=== PATIENT | female | born 1965 | race Caucasian/White ===

== ENCOUNTER → 2017-08-05 08:48 | Outpatient (POV) | payer BC, SELFPAY ==
--- NOTE | 2017-08-05 09:38 | XR_ITS ---
XR chest 2V HISTORY: Shortness of air, previous smoker ITS.REASON: SHORTNESS OF BREATH ORDERING PHYSICIAN: Daniel Kent MD PATIENT AGE: 51 years COMPARISON: 12/04/2015 FINDINGS: The cardiomediastinal silhouette and pulmonary vascularity are within normal limits. The lungs are clear without infiltrates, suspicious nodules, or pleural effusions. Calcified granuloma is present in the right midlung No acute bony abnormalities. IMPRESSION: No change with no acute finding.
== END ==
PROVIDERS: PCP Internal Medicine Adolescent Medicine; Visit Provider Internal Medicine
DX: R06.02 Shortness of breath (principal)
CPT/HCPCS: 71046

== ENCOUNTER → 2017-12-10 09:28 | Outpatient (CLI) | payer BC, SELFPAY ==
[2017-12-10 10:04] LABS: Basophils # 0.1 K/mm3 (0-0.2); Basophils % 0.8 % (0.1-2.0); Eosinophils # 0.2 K/mm3 (0.0-0.4); Eosinophils % 2.3 % (0.1-12.0); Hematocrit 42.5 % (37.0-47.0); Hemoglobin 14.1 g/dL (12.2-16.2); Lymphocytes # 1.9 K/mm3 (0.7-4.5); Lymphocytes % 23.7 K/mm3 (10-50); Mean Corpuscular HGB Conc 33.2 g/dL (31.8-35.4); Mean Corpuscular Hemoglobin 31.5 pg (27.0-31.2); Mean Corpuscular Volume 94.8 fl (81-99); Mean Platelet Volume 8.3 fl (7.4-10.4); Monocytes # 0.4 K/mm3 (0.1-1.0); Monocytes % 5.2 % (1.7-9.3); Neutrophils # 5.3 K/mm3 (1.8-7.8); Platelet Count 280 K/mm3 (142-424); Red Blood Count 4.48 M/mm3 (4.20-5.40); White Blood Count 7.9 K/mm3 (4.8-10.8)
[2017-12-10 13:31] LABS: Alanine Aminotransferase 15 U/L (12-78); Albumin Level 3.7 gm/dL (3.4-5.0); Albumin/Globulin Ratio 1.2 (1.1-1.8); Alkaline Phosphatase 59 U/L (46-116); Anion Gap 11.6 mEq/L (5-15); Aspartate Amino Transferase 15 U/L (15-37); Bilirubin,Total 0.5 mg/dL (0.2-1.0); Blood Urea Nitrogen 15 mg/dL (7-18); Calcium 8.7 mg/dL (8.5-10.1); Carbon Dioxide 26 mmol/L (21.0-32.0); Chloride 107 mmol/L (98-107); Chol/HDL Ratio 3.1 (1-3.5); Cholesterol 216 mg/dL (140-200); Estimated Glomerular Filt Rate 88 ml/min (>60); GFR (African American) 106 ML/MIN (>60); Glucose 84 mg/dL (74-106); HDL Cholesterol 69 mg/dL (29-89); LDL Cholesterol 128 mg/dL (0-130); Potassium 4.6 mmoL/L (3.5-5.1); Sodium 140 mmol/L (136-145); Total Protein,Serum 6.7 gm/dL (6.4-8.2); Triglycerides 97 mg/dL (30-200); VLDL Cholesterol 19 mg/dL (0-40)
[2017-12-11 15:21] LABS: Vitamin B12 151 pg/mL (232-1245)
== END ==
PROVIDERS: Visit Provider Nurse Practitioner Family
DX: Z00.00 Encounter for general adult medical examination without abnormal findings (principal); E53.8 Deficiency of other specified B group vitamins
CPT/HCPCS: 36415; 80053; 80061; 82607; 85025

== ENCOUNTER → 2018-01-20 08:56 | Outpatient (POV) | payer BC, SELFPAY | PROVIDERS: Visit Provider Internal Medicine | DX: Z00.00 Encounter for general adult medical examination without abnormal findings (principal) ==

== ENCOUNTER → 2018-03-13 15:14 | Outpatient (CLI) | payer BC, SELFPAY ==
[2018-03-13 16:54] LABS: Alanine Aminotransferase 20 U/L (12-78); Albumin Level 3.6 gm/dL (3.4-5.0); Albumin/Globulin Ratio 1.2 (1.1-1.8); Alkaline Phosphatase 73 U/L (46-116); Anion Gap 14.4 mEq/L (5-15); Aspartate Amino Transferase 17 U/L (15-37); Bilirubin,Total 0.2 mg/dL (0.2-1.0); Blood Urea Nitrogen 20 mg/dL (7-18); Calcium 8.8 mg/dL (8.5-10.1); Carbon Dioxide 25 mmol/L (21.0-32.0); Chloride 106 mmol/L (98-107); Chol/HDL Ratio 4.6 (1-3.5); Cholesterol 255 mg/dL (140-200); Creatinine,Serum 0.73 mg/dL (0.55-1.02); Estimated Glomerular Filt Rate 83 ml/min (>60); GFR (African American) 101 ML/MIN (>60); Globulin 3.1 gm/dl (1.3-3.2); Glucose 96 mg/dL (74-106); HDL Cholesterol 56 mg/dL (29-89); LDL Cholesterol 168 mg/dL (0-130); Potassium 4.4 mmoL/L (3.5-5.1); Sodium 141 mmol/L (136-145); Total Protein,Serum 6.7 gm/dL (6.4-8.2); Triglycerides 155 mg/dL (30-200); VLDL Cholesterol 31 mg/dL (0-40)
[2018-03-15 17:21] LABS: Vitamin B12 477 pg/mL (232-1245)
== END ==
PROVIDERS: Visit Provider Internal Medicine Adolescent Medicine
DX: Z00.00 Encounter for general adult medical examination without abnormal findings (principal); E53.8 Deficiency of other specified B group vitamins
CPT/HCPCS: 36415; 80053; 80061; 82607

== ENCOUNTER → 2018-09-24 08:59 | Outpatient (CLI) | payer BC, SELFPAY ==
[2018-09-24 09:39] LABS: Basophils # 0.1 K/mm3 (0-0.2); Basophils % 0.8 % (0.1-2.0); Eosinophils # 0.1 K/mm3 (0.0-0.4); Eosinophils % 0.7 % (0.1-12.0); Hematocrit 41.4 % (37.0-47.0); Hemoglobin 13.4 g/dL (12.2-16.2); Lymphocytes # 1.8 K/mm3 (0.7-4.5); Lymphocytes % 22.6 % (10-50); Mean Corpuscular HGB Conc 32.5 g/dL (31.8-35.4); Mean Corpuscular Volume 95.6 fl (81-99); Monocytes # 0.4 K/mm3 (0.1-1.0); Monocytes % 4.8 % (1.7-9.3); Neutrophils # 5.8 K/mm3 (1.8-7.8); Neutrophils % 71.1 % (37.0-80.0); Platelet Count 249 K/mm3 (142-424); Red Blood Count 4.33 M/mm3 (4.20-5.40); Red Cell Distribution Width 13.1 % (11.5-17.5); White Blood Count 8.1 K/mm3 (4.8-10.8)
[2018-09-24 11:04] LABS: Alanine Aminotransferase 14 U/L (12-78); Albumin Level 3.6 gm/dL (3.4-5.0); Albumin/Globulin Ratio 1.2 (1.1-1.8); Alkaline Phosphatase 55 U/L (46-116); Anion Gap 16.1 mEq/L (5-15); Aspartate Amino Transferase 12 U/L (15-37); Bilirubin,Total 0.4 mg/dL (0.2-1.0); Blood Urea Nitrogen 12 mg/dL (7-18); Calcium 8.6 mg/dL (8.5-10.1); Carbon Dioxide 23 mmol/L (21.0-32.0); Chloride 105 mmol/L (98-107); Chol/HDL Ratio 2.6 (1-3.5); Cholesterol 159 mg/dL (140-200); Creatinine,Serum 0.74 mg/dL (0.55-1.02); Estimated Glomerular Filt Rate 82 ml/min (>60); GFR (African American) 99 ML/MIN (>60); Glucose 81 mg/dL (74-106); HDL Cholesterol 61 mg/dL (29-89); LDL Cholesterol 80 mg/dL (0-130); Potassium 4.1 mmoL/L (3.5-5.1); Sodium 140 mmol/L (136-145); Thyroid Stimulating Hormone 1.05 uIU/ml (0.358-3.740); Total Protein,Serum 6.6 gm/dL (6.4-8.2); Triglycerides 90 mg/dL (30-200); VLDL Cholesterol 18 mg/dL (0-40)
[2018-09-25 18:05] LABS: Vitamin B12 279 pg/mL (232-1245)
== END ==
PROVIDERS: Visit Provider Nurse Practitioner Family
DX: E78.00 Pure hypercholesterolemia, unspecified (principal); I10 Essential (primary) hypertension; R53.81 Other malaise; E53.8 Deficiency of other specified B group vitamins
CPT/HCPCS: 36415; 80053; 80061; 82607; 84443; 85025

== ENCOUNTER → 2018-11-03 09:14 | Outpatient (POV) | payer BC, SELFPAY ==
--- NOTE | 2018-11-03 10:19 | XR_ITS ---
PROCEDURE: XR CHEST 2V CLINICAL HISTORY: SOB Shortness of breath, former smoker, COPD COMPARISON: CXR2V XR chest 2V from 08/05/2017 FINDINGS: The cardiomediastinal silhouette and pulmonary vascularity are within normal limits. Calcified granuloma is present in the right upper lobe. There is a mild pectus deformity with some silhouetting out of the right heart border. No lobar consolidation or collapse. No acute bony abnormalities. IMPRESSION: No change with no acute finding Dictated by: Elfego Ansari MD 11/03/2018 11:23 Electronically signed by Elfego Ansari MD in [place] 11/03/2018 11:23
== END ==
PROVIDERS: PCP Nurse Practitioner Family; Visit Provider Internal Medicine
DX: R06.02 Shortness of breath (principal)
CPT/HCPCS: 71046

== ENCOUNTER → 2019-03-10 13:14 | Outpatient (CLI) | payer BC, SELFPAY ==
--- NOTE | 2019-03-10 13:21 | US_ITS ---
PROCEDURE: US THYROID CLINICAL INDICATION: THYROGEGALY,THYROID NODULE Follow-up thyroid nodules COMPARISON: THY US THYROID from 09/12/2014 FINDINGS: The right lobe is 4.4 x 1.3 x 2.3 cm. There is a 5 mm hypoechoic nodule in the mid aspect. A subtle hypoechoic nodules present in the mid aspect at 3 mm. A 5 mm cyst is present in the lower pole. The left lobe is 4.6 x 1.2 x 1.6 cm. A 5 mm hypoechoic nodules present in the upper pole and a 7 mm by 8 mm hypoechoic nodule in the lower pole. These are unchanged. No new nodules are evident. IMPRESSION: Thyromegaly with bilateral thyroid nodules which are stable Dictated by: Elfego Ansari MD 03/10/2019 16:42 Electronically signed by Elfego Ansari MD in [place] 03/10/2019 16:42
== END ==
PROVIDERS: PCP Nurse Practitioner Family; Visit Provider Nurse Practitioner Family
DX: E01.0 Iodine-deficiency related diffuse (endemic) goiter (principal); E04.1 Nontoxic single thyroid nodule
CPT/HCPCS: 76536

== ENCOUNTER → 2019-07-01 16:42 | Outpatient (CLI) | payer BC, SELFPAY ==
--- NOTE | 2019-07-01 16:46 | XR_ITS ---
PROCEDURE: XR SACROILIAC JOINT BI MIN 3V CLINICAL INDICATION: INFLAMMATION OF RIGHT SI JOINT Pain in the right SI joint COMPARISON: No exams were available for comparison FINDINGS: No fracture or dislocation. There is mild sclerosis of the SI joints on both sides slightly greater on the right. No fusion or lytic or blastic change evident. IMPRESSION: Mild degenerative changes of the SI joints otherwise negative Dictated by: Elfego Ansari MD 07/01/2019 18:11 Electronically signed by Elfego Ansari MD in [place] 07/01/2019 18:11
== END ==
PROVIDERS: PCP Internal Medicine Adolescent Medicine; Visit Provider Nurse Practitioner Family
DX: M46.1 Sacroiliitis, not elsewhere classified (principal)
CPT/HCPCS: 72202

== ENCOUNTER 2020-01-20 10:16 | Emergency (ER) | payer BC, SELFPAY ==
--- NOTE | 2020-01-20 11:07 | HMH.EDUTC ---
[facility] [place] Clinical Impression: Exposure to COVID-19 virus Right knee pain Qualifiers: Chronicity: unspecified Qualified Code(s): M25.561 - Pain in right knee Disposition: Home, Self-Care Condition on Discharge: Good Instructions: DI for Knee Pain, Preventing the Spread of Coronavirus Discharge Instructions Additional Instructions: Drink plenty of fluids. Take tylenol or ibuprofen for pain or fever. Take the medications as directed. Follow up with your regular doctor. GO TO THE ER FOR ANY WORSENING SYMPTOMS Rest the extremity, Wear the latia wrap for compression, Elevate the extremity as tolerated while you are resting. Take ibuprofen for pain. I sent in a prescription to your pharmacy. Follow up with Dr. Contreras (orthopedics). I put in a referral but you need to call her office and schedule an appointment. Follow up with your regular doctor. GO TO THE ER FOR ANY WORSENING SYMPTOMS Prescriptions: Ibuprofen [Ibuprofen 600mg Tablet] 600 mg PO Q6HP PRN #30 tab PRN Reason: Mild Pain Transmission Status: Received by [facility] Referrals: Netta Trent APRN [Primary Care Provider] - Lisa Contreras MD [Physician] - Forms: Work/School Release Time of Disposition: 11:22 Medical Decision Making - Medical Records Medical records reviewed: No: I reviewed the patient's medical records. - Allan Inquiry Pt receiving controlled substance: No Vital Signs: 01/20/20 11:14 01/20/20 11:24 Temperature 97.7 F 97.7 F Temperature Source Oral Pulse Rate 78 Pulse Rate [Right Brachial] 78 Respiratory Rate 16 16 Blood Pressure 111/76 Blood Pressure [Right Arm] 111/76 Blood Pressure Mean [Right Arm] 87 Blood Pressure Source [Right Arm] Automatic Cuff Blood Pressure Position [Right Arm] Sitting 02 Sat by Pulse Oximetry 99 Oxygen Delivery Method Room Air [facility] [place] HPI - General Stated complaint: rt knee pain no AO, covid exposure Time Seen by Provider: 01/20/20 11:07 - History of Present Illness Provider Complaint: She c/o right knee pain for the past 3 days. She denies any known injury. She states that she thinks that she has arthritis. She would also like to be tested for covid-19. She denies any known exposure or symptoms. - Related Data Home Medications Medication Instructions Recorded Confirmed Aspirin [Aspirin 81mg EC Tab] 81 mg PO DAILY 01/20/20 01/20/20 Previous Rx's Medication Instructions Recorded Ibuprofen [Ibuprofen 600mg 600 mg PO Q6HP PRN #30 tab 01/20/20 Tablet] Allergies Allergy/AdvReac Type Severity Reaction Status Date / Time Penicillins Allergy Intermediate I-RASH Verified 01/20/20 11:18 Sulfa (Sulfonamide Allergy Verified 01/20/20 11:18 Antibiotics) [facility] History - Hepatitis A Screen Attestation statement:: This patient has been screened for Hepatitis A risk factors. I have reviewed the patient's past medical history: Yes ROS Obtained: Yes All systems reviewed & no additional complaints - Constitutional Constitutional: Denies chills, Denies fever(s), Reports poor appetite, Reports malaise - Eyes Eyes: Denies eye discharge - ENT Ears, Nose, Mouth, and Throat: Reports system reviewed and no additional complaints, except as docu - Cardiovascular Cardiovascular: Reports system reviewed and no additional complaints, except as docu - Respiratory Respiratory: Yes system reviewed and no additional complaints, except as docu - Gastrointestinal Gastrointestingal: Reports: system reviewed and no additional complaints, except as docu - Musculoskeletal Musculoskeletal: Reports as per HPI - Integumentary/Breasts Skin/Breast: Denies redness, Denies rash, Denies wounds Physical Exam - General General appearance: alert, in no apparent distress - Head Head exam: atraumatic, normocephalic, normal inspection - Eye Eye exam: Present: normal appearance, PERRL, EOMI - ENT ENT e
[2020-01-20 11:14] VITALS: BP 111/76; PULSE 78; RESP 16; TEMP 36.5; O2SAT 99; BMI 24.3
[2020-01-20 11:24] VITALS: BP 111/76; PULSE 78; RESP 16; TEMP 36.5; O2SAT 99
--- NOTE | 2020-01-22 15:45 | PC.NURSE ---
pt called for covid test results. when looking up results no orders were put in. lab was called and they stated they did not receive an order or swab. new order put in and pt is going to come back in to get re swabbed.
[2020-01-24 09:48] LABS: Covid-19 Nasal PCR Sendout UK Not Detected
== END 2020-01-20 11:30 | disposition home or self-care (01) ==
PROVIDERS: Emergency Provider Nurse Practitioner Family; PCP Nurse Practitioner Family
DX: Z20.828 Contact with and (suspected) exposure to other viral communicable diseases (principal); M25.561 Pain in right knee; Z88.0 Allergy status to penicillin; Z88.2 Allergy status to sulfonamides
CPT/HCPCS: 99201; U0003

== ENCOUNTER → 2020-01-27 12:26 | Outpatient (CLI) | payer BC, SELFPAY ==
--- NOTE | 2020-01-27 12:49 | XR_ITS ---
PROCEDURE: XR KNEE RT 3V CLINICAL INDICATION: RT KNEE PAIN Medial right knee pain COMPARISON: No exams were available for comparison FINDINGS: No fracture or dislocation. No lytic or blastic change. There is normal mineralization. Minimal osteoarthritic change patellofemoral joint. Other findings:None. IMPRESSION: No acute findings. Dictated by: Elfego Ansari MD 01/27/2020 13:20 Elfego Ansari MD in [place] 01/27/2020 13:20
[2020-01-27 12:57] LABS: Basophils # 0.1 K/mm3 (0-0.2); Basophils % 1.1 % (0.1-2.0); Eosinophils # 0.1 K/mm3 (0.0-0.4); Eosinophils % 1.3 % (0.1-12.0); Hematocrit 48.3 % (37.0-47.0); Hemoglobin 16.2 g/dL (12.2-16.2); Lymphocytes # 2.2 K/mm3 (0.7-4.5); Lymphocytes % 32.8 % (10-50); Mean Corpuscular HGB Conc 33.5 g/dL (31.8-35.4); Mean Corpuscular Hemoglobin 32.2 pg (27.0-31.2); Mean Platelet Volume 8.3 fl (7.4-10.4); Monocytes # 0.3 K/mm3 (0.1-1.0); Monocytes % 4.7 % (1.7-9.3); Neutrophils # 4.1 K/mm3 (1.8-7.8); Neutrophils % 60.1 % (37.0-80.0); Platelet Count 273 K/mm3 (142-424); Red Blood Count 5.03 M/mm3 (4.20-5.40); Red Cell Distribution Width 13.8 % (11.5-17.5); White Blood Count 6.8 K/mm3 (4.8-10.8)
[2020-01-27 13:33] LABS: Alanine Aminotransferase 13 U/L (12-78); Albumin Level 4.7 g/dl (3.5-5.0); Albumin/Globulin Ratio 1.6 (1.1-1.8); Alkaline Phosphatase 89 U/L (38-126); Anion Gap 11.6 mEq/L (5-15); Aspartate Amino Transferase 26 U/L (14-36); Bilirubin,Total 0.6 mg/dl (0.2-1.3); Blood Urea Nitrogen 12 mg/dl (7-17); Calcium 9.9 mg/dl (8.4-10.2); Carbon Dioxide 26 mmol/L (22.0-30.0); Chloride 106 mmol/L (98-107); Chol/HDL Ratio 2.9 (1-3.5); Cholesterol 249 mg/dl (140-200); Estimated Glomerular Filt Rate 87 ml/min (>60); GFR (African American) 105 ML/MIN (>60); Globulin 2.9 g/dL (1.3-3.2); Glucose 94 mg/dl (74-100); HDL Cholesterol 86 mg/dl (40-60); Potassium 4.6 mmoL/L (3.5-5.1); Sodium 139 mmol/L (136-145); Total Protein,Serum 7.6 g/dl (6.3-8.2); Triglycerides 72 mg/dl (30-150); VLDL Cholesterol 14 mg/dL (0-40)
[2020-01-27 13:51] LABS: 25-OH Vitamin D, Total 18.5 ng/mL (30-100)
[2020-01-27 14:04] LABS: Thyroid Stimulating Hormone 1.13 uIU/mL (0.465-4.68)
[2020-01-27 14:22] LABS: Vitamin B12 261 pg/mL (239-931)
== END ==
PROVIDERS: PCP Nurse Practitioner Family; Visit Provider Nurse Practitioner Family
DX: M25.561 Pain in right knee (principal)
CPT/HCPCS: 36415; 73562; 80053; 80061; 82306; 82607; 84443; 85025

== ENCOUNTER → 2020-03-06 08:58 | Outpatient (CLI) | payer BC, SELFPAY ==
--- NOTE | 2020-03-06 09:08 | XR_ITS ---
PROCEDURE: XR KNEE RT 4V CLINICAL INDICATION: RT knee pain Pain and swelling COMPARISON: CR XR KNEE RT 3V from 01/27/2020 FINDINGS: There is minimal lateral subluxation of the patella. Suspect a small suprapatellar effusion. A well-circumscribed calcific density is present along the dorsal and superior aspect of the patella measuring 4 mm consistent with a small loose body. There are minimal osteoarthritic changes at patellofemoral joint. Other findings:None. IMPRESSION: Minimal osteoarthritic change at the patellofemoral joint with minimal lateral patellar subluxation and suspected small loose body along the superior aspect of the patella with small suprapatellar effusion Dictated by: Elfego Ansari MD 03/06/2020 18:16 Elfego Ansari MD in [place] 03/06/2020 18:16
== END ==
PROVIDERS: PCP Internal Medicine Adolescent Medicine; Visit Provider Orthopaedic Surgery
DX: M25.561 Pain in right knee (principal)
CPT/HCPCS: 73564

== ENCOUNTER → 2020-03-24 14:40 | Outpatient (CLI) | payer BC, SELFPAY | PROVIDERS: PCP Nurse Practitioner Family; Visit Provider Internal Medicine Adolescent Medicine | DX: Z20.822 Contact with and (suspected) exposure to COVID-19 (principal) | CPT/HCPCS: U0003 ==

== ENCOUNTER → 2020-04-08 10:43 | Outpatient (CLI) | payer BC, SELFPAY ==
--- NOTE | 2020-04-08 10:53 | XR_ITS ---
PROCEDURE: XR CHEST 2V CLINICAL HISTORY: COPD COMPARISON: CT [facility] CT CHEST W/O CONTRAST from 05/03/2015 CR CXR CHEST(2 VIEWS-NOT PORTABLE) from 12/04/2015 DX CXR2V XR chest 2V from 08/05/2017 DX XR CHEST 2V from 11/03/2018 FINDINGS: The cardiomediastinal silhouette and pulmonary vascularity are within normal limits. The lungs are clear without infiltrates, suspicious nodules, or pleural effusions. No acute bony abnormalities. IMPRESSION: No change with no acute finding Dictated by: Elfego Ansari MD 04/08/2020 13:49 Elfego Ansari MD in [place] 04/08/2020 13:49
[2020-04-08 11:43] LABS: Basophils # 0.1 K/mm3 (0-0.2); Basophils % 1.1 % (0.1-2.0); Eosinophils # 0.2 K/mm3 (0.0-0.4); Eosinophils % 3.7 % (0.1-12.0); Hematocrit 45.2 % (37.0-47.0); Hemoglobin 14.8 g/dL (12.2-16.2); Lymphocytes # 2.1 K/mm3 (0.7-4.5); Lymphocytes % 32.5 % (10-50); Mean Corpuscular HGB Conc 32.7 g/dL (31.8-35.4); Mean Corpuscular Hemoglobin 31.3 pg (27.0-31.2); Mean Corpuscular Volume 95.7 fl (81-99); Mean Platelet Volume 8.6 fl (7.4-10.4); Monocytes # 0.4 K/mm3 (0.1-1.0); Monocytes % 5.8 % (1.7-9.3); Neutrophils # 3.7 K/mm3 (1.8-7.8); Neutrophils % 56.9 % (37.0-80.0); Platelet Count 282 K/mm3 (142-424); Red Blood Count 4.72 M/mm3 (4.20-5.40); Red Cell Distribution Width 13.6 % (11.5-17.5); White Blood Count 6.5 K/mm3 (4.8-10.8)
[2020-04-08 12:27] LABS: 25-OH Vitamin D, Total 23.9 ng/mL (30-100)
[2020-04-08 13:03] LABS: Vitamin B12 601 pg/mL (239-931)
== END ==
PROVIDERS: Visit Provider Nurse Practitioner Family
DX: J44.9 Chronic obstructive pulmonary disease, unspecified (principal); E55.9 Vitamin D deficiency, unspecified; E53.8 Deficiency of other specified B group vitamins
CPT/HCPCS: 36415; 71046; 82306; 82607; 85025

== ENCOUNTER → 2020-05-19 10:46 | Outpatient (CLI) | payer BC, SELFPAY ==
--- NOTE | 2020-05-19 11:05 | US_ITS ---
PROCEDURE: US THYROID CLINICAL INDICATION: THYROID NODULE Sob Thyroid enlargement COMPARISON: US THY US THYROID from 09/12/2014 US US THYROID from 03/10/2019 FINDINGS: Right lobe: 1.6cm x 4.7cm x 2.3cm Left lobe: 1.2cm x 4.5cm x 1.7cm Small heterogeneous nodule mid polar region on the right at 3 mm unchanged. Hypoechoic 7 mm nodule in the mid polar region not significantly changed. Partially cystic nodule lower pole at 4 mm unchanged. 3 mm hypoechoic nodule mid polar region on the left unchanged. 6 mm solid-appearing hypoechoic nodule mid polar region on the left unchanged. Solid nodule in the lower pole with peripheral decreased echogenicity and central isoechoic unchanged. IMPRESSION: Mildly enlarged thyroid gland with multiple bilateral nodules which are overall not significantly changed. Annual follow-up suggested Dictated by: Elfego Ansari MD 05/20/2020 12:58 Elfego Ansari MD in [place] 05/20/2020 12:58
== END ==
PROVIDERS: PCP Nurse Practitioner Family; Visit Provider Nurse Practitioner Family
DX: E04.1 Nontoxic single thyroid nodule (principal)
CPT/HCPCS: 76536

== ENCOUNTER → 2020-10-07 08:56 | Outpatient (CLI) | payer BC, SELFPAY ==
[2020-10-07 11:14] LABS: Basophils # 0.1 K/mm3 (0-0.2); Basophils % 1.6 % (0.1-2.0); Eosinophils # 0.1 K/mm3 (0.0-0.4); Eosinophils % 2.4 % (0.1-12.0); Hematocrit 43.5 % (37.0-47.0); Hemoglobin 13.9 g/dL (12.2-16.2); Lymphocytes # 1.6 K/mm3 (0.7-4.5); Mean Corpuscular Hemoglobin 31.2 pg (27.0-31.2); Mean Corpuscular Volume 97.5 fl (81-99); Mean Platelet Volume 9.3 fl (7.4-10.4); Monocytes # 0.3 K/mm3 (0.1-1.0); Monocytes % 5.5 % (1.7-9.3); Neutrophils # 3.7 K/mm3 (1.8-7.8); Neutrophils % 62.5 % (37.0-80.0); Platelet Count 257 K/mm3 (142-424); Red Blood Count 4.46 M/mm3 (4.20-5.40); Red Cell Distribution Width 13.5 % (11.5-17.5); White Blood Count 5.8 K/mm3 (4.8-10.8)
[2020-10-07 14:20] LABS: Chloride 111 mmol/L (98-107); Potassium 4.5 mmoL/L (3.5-5.1); Sodium 141 mmol/L (136-145)
[2020-10-07 14:22] LABS: Alanine Aminotransferase 9 U/L (12-78); Aspartate Amino Transferase 23 U/L (14-36); Blood Urea Nitrogen 17 mg/dl (7-17); Estimated Glomerular Filt Rate 87 ml/min (>60); GFR (African American) 105 ML/MIN (>60)
[2020-10-07 14:23] LABS: Albumin Level 3.8 g/dl (3.5-5.0); Albumin/Globulin Ratio 1.5 (1.1-1.8); Alkaline Phosphatase 77 U/L (38-126); Anion Gap 11.5 mEq/L (5-15); Bilirubin,Total 0.5 mg/dl (0.2-1.3); Calcium 8.8 mg/dl (8.4-10.2); Carbon Dioxide 23 mmol/L (22.0-30.0); Chol/HDL Ratio 3.2 (1-3.5); Cholesterol 209 mg/dl (140-200); Globulin 2.5 g/dL (1.3-3.2); Glucose 76 mg/dl (74-100); HDL Cholesterol 65 mg/dl (40-60); Total Protein,Serum 6.3 g/dl (6.3-8.2); Triglycerides 63 mg/dl (30-150); VLDL Cholesterol 13 mg/dL (0-40)
[2020-10-07 14:34] LABS: Direct LDL Cholesterol 108.22 mg/dL (100-129)
[2020-10-07 14:52] LABS: Thyroid Stimulating Hormone 0.76 uIU/mL (0.465-4.68)
[2020-10-07 15:59] LABS: Vitamin B12 274 pg/mL (239-931)
== END ==
PROVIDERS: Visit Provider Nurse Practitioner Family
DX: E78.00 Pure hypercholesterolemia, unspecified (principal); E04.1 Nontoxic single thyroid nodule; E53.8 Deficiency of other specified B group vitamins; E55.9 Vitamin D deficiency, unspecified
CPT/HCPCS: 36415; 80053; 80061; 82306; 82607; 84443; 85025

== ENCOUNTER → 2021-08-24 07:48 | Outpatient (CLI) | payer BC, SELFPAY ==
--- NOTE | 2021-08-24 08:04 | XR_ITS ---
FINAL REPORT TECHNIQUE: Chest PA & Lateral CLINICAL HISTORY: SOB COMPARISON: April 08, 2020 FINDINGS: 2 views of the chest were performed. The heart size is normal. The mediastinum is within normal limits. There are mild chronic changes at the lung bases. There is no acute cardiopulmonary process. There are no pleural effusions. There is no pneumothorax. The bony thorax appears intact. IMPRESSION: No acute cardiopulmonary process. Reviewed, Interpreted and Dictated by Pierre Hardin MD Transcribed by Yordan Hillman Authenticated and [facility]
--- NOTE | 2021-08-24 08:04 | XR_ITS ---
FINAL REPORT CLINICAL HISTORY: LOW BACK PAIN COMPARISON: July 01, 2019 FINDINGS: SACROILIAC JOINTS Three views demonstrate no acute fracture or dislocation. The sacral arches are intact. The joint spaces appear normal. No soft tissue abnormality is seen. IMPRESSION: No acute bony abnormality. Reviewed, Interpreted and Dictated by Pierre Hardin MD Transcribed by Yordan Hillman Authenticated and [facility]
[2021-08-24 09:12] LABS: Basophils # 0.1 K/mm3 (0-0.2); Basophils % 2.1 % (0.1-2.0); Eosinophils # 0.2 K/mm3 (0.0-0.4); Eosinophils % 2.9 % (0.1-12.0); Hematocrit 44.5 % (37.0-47.0); Hemoglobin 14.6 g/dL (12.2-16.2); Lymphocytes # 1.9 K/mm3 (0.7-4.5); Lymphocytes % 32.5 % (10-50); Mean Corpuscular HGB Conc 32.8 g/dL (31.8-35.4); Mean Corpuscular Hemoglobin 31.9 pg (27.0-31.2); Mean Corpuscular Volume 97.2 fl (81-99); Mean Platelet Volume 8.5 fl (7.4-10.4); Monocytes # 0.4 K/mm3 (0.1-1.0); Monocytes % 6.1 % (1.7-9.3); Neutrophils # 3.3 K/mm3 (1.8-7.8); Neutrophils % 56.4 % (37.0-80.0); Platelet Count 257 K/mm3 (142-424); Red Blood Count 4.58 M/mm3 (4.20-5.40); Red Cell Distribution Width 13.6 % (11.5-17.5); White Blood Count 5.9 K/mm3 (4.8-10.8)
[2021-08-24 09:30] LABS: Chloride 110 mmol/L (98-107); Potassium 4.3 mmoL/L (3.5-5.1); Sodium 139 mmol/L (136-145)
[2021-08-24 09:33] LABS: Alanine Aminotransferase 13 U/L (12-78); Albumin Level 4.3 g/dl (3.5-5.0); Albumin/Globulin Ratio 1.9 (1.1-1.8); Alkaline Phosphatase 75 U/L (38-126); Anion Gap 6.3 mEq/L (5-15); Aspartate Amino Transferase 26 U/L (14-36); Bilirubin,Total 0.5 mg/dl (0.2-1.3); Blood Urea Nitrogen 15 mg/dl (7-17); Carbon Dioxide 27 mmol/L (22.0-30.0); Cholesterol 245 mg/dl (140-200); Estimated Glomerular Filt Rate 87 ml/min (>60); GFR (African American) 105 ML/MIN (>60); Globulin 2.3 g/dL (1.3-3.2); Total Protein,Serum 6.6 g/dl (6.3-8.2); Triglycerides 78 mg/dl (30-150); VLDL Cholesterol 16 mg/dL (0-40)
[2021-08-24 09:34] LABS: Calcium 9.3 mg/dl (8.4-10.2); Chol/HDL Ratio 3.7 (1-3.5); Glucose 98 mg/dl (74-100); HDL Cholesterol 66 mg/dl (40-60)
[2021-08-24 09:45] LABS: Direct LDL Cholesterol 137.44 mg/dL (100-129)
[2021-08-24 10:05] LABS: Thyroid Stimulating Hormone 1.29 uIU/mL (0.465-4.68)
[2021-08-24 10:19] LABS: 25-OH Vitamin D, Total 29.1 ng/mL (30-100)
[2021-08-24 10:57] LABS: Vitamin B12 879 pg/mL (239-931)
== END ==
PROVIDERS: PCP Nurse Practitioner Family; Visit Provider Nurse Practitioner Family
DX: M54.50 Low back pain, unspecified (principal); M53.3 Sacrococcygeal disorders, not elsewhere classified; R06.02 Shortness of breath; I10 Essential (primary) hypertension; E78.00 Pure hypercholesterolemia, unspecified; E04.1 Nontoxic single thyroid nodule; E53.8 Deficiency of other specified B group vitamins; E55.9 Vitamin D deficiency, unspecified
CPT/HCPCS: 36415; 71046; 72202; 80053; 80061; 82306; 82607; 84443; 85025

== ENCOUNTER → 2021-08-29 12:30 | Outpatient (CLI) | payer BC, SELFPAY ==
--- NOTE | 2021-08-29 12:40 | US_ITS ---
FINAL REPORT CLINICAL HISTORY: THYROID NODULE COMPARISON: 05/19/2020 FINDINGS: Sonographic images of the thyroid were obtained. The right lobe of the thyroid measures 4.8 x 1.4 x 2.6 cm. The left lobe of the thyroid measures 4.8 x 1.2 x 1.6 cm. The isthmus measures 0.38 cm. In the right lobe of the thyroid, there is a 3 x 3 x 2 mm solid, isoechoic nodule consistent with TI-RADS category 3. There is a 2nd nodule measuring 8 x 7 x 5 mm which is solid and hypoechoic consistent with TI-RADS category 4. There is a 3rd nodule measuring 7 x 7 x 5 mm which is mostly cystic consistent with TI-RADS category 1. This nodule is slightly larger as compared to previous. In the left lobe of the thyroid, there is a 10 x 8 x 7 mm solid, hypoechoic nodule which appears stable. IMPRESSION: Thyroid nodules as detailed above. Most are stable however 1 nodule in the right lobe of the thyroid is slightly larger. Findings are most likely benign. If indicated, consider follow-up in 12 months. Reviewed, Interpreted and Dictated by Joshua Coleman III, MD Transcribed by Maura Chacon Authenticated and [facility]
== END ==
PROVIDERS: PCP Nurse Practitioner Family; Visit Provider Nurse Practitioner Family
DX: E04.1 Nontoxic single thyroid nodule (principal)
CPT/HCPCS: 76536

== ENCOUNTER → 2021-09-19 06:48 | Outpatient (CLI) | payer BC, SELFPAY ==
--- NOTE | 2021-09-19 | CA_ITS ---
APPROVED REPORT Exam: Pharmacologic Technologist: Jocelyne Griffith, Ht: 5 ft 10 in Wt: 197 lbs BSA: 2.07 m2 HR: 65 bpm BP: 120/75 mmHg Rhythm: nsr,slow r wave progression,ns st abnormalities inferiorly Indications: cp/soa Medical History Medications: Asa,,,,, Escitalopram,,,,, Estradiol,,,,, D2,,,,, Cardiac Risk Factors: FHX of CAD Stress Test Details Test: LEXISCAN HR Resting HR: 66 bpm Max Heart Rate (APMHR): 164.413638 bpm Max HR Achieved: 124 bpm Target HR (85% APMHR): 139.712995 bpm % of APMHR: 75.61 BP Resting BP: 120/75 mmHg Max BP: 142/80 mmHg Recovery BP: 125.0/75.0 mmHg ECG Resting ECG: NSR,SLOW R WAVE PROGRESSION,NS ST ABNORMALITIES INFERIORLY Clinical Exercise duration: 04:01 min Highest Stage Achieved: Exercise capacity: 1.0 METs Stress ECG Conclusion PT HAD SOA, STOMACH DISCOMFORT. NO CP. NO SIGNIFICANT CHANGES. UNREMARKABLE LEXISCAN STRESS. MYOVIEW IMAGES REPORTED SEPARATELY. Electronically signed by : Evangelist Winston MD 09/20/2021 06:19:55
--- NOTE | 2021-09-19 06:55 | NM_ITS ---
APPROVED REPORT Exam: Nuclear Stress Test Indication: Chest pain, SOB, Former tobacco use, Family history Patient Location: Outpatient Stress Tech: Jocelyne Griffith [place] Tech:Kirti Garcia, ARRT, RT (R)(N) Ht: 5 ft 10 in Wt: 190 lbs Bra Size: 36D HR: 66 bpm BP: 120/75 mmHg BSA: 2.04 m2 TID: 1.31 BMI: 27.2 History: Chest pain, SOB, Former tobacco use, Family history Procedure: Patient received a 0.4 mg of intravenous Lexiscan, resting heart rate 66 bpm, resting blood pressure 120/75 mmHg, with Lexiscan maximum heart rate achived was 124 bpm which is Less than 85 % of the maximum predicted heart rate and blood pressure was 142/80 mmHg. With Lexiscan, patient denied any complaint of chest pain. Electrocardiogram Resting electrocardiogram shows sinus rhythm poor R wave progression, with Lexiscan there is less than 1.[address] segment depression noted from the baseline EKG. The EKG portion of the Lexiscan is nondiagnostic. Cardiac Stress and Resting SPECT Images: Cardiac Stress and Resting SPECT images were obtained using technetium 99m Myoview 30.2 mCi stress and 10.89 mCi at rest. Gated SPECT for analysis of segmental wall motion and calculation of the ejection fraction also done. Prone images were also obtained. Cardiac stress and rest SPECT images show a reversible defect in the inferior wall with perfusion of the apex being normal is likely secondary to soft tissue attenuation, however there is transient ischemic dilatation of the left ventricle seen, raising the concerns for presence of balanced ischemia. Computer derived ejection fraction is 58% with no regional wall motion abnormality, right ventricle is normal size and contractility. Conclusion: 1. The EKG portion of the Lexiscan is nondiagnostic. 2. Reversible defect in anterior wall with the perfusion of the apex being normal is likely secondary to soft tissue attenuation, computer derived ejection fraction is 58% with no regional wall motion abnormality, right ventricle is normal size and contractility, however there is transient ischemic dilation of the left ventricle seen, examined of presence of balanced ischemia or multivessel coronary artery disease. 3. Abnormal Lexiscan Myoview study. Electronically signed by : Evangelist Winston MD 09/20/2021 06:23:58
--- NOTE | 2021-09-19 08:50 | HMH.ITSHM ---
Current Home Medications as stated by this patient Dilcia Mai or account service representative. []MESALAMINE MEDROXYPROGESTERONE ESTRADIOL ESCITALOPRAM VITAMIN D2 ASA
== END ==
PROVIDERS: PCP Nurse Practitioner Family; Visit Provider Nurse Practitioner Family
DX: R07.9 Chest pain, unspecified (principal)
CPT/HCPCS: 78452; 93017; A9502; J2785

== ENCOUNTER → 2021-09-28 10:19 | Outpatient (CLI) | payer BC, SELFPAY ==
--- NOTE | 2021-09-28 10:29 | US_ITS ---
FINAL REPORT CLINICAL HISTORY: CLAUDICATION BILATERAL, REST PAIN BILATERAL, EX SMOKER FINDINGS: ANKLE/BRACHIAL INDICES FINDINGS: Pressure indices are as follows: RIGHT LOWER EXTREMITY: Ankle brachial pressure index: 1.1 Comments: Normal LEFT LOWER EXTREMITY: Ankle brachial pressure index: 1.1 Comments: Normal IMPRESSION: No evidence of significant obstructive peripheral vascular disease of the lower extremities. Reviewed, Interpreted and Dictated by Joshua Coleman III, MD Transcribed by Yordan Hillman Authenticated and [facility]
== END ==
PROVIDERS: PCP Nurse Practitioner Family; Visit Provider Nurse Practitioner
DX: R06.00 Dyspnea, unspecified (principal); I70.213 Atherosclerosis of native arteries of extremities with intermittent claudication, bilateral legs; R94.30 Abnormal result of cardiovascular function study, unspecified; I20.8 Other forms of angina pectoris; R94.31 Abnormal electrocardiogram [ECG] [EKG]; Z87.891 Personal history of nicotine dependence
CPT/HCPCS: 93923

== ENCOUNTER → 2021-09-29 10:15 | Outpatient (CLI) | payer BC, SELFPAY ==
[2021-09-29 11:10] LABS: Basophils # 0.1 K/mm3 (0-0.2); Basophils % 1.7 % (0.1-2.0); Eosinophils # 0.2 K/mm3 (0.0-0.4); Eosinophils % 2.4 % (0.1-12.0); Hematocrit 47.1 % (37.0-47.0); Hemoglobin 14.4 g/dL (12.2-16.2); Lymphocytes # 1.9 K/mm3 (0.7-4.5); Lymphocytes % 28.4 % (10-50); Mean Corpuscular HGB Conc 30.7 g/dL (31.8-35.4); Mean Corpuscular Hemoglobin 30.4 pg (27.0-31.2); Mean Platelet Volume 8.9 fl (7.4-10.4); Monocytes # 0.4 K/mm3 (0.1-1.0); Monocytes % 6.5 % (1.7-9.3); Platelet Count 300 K/mm3 (142-424); Red Blood Count 4.75 M/mm3 (4.20-5.40); Red Cell Distribution Width 13.4 % (11.5-17.5); White Blood Count 6.5 K/mm3 (4.8-10.8)
[2021-09-29 11:33] LABS: Alanine Aminotransferase 14 U/L (12-78); Albumin Level 4.2 g/dl (3.5-5.0); Alkaline Phosphatase 86 U/L (38-126); Anion Gap 9.8 mEq/L (5-15); Aspartate Amino Transferase 25 U/L (14-36); Bilirubin,Direct 0.1 mg/dl (0.0-0.4); Bilirubin,Indirect 0.1 mg/dL (0.0-0.9); Bilirubin,Total 0.2 mg/dl (0.2-1.3); Bilirubin,Unconjugated 0.1 mg/dL (0.0-1.1); Blood Urea Nitrogen 12 mg/dl (7-17); Calcium 9.5 mg/dl (8.4-10.2); Carbon Dioxide 26 mmol/L (22.0-30.0); Chloride 108 mmol/L (98-107); Chol/HDL Ratio 3.4 (1-3.5); Cholesterol 241 mg/dl (140-200); Estimated Glomerular Filt Rate 87 ml/min (>60); GFR (African American) 105 ML/MIN (>60); Glucose 93 mg/dl (74-100); HDL Cholesterol 71 mg/dl (40-60); Magnesium 1.7 mg/dl (1.6-2.3); Potassium 4.8 mmoL/L (3.5-5.1); Sodium 139 mmol/L (136-145); Total Protein,Serum 6.7 g/dl (6.3-8.2); Triglycerides 90 mg/dl (30-150); VLDL Cholesterol 18 mg/dL (0-40)
[2021-09-29 11:49] LABS: Free T4 (Free Thyroxine) 0.92 ng/dl (0.78-2.19)
[2021-09-29 12:03] LABS: Thyroid Stimulating Hormone 0.91 uIU/mL (0.465-4.68)
[2021-09-30 12:45] LABS: Direct LDL Cholesterol 146 mg/dL (100-129)
== END ==
PROVIDERS: PCP Nurse Practitioner Family; Visit Provider Nurse Practitioner
DX: U07.1 COVID-19 (principal); R06.00 Dyspnea, unspecified; I20.9 Angina pectoris, unspecified; R94.30 Abnormal result of cardiovascular function study, unspecified; R94.31 Abnormal electrocardiogram [ECG] [EKG]
CPT/HCPCS: 36415; 80048; 80061; 80076; 83735; 84439; 84443; 85025; C9803; U0003; U0005

== ENCOUNTER 2021-10-08 07:45 | Day surgery (SDC) | payer BC, SELFPAY ==
[2021-10-08] VITALS (14 sets, daily range): BP systolic 114–166; BP diastolic 63–104; PULSE 59–96; RESP 17–20; TEMP 37; O2SAT 94–96; BMI 28.7
--- NOTE | 2021-10-08 | IR_ITS ---
APPROVED REPORT Patient Location: Outpatient Visual Lead: JESSICA Jean RT (R) PROCEDURES Left heart catheterization Left ventriculogram Selective coronary angiogram INDICATION High risk abnormal Myoview, Angina pectoris, Informed consent was obtained prior to the procedure. COMPLICATIONS NONE Estimated Blood Loss: LESS THAN 10 ML TECHNIQUE One percent lidocaine used to anesthetize the right anterior aspect of the wrist. The right radial artery was accessed via the Seldinger technique. A 6 Greek sheath was placed in the right radial artery. 2.5 mg of verapamil, 800 mcg of nitroglycerin, 1mg Lidocaine and 5000 U Heparin were given through the arterial sheath. The papa catheter was also used to perform left heart catheterization, left ventriculogram and selective coronary angiogram. At the end of the procedure the sheath was removed good hemostasis was achieved using Traclet band, patient was transferred to the postop holding area in stable condition. ANGIOGRAPHIC RESULTS The left main artery Normal The left anterior descending artery Normal The circumflex artery Normal The right coronary artery Dominant normal The FARR ventriculogram reveals Normal 65% The left ventricular end-diastolic pressure 10 mmHg IMPRESSION Normal coronary arteries Normal ejection fraction Normal left ventricular end-diastolic pressure PLAN 1. Evaluation of noncardiac symptoms Electronically signed by : Osbaldo Ruiz MD 10/08/2021 10:03:55
== END 2021-10-08 13:10 | disposition home or self-care (01) ==
LOC: CATHLAB 07:47
PROVIDERS: PCP Nurse Practitioner Family; Visit Provider Internal Medicine
DX: I25.118 Atherosclerotic heart disease of native coronary artery with other forms of angina pectoris (principal); Z79.899 Other long term (current) drug therapy; J44.9 Chronic obstructive pulmonary disease, unspecified
CPT/HCPCS: 93458; 99152; C1725; C1769; J1644; Q9967

== ENCOUNTER → 2021-10-24 13:37 | Outpatient (CLI) | payer BC, SELFPAY ==
--- NOTE | 2021-10-24 13:38 | CA_ITS ---
FINAL REPORT CLINICAL HISTORY: edema in BLE FINDINGS: Color Doppler, duplex Doppler and compression sonography of the bilateral lower extremities was performed. There is no evidence of deep venous thrombosis from the level of the groin to the calf. The deep veins are patent and compressible. IMPRESSION: No evidence of deep venous thrombosis bilateral lower extremities. Reviewed, Interpreted and Dictated by Joshua Coleman III, MD Transcribed by Yordan Hillman Authenticated and . [facility]
== END ==
LOC: RT 13:38
PROVIDERS: PCP Nurse Practitioner Family; Visit Provider Internal Medicine
DX: R60.0 Localized edema (principal); R94.31 Abnormal electrocardiogram [ECG] [EKG]
CPT/HCPCS: 93970

== ENCOUNTER → 2021-12-10 14:21 | Outpatient (CLI) | payer BC, SELFPAY ==
[2021-12-10 15:14] LABS: Basophils # 0.1 K/mm3 (0-0.2); Basophils % 1.4 % (0.1-2.0); Eosinophils # 0.2 K/mm3 (0.0-0.4); Eosinophils % 2.7 % (0.1-12.0); Hematocrit 45.1 % (37.0-47.0); Hemoglobin 14.5 g/dL (12.2-16.2); Lymphocytes # 2.4 K/mm3 (0.7-4.5); Lymphocytes % 34.8 % (10-50); Mean Corpuscular HGB Conc 32.2 g/dL (31.8-35.4); Mean Corpuscular Hemoglobin 30.6 pg (27.0-31.2); Mean Corpuscular Volume 94.8 fl (81-99); Mean Platelet Volume 8.8 fl (7.4-10.4); Monocytes # 0.5 K/mm3 (0.1-1.0); Monocytes % 6.6 % (1.7-9.3); Neutrophils # 3.7 K/mm3 (1.8-7.8); Neutrophils % 54.5 % (37.0-80.0); Platelet Count 319 K/mm3 (142-424); Red Blood Count 4.75 M/mm3 (4.20-5.40); Red Cell Distribution Width 13.6 % (11.5-17.5); White Blood Count 6.8 K/mm3 (4.8-10.8)
[2021-12-18 22:11] LABS: D001-IgE D pteronyssinus <0.10 kU/L (Class 0); D002-IgE D farinae <0.10 kU/L (Class 0); E001-IgE Cat Dander <0.10 kU/L (Class 0); E005-IgE Dog Dander <0.10 kU/L (Class 0); E072-IgE Mouse Urine <0.10 kU/L (Class 0); G002-IgE Bermuda Grass <0.10 kU/L (Class 0); G006-IgE Timothy Grass <0.10 kU/L (Class 0); I006-IgE Cockroach, German <0.10 kU/L (Class 0); Immunoglobulin E, Total 77 IU/mL (6-495); M001-IgE Penicillium chrysogen <0.10 kU/L (Class 0); M002-IgE Cladosporium herbarum <0.10 kU/L (Class 0); M003-IgE Aspergillus fumigatus <0.10 kU/L (Class 0); M006-IgE Alternaria alternata <0.10 kU/L (Class 0); T001-IgE Maple/Box Elder <0.10 kU/L (Class 0); T003-IgE Common Silver Birch <0.10 kU/L (Class 0); T006-IgE Cedar, Mountain <0.10 kU/L (Class 0); T007-IgE Oak, White <0.10 kU/L (Class 0); T008-IgE Elm, American <0.10 kU/L (Class 0); T010-IgE Walnut <0.10 kU/L (Class 0); T011-IgE Maple Leaf Sycamore <0.10 kU/L (Class 0); T014-IgE Cottonwood <0.10 kU/L (Class 0); T015-IgE Ash, White <0.10 kU/L (Class 0); T022-IgE Pecan, Hickory <0.10 kU/L (Class 0); T070-IgE White Mulberry <0.10 kU/L (Class 0); W001-IgE Ragweed, Short <0.10 kU/L (Class 0); W011-IgE Thistle, Russian <0.10 kU/L (Class 0); W014-IgE Pigweed, Common <0.10 kU/L (Class 0); W018-IgE Sheep Sorrel <0.10 kU/L (Class 0)
== END ==
PROVIDERS: PCP Nurse Practitioner Family; Visit Provider Internal Medicine Pulmonary Disease
DX: J45.909 Unspecified asthma, uncomplicated (principal); J30.9 Allergic rhinitis, unspecified
CPT/HCPCS: 36415; 82785; 85025; 86003

== ENCOUNTER → 2022-01-17 09:59 | Outpatient (CLI) | payer BC, SELFPAY ==
[2022-01-17 10:35] VITALS: PULSE 68
== END ==
LOC: RT 10:00
PROVIDERS: PCP Nurse Practitioner Family; Visit Provider Internal Medicine Pulmonary Disease
DX: R06.09 Other forms of dyspnea (principal)
CPT/HCPCS: 94060; 94618; 94640; 94727; 94729

== ENCOUNTER 2022-04-05 08:00 | Outpatient (RCR) | payer BC, SELFPAY ==
--- NOTE | 2022-03-22 11:08 | HMH.PTOPEV ---
PT Outpatient Evaluation Rehab PT Outpatient Evaluation Start: 03/22/22 08:11 Freq: Status: Active Protocol: Document 03/22/22 10:10 GM (Rec: 03/22/22 10:30 PHONANETTE [id number]) E-signed By Jet Mcgrath, PT Outpatient Therapy Subjective History Subjective History This is the initial PT eval for Dilcia Mai 56 yowf who presents with c/o chronic low back pain and R medial knee pain x ~ 1-2 yrs with insidious onset of symptoms. She reports aching pain in the low back, worse with bending, and burning pain in the medial R knee. She has no c/o numbness/tingling or radicular symptoms in either LE. She reports knee pain is worse with walking and sit/stand transfers. She incidentally noted increased LE edema for some time which is likely CVI related. Chief Complaint Pain,Stiff Symptom Type Ache,Sharp,Dull,Burning Symptoms Relieved By Rest/Positioning Symptoms Aggravated By Standing,Bending/Stooping, Physical Activity,Walking, Lifting Prior Functional Limitations None Current Functional Limitations Lifting,Housework,Standing, Recreation Activity,Walking, Bending/Stooping Symptom Description Constant but Variable Level of pain today (0-10) 7 Pain scale - at its worst (0-10) 10 Lumbopelvic Eval Accessory Movement L-spine Vertebrae Accessory Movements [employer] [place] that Elicit Symptoms L2 bilateral L3 bilateral L4 bilateral L5 bilateral S1 bilateral Range of Motion Lumbar Spine Active Flexion Range of 0-45 Motion (degrees) Lumbar Spine Active Extension Range of 0-10 Motion (degrees) Left Lumbar Spine Lateral Flexion Active 0-10 Range of Motion (degrees) Right Lumbar Spine Lateral Flexion 0-15 Active Range of Motion (degrees) Manual Muscle Test Bilateral Knee Extension Strength Grade 5 Normal Knee Flexion Strength Grade 5 Normal Hip Flexion Strength Grade 4 Good Hip Abduction Strength Grade 4 Good Hip Adduction Strength Grade 5 Normal Ankle Dorsiflexion Stren
== END 2022-05-03 08:05 | disposition home or self-care (01) ==
LOC: PT 08:00
PROVIDERS: PCP Nurse Practitioner Family; Visit Provider Nurse Practitioner Family
DX: M25.561 Pain in right knee (principal); M17.11 Unilateral primary osteoarthritis, right knee; M54.50 Low back pain, unspecified
CPT/HCPCS: 97010; 97014; 97033; 97035; 97110; 97163; G0283

== ENCOUNTER → 2022-06-26 15:15 | Outpatient (CLI) | payer BC, SELFPAY ==
--- NOTE | 2022-06-26 16:56 | XR_ITS ---
PROCEDURE INFORMATION: Exam: XR Left Foot Exam date and time: 06/26/2022 4:07 PM Age: 56 years old Clinical indication: Pain; Foot; Left; Additional info: Possible bone spur TECHNIQUE: Imaging protocol: Radiologic exam of the left foot. Views: 3 or more views. COMPARISON: CA VENOUS DOPPLER LE BI 10/24/2021 1:37 PM FINDINGS: Bones/joints: Osseous structures are intact. No fracture or malalignment. Visualized joint surfaces are preserved. Small plantar spur arising the calcaneus. Soft tissues: Unremarkable. IMPRESSION: Small plantar spur otherwise negative exam. No acute bony abnormalities.
== END ==
PROVIDERS: PCP Nurse Practitioner Family; Visit Provider Specialist
DX: M79.672 Pain in left foot (principal)
CPT/HCPCS: 73630

== ENCOUNTER → 2022-06-28 10:24 | Outpatient (CLI) | payer BC, SELFPAY ==
[2022-06-28 12:13] LABS: Iron 126 ug/dL (37-170)
[2022-06-28 12:18] LABS: Erythrocyte Sedimentation Rate 5 mm/hr (0-30)
[2022-06-28 12:23] LABS: Total Iron Binding Capacity 314 ug/dL (265-497)
[2022-06-28 12:49] LABS: Ferritin 90.7 ng/ml (11.1-264)
[2022-06-29 16:08] LABS: Deamidated Gliadin Abs, IgA 6 units (0-19)
[2022-07-01 14:39] LABS: Angiotensin Converting Enzyme 37 U/L (14-82)
[2022-07-28 21:16] LABS: Antinuclear Antibodies (ANA) Negative
== END ==
LOC: LAB 10:24
PROVIDERS: PCP Nurse Practitioner Family; Visit Provider Specialist
DX: G62.9 Polyneuropathy, unspecified (principal); M79.671 Pain in right foot
CPT/HCPCS: 36415; 82164; 82728; 83516; 83540; 83550; 85651; 86038; 86225; 86235

== ENCOUNTER → 2022-07-31 08:54 | Outpatient (CLI) | payer BC, SELFPAY ==
--- NOTE | 2022-07-31 09:03 | CT_ITS ---
FINAL REPORT CLINICAL HISTORY: allergies COMPARISON: None FINDINGS: The paranasal sinuses are well aerated. The ostiomeatal units are patent. There is no fracture. There are no air-fluid levels or mucoperiosteal thickening. IMPRESSION: Unremarkable. Reviewed, Interpreted and Dictated by Pierre Hardin MD Transcribed by Madalyn Garay Authenticated and [facility]
== END ==
LOC: RAD 08:55
PROVIDERS: PCP Nurse Practitioner Family; Visit Provider Otolaryngology
DX: J30.9 Allergic rhinitis, unspecified (principal)
CPT/HCPCS: 70486

== ENCOUNTER → 2022-08-15 15:09 | Outpatient (POV) | payer BC, SELFPAY | PROVIDERS: Visit Provider Specialist/Technologist | DX: Z00.00 Encounter for general adult medical examination without abnormal findings (principal) ==

== ENCOUNTER → 2022-09-12 15:44 | Outpatient (POV) | payer BC, SELFPAY | PROVIDERS: Visit Provider Specialist/Technologist | DX: Z00.00 Encounter for general adult medical examination without abnormal findings (principal) ==

== ENCOUNTER → 2022-09-25 11:42 | Outpatient (CLI) | payer BC, SELFPAY ==
[2022-09-25 12:12] LABS: Blood Urea Nitrogen 15 mg/dl (7-17); Estimated Glomerular Filt Rate 86 ml/min (>60); GFR (African American) 104 ML/MIN (>60)
== END ==
PROVIDERS: PCP Nurse Practitioner Family; Visit Provider Nurse Practitioner Family
DX: Z01.812 Encounter for preprocedural laboratory examination (principal)
CPT/HCPCS: 36415; 82565; 84520

== ENCOUNTER → 2022-09-26 09:02 | Outpatient (CLI) | payer BC, SELFPAY ==
--- NOTE | 2022-09-26 09:10 | MR_ITS ---
FINAL REPORT CLINICAL HISTORY: SHORT-TERM MEMORY LOSS. EPISODES OF TINGLING AND NUMBNESS IN FACE. HEADACHE COMPARISON: None FINDINGS: Multiplanar MR imaging of the brain was performed without and with contrast. There is mild age-appropriate atrophy. Scattered foci of increased T2 signal are seen in the cerebral white matter that have a nonspecific appearance but likely represent mild chronic ischemic/gliotic changes. There is no evidence of intracranial hemorrhage or mass. No abnormal ventricular dilatation is identified. There is no evidence of shift of the midline structures. No abnormal extra-axial fluid collection is seen. No area of abnormal restricted diffusion is identified. The posterior fossa and brainstem have an unremarkable appearance. No abnormal contrast enhancement is seen. Normal major vessel vascular flow voids are seen. IMPRESSION: Mild atrophy and chronic ischemic/gliotic changes. No acute intracranial abnormality. Reviewed, Interpreted and Dictated by Joshua Coleman III, MD Transcribed by Madalyn Garay Authenticated and [facility]
== END ==
LOC: RAD 09:02
PROVIDERS: PCP Nurse Practitioner Family; Visit Provider Nurse Practitioner Family
DX: R41.3 Other amnesia (principal)
CPT/HCPCS: 70553; A9576

== ENCOUNTER → 2022-11-07 09:11 | Outpatient (CLI) | payer BC, SELFPAY ==
--- NOTE | 2022-11-07 | XR_ITS ---
FINAL REPORT CLINICAL HISTORY: PAIN UIN BACK FINDINGS: Six views of the cervical spine were obtained. No priors are available for comparison. There is no acute fracture or malalignment. There is multilevel degenerative disc disease, most pronounced at C5-6 and C6-7. No acute soft tissue abnormality identified. IMPRESSION: Multilevel degenerative disc disease. Reviewed, Interpreted and Dictated by Tianna Bustos MD Transcribed by Maura Chacon Authenticated and [facility]
--- NOTE | 2022-11-07 09:17 | XR_ITS ---
FINAL REPORT CLINICAL HISTORY: lower back pain FINDINGS: AP, lateral, and oblique views of the lumbar spine were obtained. There is no acute fracture or acute malalignment. Vertebral body height is preserved. There is levoscoliosis. There is mild multilevel degenerative disc disease, most pronounced at L3-4 and L4-5. No acute paraspinal abnormality is identified. IMPRESSION: No acute osseous abnormalities lumbar spine. Multilevel degenerative disc disease. Reviewed, Interpreted and Dictated by Tianna Bustos MD Transcribed by Maura Chacon Authenticated and . [facility]
== END ==
LOC: RAD 09:12
PROVIDERS: PCP Nurse Practitioner Family; Visit Provider Nurse Practitioner Family
DX: M54.2 Cervicalgia (principal); M54.50 Low back pain, unspecified; G89.29 Other chronic pain
CPT/HCPCS: 72050; 72110

== ENCOUNTER → 2022-11-19 09:19 | Outpatient (CLI) | payer BC, SELFPAY ==
--- OUTSIDE RECORDS SUMMARY | 2022-11-19 09:21 | XMS_ITS | Patient Health Record ---
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 Name Role Phone Nicola Bautista Primary Care Provider [phone] [place] Unavailable [phone] Nicola Bautista Unavailable Unavailable ALLERGIES Allergen (clinical drug ingredient) Drug/Non Drug Allergy documented on EMR Reaction Allergy Type Onset Date Status prednisone prednisone (uncoded) Unknown Allergy Active sulfa (uncoded) Unknown Allergy Acti ve Penicillin rash Drug Allergy Active sulfamethoxazole / trimethoprim Bactrim stomach upset Drug Allergy Active Omnicef Unknown Drug Allergy Active cefdinir cefdinir rash Drug Allergy Active RESULTS Component Value Reference Range Notes LIPID PANEL, STANDARD (7600) Reviewed date:04/29/2022 08:32:44 AM Interpretation: Performing Lab:[facility], [facility] [id number] [facility] [id number] [place] Notes/Report: NON-FASTING; NON-FASTING; NON-FASTING; NON-FASTING; NON-FAST CHOLESTEROL, TOTAL 233 <200 mg/dL HDL CHOLESTEROL 72 > OR = 50 mg/dL TRIGLYCERIDES 64 <150 mg/dL LDL-CHOLESTEROL 145 Reference range: <100 Desirable range <100 mg/dL for primary prevention;
[2022-11-19 10:18] LABS: Basophils % 0.4 % (0.1-2.0); Eosinophils # 0.1 K/mm3 (0.0-0.4); Eosinophils % 1.9 % (0.1-12.0); Hematocrit 43.5 % (37.0-47.0); Lymphocytes # 1.8 K/mm3 (0.7-4.5); Lymphocytes % 27.8 % (10-50); Mean Corpuscular HGB Conc 32.2 g/dL (31.8-35.4); Mean Corpuscular Hemoglobin 31.5 pg (27.0-31.2); Mean Corpuscular Volume 97.9 fl (81-99); Mean Platelet Volume 8.2 fl (7.4-10.4); Monocytes # 0.3 K/mm3 (0.1-1.0); Monocytes % 4.6 % (1.7-9.3); Neutrophils # 4.1 K/mm3 (1.8-7.8); Neutrophils % 65.2 % (37.0-80.0); Platelet Count 262 K/mm3 (142-424); Red Blood Count 4.44 M/mm3 (4.20-5.40); Red Cell Distribution Width 13.3 % (11.5-17.5); White Blood Count 6.3 K/mm3 (4.8-10.8)
[2022-11-19 10:45] LABS: Alanine Aminotransferase 17 U/L (12-78); Albumin Level 3.9 g/dl (3.5-5.0); Albumin/Globulin Ratio 1.5 (1.1-1.8); Alkaline Phosphatase 72 U/L (38-126); Anion Gap 8.5 mEq/L (5-15); Aspartate Amino Transferase 26 U/L (14-36); Bilirubin,Total 0.3 mg/dl (0.2-1.3); Blood Urea Nitrogen 15 mg/dl (7-17); Calcium 8.9 mg/dl (8.4-10.2); Carbon Dioxide 26 mmol/L (22.0-30.0); Chloride 110 mmol/L (98-107); Chol/HDL Ratio 3.4 (1-3.5); Cholesterol 222 mg/dl (140-200); Estimated Glomerular Filt Rate 103 ml/min (>60); GFR (African American) 125 ML/MIN (>60); Globulin 2.6 g/dL (1.3-3.2); Glucose 98 mg/dl (74-100); HDL Cholesterol 66 mg/dl (40-60); Potassium 4.5 mmoL/L (3.5-5.1); Sodium 140 mmol/L (136-145); Total Protein,Serum 6.5 g/dl (6.3-8.2); Triglycerides 59 mg/dl (30-150); VLDL Cholesterol 12 mg/dL (0-40)
[2022-11-19 10:57] LABS: Direct LDL Cholesterol 123.27 mg/dL (100-129)
[2022-11-19 11:04] LABS: 25-OH Vitamin D, Total 18.7 ng/mL (30-100)
== END ==
PROVIDERS: PCP Nurse Practitioner Family; Visit Provider Nurse Practitioner Family
DX: E78.5 Hyperlipidemia, unspecified (principal); E53.8 Deficiency of other specified B group vitamins; E55.9 Vitamin D deficiency, unspecified; Z68.30 Body mass index [BMI] 30.0-30.9, adult
CPT/HCPCS: 36415; 80053; 80061; 82306; 85025

== ENCOUNTER → 2022-12-04 10:17 | Outpatient (CLI) | payer BC, SELFPAY ==
--- NOTE | 2022-12-04 10:20 | XR_ITS ---
FINAL REPORT CLINICAL HISTORY: foot pain FINDINGS: Right foot Three views were obtained. There is no acute fracture or dislocation. The joint spaces appear normal. No soft tissue abnormality is identified. IMPRESSION: No acute process. Reviewed, Interpreted and Dictated by Joshua Coleman III, MD Transcribed by Maura Chacon Authenticated and [facility]
--- NOTE | 2022-12-04 10:20 | XR_ITS ---
FINAL REPORT CLINICAL HISTORY: foot pain FINDINGS: Left foot Three views were obtained. There is no acute fracture or dislocation. The joint spaces appear normal. No soft tissue abnormality is identified. There is a plantar calcaneal spur. IMPRESSION: No acute process. Reviewed, Interpreted and Dictated by Joshua Coleman III, MD Transcribed by Maura Chacon Authenticated and [facility] [place]
== END ==
LOC: RAD 10:18
PROVIDERS: PCP Nurse Practitioner Family; Visit Provider Podiatrist
DX: M79.671 Pain in right foot (principal); M79.672 Pain in left foot
CPT/HCPCS: 73630

== ENCOUNTER 2022-12-31 08:00 | Outpatient (RCR) | payer BC, SELFPAY ==
--- NOTE | 2022-11-27 16:27 | HMH.PTOPEV ---
PT Outpatient Evaluation Rehab PT Outpatient Evaluation Start: 11/26/22 15:40 Freq: Status: Active Protocol: Document 11/26/22 15:41 FOX (Rec: 11/26/22 16:00 FOX [id number]) E-signed By Ruben Boykin, PT Outpatient Therapy Subjective History Subjective History Patient is a 56 year old female presenting to outpatient PT with reports of chronic cervical and lumbar spine pain of insidious onset starting approximately 8 months ago. Patient does report peripheral neuropathy causing NT to B feet/hands that was present prior to onset of cervical/lumbar pain. CS=LS. Most recent imaging indicates multilevel DDD of both cervical and lumbar spine . Comorbidities include hx of asthma and colitis. New diagnosis of cancer in past 12 No months? Chief Complaint Pain,Stiff,Paresthesia, Weakness Symptom Type Ache,Sharp,Burning,Numbness, Tingling Symptoms Relieved By Rest/Positioning,OTC Meds, Prescription Meds Symptoms Aggravated By Standing,Bending/Stooping, Physical Activity,Twisting, Walking,Lifting,Sneeze/ Coughing Prior Functional Limitations Standing,Walking Current Functional Limitations Lifting,Housework,Standing, Walking,Balance,Bending/ Stooping Symptom Description Constant but Variable Level of pain today (0-10) 9 Pain scale - at its best (0-10) 7 Pain scale - at its worst (0-10) 10 Cervical Eval Palpation Cervical Muscles R Cervical Paraspinal,L Cervical Paraspinal,R Upper Trapezius,L Upper Trapezius Cervical/Thoracic Palpation Findings Tenderness Posture Head/C-Spine Posture Sitting Position C-Spine Flattened Head/C-Spine Posture Standing Position C-Spine Flattened Flexibility Deficits Upper Trapezius Muscle Length (R) Moderate Tightness,(L) Moderate Tightness Levaetor Scapulae Muscle Length (R) Moderate Tightness,(L) Moderate Tightness Pectoralis Minor Muscle Length (R) Moderate Tightness,(L) Moderate Tightness Passive Joint Mobility Cervical PIVM Dec: R OA L OA R AA L AA R C2/3 L C2/3 R C3/4 L C3/4 R C4/5 L C4/5 R C5/6 L C5/6 R C6/7 L C6/7 R C7/T1 L C7/T1 AROM Cervical Spine Extension Active Range of 10 Motion (degrees) Cervical Spine Flexion Active Range of 14 Motion (degrees) Cervical Spine Right Lateral Flexion 16 Active Range of Motion (degrees) Cervical Spine Left Lateral Flexion 22 Active Range of Motion (degrees) Cervical Spine Right Rotation Active 37 Range of Motion (degrees) Cervical Spine Left Rotation Active 33 Range of Motion (degrees) MMT Bilateral Deltoid (C5) 4- Good- Biceps Brachii Strength Grade 4- Good- Wrist Extension Strength Grade 4- Good- Triceps Brachii Strength Grade 4- Good- Wrist Flexion Strength Grade 4- Good- Extensor Pollicis Longus Strength Grade 4- Good- Finger Abduction Strength Grade 4- Good- Altered Sensation Upper extremity Dermatomes C6,C7,C8 Special Test C-Spine Foraminal Compression (Spurling) Negative Left,Negative Right Test C-Spine Foraminal Distraction Test Negative Lumbopelvic Eval Posture Thoracic Spine Posture Standing Position Neutral Lumbar Spine Posture Standing Position Neutral Palapation tenderness bilateral lumbar spinal tenderness Yes: L4-S1 3/4 Lumbar/Sacral Palpation Findings Tenderness Lumbar/Sacral Palpation Overall Comment B SIJ 3/4 Accessory Movement L4 bilateral L5 bilateral S1 bilateral Range of Motion Lumbar Spine Active Flexion Range of 46 Motion (degrees) Lumbar Spine Active Extension Range of 12 Motion (degrees) Left Lumbar Spine Lateral Flexion Active 6 Range of Motion (degrees) Right Lumbar Spine Lateral Flexion 5 Active Range of Motion (degrees) Lumbar Spine ROM Limitations Soft Tissue Tightness,Bony Restriction Manual Muscle Test Bilateral Knee Extension Strength Grade 4- Good- Knee Flexion Strength Grade 4- Good- Hip Flexion Strength Grade 4- Good- Extensor Hallucis Longus Strength Grade 4- Good- Ankle Dorsiflexion Strength Grade 4- Good- Gastronemius/Soleus Strength Grade 4- Good- Altered Sensation LE Dermatome Level L5,S1 Comment NT Special Tests Lumbar Spine Screen Positive Hip Kiran (KARI) Test Positive Left,Positive Right Hip Keiry Test Positive Left,Positive Right Hip Piriformis Test Positive Left,Positive Right Sciatic Nerve Tension Test Positive Left,Positive Right Preet Test Positive Sacroiliac Joint Compression Test Negative Left,Negative Right Sacroiliac Joint Distraction Test Negative Left,Negative Right Lumbar [place] Distraction Test/Manual Negative Traction Oswestry Index Section 1 Pain Intensity The pain comes and goes and is severe Section 2 Personal Care (Washing,Dresing) unable to do some washing and dressing without help Section 3 Lifting I can only lift very light weights at most Section 4 Walking I cannot walk at all without increasing pain Section 5 Sitting Pain prevents me from sitting for more than 10 minutes Section 6 Standing I avoid standing because it increases the pain immediately Section 7 Sleeping Pain prevents me from sleeping at all Section 8 Social Life Pain has restricted my social life and I do not go out often Section 9 Traveling I get extra pain while traveling which compels me to seek alternate fo Section 10 Changing Degreee of Pain My pain is rapidly getting worse Score and Risk Level Oswestry Sc 43 Oswestry Risk Level Completely Disabled Neck Disability Index Neck Disability Index Section 1: Pain Intensity The pain is very severe at the moment Section 2: Personal Care (washing, I can look after myself dressing, etc.) normally but it causes extra pain Section 3: Lifting Pain prevents me from lifting heavy weights, but I can manage light to Section 4: Reading I can't read as much as I want because of moderate pain in my neck Section 5: Headaches I have moderate headaches, which come frequently Section 6: Concentration I have a great deal of difficulty in concentrating when I want to Section 7: Work I can do most of my usual work , but no more Section 8: Driving I can't drive my car as long as I want because of moderate pain in my Section 9: Sleeping My sleep is completely disturbed (5-7 hrs sleepless) Section 10: Recreation I can hardly do any recreation activities because of pain in my neck NDI Score 32 Outpatient Therapy Assessment Impairments Problems/Impairmments Palpation Tenderness,Impaired Range of Motion,Impaired Strength,Impaired Walking, Impaired Standing,Impaired Sitting,Impaired Driving, Impaired Lifting,Impaired Household Care,Impaired Stair Climbing,Impaired Incline Stepping,Impaired Stepping on Uneven Surface,Impaired Squatting,Impaired Bending, Impaired Work Activities, Subjective C/O Pain Prognosis Rehab Potential Good Clinical Impression Consistent with Diagnosis Yes Short Term Goals Number of Weeks 2 Decrease Subjective C/O Pain Yes: 5/10 at worst Patient to be Ind w/ HEP Yes Group Home Goals Number of Weeks 4-6 Decreased Palpation Tenderness Yes: 1/ Increase Range of Motion Yes: 75% WNL Increase Strength Yes: BUE/BLE 5/5 Increase Ability to Walk Yes: 30 min without difficulty Increase Ability to Stand Restore Ability to Lift Objects to Yes: 10 lb without difficulty Shoulder Level Restore Ability to Lift Objects Overhead Yes: Improve Ability For Household Care Yes Improve Tolerance to Work Activities Yes Decrease Subjective C/O Pain Yes: 2/10 at worst Outpatient Therapy Plan of Care Treatment Plan May Include Therapeutic Exercise Including Home Yes Exercise Program Manual Therapy Techniques Yes Neuromuscular Re-education Yes Therapeutic Activities to Return to Yes Previous Functional/Work Level Gait Training Yes ADL/Self Care Education Yes Mechanical Traction Yes Dry Needling Yes Thermal Modalities Yes Electrical Stimulation Yes Ultrasound/Phonophoresis Yes Iontophoresis Yes Orthotics/Bracing/Splinting Yes Massage Yes Eval/Re-Eval Yes Frequency Times per week 2 Duration Number of Weeks 4-6 Addendums This patient is a candidate for social No or vocational rehab? Patient/Guardian verbally acknowledges Yes understanding of treatment program and consents to further treatment? Patient/Guardian verbally acknowledges Yes understanding of diagnosis, prognosis and goals for treatment? Eval Complexity PT Charges 35552 - Moderate Complexity Shoulder/Elbow Eval Shoulder Objective Measurements Elbow Objective Measurements PHYSICIAN CERTIFICATION: I certify the specified therapy services for Dilcia Mai are required, authorized, and reviewed every 30 days.
--- NOTE | 2022-12-31 08:46 | HMH.RHREAS ---
Rehab Reassessment Rehab OP Re-assessment Start: 11/26/22 15:40 Freq: Status: Active Protocol: Document 12/31/22 08:36 FOX (Rec: 12/31/22 08:46 FOX [id number]) E-signed By Ruben Boykin, PT Neck Disability Index Neck Disability Index Section 1: Pain Intensity The pain is very severe at the moment Section 2: Personal Care (washing, I can look after myself dressing, etc.) normally but it causes extra pain Section 3: Lifting Pain prevents me lifting heavy weights off the floor, but I can manage Section 4: Reading I can read as much as I want with moderate pain in my neck Section 5: Headaches I have severe headaches, which come frequently Section 6: Concentration I can concentrate fully when I want to with slight difficulty Section 7: Work I cannot do my usual work Section 8: Driving I can drive my car as long as I want with moderate pain in my neck Section 9: Sleeping My sleep is moderately disturbed (2-3 hrs. sleepless) Section 10: Recreation I am able to engage in a few of my usual recreation activities because NDI Score 25 Oswestry Index Section 1 Pain Intensity The pain comes and goes and is severe Section 2 Personal Care (Washing,Dresing) increase the pain, but I manage not to change my way of doing it Section 3 Lifting Pain prevents me from lifting weights off the floor Section 4 Walking I cannot walk more than 1/4 mile without increasing pain Section 5 Sitting Pain prevents me from sitting for more than 10 minutes Section 6 Standing I cannot stand more than 1/2 hour without increasing pain Section 7 Sleeping Because of my pain, my normal night's sleep is less than 4 hours Section 8 Social Life Pain has restricted my social life to my home Section 9 Traveling Pain restricts me to short necessary journeys under 30 minutes Section 10 Changing Degreee of Pain My pain is neither getting better or worse Score and Risk Level Oswestry Sc 33 Oswestry Risk Level Severe Disability Rehab Re-assessment Subjective Subjective Patient reports no significant improvements since start of care. Objective Objective Notes CROM: flx 32; ext 11; SBr 9; SBl 11; Rr 45; Rl 44 LROM: flx 44; ext 8; SBr 9; SBl 10 MMT: RLE WFL; LLE 4/5 grossly; BUE 4+/5 grossly Pain: 6/10 today; 9/10 at worst over past week; 4/10 at best Neuro: WNL Assessment Progress Assessment Slower Than Expected Assessment Notes Patient has previously been seen in PT for 2 treatment visits to date. Slower progress noted secondary scheduling conflicts/vacation. Suspect non-compliance with HEP. Patient would benefit from continuing with skilled PT services in order to address functional limitations with all standing, walking, bending and lifting activities. Patient goals met STG 2 Goals Not Met All others Revised Goals NA Plan Plan Continue with current POC. Frequency of Therapy 2x/week Duration of therapy 4 weeks. Time and Billing Re-Eval Time 14 Re-Eval Billing Units 1 PHYSICIAN CERTIFICATION: I certify the specified therapy services for Dilcia Mai are required, authorized, and reviewed every 30 days.
== END 2022-12-31 09:10 | disposition home or self-care (01) ==
LOC: PT 08:00
PROVIDERS: PCP Nurse Practitioner Family; Visit Provider Nurse Practitioner Family
DX: M50.30 Other cervical disc degeneration, unspecified cervical region (principal); M51.36 Other intervertebral disc degeneration, lumbar region
CPT/HCPCS: 97010; 97014; 97110; 97163; 97164; 97530; G0283

== ENCOUNTER 2022-12-31 08:30 | Outpatient (RCR) | payer BC, SELFPAY ==
--- NOTE | 2022-11-19 16:20 | HMH.PTOPEV ---
PT Outpatient Evaluation Rehab PT Outpatient Evaluation Start: 11/19/22 15:45 Freq: Status: Active Protocol: Document 11/19/22 15:47 PHONANETTE (Rec: 11/19/22 16:20 PHORNE [id number]) E-signed By Jet Mcgrath, PT Outpatient Therapy Subjective History Subjective History This is the initial PT eval for Dilcia Mai, 56 yowf who presents with c/o L foot and medial ankle pain x ~ 4-5 mos with insidious onset of symptoms. She reports having several injections in her heel and wearing a cam walker for some time, with no relief from either. 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 She reports pain i nher L heel is worst 1st thing in the morning and gradually increases with prolonged standing during the day. SHe reports PMH of asthma, COPD, and DDD. New diagnosis of cancer in past 12 No months? Chief Complaint Pain Symptom Type Ache,Sharp Symptoms Relieved By Rest/Positioning,Heat,Ice Symptoms Aggravated By Standing,Walking Prior Functional Limitations None Current Functional Limitations Standing,Walking Symptom Description Constant but Variable,Activity Dependent Level of pain today (0-10) 9 Pain scale - at its worst (0-10) 10 Ankle/Foot Eval Gait Observation General Gait Pattern Observation Antalgic Gait Palpation Tenderness left Ankle/Foot Palpation Findings Tenderness Ankle/Foot Palpation Overall Comment L med calc tubercle, distal post tib tendon 2/4 ROM Ankle/Foot Dorsiflexion w/Knee Extended 0-10 Active Range Motion (degrees) Ankle/Foot Plantar Flexion Active Range 0-32 of Motion (degrees) Ankle/Foot Eversion Active Range of 0-12 Motion (degrees) Ankle/Foot Inversion Active Range of 0-22 Motion (degrees) MMT Ankle Dorsiflexion Strength Grade 4 Good Ankle Plantarflexion Strength Grade 4 Good Foot Eversion Strength Grade 4 Good Foot Inversion Strength Grade 4 Good Special Tests Ankle Anterior Drawer Test Negative Left,Negative Right Talar Tilt Test Negative Left,Negative Right Ankle Inversion (supination) Test Negative Left,Negative Right Ankle Posterior Drawer Test Negative Left,Negative Right Lower Extremity Functional Index Activities Today, do you or would you have any difficulty at all with: a.Any of your usual work, housework or Extreme difficulty or unable school activities to perform activity b. Your usual hobbies, recreational or Quite a bit of difficulty sporting activities c. Getting into or out of the bath Extreme difficulty or unable to perform activity d. Walking between rooms Quite a bit of difficulty e. Putting on your shoes or socks Quite a bit of difficulty f. Squatting Extreme difficulty or unable to perform activity g. Lifting an object, like a bag of Extreme difficulty or unable groceries from the floor to perform activity h. Performing light activities around Extreme difficulty or unable your home to perform activity i. Performing heavy activities around Extreme difficulty or unable your home to perform activity j. Getting into or out of a car Quite a bit of difficulty k. Walking 2 blocks Extreme difficulty or unable to perform activity l. Walking a mile Extreme difficulty or unable to perform activity m. Going up or down 10 stairs (about 1 Quite a bit of difficulty flight of stairs) n. Standing for 1 hour Extreme difficulty or unable to perform activity o. Sitting for 1 hour Quite a bit of difficulty p. Running on even ground Quite a bit of difficulty q. Running on uneven ground Extreme difficulty or unable to perform activity r. Making sharp turns while running fast Extreme difficulty or unable to perform activity s. Hopping Quite a bit of difficulty t. Rolling over in bed Quite a bit of difficulty LEFI Score Lower Extremity Functional Index Score 9 Outpatient Therapy Assessment Impairments Problems/Impairmments Palpation Tenderness,Impaired Range of Motion,Impaired Strength,Impaired Endurance, Impaired Gait Pattern,Impaired Walking,Impaired Standing, Impaired Sitting,Impaired Stair Climbing,Impaired Incline Stepping,Impaired Stepping on Uneven Surface, Impaired Squatting,Impaired Recreational Activities, Impaired Work Activities, Increased Edema,Subjective C/O Pain,Impaired Self Care/Self Management Prognosis Rehab Potential Good Clinical Impression Consistent with Diagnosis Yes Short Term Goals Number of Weeks 2 Decreased Palpation Tenderness Yes: 1/4 L ankle Increase Range of Motion Yes: L ankle by 5 deg all dir Increase Strength Yes: L ankle 4+/5 throughout Improve Gait Pattern without Assistive Yes: no antalgic gait Device Decrease Subjective C/O Pain Yes: 08/19 Improve Self Care/Self Management Yes: LEFS = 30 Patient to be Ind w/ HEP Yes [facility] Goals Number of Weeks 4 Decreased Palpation Tenderness Yes: 0/4 L ankle/foot Increase Range of Motion Yes: L ankle DF by 10 deg Increase Strength Yes: L ankle 5/5 throughout Increase Ability to Stand Yes: > 30 min without pain Improve Tolerance to Work Activities Yes: without pain Decrease Subjective C/O Pain Yes: 05/20 Improve Self Care/Self Management Yes: LEFS = 50 Patient to be Ind w/ Advanced HEP Yes Outpatient Therapy Plan of Care Treatment Plan May Include Therapeutic Exercise Including Home Yes Exercise Program Manual Therapy Techniques Yes Neuromuscular Re-education Yes Therapeutic Activities to Return to Yes Previous Functional/Work Level ADL/Self Care Education Yes Dry Needling Yes Thermal Modalities Yes Electrical Stimulation Yes Ultrasound/Phonophoresis Yes Iontophoresis Yes Orthotics/Bracing/Splinting Yes Vasopneumatic Compression Pump Yes Massage Yes Manual Lymphatic Drainage Yes Eval/Re-Eval Yes Frequency Times per week 2-3 Duration Number of Weeks 4 Addendums This patient is a candidate for social No or vocational rehab? Patient/Guardian verbally acknowledges Yes understanding of treatment program and consents to further treatment? Patient/Guardian verbally acknowledges Yes understanding of diagnosis, prognosis and goals for treatment? Eval Complexity PT Charges 77015 - High Complexity Shoulder/Elbow Eval Shoulder Objective Measurements Elbow Objective Measurements PHYSICIAN CERTIFICATION: I certify the specified therapy services for Dilcia Mai are required, authorized, and reviewed every 30 days.
--- NOTE | 2022-12-18 10:18 | HMH.RHREAS ---
Rehab Reassessment Rehab OP Re-assessment Start: 11/19/22 15:45 Freq: Status: Active Protocol: Document 12/18/22 10:11 PHONANETTE (Rec: 12/18/22 10:18 PHORNE [id number]) E-signed By Jet Mcgrath, PT Lower Extremity Functional Index Activities Today, do you or would you have any difficulty at all with: a.Any of your usual work, housework or Extreme difficulty or unable school activities to perform activity b. Your usual hobbies, recreational or Quite a bit of difficulty sporting activities c. Getting into or out of the bath Extreme difficulty or unable to perform activity d. Walking between rooms Quite a bit of difficulty e. Putting on your shoes or socks Quite a bit of difficulty f. Squatting Extreme difficulty or unable to perform activity g. Lifting an object, like a bag of Extreme difficulty or unable groceries from the floor to perform activity h. Performing light activities around Extreme difficulty or unable your home to perform activity i. Performing heavy activities around Extreme difficulty or unable your home to perform activity j. Getting into or out of a car Quite a bit of difficulty k. Walking 2 blocks Extreme difficulty or unable to perform activity l. Walking a mile Extreme difficulty or unable to perform activity m. Going up or down 10 stairs (about 1 Quite a bit of difficulty flight of stairs) n. Standing for 1 hour Extreme difficulty or unable to perform activity o. Sitting for 1 hour Quite a bit of difficulty p. Running on even ground Quite a bit of difficulty q. Running on uneven ground Extreme difficulty or unable to perform activity r. Making sharp turns while running fast Extreme difficulty or unable to perform activity s. Hopping Quite a bit of difficulty t. Rolling over in bed Quite a bit of difficulty LEFI Score Lower Extremity Functional Index Score 9 Rehab Re-assessment Subjective Subjective Pt reports 1010 L heel pain. The gel and patch makes it better for a day but the pain comes back after my job. Objective Objective Notes Pain this date 11/19 in L foot . AROM L ankle (in deg): DF= 0- 10, PF= 0-30, INV= 0-20, EVER= 0-8 MMT L ankle: grossly 4+/5 throughout. TTP: 2/4 L med calc tubercle and L achilles tendon distal insertion. Assessment Progress Assessment Slower Than Expected Assessment Notes Pt has shown some improvement in overall L ankle strength, but no improvement in pain or AROM. She continues to have difficulty performing all ADLs and work activities requiring standing for any period of time. She continues to need skilled intervention to return to prior level of function. Patient goals met ST,[address],2,4,5,6 LT,2,3,4, 5,6,7,8 Plan Plan Continue per initial POC. Recommended pt to obtain an night splint and wear every night while sleeping for 1 mo. Frequency of Therapy 2 x/wk Duration of therapy 4 wks Time and Billing Re-Eval Time 17 Re-Eval Billing Units 1 PHYSICIAN CERTIFICATION: I certify the specified therapy services for Dilcia Mai are required, authorized, and reviewed every 30 days.
== END 2022-12-31 09:30 | disposition home or self-care (01) ==
LOC: PT 08:30
PROVIDERS: PCP Nurse Practitioner Family; Visit Provider Podiatrist
DX: M79.672 Pain in left foot (principal); M72.2 Plantar fascial fibromatosis
CPT/HCPCS: 97035; 97110; 97140; 97163; 97164; 97530; 97535; 97760

== ENCOUNTER → 2023-01-28 14:42 | Outpatient (CLI) | payer BC, SELFPAY ==
[2023-01-28 15:25] VITALS: PULSE 84; PULSE 89
[2023-01-28] MEDS: ALBUTEROL 0.083% 2.5 MG/3 ML NEB IH (15:25)
== END ==
LOC: RT 14:42
PROVIDERS: PCP Nurse Practitioner Family; Visit Provider Internal Medicine Pulmonary Disease
DX: J44.9 Chronic obstructive pulmonary disease, unspecified (principal)
CPT/HCPCS: 94060; 94640

== ENCOUNTER → 2023-02-05 14:18 | Outpatient (CLI) | payer BC, SELFPAY ==
--- NOTE | 2023-02-05 14:23 | CT_ITS ---
FINAL REPORT TECHNIQUE: Axial CT images of the chest were obtained without contrast. Low-dose protocol was utilized. This study was performed with techniques to keep radiation doses as low as reasonably achievable (ALARA). Individualized dose reduction techniques using automated exposure control or adjustment of mA and/or kV according to the patient's size were employed. CLINICAL HISTORY: H/O TOBACCO USE former smoker, quit 4 years ago. smoked 2 ppx 40 years COMPARISON: None FINDINGS: CT CHEST WITHOUT, LOW DOSE SCREENING CT Di Vol: 2.90 mGy DLP: 110.72 mGy*cm There is no axillary, mediastinal, or hilar adenopathy. The heart size is normal. There is no pleural or pericardial effusion. The lung windows show no suspicious mass or nodule. There is a calcified granuloma in the right mid lung. Limited images of the upper abdomen demonstrate no acute findings. IMPRESSION: LR Category 1: 12 month follow-up low-dose chest CT is recommended. Reviewed, Interpreted and Dictated by Pierre Hardin MD Transcribed by Madalyn Garay Authenticated and [facility]
== END ==
LOC: RAD 14:19
PROVIDERS: PCP Nurse Practitioner Family; Visit Provider Obstetrics & Gynecology
DX: Z87.891 Personal history of nicotine dependence (principal); Z12.2 Encounter for screening for malignant neoplasm of respiratory organs
CPT/HCPCS: 71271

== ENCOUNTER 2023-03-04 16:31 | Outpatient (CLI) | payer BC, SELFPAY ==
[2023-03-04 16:48] LABS: Basophils # 0.1 K/mm3 (0-0.2); Basophils % 0.8 % (0.1-2.0); Eosinophils # 0.2 K/mm3 (0.0-0.4); Hematocrit 46.2 % (37.0-47.0); Hemoglobin 15.7 g/dL (12.2-16.2); Lymphocytes # 2.6 K/mm3 (0.7-4.5); Lymphocytes % 32.4 % (10-50); Mean Corpuscular Hemoglobin 31.7 pg (27.0-31.2); Mean Corpuscular Volume 93.4 fl (81-99); Mean Platelet Volume 8.7 fl (7.4-10.4); Monocytes # 0.4 K/mm3 (0.1-1.0); Monocytes % 5.5 % (1.7-9.3); Neutrophils # 4.8 K/mm3 (1.8-7.8); Neutrophils % 59.2 % (37.0-80.0); Platelet Count 258 K/mm3 (142-424); Red Blood Count 4.94 M/mm3 (4.20-5.40); Red Cell Distribution Width 13.5 % (11.5-17.5)
[2023-03-04 16:58] LABS: Chloride 107 mmol/L (98-107); Sodium 139 mmol/L (136-145)
[2023-03-04 17:01] LABS: Alanine Aminotransferase 17 U/L (12-78); Albumin Level 4.5 g/dl (3.5-5.0); Albumin/Globulin Ratio 1.7 (1.1-1.8); Alkaline Phosphatase 83 U/L (38-126); Aspartate Amino Transferase 27 U/L (14-36); Bilirubin,Total 0.6 mg/dl (0.2-1.3); Blood Urea Nitrogen 13 mg/dl (7-17); Calcium 9.1 mg/dl (8.4-10.2); Carbon Dioxide 26 mmol/L (22.0-30.0); Estimated Glomerular Filt Rate 74 ml/min (>60); GFR (African American) 89 ML/MIN (>60); Globulin 2.6 g/dL (1.3-3.2); Glucose 92 mg/dl (74-100); Iron 147 ug/dL (37-170); Total Protein,Serum 7.1 g/dl (6.3-8.2)
[2023-03-04 17:13] LABS: Total Iron Binding Capacity 321 ug/dL (265-497)
[2023-03-04 17:35] LABS: Thyroid Stimulating Hormone 1.19 uIU/mL (0.465-4.68)
[2023-03-04 17:39] LABS: Ferritin 111 ng/ml (11.1-264)
[2023-03-04 17:54] LABS: Vitamin B12 > 1000 pg/mL (239-931)
== END 2023-03-04 23:59 ==
LOC: LAB 16:31
PROVIDERS: PCP Nurse Practitioner Family; Visit Provider Nurse Practitioner Family
DX: M54.2 Cervicalgia (principal); G62.9 Polyneuropathy, unspecified; R20.8 Other disturbances of skin sensation; R29.2 Abnormal reflex; Z79.899 Other long term (current) drug therapy
CPT/HCPCS: 36415; 80053; 82607; 82728; 82746; 83540; 83550; 84443; 85025

== ENCOUNTER 2023-05-07 09:04 | Outpatient (CLI) | payer OTHER, SELFPAY ==
--- NOTE | 2023-05-07 09:05 | MR_ITS ---
FINAL REPORT CLINICAL HISTORY: hyperreflexia, neck pain numbness FINDINGS: Multi planar MR imaging was obtained of the cervical spine. There is abnormal decreased signal throughout the cervical discs. The vertebrae are of normal height. There is no malalignment. The cervical cord demonstrates normal signal and configuration. C2-C3: There is no evidence of significant disc bulge or protrusion. There is no significant facet hypertrophy. C3-C4: Mild midline and left paracentral disc protrusion with mild spinal canal compromise. C4-C5: There is no evidence of significant disc bulge or protrusion. There is no significant facet hypertrophy. C5-C6: Moderate diffuse disc bulge is present with endplate hypertrophy and moderate bilateral neural foraminal narrowing. C6-C7: Moderate diffuse disc bulge and endplate hypertrophy are present. There is moderate to high-grade right and moderate left neural foraminal narrowing. C7-T1: There is no evidence of significant disc bulge or protrusion. There is no significant facet hypertrophy. IMPRESSION: Midline and left paracentral disc protrusion at C3-4 with mild spinal canal compromise. Moderate to high-grade right neural foraminal narrowing at C6-7. Reviewed, Interpreted and Dictated by Pierre Hardin MD Transcribed by Maura Chacon Authenticated and [facility]
== END 2023-05-07 23:59 ==
PROVIDERS: PCP Nurse Practitioner Family; Visit Provider Nurse Practitioner Family
DX: M54.2 Cervicalgia (principal); R29.2 Abnormal reflex; R20.8 Other disturbances of skin sensation
CPT/HCPCS: 72141; 76376

== ENCOUNTER 2023-08-12 08:00 | Outpatient (RCR) | payer OTHER, SELFPAY | END 2023-08-12 09:20 | disposition home or self-care (01) | LOC: PT 08:00 | PROVIDERS: Visit Provider Psychiatry & Neurology Neurology | DX: M54.2 Cervicalgia (principal) | CPT/HCPCS: 97010; 97012; 97014; 97110; 97140; 97163; 97164; G0283 ==

== ENCOUNTER 2024-02-02 14:15 | Outpatient (CLI) | payer OTHER, SELFPAY ==
--- NOTE | 2024-02-02 14:21 | US_ITS ---
FINAL REPORT TECHNIQUE: Sonographic images of the thyroid were obtained. CLINICAL HISTORY: NODULE COMPARISON: 08/29/2021 FINDINGS: THYROID ULTRASOUND SIZE: Normal ECHOGENICITY: Homogeneous LESIONS: Multiple thyroid nodules are again noted. There is a 9 mm hypoechoic nodule in the right lobe with new punctate calcifications, previously 8 mm. This is classified as a TR 5 nodule, previously TR 4. There has been interval enlargement of a complex cystic nodule in the inferior right lobe measuring 9 mm, previously 7 mm. The largest nodule in the left lobe is a TR 4 nodule measuring 8 mm, which is unchanged from the prior exam. OTHER: No additional findings. IMPRESSION: Essentially stable appearance of multinodular goiter, although 1 nodule has been graded to the TR 5. RECOMMENDATIONS: 12-month follow-up. Reviewed, Interpreted and Dictated by Jack Allen MD Transcribed by Sheila Wilde Authenticated and [facility]
== END 2024-02-02 23:59 | disposition home or self-care (01) ==
LOC: RAD 14:17
PROVIDERS: PCP Nurse Practitioner Family; Visit Provider Nurse Practitioner Family
DX: E04.1 Nontoxic single thyroid nodule (principal)
CPT/HCPCS: 76536

== ENCOUNTER 2024-03-05 13:19 | Outpatient (CLI) | payer OTHER, SELFPAY ==
--- NOTE | 2024-03-05 13:22 | CT_ITS ---
FINAL REPORT TECHNIQUE: Thin section axial images were obtained from the lung apices to the upper abdomen by computed tomography. Reformatted images were obtained and reviewed. This study was performed with techniques to keep radiation doses al low as reasonably achievable (ALARA). Individualized dose reduction techniques using automated exposure control or adjustment of mA and/or kV according to the patient's size were employed. CLINICAL HISTORY: SCREENING SMOKES 1/2 PK A DAY X 32 YRS COMPARISON: 02/05/2023 FINDINGS: CHEST CT LOW DOSE 58-year-old female, current smoker, [id number] history. CTDI vol (mGy): 2.90 DLP (mGy-cm): 110.46 There is no axillary adenopathy. There is no mediastinal or hilar mass or adenopathy. Calcified right hilar nodes are present. The heart is normal in size. There is no pericardial or pleural effusion. Lung window images demonstrate no suspicious infiltrate or nodule. There are small calcified granulomas present in the right midlung. The overall appearance is stable when compared to the prior CT of 02/05/2023. Limited images of the upper abdomen are unremarkable. IMPRESSION: Lung-RADS category 1. Recommend 12 month follow up low dose chest CT. Reviewed, Interpreted and Dictated by Pierre Hardin MD Transcribed by Karma Boyer Authenticated and [facility]
== END 2024-03-05 23:59 | disposition home or self-care (01) ==
LOC: RAD 13:20
PROVIDERS: PCP Nurse Practitioner Family; Visit Provider Obstetrics & Gynecology
DX: Z87.891 Personal history of nicotine dependence (principal)
CPT/HCPCS: 71271

== ENCOUNTER 2024-04-07 15:48 | Outpatient (CLI) | payer OTHER, SELFPAY ==
--- NOTE | 2024-04-07 15:55 | XR_ITS ---
FINAL REPORT CLINICAL HISTORY: MODERATE PERSISTENT ASTHMA WITH ACUTE EXACERBATION COMPARISON: 08/24/2021 FINDINGS: 2 views of the chest were obtained . The heart is normal in size. The mediastinum is within normal limits. There are calcified granulomas. The lungs are otherwise clear. There is no pneumothorax. Osseous structures are unremarkable. IMPRESSION: No acute cardiopulmonary process. Reviewed, Interpreted and Dictated by Jack Allen MD Transcribed by Zakiya Junior Authenticated and . [facility]
== END 2024-04-07 23:59 | disposition home or self-care (01) ==
LOC: RAD 15:49
PROVIDERS: PCP Nurse Practitioner Family; Visit Provider Nurse Practitioner Family
DX: J45.41 Moderate persistent asthma with (acute) exacerbation (principal); R06.02 Shortness of breath
CPT/HCPCS: 71046

== ENCOUNTER 2024-04-21 13:13 | Outpatient (CLI) | payer OTHER, SELFPAY ==
[2024-04-21 13:41] LABS: Basophils # 0.1 K/mm3 (0-0.2); Basophils % 1.2 % (0.1-2.0); Eosinophils # 0.1 K/mm3 (0.0-0.4); Eosinophils % 1.6 % (0.1-12.0); Hematocrit 44.1 % (37.0-47.0); Hemoglobin 14.7 g/dL (12.2-16.2); Lymphocytes # 2.5 K/mm3 (0.7-4.5); Lymphocytes % 32.9 % (10-50); Mean Corpuscular HGB Conc 33.3 g/dL (31.8-35.4); Mean Corpuscular Hemoglobin 30.3 pg (27.0-31.2); Mean Corpuscular Volume 90.9 fl (81-99); Mean Platelet Volume 10.4 fl (7.4-10.4); Monocytes # 0.5 K/mm3 (0.1-1.0); Monocytes % 6.1 % (1.7-9.3); Neutrophils # 4.4 K/mm3 (1.8-7.8); Neutrophils % 57.9 % (37.0-80.0); Platelet Count 263 K/mm3 (142-424); Red Blood Count 4.85 M/mm3 (4.20-5.40); Red Cell Distribution Width 12.9 % (11.5-17.5); White Blood Count 7.6 K/mm3 (4.8-10.8)
[2024-04-21 15:05] LABS: Hemoglobin A1C 5.3 % (4.0-6.0)
[2024-04-21 16:03] LABS: Alanine Aminotransferase 28 U/L (12-78); Albumin Level 4.5 g/dl (3.5-5.0); Alkaline Phosphatase 80 U/L (38-126); Anion Gap 9.5 mEq/L (5-15); Aspartate Amino Transferase 32 U/L (14-36); Bilirubin,Total 0.5 mg/dl (0.2-1.3); Blood Urea Nitrogen 16 mg/dl (7-17); Calcium 9.4 mg/dl (8.4-10.2); Carbon Dioxide 25 mmol/L (22.0-30.0); Chloride 106 mmol/L (98-107); Chol/HDL Ratio 4.2 (1-3.5); Cholesterol 283 mg/dl (140-200); Estimated Glomerular Filt Rate 86 ml/min (>60); GFR (African American) 104 ML/MIN (>60); Globulin 2.3 g/dL (1.3-3.2); Glucose 94 mg/dl (74-100); HDL Cholesterol 68 mg/dl (40-60); Potassium 4.5 mmoL/L (3.5-5.1); Sodium 136 mmol/L (136-145); Total Protein,Serum 6.8 g/dl (6.3-8.2); Triglycerides 151 mg/dl (30-150); VLDL Cholesterol 30 mg/dL (0-40)
[2024-04-21 16:14] LABS: Direct LDL Cholesterol 167.11 mg/dL (100-129)
[2024-04-21 16:21] LABS: 25-OH Vitamin D, Total < 12.8 ng/mL (30-100)
[2024-04-21 16:33] LABS: Thyroid Stimulating Hormone 0.87 uIU/mL (0.465-4.68)
[2024-04-21 16:53] LABS: Vitamin B12 613 pg/mL (239-931)
[2024-04-21 17:41] LABS: Ferritin 104 ng/ml (11.1-264)
== END 2024-04-21 23:59 | disposition home or self-care (01) ==
LOC: LAB 13:14
PROVIDERS: PCP Nurse Practitioner Family; Visit Provider Nurse Practitioner Family
DX: E53.8 Deficiency of other specified B group vitamins (principal); E78.00 Pure hypercholesterolemia, unspecified; E04.1 Nontoxic single thyroid nodule; E55.9 Vitamin D deficiency, unspecified; G25.81 Restless legs syndrome
CPT/HCPCS: 36415; 80053; 80061; 82306; 82607; 82728; 83036; 84443; 85025

== ENCOUNTER 2024-05-10 11:28 | Outpatient (CLI) | payer OTHER, SELFPAY ==
--- NOTE | 2024-05-10 11:30 | CT_ITS ---
FINAL REPORT TECHNIQUE: Thin section axial CT images with coronal and sagittal reformats were performed through the neck. This study was performed with techniques to keep radiation doses as low as reasonably achievable (ALARA). Individualized dose reduction techniques using automated exposure control or adjustment of mA and/or kV according to the patient''s size were employed. CLINICAL HISTORY: soft tissues swelling COMPARISON: MRI C-spine dated 05/07/2023, thyroid ultrasound dated 02/02/2024 FINDINGS: No adenopathy or mass lesion is present . Salivary glands are normal. Larynx is unremarkable. The thyroid gland is normal in size. There is a questionable nodule in the left lobe measuring up to 10 mm. IMPRESSION: No mass or adenopathy. Possible left thyroid nodule without thyroid enlargement. Reviewed, Interpreted and Dictated by Jack Allen MD Transcribed by Kimmie Berg Authenticated and [facility]
== END 2024-05-10 23:59 | disposition home or self-care (01) ==
LOC: RAD 11:28
PROVIDERS: PCP Nurse Practitioner Family; Visit Provider Nurse Practitioner
DX: R49.0 Dysphonia (principal); R22.1 Localized swelling, mass and lump, neck
CPT/HCPCS: 70490

== ENCOUNTER → 2024-06-03 09:46 | Outpatient (CLI) | payer OTHER, SELFPAY ==
--- OUTSIDE RECORDS SUMMARY | 2024-06-03 09:48 | XMS_ITS | Data Portability ---
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 Primary Care Provider RACHNA JONES Primary Care Provider Assessment No assessment recorded. Plan of Treatment Reminders Order Date Submit Date Provider Last Modified By Organization Details Last Modified Time Details Appointments OV EST 10 2024 07:30A Miah Gray MD Not available Not available Not available Lab calprotec tin, stool 2023 024 [facility] (Registration ), [address], [place], [address], 08/19/2023 16:14:42 Referral None recorded. Procedures colonosco py procedure (PROC) - PHYSICIAN ORDERS1. Ensure patient is NPO and bowel prep complete. 0.9% normal saline @kvo preferabl y in right arm; IV patent to gravity.3 . Verify consent. Colonosco py with possible biopsy with possible polypecto my.4. On-Call to Endoscopy .5. If prep not clear, give large volume enema and report results.6 . Draw pt/inr if patient on Coumadin Hold [address] (Outpatient Surgery), [place], [address], 10/23/2023 13:05:51 Surgeries None recorded. Imaging None recorded. Medication Orders dicyclomi ne 10 mg capsule [address] [facility], [address], [address], [place], [address], 12/10/2023 09:56:46 dicyclomi ne 10 mg capsule [address] [facility], [address], [address], [place], [address], 10/06/2023 14:50:28 mesalamin e 1.2 gram tablet,de layed release [address] [facility], [address], [address], [place], [address], 12/10/2023 09:36:38 mesalamin e 1.2 gram tablet,de layed release [address], [address] [place] [address], [address], [place], [address], 12/10/2023 09:01:51 Suflave 178.7 gram-7.3 gram-0.5 gram oral solution [address] [facility], [address] [place] [address], [address], [place], [address], 10/03/2023 11:06:53 dicyclomi ne 10 mg capsule [address] [facility], [address], [address], [place], [address], 08/25/2023 15:50:51 mesalamin e 1.2 gram tablet,de layed release [address], [address], [address], [place], [address], 12/10/2023 09:01:51 ropinirol e 1 mg tablet [address] [facility], [address], [address], [place], [address], 08/12/2023 09:23:32 Patient TargetsNo targets recorded. Patient InstructionsNo instructions recorded. Reason for Referral None Reported. Results Created Date Observation Date Name Description Value Unit Range Abnormal Flag Note LastModifiedBy Organization Detail LastModifiedTime 08/12/19 24 08/12/2023 CBC W/AUT O DIFFE RENTI AL note SEE NOTE Order ing Provi karen: Israel singleton MD Not Available [address] , [place], [address], 08/12/2023 17:43:08 08/12/19 24 08/12/2023 CBC W/AUT O DIFFE RENTI AL white blood cell 7.2 10e3/ uL 4.5-13 .0 normal Not Available [address] , [place], [address], 08/12/2023 17:43:08 08/12/19 24 08/12/2023 CBC W/AUT O DIFFE RENTI AL red blood cell 4.72 10e6/ uL 3.80-5 .10 normal Not Available [address] [place], [place], [address], 08/12/2023 17:43:08 08/12/19 24 08/12/2023 CBC W/AUT O DIFFE RENTI AL hemoglobin 14.4 g/dL 11.5-1 5.3 normal Not Available [address] [place], [place], [address], 08/12/2023 17:43:08 08/12/19 24 08/12/2023 CBC W/AUT O DIFFE RENTI AL hematocrit 42.7 % 34.0-4 6.0 normal Not Available [address] [place], [place], [address], 08/12/2023 17:43:08 08/12/19 24 08/12/2023 CBC W/AUT O DIFFE RENTI AL mean cell volume 91 fL 78.0-9 8.0 normal Not Available [address] , [place], [address], 08/12/2023 17:43:08 08/12/19 24 08/12/2023 CBC W/AUT O DIFFE RENTI AL mean cell HGB 30.5 pg 25.0-3 5.0 normal Not Available [address] [place], [place], [address], 08/12/2023 17:43:08 08/12/19 24 08/12/2023 CBC W/AUT O DIFFE RENTI AL mean cell HGB concentratio n 33.7 g/dL 31.0-3 6.0 normal Not Available [address] , [place], [address], 08/12/2023 17:43:08 08/12/19 24 08/12/2023 CBC W/AUT O DIFFE RENTI AL red cell distribution width 13.1 % 11.0-1 5.0 normal Not Available [address] [place], [place], [address], 08/12/2023 17:43:08 08/12/19 24 08/12/2023 CBC W/AUT O DIFFE RENTI AL platelet count 260 10e3/ uL 150-40 0 normal Not Available [address] [place], [place], [address], 08/12/2023 17:43:08 08/12/19 24 08/12/2023 CBC W/AUT O DIFFE RENTI AL immature granulocyte % 0 0-1 normal Not Available [address] [place], [place], [address], 08/12/2023 17:43:08 08/12/19 24 08/12/2023 CBC W/AUT O DIFFE RENTI AL neutrophil % 52 % 35-75 normal Not Available [address] , [place], [address], 08/12/2023 17:43:08 08/12/19 24 08/12/2023 CBC W/AUT O DIFFE RENTI AL lymphocyte % 35 % 10-50 normal Not Available [address] [place], [place], [address], 08/12/2023 17:43:08 08/12/19 24 08/12/2023 CBC W/AUT O DIFFE RENTI AL monocyte % 9 % 0-15 normal Not Available [address] [place], [place], [address], 08/12/2023 17:43:08 08/12/19 24 08/12/2023 CBC W/AUT O DIFFE RENTI AL eosinophil % 3 % 0-5 normal Not Available [address] [place], [place], [address], 08/12/2023 17:43:08 08/12/19 24 08/12/2023 CBC W/AUT O DIFFE RENTI AL basophil % 1 % 0-5 normal Not Available [address] [place], [place], [address], 08/12/2023 17:43:08 08/12/19 24 08/12/2023 CBC W/AUT O DIFFE RENTI AL immature granulocyte # 0.01 x1000 /uL 0-0.05 normal Not Available [address] [place], [place], [address], 08/12/2023 17:43:08 08/12/19 24 08/12/2023 CBC W/AUT O DIFFE RENTI AL neutrophil # 3.71 x1000 /uL 1.50-8 .00 normal Not Available [address] [place], [place], [address], 08/12/2023 17:43:08 08/12/19 24 08/12/2023 CBC W/AUT O DIFFE RENTI AL lymphocyte # 2.53 x1000 /uL 1.20-5 .20 normal Not Available [address] [place], [place], [address], 08/12/2023 17:43:08 08/12/19 24 08/12/2023 CBC W/AUT O DIFFE RENTI AL monocyte # 0.63 x1000 /uL 0.40-0 .90 normal Not Available [address] [place], [place], [address], 08/12/2023 17:43:08 08/12/19 24 08/12/2023 CBC W/AUT O DIFFE RENTI AL eosinophil # 0.23 x1000 /uL 0.00-0 .50 normal Not Available [address] [place], [place], [address], 08/12/2023 17:43:08 08/12/19 24 08/12/2023 CBC W/AUT O DIFFE RENTI AL basophil # 0.07 x1000 /uL 0.00-0 .30 normal Not Available [address] [place], [place], [address], 08/12/2023 17:43:08 08/12/19 24 08/12/2023 CBC W/AUT O DIFFE RENTI AL NRBC automated 0.0 /100_ WBC Not Available [address] [place], [place], [address], 08/12/2023 17:43:08 08/12/19 24 08/12/2023 CBC W/AUT O DIFFE RENTI AL performing lab SEE NOTE ML - [facility] [place] [address] [facility] [address] Not Available [address] [place], [place], [address], 08/12/2023 17:43:08 08/12/19 24 08/12/2023 STOOL CALPR OTECT IN note SEE NOTE Order ing Provi karen: Israel singleton MD Not Available [address] , [place], [address], 08/19/2023 16:14:42 08/12/19 24 08/12/2023 STOOL CALPR OTECT IN stool calprotectin <5 ug/g 0-120 Sadia ntrat ion Inter preta tion Follo w-Up < 5 - 50 ug/g Madeline l None >50 -120 ug/g Borde rline Re-ev aluat e in 4-6 weeks >120 ug/g Abnor mal Repea t as clini adonay indic ated Perfo rmed At: , [facility]ta cav[facility] [address] [facility] [place], [address] Vi wallis MD, Phone : [phone] Not Available [address] , [place], [address], 08/19/2023 16:14:42 08/12/19 24 08/12/2023 STOOL CALPR OTECT IN performing lab SEE NOTE LC2 - LAB[facility] RP CLIEN T# [id number] 022 [address] [place] [id number] Not Available [address] , [place], [address], 08/19/2023 16:14:42 Result Notes None recorded. 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 Sheng Gray MD [facility] [address], [place], [address] , [facility] & [place] 16:13:45 Abdominal pain 70493728 Active 2021 Sheng Gray MD [address] [place] [address],[address], [place], [address] , [place] - [facility] & [place] 2 16:16:11 Intermittent dysphagia 08669096 Active 2022 Sheng Gray MD [address] [place] [address],[address], [place], [address] , [place] - [facility] & Melisa 3 15:11:53 Irritable bowel syndrome 26317118 Active 2022 Sheng Gray MD [address] [place] [address],[address], [place], [address] , [place] - [facility] & Melisa 3 15:12:15 Small fiber neuropathy 433299998 Active 2023 Amanda Pearson, DO [address] [facility], [place], [address] , [place] - [facility] & [place] 4 11:10:57 Restless legs 01564172 Active 2023 Amanda Pearson, DO [address] [facility], [place], [address] , [place] - [facility] & [place] 4 11:11:14 Neck pain 41888299 Active 2023 Amanda Pearson, DO [address] [facility], [place], [address] , [place] - [facility] & [place] 4 11:15:13 Rectal hemorrhage 09432895 Active 2023 Sheng Gray MD [address] [place] [address],[address], [place], [address] , [place] - [facility] & Melisa 4 15:34:40 Problem Notes None recorded. Procedures Surgical History Date Name Laterality Status Provider Name and Address Organization Details Recorded Time 09/08/19 24 Colonoscopy completed Kishan WATSON - [facility] - [place] & [place] 10/06/2023 13:57:01 12/02/19 22 Colonoscopy completed Kishan WATSON - [facility] - [place] & [place] 10/06/2023 13:57:08 12/30/19 Colonoscopy completed Kishan VU [facility] & [place] 10/30/2021 15:57:34 01/28/20 Colonoscopy completed Kishan VU [facility] & [place] 01/16/2022 08:20:32 03/23/[address] of small intestine with contrast completed Kishan VU [facility] & [place] 01/16/2022 08:20:02 diagnostic laparoscopy of female pelvis completed Kishan VU [facility] & [place] 10/30/2021 15:56:51 cardiac catheterization completed Kishan VU [facility] & [place] 01/16/2022 08:19:06 EGD/Endoscopy completed Kishan VU [facility] & [place] 10/30/2021 15:57:54 Imaging Results None recorded. Procedure Notes None recorded. Medical Equipment None Reported. Allergies Allergen ID Allergen Name Allergen Category Reaction Reaction Severity Criticality Documentation Date Start Date Code Code System Note Provider Name and Address Organization Details Recorded Time 35987 Product containin g penicilli n (product) medicatio n Not available Not available Not available 10/30/2021 48425 8001 SNOMED SHIRLEY Pal [facility] & [place] 2 15:43:55 00409 Substance with sulfonami de structure and antibacte rial mechanism of action (substanc e) medicatio n Not available Not available Not available 10/30/2021 49213 8003 SNOMED SHIRLEY Pal [facility] & [place] 2 15:44:01 Medications Name Sig Start Date Stop Date Status Note LastModified by Organization Details LastModified Time blood pressu solution kit 07/04 completed Not Available Not Available Not Available lmp (rr) cream (lp2.15) apply three times per day active Not Available Not Available No t Available blood pressure monitoring solution kit 08/20 completed Not Available Not Available Not Available lmp (tabs)in ptc (lp2.15) 05/25 completed Not Available Not Available Not Available cyclobenzap rine 10 mg tablet TAKE 1 TABLET BY MOUTH TWICE DAILY NEEDED FOR MUSCLE RELAXANT MAY CAUSE DROWSINES S 10/30 completed Not Available Not Available Not Available atorvastati n 40 mg tablet Take 1 tablet every day by oral route. 07/04 completed Not Available Not Available Not Available promethazin e-DM 6.25 mg-15 mg/5 mL oral syrup 08/20 completed Not Available Not Available Not Available doxycycline hyclate 100 mg capsule 08/20 completed Not Available Not Available Not Available ropinirole 1 mg tablet Take 1 tablet every day by oral route at bedtime for 30 days. 08/11 completed Not Available Not Available Not Available azithromyci n 250 mg tablet 10/30 completed Not Available Not Available Not Available medroxyprog esterone 2.5 mg tablet 1 tablet 1 time a day 05/25 completed Not Available Not Available Not Available meloxicam 15 mg tablet 05/25 completed Not Available Not Available Not Available simvastatin 10 mg tablet 07/04 completed Not Available Not Available Not Available aspirin 81 mg tablet,delfino yed release TAKE 1 TABLET BY MOUTH ONCE DAILY active Not Available Not Available No t Available meloxicam 7.5 mg tablet 01/23 completed Not Available Not Available Not Available amitriptyli ne 25 mg tablet Take 1 tablet every day by oral route for 30 days. active Not Available Not Available No t Available estradiol 1 mg tablet 10/30 completed Not Available Not Available Not Available amitriptyli ne 10 mg tablet 07/04 completed Not Available Not Available Not Available baclofen 10 mg tablet Take 1 tablet every day by oral route for 30 days. active Not Available Not Available No t Available neomycin-po lymyxin-dex ameth 3.5 mg/mL-10,00 0 unit/mL-0.1 % eye drops Instill as needed by ophthalmi c route as directed for 10 days. 10/02 completed Not Available Not Available Not Available ropinirole 0.5 mg tablet Take 1 tablet every day by oral route at bedtime for 30 days. active Not Available Not Available No t Available dexamethaso ne 4 mg tablet 08/20 completed Not Available Not Available Not Available montelukast 10 mg tablet Take 1 tablet every day by oral route for 30 days. active Not Available Not Available No t Available estradiol 0.5 mg tablet 1 tablet a day 05/25 completed Not Available Not Available Not Available azelastine 137 mcg (0.1 %) nasal spray [place] as needed by nasal route for 30 days. active Not Available Not Available No t Available budesonide DR - ER 3 mg capsule,del ayed,extend ed release TAKE 1 CAPSULE BY MOUTH ONCE DAILY 08/20 completed Not Available Not Available Not Available albuterol sulfate HFA 90 mcg/actuati on aerosol inhaler Inhale as needed by inhalatio n route for 24 days. active Not Available Not Available No t Available Vitamin D2 1,250 mcg (50,000 unit) capsule 05/25 completed Not Available Not Available Not Available fluticasone propionate 50 mcg/actuati on nasal spray,suspe nsion [place] 1 spray as needed by nasal route for 30 days. active Not Available Not Available No t Available dicyclomine 10 mg capsule Take 1 capsule 4 times a day by oral route for 90 days. active Not Available Not Available No t Available escitalopra m 10 mg tablet 1 time a day active Not Available Not Available No t Available Premarin 0.625 mg/gram vaginal cream INSERT ONE (1) GRAM TWICE A WEEK BY VAGINAL ROUTE. active Not Available Not Available No t Available rosuvastati n 10 mg tablet 1 tablet 1 time a day 07/04 completed Not Available Not Available Not Available vitamin D49-axctg acid 1000 mcg 1 time a day active Not Available Not Available No t Available mesalamine 1.2 gram tablet,delfino yed release Take 2 tablets every day by oral route for 30 days. 12/09 completed Not Available Not Available Not Available diclofenac 1 % topical gel 08/20 completed Not Available Not Available Not Available Sutab 1.479-0.188 -0.225 gram tablet UAD 01/16 completed Not Available Not Available Not Available Lagevrio 200 mg capsule (EUA) TAKE 4 CAPSULES BY MOUTH EVERY 12 HOURS FOR 5 DAYS 10/30 completed Not Available Not Available Not Available Suflave 178.7 gram-7.3 gram-0.5 gram oral solution take as directed 10/02 completed Not Available Not Available Not Available Breyna 160 mcg-4.5 mcg/actuati on HFA aerosol inhaler Inhale as needed by inhalatio n route for 30 days. active Not Available Not Available No t Available Vitals Date Recorded Body height Body mass index (BMI) Body weight Heart rate Systolic blood pressure Diastolic blood pressure Provider Name and Address Organization Details Last Updated DateTime 4 171.45 cm 32.7 kg/m2 09959.5 8 g 69 /min 124 mm[Hg] 75 mm[Hg] [facility]abet [facility] & [place] 4 09:59:07 Date Recorded Body height Body mass index (BMI) Body weight Body temperature Respiratory rate Heart rate Systolic blood pressure Diastolic blood pressure Provider Name and Address Organization Details Last Updated DateTime 4 171.45 cm 32.9 kg/m2 49364.1 7 g 97.5 [degF] 18 /min 72 /min 134 mm[Hg] 79 mm[Hg] Kishan VU [facility] & [place] 4 08:11:02 Date Recorded Body height Body weight Body mass index (BMI) Body temperature Heart rate Respiratory rate Systolic blood pressure Diastolic blood pressure Provider Name and Address Organization Details Last Updated DateTime 4 171.45 cm 97032.4 9 g 33.1 kg/m2 96.8 [degF] 81 /min 18 /min 142 mm[Hg] 84 mm[Hg] Kishan VU [facility] & [place] 4 15:01:50 Date Recorded Body height Provider Name an d Address Organization Details Last Updated DateTime 10/06/2023 171.45 cm [facility]an [facility] & [place] 10/06/2023 13:57:33 Date Recorded Body height Body mass index (BMI) Body weight Systolic blood pressure Diastolic blood pressure Provider Name and Address Organization Details Last Updated DateTime 12/10/2023 171.45 cm 33 kg/m2 78214.77 g 143 mm[Hg] 91 mm[Hg] Rivka [facility] & [place] 4 09:01:17 Social History Question Answer Notes LastModified by Organizat ion Details LastModified Time Tobacco Smoking Status Former Smoker Kishan Nunezeri [facility], [place] - [facility] - [place] & [place] 10/30/2021 15:53:23 Do You Have An Advance Directive? No Information not available 10/30/2021 What Is Your Level Of Alcohol Consumption? None Information not available 10/30/2021 Are You Blind Or Do You Have Difficulty Seeing? No Information not available 10/30/2021 Is Blood Transfusion Acceptable In An Emergency? Yes [email or web address] Information not available 01/23/2023 What Is Your Level Of Caffeine Consumption? Heavy 5 Cans Diet Mountain Dew Per Day Information not available 05/26/2023 Are You Currently Employed? No Retired Information not available 05/26/2023 Are You Deaf Or Do You Have Serious Difficulty Hearing? No [email or web address] Information not available 01/23/2023 What Type Of Diet Are You Following? REGULAR [email or web address] Information not available 01/23/2023 What Is Your Occupation? [employer] Information not available 05/26/2023 How Many Days Of Moderate To Strenuous Exercise, Like A Brisk Walk, Did You Do In The Last 7 Days? 3 [email or web address] Information not available 01/23/2023 On Those Days That You Engage In Moderate To Strenuous Exercise, How Many Minutes, On Average, Do You Exercise? 30 [email or web address] Information not available 01/23/2023 Have There Been Any Changes To Your Family Or Social Situation? No [email or web address] Information not available 01/23/2023 When Did You Quit Smoking? 16+yearssinc elastcigaret te [email or web address] Information not available 01/23/2023 What Was The Date Of Your Most Recent Tobacco Screening? 08/20/2022 [email or web address] Information not available 08/20/2022 How Many Children Do You Have? 0 [email or web address] Information not available 01/23/2023 Do You Have Any Pets? Yes [email or web address] Information not available 01/23/2023 What Is Your Relationship Status? Single Lives Alone In A House Information not available 05/26/2023 Do You Use Your Seat Belt Or Car Seat Routinely? Yes [email or web address] Information not available 01/23/2023 At What Age Did You Start Smoking Tobacco? 15 [email or web address] Information not available 01/23/2023 Are You Passively Exposed To Smoke? No [email or web address] Information not available 08/20/2022 How Much Tobacco Do You Smoke? 1 PPD [email or web address] Information not available 08/20/2022 Do You Feel Stressed (tense, Restless, Nervous, Or Anxious, Or Unable To Sleep At Night)? [id number] Information not available 07/30/2023 Do You Use Any Illicit Or Recreational Drugs? No Information not available 01/16/2022 How Many Years Have You Smoked Tobacco? 10 Information not available 10/30/2021 Are You Currently In School? No Diploma Information not available 05/26/2023 Sex: Unknown Functional Status Question Answer Note LastModified by Organizat ion Details LastModified Time Do you have difficulty walking or climbing stairs? No [email or web address] Information not available 01/23/2023 Do you have transportation difficulties? No [email or web address] Information not available 01/23/2023 Are you able to walk? YESWOREST [email or web address] Information not available 01/23/2023 Do you have difficulty doing errands alone? No Information not available 01/23/2023 Are you able to care for yourself? Yes Information not available 01/23/2023 Do you have difficulty dressing or bathing? No [email or web address] Information not available 01/23/2023 What is your exercise level? Moderate Information not available 10/30/2021 Mental Status Question Answer Note LastModified by Organization D etails LastModified Time Do you have difficulty concentrating, remembering or making decisions? No [email or web address] Information no t available 01/23/2023 Family History Relationship Description Onset Age of this Age Resolved Age Notes LastModified by Organization Details LastModified Time Maternal Grandmother Familial cancer of breast [email or web address] Not available 2023 08:56:42 Paternal Grandmother Lymphoma finding [email or web address] Not available 2023 08:56:42 Father Heart disease [email or web address] Not available 2021 15:50:18 Father Diabetes mellitus [email or web address] Not available 2023 08:56:42 Father Malignant neoplasm of urinary bladder 76 [email or web address] Not available 2023 08:56:42 Father Disorder of endocrine system pt. added direct ly (01/21) [email or web address] Not available 01/21/2023 12:38:20 Father Hearing loss pt. added direct ly (01/21) [email or web address] Not available 01/21/2023 12:38:34 Maternal Grandfather Family history of cancer of colon [email or web address] Not available 2023 08:56:42 Maternal Grandfather Polyp of colon [email or web address] Not available 2023 08:56:42 Maternal Grandfather Disease of liver [email or web address] Not available 2021 08:17:59 Brother Diabetes mellitus [email or web address] Not available 2023 08:56:42 Brother Disorder of endocrine system pt. added direct ly (01/21) [email or web address] Not available 01/21/2023 12:38:20 Mother Myocardial infarction [email or web address] Not available 01/16 08:17:09 Medical History Condition Response Coronary Artery Disease N Gout N None Y Colon Cancer N Kidney Stones N Hyperthyroidism N Depression Y COPD Y Hypothyroidism N Diverticulitis/Diverticulosis N Anxiety Disorder Y Arthritis Y Cancer N Stroke N Liver Disease N Rheumatoid Arthritis Y Kidney Disease N Ear or Hearing Problems Y GI Problems Y Osteoporosis/Osteopenia N Colon Polyps Y Neurological Problems Y Diabetes N Bleeding Disorder N Seizures/Epilepsy N Tuberculosis N Hyperlipidemia Y Back Problems Y Asthma Y Sleep Apnea N GERD/Reflux N Hepatitis N Cirrhosis N Heart Disease N Hypertension N Gynecological History Statement/Question Response Menses Monthly N Abnormal Pap Y Sexually Active? N Obstetrics History GPAL:G 0 P 0 0 0 0 Immunizations Vaccine Type Date Status Note Provider Nam e and Address Organization Details Recorded Time influenza, unspecified formulation 0 completed SHIRLEY Pal - [facility] - [facility] 01/16/2022 08:15:11 Pneumococcal conjugate PCV 13 7 completed SHIRLEY Pal - [facility] - [facility] 01/16/2022 08:15:28 influenza, unspecified formulation 2 completed SHIRLEY Pal - [place] [facility] [place] 01/16/2022 10:11:02 SARS-COV-2 (COVID-19) vaccine, UNSPECIFIED 1 completed [facility] - [place] [facility] [place] 10/30/2021 15:48:43 Past Encounters Encounter ID Performer Location Encounter Start Date Encounter Closed Date Diagnosis/Indication Diagnosis SNOMED-CT Code Diagnosis ICD10 Code Diagnosis Note [id number] Sheng Gray MD [address] [address] 10/30/2021 14:54:26 10/31/2021 08:33:31 Indeterminate colitis 081748434 K52.3 Recent increase abdominal pain, question increasing colitis symptoms. At this time check stool calprotect in, CRP and CBC. Schedule colonoscop y for further evaluation at this time continue mesalamine unchanged. [id number] Sheng Gray MD [address] [address] 01/16/2022 09:55:16 01/16/2022 10:40:04 Indeterminate colitis [id number] K52.3 The patient has persistent indetermin ate colitis, inflammato ry markers including calprotect in and CRP unremarkab le. Give the patient a trial of budesonide initially 9 mg a day for 2 weeks, then reducing it to 6 mg a day till follow-up. Continue mesalamine , check an IBD antibody panel. Abdominal pain [id number] R10.9 [id number] Sheng Gray MD [address],[facility] [place] [address] 02/13/2022 07:48:31 02/13/2022 08:11:14 Indeterminate colitis 481615552 K52.3 The patient has persistent indetermin ate colitis, inflammato ry markers including calprotect in and CRP unremarkab le and IBD serology negative. And a combinatio n of budesonide 3 mg daily, and mesalamine the patient is doing well. Continue current therapy without change. Follow-up 3 months [id number] Sheng Gray MD [facility] [address] [place] [address] [place], [place] [phone] 07/04/2022 12:37:41 07/04/2022 13:21:49 Indeterminate colitis [id number] K52.3 indetermin ate colitis, inflammato ry markers including calprotect in and CRP unremarkab le and IBD serology negative. Patient now feels that the budesonide is actually making her more likely to have crampy discomfort , we will therefore have her stop her budesonide continue the mesalamine . Will see her back in 2 months to reassess. 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 continue mesalamine Irritable bowel syndrome 07193323 K58.9 suspect we may have some overlap of my and a colitis with IBS. Given the patient complains primarily of crampy discomfort , will add dicyclomin e to the patient's regimen see above. Follow-up 2 months [id number] Sheng Gray MD [place] [phone] 10/24/2022 13:25:29 10/24/2022 14:27:26 Irritable bowel syndrome 93497386 K58.9 suspect we may have some overlap of my and a colitis with IBS. Given the patient complains primarily of crampy discomfort , symptoms have improved since addition of dicyclomin e but not totally resolved. Increase fiber to 2 tablets once a day of Citrucel Indeterminate colitis 23 2222912 K52.3 indetermin ate colitis, inflammato ry markers including calprotect in and CRP unremarkab le and IBD serology negative. continue mesalamine [id number] Sheng Gray MD [facility] er[facility] [address] [place] [phone] 01/23/2023 12:58:01 01/23/2023 13:48:46 Irritable bowel syndrome 17753322 K58.9 overlap IBD with indetermin ate colitis currently asymptomat ic on dicyclomin e and mesalamine . Continue dicyclomin e for IBS Indeterminate colitis 23 8949767 K52.3 indetermin ate colitis, inflammato ry markers including calprotect in and CRP unremarkab le and IBD serology negative. continue mesalamine [id number] DO [facility] [address] [facility],[address] [place] [phone] 05/26/2023 10:07:07 05/26/2023 11:21:09 Small fiber neuropathy [id number] G62.89 She has previously been diagnosed with small fiber neuropathy after a skin biopsy. Her naphtha washing system operator has attributed her foot pain to the neuropathy but also plantar fasciitis and heel spurs. She may benefit from medicaton for symptomati c management of the neuropathy discomfort , but would first see if treating the RLS provided adequate relief. Restless legs 77949558 G 25.81 Progressiv e LE restlessne ss. She might benefit from ropinirole . She is educated on this medication and potential side effects. Neck pain 30477628 M54.2 Chronic neck pain. Recent MRI cervical spine shows DDD with a bulging disc at C6/7 with right foraminal stenosis. She does not describe any radicular type pain.Would do a trial of PT for her neck pain to see if that would be effective. [id number] DO UNRULY Brasher [facility],[address] [address] 07/14/2023 09:50:33 07/14/2023 10:33:40 Small fiber neuropathy [id number] G62.89 She has previously been diagnosed with small fiber neuropathy after a skin biopsy. Her naphtha washing system operator has attributed her foot pain to the neuropathy but also plantar fasciitis and heel spurs. She currently is not having any neuropathi c pain that requires additional interventi ons. Restless legs 02683627 G 25.81 Progressiv e LE restlessne ss. She has had some slight improvemen t with the low dose of ropinirole . Will increase her dose today and she will call with an update. Neck pain [id number] M54.2 Chronic neck pain.MRI cervical spine shows DDD with a bulging disc at C6/7 with right foraminal stenosis. She does not describe any radicular type pain.She will continue with PT for her neck pain as this is providing some benefits. She has amitriptyl ine at home which could be effective for her neck pain and headaches. She is cautioned to watch for increased sedation when combining this with the ropinirole . [id number] Sheng Gray MD [facility] [address] [place] [address],[address] [place] [address] 07/30/2023 08:00:29 07/30/2023 08:25:43 Irritable bowel syndrome 64673044 K58.9 overlap IBS with indetermin ate colitis currently asymptomat ic on dicyclomin e and mesalamine . Continue dicyclomin e for IBS Indeterminate colitis 23 9540463 K52.3 indetermin ate colitis, inflammato ry markers including calprotect in and CRP unremarkab le Previously and IBD serology negative in 2021 . continue mesalamine [id number] Sheng Gray MD [facility] [address] [place] [address],[address] [place] [address] 08/25/2023 14:23:23 08/25/2023 15:45:26 Rectal hemorrhage 70936202 K62.5 etiology of the patient's rectal bleeding is unclear, given the patient's colitis history however worsening of that process certainly is in differenti al schedule colonoscop y for evaluation . Continue increased dose of mesalamine until postproced ure Indeterminate colitis 23 1953779 K52.3 possible flare [id number] Sheng Gray MD [facility] [address] [place] [address],[address] [place] [address] 10/06/2023 13:23:25 10/06/2023 14:44:29 Rectal hemorrhage 10113201 K62.5 Resolved, colonoscop y without specific abnormalit y, possibly anorectal issue that it heal spontaneou sly prior to colonoscop y Indeterminate colitis 23 1940141 K52.3 recent colonoscop y biopsies demonstrat ed no colitis, wean mesalamine off, reduce her current mesalamine 1.2 g 4 tablets once a day down to 2 tablets once a day. After 30 days if no increase symptoms, discontinu e. Irritable bowel syndrome 46357740 K58.9 restart dicyclomin e for IBS [id number] Sheng Gray MD [facility] [address] [place] [address],[address] [phone] 12/10/2023 08:53:50 12/10/2023 09:20:45 Indeterminate colitis 910797057 K52.3 Resolved ,recent colonoscop y biopsies demonstrat ed no colitis. asymptomat ic Irritable bowel syndrome 99096120 K58.9 Stable on dicyclomin e for IBS, no change Health Concerns Section Related Observation LastModified by Organization Detai ls LastModified Time None Recorded Concern Status LastModified by Organization Details LastModified Time None Recorded Advance Directives Directive N: Payers Encounter Date Sequence Insurance Name Policy Number Policy Colbert Covered Member ID Colbert Member ID Guarantor Name 07/14/2023 1 [employer] Dilcia Hawkinsenter [id number] Dilcia Mai 07/30/2023 1 [id number] Dilcia Clark [place] [id number] Dilcia Hawkinsenter 08/25/2023 1 [id number] Dilcia Clark [place] [id number] Dilcia Hawkinsenter 10/06/2023 1 [id number] Dilcia Clark [place] [id number] Dilcia Hawkinsenter 12/10/2023 1 [id number] Dilcia Clark [place] [id number] Dilcia Mai Notes Date Note Type Note Provider Name and Address Organization Details Recorded Time 07/14/2023 text/html Dilcia comes in today for follow up. I started ropinirole the last visit for RLS. I also ordered PT for her cervical pain. She does appreciate that the ropinirole will help a little . She denies any side effects. She is primarily only having issues at night. During the daytime she moves around and her legs don't reall bother her.She does feel the PT is helping her neck pain. She has had a few bad headaches. Her PCP did give her amitriptyline which she has used as needed when her head hurts. She can't tell how much it may help. INITIAL VISIT: (05/26/23)57 y/o right handed female here for neurologic consultation requested by Severo Lynch regarding numbness. Dilcia is the primary historian for today's visit. Dilcia reports that she has been seeing neurology in [place] for neuropathy in her legs. She has been diagnosed with a small fiber neuropathy. She tells me this was diagnosed by biopsy by a naphtha washing system operator. She is not currently prescribed any medications for neuropathic pain. Her primary symptom is discomfort in her feet/legs when she has to be up on her feet for a period of time. She has retired so this has really helped her discomfort. She also reports having RLS that can be very bothersome at bedtime. She describes a crawling bad sensation in her feet that will prevent her from sleeping.She tells me the naphtha washing system operator prescribed ropinirole but she never tried it. She would be willing now to try medication to help these symptoms. She had a MRI cervical recently which was ordered by her neurologist due to neck pain. She provided the report and there is mention of significant right foraminal stenosis at the C6/7. She denies any radiating pain down her right arm.She also complains of low back pain. She showed me a report from a lumbar xray done last October. This suggests multi level DDD. She also mentions that when she would wear safety glasses at work she notices a bit of tingling sensation just under both eyes. Once she takes them off it will dissipates.This does not affect her vision or cause any discomfort. She does not find this limits her activities in any way. She wondered if this might be due to her arthritis in the neck area. Amanda Pearson DO [address], [place], [address], [place] [facility] [place] [facility] [place] 07/14/2023 10:36:11 07/30/2023 text/html this patient presents in routine follow-up. The patient has a history indeterminate colitis, and IBS in on current therapy is essentially asymptomatic without diarrhea, rectal bleeding, notes occasionally a little bit of crampy lower abdominal pain that response to her dicyclomine. No weight loss no fevers or chills. Last colonoscopy was in 2021 follow-up colonoscopy based on previous polyps is recommended in 2026. Sheng Gray MD [address] [place] [address],[address], [place], [address], [facility] [place] 07/30/2023 08:25:30 08/25/2023 text/html this is a 57-year-old female with a history of indeterminate colitis, and IBS presents after an episode of rectal bleeding. The patient notes that she was traveling, and after a meal she noted crampy abdominal pain. A stopped and she had an episode of diarrhea, they got back on the road she had additional cramps in when they stopped she had a single episode of bright red blood per rectum. No further bleeding. CBC normal stool calprotectin normal out of a height of caution we increase the patient's mesalamineto 4.6 g p.o. b.i.d. Sheng Gray MD [address] [place] [address],[address], [place], [address], [facility] - [facility] & [place] 08/25/2023 15:42:11 10/06/2023 text/html This 57-year-old female presents in follow-up. The patient has a history of IBS, and distally history of indeterminate colitis. After an episode of some rectal bleeding she underwent a colonoscopy that was essentially unremarkable random biopsies demonstrated no evidence of colitis. There were no significant hemorrhoids, no other lesions. The patient has had no further bleeding she does continue to have some left lower quadrant discomfort. Sheng Gray MD [address] [place] [address] Drive,[address], [place], [address], [facility] & [place] 10/06/2023 14:47:14 12/10/2023 text/html 57-year-old sal carter presents in follow-up. Patient reports that she has been doing well, we saw her last we weaned her off her mesalamine given that there was no evidence of colitis on her recent colonoscopy. The patient presents today noting that she has had no recurrent diarrhea, she does continue on dicyclomine for IBS like symptomatology induced well without without side effects. The patient has had no melena no bright red blood per rectum. No diarrhea Sheng Gray MD [address] [facility],[address], [place], [address], [facility] - [facility] 12/10/2023 09:50:35 OBGyn Episode No OBEpisode recorded.
== END ==
LOC: SL 09:47
PROVIDERS: PCP Nurse Practitioner Family; Visit Provider Internal Medicine Pulmonary Disease
DX: G47.30 Sleep apnea, unspecified (principal)
CPT/HCPCS: G0399

== ENCOUNTER 2024-07-22 09:33 | Outpatient (CLI) | payer OTHER, SELFPAY ==
--- OUTSIDE RECORDS SUMMARY | 2024-05-15 17:30 | XMS_ITS ---
Author Organization [facility] Address [address] [place] [address] Care Team Providers Care Manager Style Name Role Phone Nicola Bautista Primary Care Provider Netta Trent Unavailable [phone] Nicola Bautista Unavailable Unavailable Migration, Provider Unavailable [...] rash Drug Allergy Active [facility]AS[facility]IT [facility] Encounter Medications Medication SIG (Take, Route, Frequency, Duration) Notes Start Date End Date Status Vitamin D (Ergocalciferol) 1.25 MG (46993 UT) 1 cap(s) orally twice a week 04/27/2024 Active Levocetirizine Dihydrochloride 5 MG 1 tab(s) orally once a day (in the evening) for 30 day(s) prn 12/10/2017 Active Diclofenac Sodium 1 % 2 gram applied topically 4 times a day for 30 days 03/18/2022 Active Budesonide 3 MG 1 CAP(S) ORALLY ONCE A DAY *Please review and pick correct strength-formulat ion from [employer] options. If intended option is not shown, discontinue and re-order from Quick Search* Active Estradiol 0.5 MG 1 tab(s) orally once a day for 30 day(s) Active rOPINIRole HCl 0.5 MG 1 tab(s) orally 3 times a day for 90 days Active Mucinex 600 MG 1 tab(s) orally every 12 hours for 7 days 04/21/2024 Active Pantoprazole Sodium 40 MG 1 tab(s) orally once a day 04/21/2024 Active Pravastatin Sodium 20 MG 1 tab(s) orally once a day 04/27/2024 Active WEGOVY (0.25 MG DOSE) 0.25 MG/0.5 ML (0.25 MG DOSE) 0.25 MG SUBCUTANEOUSLY ONCE A WEEK for 28 DAYS *Please review for potential replacement for e-prescription and drug interaction check* 04/30/2024 Active ALBUTEROL (EQV-PROVENTIL HFA) 90 MCG/INH 2 INH INHALED EVERY 6 HOURS NEEDED FOR SHORTNESS OF BREATH for 30 DAYS *Please review for potential replacement for e-prescription and drug interaction check* 04/07/2024 Active Lexapro 10 MG 1 tab(s) orally once a day for 90 days Active Aspirin Low Dose 81 MG 1 tab(s) orally once a day for 90 days Active Amitriptyline HCl 25 MG 1 tab(s) orally once a day (at bedtime) for 90 days 07/03/2023 Active Montelukast Sodium 10 MG 1 tab(s) orally once a day for 30 days 09/17/2022 Active Trelegy Ellipta 100 MCG-62.5 MCG-25 MCG/INH 1 PUFF(S) INHALED ONCE A DAY for 30 DAYS *Please review and pick correct strength-formulat ion from [email or web address] options. If intended option is not shown, discontinue and re-order from Quick Search* 09/17/2022 Active Meloxicam 7.5 MG 1 tab(s) orally once a day for pain for 30 days 11/13/2022 Active Mometasone Furoate 50 MCG/ACT 2 spray(s) intranasally 2 times a day for 30 days 10/10/2022 Active Azelastine HCl 137 MCG/SPRAY 2 spray(s) intranasally 2 times a day 09/17/2022 Active Encounters Encounter Location Date Provider Diagnosis [facility] [address] [place] [address] 05/15/2024 Provider Migration Gastroesophageal reflux disease, unspecified [...] Notes Vitamin D (Ergocalciferol) 1 .25 MG (26835 UT) 1 cap(s) orally twice a week 04/27/2024 Pantoprazole Sodium 40 MG 1 tab(s) orally once a day 04/21 Pravastatin Sodium 20 MG 1 tab(s) orally once a day 2024 Progress Notes * Jordan MAIB: 965 (58 yo F)Acc No.[id number]:05/15/2024 Patient: Dilcia HERNANDEZ Provider: Jeni Lang :1965 A ge:58 Y S ex:Female Date:05/15/2024 Address:[address] [place] [address], [id number] Pcp:Nicola Bautista Subjective: * Chief Complaints: * [facility] * Medical History: * Medications: [...] *Please review and pick correct strength-formulation from [employer] options. If intended option is not shown, [...] Continue Vitamin D (Ergocalciferol) Capsule, 1.25 MG (26773 UT), 1 cap(s), orally, twice a week.? * * Electronic signature of Prov ider Migration on 07/22/2024 at 09:44 AM EDT Sign off status: Pending * Provider: Jeni chadwick Migration Date: 0 05/15/2024 Generated for Eloisa buckley/Donaldo/Inessa on: 0 07/22/2024 09:44 AM EDT
--- OUTSIDE RECORDS SUMMARY | 2024-07-21 06:00 | XMS_ITS ---
Author Organization 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 Name Role Phone Nicola Bautista Primary Care Provider Netta Trent Unavailable [phone] Nicola Bautista Unavailable Unavailable Allergies Allergen (clinical drug ingredient) Drug/Non Drug Allergy documented on EMR Reaction Allergy Type Onset Date Status OMNICEF (uncoded) Unknown Allergy Ac tive SULFA (uncoded) Unknown Allergy Acti ve predniSONE Unknown Drug Allergy Active sulfamethoxazole / trimethoprim Bactrim stomach upset Drug Allergy Active cefdinir Cefdinir rash Drug Allergy Active Penicillin rash Drug Allergy Active REASON FOR VISIT f/u, discuss sleep study Medications Medication SIG (Take, Route, Frequency, Duration) Notes Start Date End Date Status rOPINIRole HCl 0.5 MG 1 tab(s) orally 3 times a day for 90 days Active Pravastatin Sodium 20 MG 1 tab(s) orally once a day 04/27/2024 Active Vitamin D (Ergocalciferol) 1.25 MG (88595 UT) 1 cap(s) orally twice a week 04/27/2024 Active Aspirin Low Dose 81 MG 1 tab(s) orally once a day for 90 days Active Amitriptyline HCl 25 MG 1 tab(s) orally once a day (at bedtime) for 90 days 07/03/2023 Active Montelukast Sodium 10 MG 1 tab(s) orally once a day for 30 days 09/17/2022 Active ALBUTEROL (EQV-PROVENTIL HFA) 90 MCG/INH 2 INH INHALED EVERY 6 HOURS NEEDED FOR SHORTNESS OF BREATH for 30 DAYS *Please review for potential replacement for e-prescription and drug interaction check* 04/07/2024 Active Lexapro 10 MG 1 tab(s) orally once a day for 90 days Active Diclofenac Sodium 1 % 2 gram applied topically 4 times a day for 30 days 03/18/2022 Active Mometasone Furoate 50 MCG/ACT 2 spray(s) intranasally 2 times a day for 30 days 10/10/2022 Active Azelastine HCl 137 MCG/SPRAY 2 spray(s) intranasally 2 times a day 09/17/2022 Active Trelegy Ellipta 100 MCG-62.5 MCG-25 MCG/INH 1 PUFF(S) INHALED ONCE A DAY for 30 DAYS *Please review and pick correct strength-formulat ion from [employer] options. If intended option is not shown, discontinue and re-order from Quick Search* 09/17/2022 Active Meloxicam 7.5 MG 1 tab(s) orally once a day for pain for 30 days 11/13/2022 Active Levocetirizine Dihydrochloride 5 MG 1 tab(s) orally once a day (in the evening) for 30 day(s) prn 12/10/2017 Active Estradiol 0.5 MG 1 tab(s) orally once a day for 30 day(s) Active Pantoprazole Sodium 40 MG 1 tab(s) orally once a day for 90 days 04/21/2024 Active Zepbound 2.5 MG/0.5ML 0.5 mL Subcutaneou s once a week for 28 days 07/21/2024 Active Budesonide 3 MG 1 CAP(S) ORALLY ONCE A DAY *Please review and pick correct strength-formulat ion from [employer] options. If intended option is not shown, discontinue and re-order from Quick Search* Active Nystatin 680594 UNIT/ML 5 mL Mouth/Throat Four times a day swish and spit for 10 days 07/21/2024 Active Problems Problem Type SNOMED Code ICD Code Onset Dates Problem Status W/U Status Risk Notes Problem 958356121 BMI 35.0-35.9,ad ult (Z68.35) Active confirmed Problem 68324139 WILD on CPAP (G47.33) Active confirmed Vital Signs Temperature 98 degrees Fahrenheit 07/21/2024 Heart Rate 72 /min 07/21/2024 Blood pressure systolic 126 mm Hg 07/22/19 25 Blood pressure diastolic 90 mm Hg 025 Height 5 ft 7 in in 07/21/2024 Weight 226 lbs 07/21/2024 BMI 35.39 kg/m2 07/21/2024 Encounters Encounter Location Date Provider Diagnosis [address] [address] 07/21/2024 Netta Trnet Obesity, Class II, B IL 35-39.9 E66.812 ; WILD on CPAP G47.33 ; BMI 35.0-35.9,adult Z68.35 ; Weight loss counseling, encounter for Z71.3 ; Vitamin D deficiency E55.9 ; Thrush B37.0 ; Gastroesophageal reflux disease, esophagitis presence not specified K21.9 and Pure hypercholesterolemia E78.00 Assessments Encounter Date Diagnosis (ICD Code) Assessment Notes Treatment Notes Treatment Clinical Notes Section Notes 07/21/2024 Obesity, Class II, B IL 35-39.9 (ICD-10 - E66.812) 07/21/2024 WILD on CPAP (ICD-10 - G47.33) Recommend continued weight loss efforts, addition of GLP-1 would be very helpful in this situation. She will continue to work with her DME to improve tolerance of CPAP. She has follow-up with pulmonology pending 07/21/2024 BMI 35.0-35.9,adult (ICD-10 - Z68.35) Complicates all aspects of care. Reviewed indication for medication and that dietary changes as well as exercise are recommended as well. Small, frequent meals recommended. Possible side effects and return precautions reviewed. Goal is 4% weight loss over the first 4 months. 07/21/2024 Weight loss counseli marcio, encounter for (ICD-10 - Z71.3) 07/21/2024 Vitamin D deficiency (ICD-10 - E55.9) 07/21/2024 Thrush (ICD-10 - B37.0) 07/21/2024 Gastroesophageal ref lux disease, esophagitis presence not specified (ICD-10 - K21.9) Continue PPI and H2 amol until she has follow-up with ENT for reexamination of her larynx 07/21/2024 Pure hypercholesterolemia (ICD-10 - E78.00) So far she is tolerating pravastatin after failing multiple other statins, repeat labs as noted Plan Of Treatment Medication Medication Name Sig Start Date Stop Date Notes Pantoprazole Sodium 40 MG 1 tab(s) orall y once a day for 90 days 04/21/2024 Zepbound 2.5 MG/0.5ML 0.5 mL Subcutaneou s once a week for 28 days 07/21/2024 Nystatin 367119 UNIT/ML 5 mL Mouth/Throa t Four times a day swish and spit for 10 days 07/21/2024 Pending Test Test Name Order Date M-Comprehensive Metabolic Panel 07/22/19 M-Lipid Panel 07/21/2024 M-Vitamin D 25 Hydroxy 07/21/2024 Next Appt Details Follow Up: 4 Weeks,prn, Reas on: Progress Notes * Jordan MAIB: 965 (58 yo F)Acc No.[id number]:07/21/2024 Progress Notes Patient: Dilcia HERNANDEZ Provider: BASHIR Joseph :1965 A ge:58 Y S ex:Female Date:07/21/2024 Address:[address] [place] [address], [id number] Pcp:Nicola Bautista Subjective: * Chief Complaints: * 1 . F/u. 2. Discuss sleep study. * HPI: g en: 58-year-old female presents today to follow-up on several things. Hoarseness, resolved with addition of famotidine to her daily pantoprazole. She has follow-up with ENT again soon. She continues to have lots of discomfort in her mouth and tongue, tongue feels thick and coated. She is also using a steroid-based inhaler from pulmonology. No fevers. She has follow-up with pulmonology again in the next month or so. She did have her home sleep study which indicated mild sleep apnea with associated oxygen desaturations. She has been attempting to use CPAP but having some difficulty tolerating it. She has an appointment with Betty to make some adjustments to her device to help improve her compliance. She continues to struggle with weight loss. Continues to have some episodes of shortness of breath and diaphoresis that do improve some with her rescue inhaler. No chest pain. * ROS: A LLERGY: Scratchy throat y es. S inus congestion y es. ? R ESPIRATORY: Shortness of breath y es. n o C hest congestion.?no C ough. C ONSTITUTIONAL: no L oss of appetite. n o F ever. D ERMATOLOGY: Reviewed, No Symptoms Reported: Y es. G ASTROENTEROLOGY: no N ausea. H eartburn y es. n o V omiting.?no D ysphagia. * Medical History: E ndometriosis, COPD, Allergies, HLD, HTN, B12 deficiency, Colonoscopy 12/2019, Dr Cuadra in [place]. Colitis, contined Mesalamine. Repeat recommended in 3 years, Peripheral neuropathy - diagnosed by biopsy, Dr Govea. * Surgical History: e ndometriosis x2 , colonoscopy 01/2018, heart cath . * Hospitalization/Major Diagno stic Procedure: D enies Past Hospitalization. * Family History: F ather: alive, bladder cancer, diagnosed with Cancer, Diabetes. M other: alive, [place]. P aternal Grand Father: , diagnosed with Cancer. P aternal Grand Mother: , diagnosed with Cancer. M aternal Grand Father: , diagnosed with Cancer. M aternal Grand Mother: , diagnosed with Cancer. P aternal uncle: alive. P aternal aunt: alive. S iblings: alive, brother-diabetic, heart disease-7 cardiac stents, multiple toes amputated. 1 brother(s) , 1 sister(s) - healthy. . * Social History: S moking A re you a:: former smoker , How long has it been since you last smoked?: 6-12 months. R ecreational drug use: no. Exercise: yes. Home smoke detector use: yes. Caffeine: yes, frequency:diet mt dew-7-8 daily. Living Will: No. Alcohol: no. Sexually active: yes. Travel outside [place]: no. 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 * Medications: T aking Budesonide 3 MG DELAYED RELEASE CAPSULE 1 CAP(S) ORALLY ONCE A DAY , Notes to Pharmacist: *Please review and pick correct strength-formulation from [employer] options. If intended option is not shown, [...] *Please review and pick correct strength-formulation from [employer] options. If intended option is not shown, [...] orally 3 times a day , Taking Pravastatin Sodium 20 MG Tablet 1 tab(s) orally once a day , Taking Vitamin D (Ergocalciferol) 1.25 MG (79912 UT) Capsule 1 cap(s) orally twice a week , Taking Pantoprazole Sodium 40 MG Tablet Delayed Release 1 tab(s) orally once a day , Discontinued Mucinex 600 MG Tablet Extended Release 12 Hour 1 tab(s) orally every 12 hours , Discontinued WEGOVY (0.25 MG DOSE) 0.25 MG/0.5 ML (0.25 MG DOSE) SOLUTION 0.25 MG SUBCUTANEOUSLY ONCE A WEEK , Notes to Pharmacist: *Please review for potential replacement for e-prescription and drug interaction check*, Medication List reviewed and reconciled with the patient * Allergies: P enicillin: rash, Cefdinir: rash, Bactrim: stomach upset, predniSONE, SULFA, OMNICEF. Objective: * Vitals: N urse: dw, Pain: 0, Temp: 98, RR: 18, HR: 72, BP: 126/90, Ht: 5 ft 7 in, Wt: 226, BMI:35.39. * Examination: G eneral Examination: General P leasant and Cooperative, NAD on RA,. Heart: R egular Rate and Rhythm, no murmur, rubs or gallops. HEENT: t ongue is coated, white. Lungs: c lear to auscultation,. Abdomen: s oft, NT/ND, BS present, obese. Psych N ormal Mood/Affect. Assessment: * Assessment: 1. O SA on CPAP - G47.33 (Primary) 2 . O besity, Class II, BMI 35-39.9 - E66.812 3 . B IL 35.0-35.9,adult - Z68.35 4 . W eight loss counseling, encounter for - Z71.3 5 . V itamin D deficiency - E55.9 6. T hrush - B37.0 7 . G astroesophageal reflux disease, esophagitis presence not specified - K21.9 8 . P ure hypercholesterolemia - E78.00 ? Plan: * Treatment: 2. B IL 35.0-35.9,adult Clinical Notes: Complicates all aspects of care. Reviewed indication for medication and that dietary changes as well as exercise are recommended as well. Small, frequent meals recommended. Possible side effects and return precautions reviewed. Goal is 4% weight loss over the first 4 months. ? 3. V itamin D deficiency L AB: M-Comprehensive Metabolic Panel L AB: M-Lipid Panel L AB: M-Vitamin D 25 Hydroxy 4. T hrush Start Nystatin Suspension, 827868 UNIT/ML, 5 mL, Mouth/Throat, Four times a day swish and spit, 10 days, 200 mL, Refills 1. 5. G astroesophageal reflux disease, esophagitis presence not specified Refill Pantoprazole Sodium Tablet Delayed Release, 40 MG, 1 tab(s), orally, once a day, 90 days, 90 Tablet, Refills 0. Clinical Notes: Continue PPI and H2 amol until she has follow-up with ENT for reexamination of her larynx 6. P ure hypercholesterolemia L AB: M-Comprehensive Metabolic Panel L AB: M-Lipid Panel L AB: M-Vitamin D 25 Hydroxy Clinical Notes: So far she is tolerating pravastatin after failing multiple other statins, repeat labs as noted * Follow Up: 4 Weeks,prn * * Sign off status: Completed true * Provider: BASHIR Joseph Date: 07/21/2024 Generated for Eloisa buckley/Donaldo/Yulietitting on: 0 07/22/2024 09:44 AM EDT History and Physical Notes * Examination Category Sub-Category Detail Notes Category Not es General Examination HEENT: tongue is coated, whi te Heart: Regular Rate and Rhy thm, no murmur, rubs or gallops Lungs: clear to auscultatio n, Abdomen: soft, NT/ND, BS pres ent, obese General Pleasant and Coopera tive, NAD on RA, Psych Normal Mood/Affect
--- OUTSIDE RECORDS SUMMARY | 2024-07-22 09:45 | XMS_ITS | Clinical Summary ---
Author Organization Healthcare Address [address] [place] [address] Care Team Providers Care Investigation Division Captain Name Role Phone Nicola Bautista MD Primary Care Provider [phone] Immunizations Immunization Administration Dates Next Due Influenza, Unspecified 11/21/2016 Influenza, seasonal, injectable 11/10/2013,11/10 Pneumococcal Conjugate PCV 13 11/03/2012 Pneumococcal Polysaccharide PPV23 02/10/2013,02/2012 Family History Medical History Relation Name Comments Cardiac disorder Other 1 Diabetes Other 2 Other cancer Other 3 Relation Name Status Comments Other 1 Other 2 Other 3 Social History Tobacco Use Types Packs/Day Years Used Date Smoking Tobacco: Former Comments Unknown Sex and Gender Information Value Date Recorded Sex Assigned at Not on file Legal Sex Female 8:22 PM EDT Gender Identity Not on file Sexual Orientation Not on file Last Filed Vital Signs Vital Sign Reading Time Taken Comments Blood Pressure 162/97 11/03/2018 9:29 AM EDT Pulse 89 11/03/2018 9:29 AM EDT Temperature 36.1 C (97 F) 11/03/2018 9:29 AM EDT Respiratory Rate 16 11/03/2018 9:29 AM EDT Oxygen Saturation - - Inhaled Oxygen Concentration - - Weight 81.3 kg (179 lb 4.1 oz) 11/03/2018 9:29 A M EDT Height 177.8 cm (5' 10 ) 11/03/2018 9:29 AM EDT Body Mass Index 25.72 11/03/2018 9:29 AM EDT Plan of Treatment Not on file Care Teams Investigation Division Captain Relationship Specialty Start Date End Date Nicola Bautista MD [address] [place] [address] [place] [address] PCP - General 06/23/20
--- OUTSIDE RECORDS SUMMARY | 2024-07-22 09:45 | XMS_ITS | Data Portability ---
Author Organization [facility] Address [address] [place] [address] Care Team Providers Care Insurance Verify Rep Name Role Phone JYOTI WELCH Primary Care Provider [phone] Assessment Encounter Date Assessment Date Assessment LastModified by Organization Details LastModified Time 07/04/2022 07/04/2022 Annual gynecological exam performed. Patient will come back in a year unless there are new symptoms. Not available 06/25/2022 10:40:10 07/29/2023 07/29/2023 Annual gynecological exam performed. Patient will come back in a year unless there are new symptoms. Not available 07/28/2023 14:08:00 Plan of Treatment Reminders Order Date Submit Date Provider Last Modified By Organization Details Last Modified Time Details Appointments ANNUAL DERRICK BOAT LEVERMAN 20 min 2024 09:00A Miah Morocho MD Not available Not available Not available Lab rapid strep group A, throat 2023 024 [facility], [address] [place] [address], [address], 01/27/2024 16:58:31 rapid flu (A+B) 2023 024 [facility], [address] [place] [address], [address], 01/27/2024 16:58:31 rapid SARS CoV + SARS CoV 2 Ag, QL [place], respirato ry specimen 2023 024 [facility], [address] [facility], [place], [address], 01/27/2024 16:58:31 culture, urine 2022 023 [facility], [address], [address], [place], [address], 07/20/2022 06:14:38 urinalysi s, dipstick 2022 023 [facility], [address] [place] [address] , [place], [address], 07/18/2022 23:20:16 urinalysi s, complete 2022 023 [place], [address], [place], [place], [address], 07/20/2022 06:14:36 Referral None recorded. Procedures None recorded. Surgeries None recorded. Imaging LDCT, chest, for lung cancer screening [email or web address] (Scheduling), [address], [place], [address], 04/08/2024 08:48:07 MAMMO, screening , digital, bilateral 2023 025 mattie [facility] (Centralized Scheduling), [place] [address], [address], 07/29/2023 15:26:11 DEXA, vertebral fracture assessmen t 2023 024 greyson [facility] (Centralized Scheduling), [place], [address], 02/09/2024 13:56:56 LDCT, chest, for lung cancer screening 2022 023 [facility] (Scheduling), [address], [place], [address], 02/05/2023 16:36:19 US, transvagi nal 2022 023 [email or web address] [facility], [address] [place] [address] , [place], [address], 07/18/2022 23:20:16 MAMMO, screening , digital, bilateral 2022 023 CARMEL [facility] (Centralized Scheduling), [address] [place] [address] , [place], [address], 07/09/2022 11:23:29 Medication Orders Premarin 0.625 mg/gram vaginal cream 2023 024 [facility], [address] [place] [address], [place], [address], 01/28/2024 08:41:59 estradiol 0.5 mg tablet [address], [address] [place] [address], [facility], [place], [address], 07/29/2023 11:06:10 Provera 2.5 mg tablet [address], [address] [place] [address], [facility], [place], [address], 07/29/2023 11:06:21 Patient TargetsNo targets recorded. Patient Instructions Encounter Date Encounter Id Patient Instructions Last Modified By Organization Details Last Modified Time 07/04/2022 [id number] A healthy lifestyle: care instructions lshower Not available 07/04/2022 18:19:26 07/18/2022 [id number] lung cancer screening eligibility assessment* - Check box for Documentation only andrew Not available 07/18/2022 11:36:43 learning about lung cancer screening lshower Not available 07/18/2022 23:20:16 07/29/2023 [id number] A healthy lifestyle: care instructions lshower Not available 07/29/2023 15:26:11 learning about lung cancer screening lshower Not available 07/29/2023 15:26:11 Reason for Referral None Reported. Results Created Date Observation Date Name Description Value Unit Range Abnormal Flag Note LastModifiedBy Organization Detail LastModifiedTime 07/19/1907/19/2022 URINA LYSIS , COMPL ETE specific gravity 1.023 1.005- 1.030 Not Available [facility] ([facility]) [address] [facility], [place], [address], 07/20/2022 06:14:36 07/19/1907/19/2022 URINA LYSIS , COMPL ETE pH 5.5 5.0-7. 5 Not Available [facility] ([facility]) [address] [facility] [place], [address], 07/20/2022 06:14:36 07/19/1907/19/2022 URINA LYSIS , COMPL ETE urine-color Yellow yellow Not Available [facility] ([facility]) [address] [facility] [place], [address], 07/20/2022 06:14:36 07/19/1907/19/2022 URINA LYSIS , COMPL ETE appearance Cloudy clear abnormal Not Available [facility] ([facility]) [address] [facility], [place], [address], 07/20/2022 06:14:36 07/19/1907/19/2022 URINA LYSIS , COMPL ETE WBC esterase Negati ve negati ve Not Available [facility] ([facility]) [address] [facility] [place], [address], 07/20/2022 06:14:36 07/19/1907/19/2022 URINA LYSIS , COMPL ETE protein Negati ve negati ve/tra ce Not Available [facility] ([facility]) [address] [facility] [place], [address], 07/20/2022 06:14:36 07/19/1902 0807/19/2022 URINA LYSIS , COMPL ETE glucose Negati ve negati ve Not Available [facility] ([facility]) [address] [place], [address], 07/20/2022 06:14:36 07/19/19 23 07/19/2022 URINA LYSIS , COMPL ETE ketones Negati ve negati ve Not Available [facility] ([facility]) [address] [place], [address], 07/20/2022 06:14:36 07/19/19 23 07/19/2022 URINA LYSIS , COMPL ETE occult blood Negati ve negati ve Not Available [facility] ([facility]) [address] [place], [address], 07/20/2022 06:14:36 07/19/1907/19/2022 URINA LYSIS , COMPL ETE bilirubin Negati ve negati ve Not Available [facility] ([facility]) [address] [place], [address], 07/20/2022 06:14:36 07/19/1907/19/2022 URINA LYSIS , COMPL ETE urobilinogen ,semi-qn 0.2 mg/dL 0.2-1. 0 Not Available [facility] ([facility]) [address] [place], [address], 07/20/2022 06:14:36 07/19/1907/19/2022 URINA LYSIS , COMPL ETE nitrite, urine Negati ve negati ve Not Available [facility] ([facility]) [address] [place], [address], 07/20/2022 06:14:36 07/19/1907/19/2022 URINA LYSIS , COMPL ETE microscopic examination Commen t Micro scopi c follo ws if indic ated. Not Available [facility] ([facility]) [address] [place], [address], 07/20/2022 06:14:36 07/19/19 23 07/19/2022 URINA LYSIS , COMPL ETE microscopic examination See below: Tommie castellanos was indic ated and was perfo rmed. Not Available [facility] ([facility]) [address] [facility], [place], [address], 07/20/2022 06:14:36 07/19/19 23 07/19/2022 URINA LYSIS , COMPL ETE WBC 0-5 /hpf 0 - 5 Not Available [facility] ([facility]) [address] [facility], [place], [address], 07/20/2022 06:14:36 07/19/19 23 07/19/2022 URINA LYSIS , COMPL ETE RBC 0-2 /hpf 0 - 2 Not Available [facility] ([facility]) [address] [facility], [place], [address], 07/20/2022 06:14:36 07/19/19 23 07/19/2022 URINA LYSIS , COMPL ETE epithelial cells (non renal) >10 /hpf 0 - 10 abnormal Not Available [facility] ([facility]) [address] [facility], [place], [address], 07/20/2022 06:14:36 07/19/19 23 07/19/2022 URINA LYSIS , COMPL ETE epithelial cells (renal) WILDLIFE BIOLOGIST Not Available [facility] ([facility]) [address] [facility], [place], [address], 07/20/2022 06:14:36 07/19/1907/19/2022 URINA LYSIS , COMPL ETE casts None seen /lpf none seen Not Available [facility] ([facility]) [address] [facility], [place], [address], 07/20/2022 06:14:36 07/19/1907/19/2022 URINA LYSIS , COMPL ETE cast type WILDLIFE BIOLOGIST Not Available [facility] ([facility]) [address] [facility], [place], [address], 07/20/2022 06:14:36 07/19/19 23 07/19/2022 URINA LYSIS , COMPL ETE crystals WILDLIFE BIOLOGIST Not Available [facility] ([facility]) [address] [facility], [place], [address], 07/20/2022 06:14:36 07/19/19 23 07/19/2022 URINA LYSIS , COMPL ETE crystal type WILDLIFE BIOLOGIST Not Available [facility] ([facility]) [address] [facility], [place], [address], 07/20/2022 06:14:36 07/19/19 23 07/19/2022 URINA LYSIS , COMPL ETE mucus threads WILDLIFE BIOLOGIST Not Available [facility] ([facility]) [address] [facility], [place], [address], 07/20/2022 06:14:36 07/19/19 23 07/19/2022 URINA LYSIS , COMPL ETE bacteria Few none seen/f ew Not Available [facility] ([facility]) [address] [facility], [place], [address], 07/20/2022 06:14:36 07/19/19 23 07/19/2022 URINA LYSIS , COMPL ETE yeast WILDLIFE BIOLOGIST Not Available [facility] ([facility]) [address] [facility], [place], [address], 07/20/2022 06:14:36 07/19/19 23 07/19/2022 URINA LYSIS , COMPL ETE trichomonas WILDLIFE BIOLOGIST Not Available [facility] ([facility]) [address] [facility], [place], [address], 07/20/2022 06:14:36 07/19/19 23 07/19/2022 URINA LYSIS , COMPL ETE comment WILDLIFE BIOLOGIST Not Available [facility] ([facility]) [address] [facility], [place], [address], 07/20/2022 06:14:36 07/19/19 23 07/20/2022 URINE CULTU RE, ROUTI NE urine culture, routine Final report Not Available [facility] ([facility]) [address] [facility], [place], [address], 07/20/2022 06:14:38 07/19/19 23 07/20/2022 URINE CULTU RE, ROUTI NE result 1 COMMEN T Mixed uroge nital anjali Less than 10,00 0 colon ies/m L Not Available [facility] ([facility]) [address] [facility], [place], [address], 07/20/2022 06:14:38 07/19/19 23 07/18/2022 urina lysis , dipst ick Leukocytes Negati ve Not Available [facility] [address] [place] [address] , [place], [address], 07/18/2022 11:14:55 07/19/19 23 07/18/2022 urina lysis , dipst ick Nitrite negati ve Not Available [facility] [address] [place] [address] , [place], [address], 07/18/2022 11:14:55 07/19/19 23 07/18/2022 urina lysis , dipst ick Urobilinogen .2 Not Available [facility] [address] [place] [address] , [place], [address], 07/18/2022 11:14:55 07/19/19 23 07/18/2022 urina lysis , dipst ick Protein Negati ve Not Available [facility] [address] [place] [address] , [place], [address], 07/18/2022 11:14:55 07/19/19 23 07/18/2022 urina lysis , dipst ick pH 5.0 Not Available [facility] [address] [place] [address] , [place], [address], 07/18/2022 11:14:55 07/19/19 23 07/18/2022 urina lysis , dipst ick Blood Modera te Not Available [facility]/[address] , [place], [address], 07/18/2022 11:14:55 07/19/19 23 07/18/2022 urina lysis , dipst ick Specific [place] 1.030 Not Available [facility] , [place], [address], 07/18/2022 11:14:55 07/19/19 23 07/18/2022 urina lysis , dipst ick Ketone Negati ve Not Available [facility]/[address] , [place], [address], 07/18/2022 11:14:55 07/19/19 23 07/18/2022 urina lysis , dipst ick Bilirubin Negati ve Not Available [facility]/[address] , [place], [address], 07/18/2022 11:14:55 07/19/19 23 07/18/2022 urina lysis , dipst ick Glucose Negati ve Not Available [facility]/[address] , [place], [address], 07/18/2022 11:14:55 07/19/19 23 07/18/2022 urina lysis , dipst ick Appearance Slight ly Cloudy Not Available [address] , [place], [address], 07/18/2022 11:14:55 01/27/20 24 01/27/2024 rapid SARS CoV + SARS CoV 2 Ag, QL IA, respi rator y speci men SARS CoV antigen Positi ve Not Available [address], [address], 01/27/2024 16:27:39 01/27/20 24 01/27/2024 rapid flu (A+B) Flu negati ve Not Available [address], [address], 01/27/2024 16:27:33 01/27/20 24 01/27/2024 rapid flu (A+B) Type Both A & B Not Available [address], [address], 01/27/2024 16:27:33 01/27/20 24 01/27/2024 rapid strep group A, throa t Strep negati ve Not Available [address], [address], 01/27/2024 16:25:31 01/27/20 24 01/27/2024 rapid strep group A, throa t Culture No Not Available [address], [address], 01/27/2024 16:25:31 07/05/19 23 07/04/2022 MAMMO , scree mariya, digit al, bilat eral [facility] Medica l Name: JT SCHMITT [facility] Phys: Therese LOPEZ (Showe r), [place] [address] : 1965 Age: 56 Sex: F Acct: [id number] Loc: GIOVANNY PHONE #: Exam Date: 2022 Status : REG CLI FAX #: Rad# [id number] Unit# [id number] Admit Date: 2022 EXAMS: CPT CODE: [id number] SCN DIG BREAST TOMOSY N AVILA 67218 BILATE RAL DIGITA L SCREEN ING MAMMOG XIN WITH CAD AND 3 D Tomosy nthesi s Person al histor y of Breast Cancer : None Family histor y of Breast Cancer : Matern al grandm other Compla ints: None Compar reyna: Multip le prior studie s. TECHNI QUE: Bilate ral digita l mammog maggie and CAD screen ing were perfor med by Marcia rajan RTM. 3-D Tomosy nthesi s imagin g was also perfor med. FINDIN GS: These images demons trate a Type II breast parenc hymal patter n indica ting the breast s are mainly fatty replac ed with scatte red residu al glandu lar tissue . No worris ome lesion s are identi fied in either breast . IMPRES TIMOTHY: Negati ve. Recomm end annual screen ing, regula r self breast examin ation and regula r clinic al breast exam. (CAT1) - CATEGO RY 1, NEGATI VE (1 YR)-1 YEAR -In the patien t with a palpab le abnorm ality, unexpl ained by breast imagin g, the palpab le abnorm ality should be manage d on a clinic al basis by the attend ing clinic nae. -Breas t imagin g as a false negati ve rate of approx imatel y 15%. -Patie nt was notifi ed by mail of the result s of this examin ation. Patien t may be called if furthe r workup is indica ziggy. -The patien t's inform ation was entere d into a remind er system with a target due date for the next mammog xin. -This mammog xin was review ed by a radiol ogist and CAD. This report is genera ziggy using voice recogn ition comput er softwa re. Inadve rtent errors may have occurr ed while dictat ing report . Common sense approa ch is apprec iated and do not hesita te to call for afshan romano n when necess eduarda. PAGE 1 Signed Report (OZIEL NUED) [facility] Ce Name: JT SCHMITT [address] [place] [address] Phys: Therese LOPEZ (Showe r), Rita [place] [address] : 1965 Age: 56 Sex: F Acct: [id number] Loc: G.MAMM PHONE #: [phone] Exam Date: 2022 Status : REG CLI FAX #: Rad# [id number] Unit# [id number] Admit Date: 2022 EXAMS: CPT CODE: [id number] [id number] SCN DIG BREAST TOMOSY N AVILA 71608 Electr onical ly Signed by Ron Monsalve on 2022 at 1321 Report ed and signed by: DUNG Monsalve M.D. CC: Rachel Welch MD; Rita Morocho Dictat ed Date/T taylor: 2022 (1321) Techno logist : MARCIA BECKET T Transc ribed Date/T taylor: 2022 (1321) Transc riptio nist: DR.HAR MIRANDA Gay onic Signat ure Date/T taylor: 2022 (1321) Printe d Date/T taylor: 2022 (1454) BATCH NO: N/A PAGE 2 Signed Report CC'ed Logic: Orderi ng Provid er: SHOWER RITA Attend ing Provid er: SHOWER RITA Referr ing Provid er: SHOWER RITA Consul ting Provid er: REBEKAH Monsalve [facility] [address] [place] [address] [place], [address], 07/09/2022 11:23:29 07/18/19 23 07/18/2022 US, trans vagin al No observ ation record ed. [facility] [address] [facility] , [place], [address], 07/18/2022 21:17:38 07/25/19 23 07/18/2022 US, trans vagin al No observ ation record ed. BARCODE [facility] [address] [facility] , [place], [address], 07/24/2022 10:17:18 02/06/20 23 02/05/2023 LDCT, chest , for lung cance r elvin meraz No observ ation record ed. [email or web address] [facility] [address], [place], [address], 02/07/2023 15:07:06 07/31/19 24 07/29/2023 MAMMO , elvin meraz, bilat eral [facility] Ce Name: MARTI JT OATES [employer] [facility] [employer] [facility] Phys: MD Rita Morocho [facility] [place] [address] : 1965 Age: 57 Sex: F Acct: [id number] Loc: G.MAMM PHONE #: [phone] Exam Date: 2023 Status : DEP CLI FAX #: Rad# [id number] Unit# [id number] Admit Date: 2023 EXAMS: CPT CODE: [id number] SCN DIG BREAST TOMOSY N AVILA 29660 BILATE RAL DIGITA L SCREEN ING MAMMOG MAGGIE WITH CAD AND 3D TOMOSY NTHESI S, 024: CLINIC AL HISTOR Y: Routin e screen ing. No breast proble ms. Nereida al grandm other with breast carcin venita Correl ation is made with prior mammog lio con g from 023 to 019. FINDIN GS: Bilate ral digita l MLO and CC views with CAD and 3D tomosy nthesi s were perfor med by Vladimir Steel , RT. These demons trate scatte red fibrog landul ar densit ies, unchan ged in config uratio n from prior exams. There is no domina nt mass, marcela ectura l distor tion, or suspic ious calcif icatio n, bilate rally. IMPRES TIMOTHY: STABLE NEGATI VE MAMMOG LIO. RECOMM END ANNUAL SCREEN ING MAMMOG MAGGIE. CAT1 - CATEGO RY 1, NEGATI VE 1YR - 1 YEAR DISCLA [place]: *The patien mohini with a palpab le abnorm ality, unexpl ained by breast imagin g, should be manage d on clinic al basis by the attend ing physic nae. *Bredavid rajan imagin g has a false negati ve rate of 15%. *The patien t was notifi ed by mail of the result s of this examin ation. *The patien t's inform ation was entere d into a remind er system with a target due date for the next mammog xin. *The mammog xin was review ed by a radiol ogist and CAD. Electr onical ly Signed by MARÍA DEL RIO MD on 2023 at 1850 Report ed and signed by: MARÍA DEL RIO MD PAGE 1 Signed Report (OZIEL NUED) [facility] Medica l Ce Name: JT SCHMITT [employer] Phys: MD Rita Morocho [facility] [place] [address] : 1965 Age: 57 Sex: F Acct: [id number] Loc: G.MAMM PHONE #: Exam Date: 2023 Status : DEP CLI FAX #: Rad# [id number] Unit# [id number] Admit Date: 2023 EXAMS: CPT CODE: [id number] SCN DIG BREAST TOMOSY N AVILA 12893 CC: Rachel Welch MD; Rita Morocho Dictat ed Date/T taylor: 2023 (1850) Techno logist : VLADIMIR STEEL RT(R)( M)(CT) (MR) Transc ribed Date/T taylor: 2023 (1850) Transc riptio nist: DR.HAG GUTHRIE Electr onic Signat ure Date/T taylor: 2023 (1850) Printe d Date/T taylor: 2023 (1808) BATCH NO: N/A PAGE 2 Signed Report CC'ed Logic: Orderi ng Provid er: SHOWER RITA Attend ing Provid er: SHOWER RITA Referr ing Provid er: SHOWER RITA Consul ting Provid er: REBEKAH Monsalve [address] , [place], [address], 08/07/2023 11:00:45 01/01/20 24 01/01/2024 DEXA, verte bral fract ure asses [facility] Medica l Ce Name: JT SCHMITT [address] Phys: [place] [address] : 1965 Age: 58 Sex: F Acct: [id number] Loc: G.RAD PHONE #: [phone] Exam Date: 2023 Status : REG CLI FAX #: [phone] Rad# [id number] Unit# [id number] Admit Date: 2023 EXAMS: CPT CODE: [id number] DEXA BONE DENSIT Y WITH VFA 85271 CLINIC AL INFORM ATION: Screen ing for osteop orosis COMPAR REYNA: No compar reyna availa ble. FINDIN GS: T-scor es of the lumbar spine, left femora l neck, and the right femora l neck are -1.2, -1.4 and -1.7 respec tively which are osteop enic and the fractu re risks are modera te. Jaycob rajan's BMI is 34. FRAX assess ment sugges ts a 10 year probab ility of major osteop orotic fractu re at 7.8% and specif ically for a hip fractu re and 0.7%. Normal LVA from T6 to L4 IMPRES TIMOTHY: 1. Jaycob t has osteop enia based on the T score is of all sites measur ed COMMUN ICATIO N: Per this writte n report This report is genera ziggy using voice recogn ition comput er softwa re. Inadve rtent errors may have occurr ed while dictat ing report . Common sense approa ch is apprec iated and do not hesita te to call for afshan monsalve when necess eduarda. Electr onical ly Signed by Ron Monsalve on 2023 at 1219 Report ed and signed by: DUNG Monsalve M.D. PAGE 1 Signed Report (OZIEL NUED) [facility] [employer] Phys: [place] [address] : 1965 Age: 58 Sex: F Acct: [id number] Loc: YESSICA PHONE #: [phone] Exam Date: 2023 Status : REG CLI FAX #: [phone] Rad# [id number] Unit# [id number] Admit Date: 2023 EXAMS: CPT CODE: [id number] DEXA BONE DENSIT Y WITH VFA 44761 CC: Rachel Welch MD; Rita Morocho Dictat ed Date/T taylor: 2023 (1219) Techno logist : SARA BRYANT Transc ribed Date/T taylor: 2023 (1219) Transc riptio nist: DR.HAR JEAN Electr onic Signat ure Date/T taylor: 2023 (1219) Printe d Date/T taylor: 2023 (1222) BATCH NO: N/A PAGE 2 Signed Report CC'ed Logic: Orderi ng Provid er: SHOWER RITA Attend ing Provid er: SHOWER RITA Referr ing Provid er: SHOWER RITA Consul ting Provid er: REBEKAH Monsalve [address] [place], [address], 02/09/2024 13:56:56 03/05/19 25 03/05/2024 LDCT, chest , for lung cance r elvin meraz No observ ation record ed. [facility] [address], [place], [place], [address], 03/08/2024 11:46:25 Result Notes None recorded. Problems Name Problem SNOMED Code Status Onset Date Resolution Date Notes Provider Name and Address Organization Details Recorded Time Intramur al leiomyom a of uterus 18067089 Active 2017 Rita Morocho MD [address], [place], [address], [place] [facility] 8 09:18:29 Hyperlip idemia 21750574 Active [address] Brooke 03/2018 Rita Morocho MD [address], [place], [address], [place] [facility] 9 09:48:29 Nocturia 647918982 Completed 201804/10/2020 Polly Corwin null, [place] - [facility] 1 15:21:04 Mixed anxiety and depressi ve disorder 568893706 Completed 04/10/2020 Polly [place]win [place] [facility] 1 15:21:15 Anxiety 31460027 Active Polly Corwin [place] [facility] 1 15:21:21 Hormone replacem ent therapy Active 2020 Rita Morocho MD [address], [place], [address], [place] [facility] 1 14:08:37 Ulcerati ve colitis 39150299 Active Polly Corwin [place], [place] [facility] 2 08:41:14 Body mass index 25-29 - overweig ht 239569369 Active 2021 Rita Morocho MD [address], [place], [address], [place] [facility] 2 13:34:51 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 Rita Morocho MD [address], [place], [address], [place] [facility] 2 13:34:53 Angina pectoris 926010340 Active 2007 NEG cath- panic attacks, rx'd Lexapro- helping Torito Grider RN [address], [place], [address], [place] [facility] 7 09:47:37 History of endometr iosis 5991663506 5806578 Active 2005 Torito Grider RN [address], [place], [address], [place] [facility] 7 09:47:54 Osteopen ia 960564494 Active 2005 Torito Grider RN [address], [place], [address], [place] [facility] 7 09:48:12 Painless rectal bleeding 752355240 Active 200712/15/19 08 guiac + stool, no other sx, refer to Marina -m NEG colonosc opy Torito Grider RN [address], [place], [address], [place] [facility] 7 09:48:38 Thyroid nodule 754148567 Active [address] Ellison, normal labs, due for repeat ultrasou nd 2015 Torito Grider RN [address], [place], [address], [place] [facility] 7 09:49:04 Cigarett e smoker 52140015 Active quit as of 05/20!!sm oked from 20's -41 Torito Grider RN [address], [place], [address], [place] [facility] 7 09:49:28 History of anemia vitamin B12 deficien t 926062479 Active 2014 Torito Grider RN [address], [place], [address], [place] [facility] 7 09:51:14 Surveill ance of oral contrace ption Completed 04/10/2020 Polly maciel, [place] - [facility] 1 15:19:10 Neuropat hy 353053960 Active Polly [place]iel[place] - [facility] 4 11:04:49 Degenera tion of interver tebral disc 72150925 Active Polly maciel, [place] - [facility] 4 11:04:57 Problem Notes None recorded. Procedures Surgical History Date Name Laterality Status Provider Name and Address Organization Details Recorded Time 024 Most Recent Bone Density completed Yanci Natalie [place] [facility] 01/06/2024 13:41:50 024 Date of Last Mammogram completed Polly [place] [facility] 07/29/2023 11:07:47 022 Date of Last Colonoscopy completed Polly [place] [facility] 06/25/2022 10:48:03 022 Colonoscopy [place] Polly [place] [facility] 06/25/2022 10:49:43 022 cardiac catheterization completed Paula Hillrose [place] [facility] 07/04/2022 11:07:07 022 Date of Last Pap Smear completed Polly [place] [facility] 04/27/2021 16:13:14 020 Colonoscopy completed Polly [place] [facility] 06/25/2022 10:50:14 020 DERRICK BOAT LEVERMAN Ultrasound [place] Sara Pino [place] [facility] 05/21/2019 09:41:09 018 Colonoscopy completed Polly [place] [facility] 06/25/2022 10:50:31 998 Diagnostic Laparoscopy completed Torito Grider RN [address], [place], [address] [place] [facility] 03/06/2016 09:56:22 Imaging Results None recorded. Procedure Notes None recorded. Medical Equipment None Reported. Allergies Allergen ID Allergen Name Allergen Category Reaction Reaction Severity Criticality Documentation Date Start Date Code Code System Note Provider Name and Address Organization Details Recorded Time 42433 Product containin g penicilli n (product) medicatio n hives Not available Not available 11/17/20152007 36784 0822 SNOMED React ion: Hives ; Comme nt: Penic illin ; Not Available [facility] 6 09:27:17 49488 Substance with sulfonami de structure and antibacte rial mechanism of action (substanc e) medicatio n nausea Not available Not available 03/17/2017 91296 8003 SNHO maciel, [place] - [facility] 8 10:01:33 Medications Name Sig Start Date Stop Date Status Note LastModified by Organization Details LastModified Time blood pressu solution kit 07/18 completed Not Available Not Available Not Available blood pressure monitorin g solution kit 07/18 completed Not Available Not Available Not Available lmp (rr) cream (lp2.15) 07/28 completed Not Available Not Available Not Available lmp (tabs)in ptc (lp2.15) 07/28 completed Not Available Not Available Not Available BD Luer-Edna Syringe 3 mL 23 x 1 04/26 completed Not Available Not Available Not Available cyclobenz aprine 10 mg tablet TAKE 1 TABLET BY MOUTH TWICE DAILY NEEDED FOR MUSCLE RELAXANT MAY CAUSE DROWSINE SS 04/26 completed Not Available Not Available Not Available atorvasta tin 40 mg tablet 04/11 completed Not Available Not Available Not Available promethaz ine-DM 6.25 mg-15 mg/5 mL oral syrup 07/18 completed Not Available Not Available Not Available doxycycli ne hyclate 100 mg capsule 07/28 completed Not Available Not Available Not Available atorvasta tin 20 mg tablet 04/11 completed Not Available Not Available Not Available ropinirol e 1 mg tablet one day 01/26 completed Not Available Not Available Not Available clindamyc in HCl 300 mg capsule TK 1 C PO TID UNTIL FINISHED 04/11 completed Not Available Not Available Not Available trazodone 50 mg tablet 03/26 completed Not Available Not Available Not Available azithromy celestina 250 mg tablet 04/26 completed Not Available Not Available Not Available tizanidin e 4 mg tablet 03/26 completed Not Available Not Available Not Available benzonata te 200 mg capsule 04/11 completed Not Available Not Available Not Available medroxypr ogesteron e 2.5 mg tablet Take 1 tablet every day by oral route as directed for 30 days. 07/28 completed Not Available Not Available Not Available hydrocodo ne 5 mg-acetam inophen 325 mg tablet TK 1 T PO Q 6 H PRN PAIN 04/11 completed Not Available Not Available Not Available meloxicam 15 mg tablet 07/28 completed Not Available Not Available Not Available prednison e 20 mg tablet 04/26 completed Not Available Not Available Not Available simvastat in 10 mg tablet 01/26 completed Not Available Not Available Not Available clindamyc in HCl 150 mg capsule 04/26 completed Not Available Not Available Not Available Diflucan 150 mg tablet take 1 tablet by oral route 1X and repeat in 3-5 d prn 01/06 completed Diflucan 150 mg oral tablet;R ecorded Status: Recorded on: 01/06/20 12 10:02AM; Disconti nued Status: Disconti nued on: 01/07/20 13 2:38PM;U ser: showerl; Est. Completi on: 01/07/20 12;Print ed: 01/06/20 12 Not Available Not Available Not Available Ortho-Nov um (21) 0.5 mg/0.75 mg/1 mg-35 mcg tablet 1 po qd- Dispense as written 03/09 completed Ortho-no vum Triphasi c 0.5 Mg-;comm ent: deleted; Recorded Status: Recorded on: 01/06/20 12 10:03AM; Disconti nued Status: Disconti nued on: 01/06/20 12 10:07AM; User: showerl; Est. Completi on: 01/06/20 12;Indic ation: None Selected - (-5);Eleonora nted: 01/06/20 12 Not Available Not Available Not Available sulfameth oxazole 800 mg-trimet hoprim 160 mg tablet 03/17 completed Not Available Not Available Not Available omeprazol e 40 mg capsule,d elayed release 03/17 completed Not Available Not Available Not Available aspirin 81 mg tablet,de layed release TAKE 1 TABLET BY MOUTH ONCE DAILY active Not Available Not Available No t Available triamcino lone acetonide 0.1 % topical cream 03/07 completed Not Available Not Available Not Available lidocaine -prilocai ne 2.5 %-2.5 % topical cream 07/28 completed Not Available Not Available Not Available meloxicam 7.5 mg tablet 07/28 completed Not Available Not Available Not Available amitripty line 25 mg tablet 1-2 per day 01/26 completed Not Available Not Available Not Available estradiol 1 mg tablet one tablet daily (take with emts) 08/02 completed Not Available Not Available Not Available amitripty line 10 mg tablet 07/28 completed Not Available Not Available Not Available baclofen 10 mg tablet 01/26 completed Not Available Not Available Not Available doxycycli ne monohydra te 100 mg capsule 03/09 completed Not Available Not Available Not Available hydrocodo ne 7.5 mg-acetam inophen 325 mg tablet TAKE 1 TABLET BY MOUTH EVERY 4 TO 6 HOURS NEEDED FOR PAIN 04/26 completed Not Available Not Available Not Available cyanocoba jonathan (vit B-12) 1,000 mcg/mL injection solution once week for 8 weeks 04/26 completed Not Available Not Available Not Available neomycin- polymyxin -dexameth 3.5 mg/mL-10, 000 unit/mL-0 .1% eye drops 01/26 completed Not Available Not Available Not Available ropinirol e 0.5 mg tablet 01/26 completed Not Available Not Available Not Available dexametha sone 4 mg tablet 07/18 completed Not Available Not Available Not Available naproxen 500 mg tablet,de layed release 04/11 completed Not Available Not Available Not Available omeprazol e 20 mg capsule,d elayed release 03/17 completed Not Available Not Available Not Available diclofena c sodium 75 mg tablet,de layed release 03/26 completed Not Available Not Available Not Available monteluka st 10 mg tablet 01/26 completed Not Available Not Available Not Available estradiol 0.5 mg tablet Take 1 tablet every day by oral route as directed for 30 days. 03/15 completed Not Available Not Available Not Available azelastin e 137 mcg (0.1 %) nasal spray 01/26 completed Not Available Not Available Not Available budesonid e DR - ER 3 mg capsule,d elayed,ex tended release 07/18 completed Not Available Not Available Not Available ibuprofen 600 mg tablet 04/26 completed Not Available Not Available Not Available levofloxa celestina 500 mg tablet 03/09 completed Not Available Not Available Not Available methylpre dnisolone 4 mg tablets in a dose pack 06/23 completed Not Available Not Available Not Available albuterol sulfate HFA 90 mcg/actua tion aerosol inhaler active Not Available Not Available Not Available Vitamin D2 1,250 mcg (50,000 unit) capsule once weekly 01/26 completed Not Available Not Available Not Available oxybutyni n chloride 5 mg tablet Take 1 tablet every day by oral route at bedtime. 03/09 completed Not Available Not Available Not Available fluticaso ne propionat e 50 mcg/actua tion nasal spray,[facility] pension 01/26 completed Not Available Not Available Not Available doxycycli ne hyclate 100 mg tablet 03/07 completed Not Available Not Available Not Available dicyclomi ne 10 mg capsule 01/26 completed Not Available Not Available Not Available naproxen 500 mg tablet 03/17 completed Not Available Not Available Not Available tobramyci n 0.3 %-dexamet hasone 0.1 % eye drops,[facility] 03/07 completed Not Available Not Available Not Available escitalop xin 10 mg tablet one daily active Not Available Not Available No t Available escitalop xin 20 mg tablet 04/11 completed Not Available Not Available Not Available cyclobenz aprine 5 mg tablet 03/17 completed Not Available Not Available Not Available Premarin 0.625 mg/gram vaginal cream INSERT ONE (1) GRAM TWICE A WEEK BY VAGINAL ROUTE. 01/26 completed Not Available Not Available Not Available rosuvasta tin 10 mg tablet 07/18 completed Not Available Not Available Not Available mesalamin e 1.2 gram tablet,de layed release one tablet four time a day 01/26 completed Not Available Not Available Not Available levocetir izine 5 mg tablet 03/09 completed Not Available Not Available Not Available diclofena c 1 % topical gel 07/18 completed Not Available Not Available Not Available B12 as directed 03/17 completed B12 injectio n;Record ed Status: Recorded on: 03/06/19 16 3:35PM;U ser: dickenc; Indicati on: - (-5) Not Available Not Available Not Available Suprep Bowel Prep Kit 17.5 gram-3.13 gram-1.6 gram oral solution 04/11 completed Not Available Not Available Not Available Alyacen (28) 0.5 mg/0.75 mg/1 mg-35 mcg tablet TAKE ONE TABLET DAILY AT THE SAME TIME OF THE DAY 03/09 completed Not Available Not Available Not Available Lagevrio 200 mg capsule (EUA) TAKE 4 CAPSULES BY MOUTH EVERY 12 HOURS FOR 5 DAYS 07/18 completed Not Available Not Available Not Available Breyna 160 mcg-4.5 mcg/actua tion HFA aerosol inhaler 01/26 completed Not Available Not Available Not Available Vitals Date Recorded Body height Body mass index (BMI) Body weight Systolic blood pressure Diastolic blood pressure Provider Name and Address Organization Details Last Updated DateTime 07/04/2022 180.34 cm 28.7 kg/m2 55058.03 g 124 mm[Hg] 84 mm[Hg] Paula Dick [place] - [facility] 3 11:04:30 Date Recorded Body height Body mass index (BMI) Body weight Systolic blood pressure Diastolic blood pressure Provider Name and Address Organization Details Last Updated DateTime 07/18/2022 180.34 cm 28.7 kg/m2 65334.03 g 122 mm[Hg] 72 mm[Hg] Polly Olivia [place] - [facility] 3 11:13:25 Date Recorded Body weight Body mass index (BMI) Body height Provider Name and Address Organization Details Last Updated DateTime 07/29/2023 73360.77 g 29.8 kg/m2 180.34 cm Polly Corwin [place] - [facility] 07/29/2023 11:04:34 Date Recorded Body height Provider Name an d Address Organization Details Last Updated DateTime 2023 180.34 cm Charito Paz [place] - [facility] 1 02/24/2023 10:03:39 Date Recorded Body height Body mass index (BMI) Body weight Heart rate Oxygen saturation Oxygen saturation in Arterial blood by Pulse oximetry Body temperature Respiratory rate Systolic blood pressure Diastolic blood pressure Provider Name and Address Organization Details Last Updated DateTime 4 180.34 cm 30.4 kg/m2 72534.1 4 g 100 /min 97 % 97 % 98.2 [degF] 18 /min 128 mm[Hg] 78 mm[Hg] Charito Moralesler [place] - [facility] 4 16:27:17 Social History Question Answer Notes LastModified by Organizat ion Details LastModified Time Tobacco Smoking Status Former Smoker 2018 Rita Morocho MD [address], [place], [address], [place] [facility] 04/07/2019 09:26:45 Do You Have An Advance Directive? No Information not available 03/07/2016 Are You Blind Or Do You Have Difficulty Seeing? No Information not available 03/07/2016 Is Blood Transfusion Acceptable In An Emergency? Yes Information not available 03/07/2016 What Is Your Level Of Caffeine Consumption? Moderate Information not available 03/07/2016 How Much Tobacco Do You Chew? None [email or web address] Information not available 03/17/2017 Are You Deaf Or Do You Have Serious Difficulty Hearing? No Information not available 03/07/2016 What Type Of Diet Are You Following? REGULAR [email or web address] Information not available 03/17/2017 Which Illicit Or Recreational Drugs Have You Used? Denies [email or web address] Information not available 03/17/2017 When Did You Quit Smoking? 1-5yearssince lastcigarette Information not available 04/26/2021 Live Alone Or With Others? With Others Information not available 03/07/2016 What Was The Date Of Your Most Recent Tobacco Screening? 07/04/2022 [email or web address] Information not available 07/04/2022 How Many Children Do You Have? 0 Information not available 03/07/2016 What Is Your Current Pack Years? 30ormorepacky ears Information not available 07/18/2022 Performs Monthly Self-breast Exam? Yes Information no t available 03/07/2016 What Is Your Relationship Status? Single Information not available 03/07/2016 Seat Belts Used Routinely Yes Information not available 03/07/2016 Are You Sexually Active? Yes Information not available 03/07/2016 How Much Tobacco Do You Smoke? 2 PPD Information not available 07/28/2023 General Stress Level Medium [email or web address] Information not available 03/17/2017 Do You Use Sunscreen Routinely? Yes Information not available 03/07/2016 How Many Years Have You Smoked Tobacco? 30 Information not available 07/18/2022 Do You Have Difficulty Walking Or Climbing Stairs? No Information not available 03/07/2016 Sex: Female Functional Status Question Answer Note LastModified by Organizat ion Details LastModified Time What is your level of alcohol consumption? None Information not available 03/07/2016 Do you or have you ever used smokeless tobacco? Never used smokeless tobacco Information not available 04/07/2019 Are you currently employed? No Information not available 07/29/2023 Do you have difficulty doing errands alone? No Information not available 03/07/2016 What is your occupation? Retired Information not available 07/29/2023 Do you have difficulty dressing or bathing? No Information not available 03/07/2016 Do you or have you ever used e-cigarettes or vape? Never used electronic cigarettes Information not available 04/07/2019 What is your exercise level? Moderate Information not available 07/29/2023 Mental Status Question Answer Note LastModified by Organization D etails LastModified Time Do you have difficulty concentrating, remembering or making decisions? No Information no t available 03/07/2016 Family History Relationship Description Onset Age of this Age Resolved Age Notes LastModified by Organization Details LastModified Time Father Diabetes mellitus [email or web address] Not available 2016 09:54:46 Father Essential hypertension [email or web address] Not available 10:54:56 Mother Heart disease [email or web address] Not available 2016 09:54:57 Paternal Grandfather Diabetes mellitus [email or web address] Not available 2016 09:55:05 Paternal Grandfather History of non-Hodgkins lymphoma [email or web address] Not available 2023 10:54:56 Brother Essential hypertension [email or web address] Not available 10:54:57 Maternal Grandfather Malignant neoplasm of liver [email or web address] Not available 2023 10:54:57 Medical History Condition Response Pancreatitis N Other N Atrial Fibrillation N congenital heart disease N Blood Diseases N Hyperthyroidism N Rheumatoid arthritis N Blood Transfusion N Erectile Dysfunction N amputation N Skin Lesions N Depression N Pneumonia N Incontinence N Murmur N Edema N Alzheimer's Disease N Migraine Headaches N Tobacco Abuse N Anxiety Disorder N Hemorrhoids N Obesity N Vision or Eye Problems N Arthritis N Restless Leg Syndrome N Polyps N Infertility N Carpal Tunnel N Acid Reflux (GERD) N Cancer N Varicosities N Stroke N Tendonitis N Crohn's Disease N Hypercholesterolemia N Skin Cancer N Headaches N Fibromyalgia N Irritable Bowel Syndrome N Anal Fissure N Kidney Disease N Heart Problems N Hospitalizations N Gallstones N Kidney or Bladder Problems N Goiter N Acne N Eating Disorder N Jackson's Esophagus N Hypertriglyceridemia N Constipation N Embolism N Vitamin B12 Deficiency N Deviated Septum N AIDS/HIV N Myocardial Infarction N Asthma N Mitral Valve Disorders N Vertigo N Hepatitis N Thyroid Cancer N Neuropathy N History of DVT N Herniated Disc N Chicken Pox N Autism Spectrum Disorder (ASD) N Von Willebrands Disease N Thrombophilias N Breast Cancer N Hernia N Plantar Fasciitis N Hypothyroidism N Lung Disease N Defects or Inherited Disease N Breast Problem N Ovarian Cyst N Anesthesia Complications N Testosterone Deficiency N Interstitial Cystitis N Congenital Anomalies N Hypoglycemia N Blood clot N Vitamin D Deficiency N Cellulitis N Endometriosis N Bladder or Kidney Problems N Fracture N Colorectal Cancer N Panic Disorder N Schizophrenia N Concussion N Spina Bifida N Osteoarthritis N Parkinson's Disease N Disc Protrusion N STI N Esophagitis N Angina N Thyroid Problems N GI Problems N ADD/ADHD N Anemia N Multiple Sclerosis N Abnormal PAP N Lumbago N Mental Illness N Psychiatric Illness N Diabetes N Ovarian Cancer N Degenerative Disc Disease N Seizures/Epilepsy N Hyperlipidemia N Syncope N Insomnia N Eczema N Abuse/Domestic Violence N Attention Deficient Disorder N Dementia N Ulcerative colitis N Cerebrovascular Disease N Depression N Guillain-[place] N Sleep Apnea N Aneurysm N Bronchitis N Heart Disease N Hypertension N Pre-Eclampsia N Suicidal Ideation N Osteoporosis N Gynecological History Statement/Question Response Abnormal Pap N Date of Last Mammogram 07/29/2023 Date of Last LDCT 03/05/24 Date of LMP 12/27/2018 Post Menopausal Bleeding N Current Control Method Menopause Last Annual Exam/Provider 07/29/23llls Last Lipids w/pcp If Post Menopausal, Age at Menopause 54 Date of Last Colonoscopy 11/29/2021 Most Recent Bone Density 01/01/2024 Sexually Active? N Menses Monthly N Date of Last Pap Smear 04/26/2021 Sexual Problems? N LMP Approximate Hormone Replacement Therapy Y Obstetrics History GPAL:G 0 P 0 0 0 0 Immunizations Vaccine Type Date Status Note Provider Nam e and Address Organization Details Recorded Time Influenza, split virus, quadrivalent, preservative 6 completed Torito Grider, RN [address], [place], [address], [place] [facility] 03/07/2016 09:52:57 Influenza, split virus, quadrivalent, preservative 8 completed Polly Corwin [place], [place] [facility] 03/26/2018 09:10:39 Influenza, split virus, trivalent, preservative 4 completed Charito Paz [place] [facility] 2023 11:35:23 Influenza, split virus, quadrivalent, preservative 9 completed Polly [place] [facility] 04/07/2019 08:57:41 Influenza, split virus, quadrivalent, preservative 0 completed Pol[place] [facility] 04/11/2020 08:49:48 COVID-19 vaccine, vector-nr, rS-Ad26, PF, 0.5 mL 1 completed Polly [place] [facility] 07/29/2023 11:07:10 Pneumococcal conjugate PCV 13 3 completed Polly [place] [facility] 04/24/2021 10:41:33 Influenza, split virus, quadrivalent, preservative 1 completed Polly Cor[place] [facility] 04/26/2021 08:40:38 Tdap 7 completed Not Available [facility] 02/27/2019 03:54:23 influenza, unspecified formulation 7 completed Polly Corwin null [place] - [facility] 07/29/2023 11:07:10 Past Encounters Encounter ID Performer Location Encounter Start Date Encounter Closed Date Diagnosis/Indication Diagnosis SNOMED-CT Code Diagnosis ICD10 Code Diagnosis Note [id number] [facility] [address] [place] [address] 12/31/2010 00:00:00 [id number] [facility] [address] [place] [address] 01/06/2012 00:00:00 [id number] [facility] [address] [place] [address] 12/31/2010 00:00:00 [id number] [facility] [address] [place] [address] 01/06/2013 00:00:00 [id number] [facility] [address] [place] [address] 01/10/2014 00:00:00 [id number] [facility] [address] [place] [address] 03/06/2015 00:00:00 [id number] [facility] [address] [place] [address] 11/25/2005 00:00:00 [id number] [facility] [address] [place] [address] 12/16/2006 00:00:00 [id number] [facility] [address] [place] [address] 12/15/2007 00:00:00 [id number] [facility] [address] [place] [address] 12/19/2008 00:00:00 [id number] [facility] [address] [place] [address] 12/21/2009 00:00:00 [id number] MD Lacy Amezcua 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 We will rescreen at annual visit, sooner if needed Exercises education, guidance, and counseling 014411975 Z71.89 Advise 30 minutes 3 times a week at a minimum of purposeful exercise. Patient is currently meeting this goal. Body mass index 25-29 - overweight 037579370 Z68.25 Screening for malignant neoplasm of breast 860842324 Z12.31 Patient aware of due date for next Mammogram as indicated below. She will be notified by facility of result after completion . Advise yearly Clinical Breast exam with Annual exam. Surveillan ce of oral contraception 004313143 Z30.41 Immunization due 4953009 08 Z28.3 Perimenopa usal disorder 271040312 N95.9 [id number] JOSUE Singh [employer]ATIONS SUPERINTENDENT [address] [place] [address] [place] [address] 03/17/2017 09:39:27 03/17/2017 10:43:16 Routine gynecologic examination done 7877982528 9101 Z01.419 Depression screening 171 756841 Z13.89 PHQ-9 completed today. Diet education 19005167 Z71.3 Counseling 238729312 Z71 .9 Exercise counselchrist smith. Patient encouraged to exercise 30 minutes 5 days a week. Examinatio n of blood pressure 080627617 Z01.30 Body mass index 20-24 - normal 936050620 Z68.24 Screening mammography 24 672246 Z12.31 Screening for malignant neoplasm of colon 741661294 Z12.11 Due for screening Colonoscop y 2017 Screening for malignant neoplasm of ovary 355362825 Z12.73 Surveillan ce of oral contraception 354909628 Z30.41 [id number] MD Lacy Amezcua COMPRESS[employer]ATIONS SUPERINTENDENT [address] [place] [address] [place] [address] 06/23/2017 15:12:43 06/23/2017 16:32:13 Break-through bleeding 85593469 N92.1 Z12.4 continue ocp- reassuranc e; rto for baseline US Burning se nsation of vagina 856271494 R20.8 History of endometriosis 2286921409 9364020 Z87.42 [id number] MD Lacy Amezcua [employer]PRESS[employer]ATIONS SUPERINTENDENT [address] [place] [address] [place] [address] 07/10/2017 08:19:07 07/10/2017 11:53:47 Break-through bleeding 47868596 N92.1 Z12.4 continue ocp- reassuranc e; rto for baseline US History of endometriosis 1404802627 8674874 Z87.42 Intramural leiomyoma of uterus 94246141 D25.1 Suspected for ultrasound and otherwise small uterus, largest 14 mm; expectant management depending on clinical status of her bleeding Surveillan ce of oral contraception 419997499 Z30.41 Continue current dosing of Ortho-Novu m at least through third birthday in December, has enough until March 2018 annual [id number] MD Lacy Amezcua COMPRESSOR [employer]ATIONS SUPERINTENDENT [address] [place] [address] [place] [address] 03/26/2018 08:51:48 03/26/2018 12:41:35 Gynecologic examination [id number] Z01.419 Depression screening 171 772248 Z13.89 Hypertensi on screening 610859055 Z13.6 Patient currently is within goal of less than 140/90. Exercises education, guidance, and counseling 134939564 Z71.82 Advise 30 minutes 3 times a week at a minimum of purposeful exercise. Patient is not currently meeting this goal. Nocturia 327528110 R35.1 will call with ua/culture results - Plan rx for antibotic if pos, if negative rx oxybuytin 5mg (short active) at night. Screening for malignant neoplasm of cervix 033554834 Z12.4 Menopause 751562243 Z78. 0 DC OCP - Call if developmen t bothersome hotflashes for appt to discuss HRT Hyperlipidemia 69026025 E78.5 follow up with PCP - Dr welch Uterine leiomyoma [id number] 05 D25.9 Follow-up ultrasound completed after visit today reassuring with no change from our study July 2017. Benign nature of fibroids reviewed. No current symptoms attributab le to these. No interventi on necessary. Follow-up will be based on physical exam regarding overall uterine size which today is small to normal. Patient reassured. We will not need ultrasound imaging through hospital with our study today. Will send copy on to Dr. Gray for their records Screening for malignant neoplasm of breast 006168143 Z12.31 Patient aware of due date for next Mammogram as indicated below-was due today getting reschedule d soon. She will be notified by facility of result after completion . Advise yearly Clinical Breast exam with Annual exam. History of endometriosis [id number] 4879712 Z87.42 Per previous laparoscop y has been having some mild left-sided pain/dysme norrhea. Still much better than previous dysmenorrh ea. Anticipate spontaneou s improvemen t in any pain that might be associated with this as she is entering menopause. [id number] MD Lacy Amezcua [employer] [address] [place] [address] SHIRLEY Gallo [phone] 05/25/2018 09:26:52 05/25/2018 10:33:56 Surveillance of oral contraception 160657181 Z30.41 Has resumed spontaneou s cycle of May after discontinu ation of pills end of March. Options reviewed including expectant management with condom use, Provera withdrawal every 2 months with condom use, or restarting OCs another 9-12 months. She prefers the latter and will restart same brand and use through her 53th birthday, will be off 3 months coming into next March annual. Nocturia 112785598 R35.1 Doing well with nightly low-dose oxybutynin . Continue this, has 6-month supply. Advise surveillan ce of meds several months after completes a 6-month supply to see if symptom relief continues. If it returns, can restart dose prior to next year's annual [id number] MD Lacy Amezcua [employer] [address] [place] [address] SHIRLEY Gallo [phone] 03/09/2019 13:30:14 03/09/2019 15:16:29 Pain of breast 53668579 N64.4 Left breast pain, patient states feels lump Upper outer quadrant, not felt today by examorder Diagnostic bilateral, US leftReassu cheryl, vitamin E and analgesics Menopausal syndrome 1237 12088 N95.9 2 months status post discontinu ation of OCPs at age 53 ;c/o of hot flashes. advised to complete breast imaging and if negative may prescribe estradiol 0.5/Qc Analyst a 2.5 a starting dose. Risk and benefits of HRT reviewed. She is interested in starting this and if she can. Reviewed that some of her symptoms may not be related to estrogen deficiency alone such as her sense of lightheade dness and advised that to be followed up with PCP. Reviewed breast tenderness might worsen with HRT. Discussed unpredicta bility of bleeding with initial HRT in this setting. Would want to see TFTs, CMP, CBC, A1c. Patient thinks she has had a lot of these done already. She will bring in labs from PCP and we can add if needed. Reviewed level such as FSH and estradiol would not really be useful in guiding replacemen t at this point, would be based on symptomati c improvemen t once at [facility] started. Will also need to watch for any return of spontaneou s bleeding. Keep scheduled annual exam March MD Lacy Amezcua [employer] [address] [place] [address] [place] [address] 04/07/2019 08:26:36 04/07/2019 09:53:52 Gynecologic examination 44240776 Z01.419 Cervical cancer screening not due this year, see [facility] Depression screening 171 369468 Z13.89 Hypertensi on screening 089105152 Z13.6 Patient currently is within goal of less than 140/90. We will rescreen at annual visit, sooner if needed Exercises education, guidance, and counseling 965991122 Z71.82 Advise 30 minutes 3 times a week at a minimum of purposeful exercise. Patient is not currently meeting this goal. Menopausal syndrome 1237 10982 N95.9 increase to 1mg estradiol, continue 2.5 provera daily. Reassess response to 6-week visit Left lower quadrant pain 791837593 R10.32 Chronic pain syndrome but worsening since off OCPs, previously suspected endometrio sis, also small myoma. Symptoms worsening since off OCPs ;advised to return for US. Discussed option of hysterecto my for pain Screening for malignant neoplasm of breast 525856206 Z12.31 Patient aware of due date for next Mammogram as indicated below April 02. She will be notified by facility of result after completion . Advise yearly Clinical Breast exam with Annual exam. [id number] MD Lacy Amezcua [employer] [address] [place] [address] SHIRLEY Gallo [phone] 05/21/2019 09:13:04 05/21/2019 10:58:51 Left lower quadrant pain 585873625 R10.32 Chronic left lower quadrant history actually better now on HRT than while on OCPs. No flare since off OCPs. Stable to decreasing small uterine fibroid. Reassured Menopausal syndrome 1237 06592 N95.9 Doing well on increased to 1 mg 2 months ago, continue 1mg estradiol, continue 2.5 provera daily.. Refills through full year given long-term risk and benefits reviewed [id number] MD Lacy Amezcua [employer] [address] [place] [address] SHIRLEY Gallo [phone] 04/11/2020 08:26:09 04/11/2020 09:36:58 Gynecologic examination 74531884 Z01.419 Cervical cancer screening not due this year, see [facility] Depression screening 171 511474 Z13.89 Treated depression doing well Hypertensi on screening 855417581 Z13.6 Patient currently is within goal of less than 140/90. We will rescreen at annual visit, sooner if needed Exercises education, guidance, and counseling 860312726 Z71.82 Advise 30 minutes 3 times a week at a minimum of purposeful exercise. Patient is not currently meeting this goal. Menopausal syndrome 1237 99785 N95.9 Persistent mild vasomotor symptoms despite medium dose HRT. Maintain current dose Left lower quadrant pain 829884559 R10.32 Chronic left lower quadrant pain. Has had no acute gynecologi c sonographi c findings although does have prior history of endometrio sis (suspected /excised but not histologic ally verified) with dysmenorrh ea and similar region during her reproducti ve years. desires to RTO for US as she had yearly for the last 3 years. Very low clinical suspicion of any adnexal or uterine changes per exam but okay to schedule this for reassuranc e. Reassured very low history of any uterine or ovarian cancer with long-term use of OCPs... Has been followed per GI with history of indetermi amy colitis as well as tubular adenoma at 01/27 bx's ; 12/30 bx's report not available, will request. [address] of abdomen and pelvis with no acute GI findings. 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 Order put in for 1 year presuming normal studies today She will be notified by facility of result after completion . Advise yearly Clinical Breast exam with Annual exam. [id number] MD Lacy Amezcua [employer] [address] [place] [address] SHIRLEY Gallo [phone] 05/01/2020 15:27:10 05/01/2020 16:44:04 Left lower quadrant pain 854393874 R10.32 Chronic left lower quadrant pain. Continues to have no acute gynecologi c sonographi c findings although does have prior history of endometrio sis (suspected /excised but not histologic ally verified) with dysmenorrh ea and similar region during her reproducti ve years.. Current imaging unchanged from ultrasound s over the last 3 years. . Reassured very low risk of any uterine or ovarian cancer with long-term use of OCPs... Has been followed per GI with history of indetermi amy colitis as well as tubular adenoma at 01/27 bx's ; 12/30 bx's report mild active colitis. [address] of abdomen and pelvis with no acute GI findings. 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 Maintain current dose Hormone re placement therapy 336308253 Z79.890 Continue 1 mg estradiol/ 2.5 Provera [id number] MD Lacy Amezcua [employer] SUPER[employer]ENT [address] [facility] [place] Gallo [phone] 04/26/2021 08:32:22 04/26/2021 09:46:39 Gynecologic examination 76684661 Z01.419 Depression screening 171 555909 Z13.89 Treated depression doing well Hypertensi on screening 411688983 Z13.6 Patient currently iswithin goal of less than 140/90. We will rescreen at annual visit, sooner if needed Exercises education, guidance, and counseling 410500391 Z71.82 Advise 30 minutes 3 times a week at a minimum of purposeful exercise. Patient is not currently meeting this goal. Hormone re placement therapy 891701130 Z79.890 Continue estradiol/ 2.5 Provera--d ecrease estrogen dosing to 0.5 this year call if not tolerating . reviewed short and long-term risk and benefits, and advised dosing at lowest dose necessary to treat symptoms were shortest time necessary Screening for malignant neoplasm of cervix 457333760 Z12.4 Body mass index 25-29 - overweight 411208933 Z68.27 Menopausal syndrome 1237 47203 N95.9 Vasomotor symptoms have extinguish ed on several years of 1 mg estradiol/ Provera. Ready to go decrease to 0.5 mg estradiol trial Screening for malignant neoplasm of breast 861798781 Z12.31 Patient aware of due date for next Mammogram as indicated below end of April. Has appointmen t for late April- keep- she will be notified by facility of result after completion . Advise yearly Clinical Breast exam with Annual exam. [id number] MD Lacy Amezcua [employer]PER[employer] [address] [facility] [place] [address] 07/04/2022 10:57:05 07/04/2022 11:46:08 Gynecologic examination 35223952 Z01.419 Cervical cancer screening not due this year, see [facility] Depression screening 171 548368 Z13.89 Treated depression doing well Hypertensi on screening 610645011 Z13.6 Patient currently iswithin goal of less than 140/90. We will rescreen at annual visit, sooner if needed Exercises education, guidance, and counseling 891844334 Z71.82 Advise 30 minutes 3 times a week at a minimum of purposeful exercise. Patient is not currently meeting this goal. Screening for malignant neoplasm of breast 166902146 Z12.31 Patient aware of due date for next Mammogram as indicated below-rehana g today after visit.- she will be notified by facility of result after completion . Advise yearly Clinical Breast exam with Annual exam. Menopausal syndrome 1237 12980 N95.9 Plan minimal vasomotor symptoms on current 0.5/2.5 estradiol/ Provera HRT. HRT renewed with advised to wean as tolerated Left lower quadrant pain 655957328 R10.32 Chronic left lower quadrant pain. Has had no acute gynecologi c sonographi c findings as of 2020 although does have prior history of endometrio sis (suspected /excised but not histologic ally verified) with dysmenorrh ea and similar region during her reproducti ve years.. She request repeat ultrasound s as we had skipped last year and she is gotten worried about this.. . Reassured very low risk of any uterine or ovarian cancer with long-term use of OCPs... Has been followed per GI with history of indetermi amy colitis as well as tubular adenoma at 01/27 bx's ; 12/30 bx's report mild active colitis. [address] of abdomen and pelvis with no acute GI findings. 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 RTO for ultrasound next available Hormone re placement therapy 398994107 Z79.890 Plan to attempt wean off of current dosing of 0.5 estradiol/ 2.5 Provera daily. Call if not tolerating . [id number] MD Lacy Amezcua [employer]PER[employer] [address] [place] [address] [place] [address] 07/18/2022 10:29:26 07/18/2022 11:43:49 Left lower quadrant pain 520826636 R10.32 chronic left lower quadrant pain. Suspect GI is primary source.con tinue as scheduled with Dr Gray. no obvious gynecologi c contributo r to pain Per imaging or history Blood in urine 18987989 R31.9 ua/culture today. discussed possible need for CT scan if persistent Hematuria Screening for malignant neoplasm of respiratory tract 355842507 Z12.2 Former hea vy tobacco smoker [id number] 90080 Z87.891 Former tobacco user [id number] Rita Morocho MD [place] [employer] [address] [facility] [place] [address] 07/29/2023 10:54:52 07/29/2023 12:38:11 Gynecologic examination 27755159 Z01.419 Cervical cancer screening not due this year, see [facility] Depression screening 171 603114 Z13.31 Treated depression doing well Hypertensi on screening 503746645 Z13.6 Patient currently iswithin goal of less than 140/90. We will rescreen at annual visit, sooner if needed Exercises education, guidance, and counseling 377027257 Z71.82 Advise 30 minutes 3 times a week at a minimum of purposeful exercise. Patient is not currently meeting this goal. Screening for malignant neoplasm of respiratory tract 890507705 Z12.2 Due January 2024 Former hea vy tobacco smoker [id number] 01920 Z87.891 Former tobacco user stopped 2019 Hormone re placement therapy 128203740 Z79.890 Started HRT 2018, stopped HRT Estradiol 0.5 and provera 2.5 03/13/23 --minimal vasomotor symptoms. Noticing some vaginal dryness symptoms. Does not want to restart systemic HRT. Will make vaginal HRT Rx available if she desires treatment prior to next year's annual exam Screening for osteoporosis 100372903 Z13.820 Z78.0 Screening for malignant neoplasm of breast 209850716 Z12.31 Patient aware of due date for next Mammogram as indicated below. She will be notified by facility of result after completion . Advise yearly Clinical Breast exam with Annual exam. Menopause 519891500 Z78. 0 Left lower quadrant pain 684764239 R10.32 chronic left lower quadrant pain. Suspect GI is primary source.willem marsh as scheduled with Dr Gray. no obvious gynecologi c contributo r to pain Per imaging or history. Most recent imaging here 6 23 with normal adnexa. At this point would encourage her to go to ovarian cancer screening program with as I do not feel further diagnostic ultrasound s will be of benefit unless symptoms change, but she is interested in continuing screening. Informatio n sheet given and reassured she can have this done within our facility [id number] Poonam Flor APRN [address] [address] 2023 09:42:33 2023 10:07:25 Influenza vaccine needed [id number] 106 Z23 [id number] Poonam Flor APRN [address] [address] 01/27/2024 16:13:11 01/27/2024 16:57:57 COVID-19 621036761 U07.1 no sign of a bacterial infection. likely viral. viruses can take 7-14 days to run their course. nasal saline and bulb syringe to remove nasal drainage to help with congestion . monitor temp. Tylenol or Motrin as needed for pain or fever. encourage fluids, water, Gatorade, power aide, Pedialyte if /tod dler/child warm salt water gargles warm fluids sore throat lozenges sleep elevated humidifier /vaporizer follow up immediatel y for new or worsening symptoms or no noticeable improvemen t over the next 48-72 hours Health Concerns Section Related Observation LastModified by Organization Detai ls LastModified Time None Recorded Concern Status LastModified by Organization Details LastModified Time None Recorded Advance Directives Directive N: Payers Insurance Date Sequence Insurance Name Policy Number Policy Colbert Covered Member ID Colbert Member ID Guarantor Name 04/27/2024 1 [facility] Dilcia Mai [id number] Dilcia Mai 04/27/2024 1 [place] [id number] Dilcia Amber Pau [id number] Dilcia Mai Notes Date Note Type Note Provider Name and Address Organization Details Recorded Time 07/04/2022 text/html Patient is a/an 56 year old who presents today as an established patient for an annual exam. Her previous annual exam was 04/26/2021 with myself.She is naturally menopausal. She has been menopausal since age 49. She is currently using estradiol 0.5 mg/provera 2.5mg She denies having menopausal related symptoms that concern her.She is currentlysexually activewith a new partner 2019.. Other than needing a preventive exam, is also being followed for menopausal syndromeand this is addressed also today She is currently taking any medications prescribed by our practice or needing refills:Estradiol .5 mg and provera 2.5mg CHRONIC DISEASE AND BP ASSESSMENT : In addition to the above reviewed DERRICK BOAT LEVERMAN issues, she does have a history of chronic disease(s), noted in PMH, for which she is advised to follow up regularly with her PCP (and/or specialists involved).Significant changes in personal medical history :Currently prescribed medications reviewed :reconciled and patient states compliance Today's BP reading was within normal limits with goal of 140/90 She has not previously been diagnosed with hypertension. She is not currently using anti-hypertensive medication. BMI/EXERCISE and DIET COUNSELLING:Her current BMI is 2. She is advised that her BMI is overweight . Her weight is documented as unchanged over the last year.Diet and physical activities addressed today included patient's activity level.patients current exercise status : NoneShe states she does not attempt to actively monitor her diet for attempts to lose weight or manage a medical condition.It is recommended that she continue current diet regimen.It is recommended that she increase current exercise status TOBACCO and SUBSTANCE ABUSE SCREENING:Patient is is a previous tobacco user - last use: 2018. She denies the use of drugs. She denies the use of alcohol. DEPRESSION SCREENING:Patient completed a PHQ-9 form and scored a 0. See result on attached form. She She has past experience with depression. She does not need to schedule with [facility] or mental health specialist.She is using a psychoactive prescription currently. OTHER SOCIAL HISTORY:She has not had significant social history changes or issues this year. 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 see specifics on vaccine panel.Influenza : Current?N/ATdap: Current?:Yes 2016Varicella: Current? naShingles: Current?:No - advised and declined todayGardasil:Current? :N/APneumovax:Current? :N/APrevnar 13: Current?:YesCovid: current?: yesOther indicated: :Curr ent?: SCREENING STATUS:Her most recent screening test are reviewed as documented above. Currently overdue for:none.------ .Recent abnormal screening tests:none.------ . Based on her age and risk factors, she is DUE FOR THE FOLLOWING SCREENS :Pelvic and Breast exam: todayCervical cancer screenin04/26/21 wnl neg hpv . Test(s) indicated when next due 2024: Pap with HPV Co-TestCervical Cultures: N/AMammogram : Scheduled 07/04/22Colonoscopy: mild colitis, h/o of polypsDEXA: 2005Lipids: follow with PCP as advisedUK Ovarian Cancer screening :LDCT n/A Patient should return in 1 year for an annual wellness exam and sooner as needed for other problems. h/o l sided pain for yearssees marina- CS quite oftenwants another USeveryone in family has cancer stays sore left lower quadrant every day, worse if attemptw SI, similar to dysmenorrhea pain, no worse this year just wants checked. We previously had been doing ultrasounds with her, last one had been [address] that described a tortuous left gonadal vein but no thrombus marina had CS 12/01 , on high priced medicate- mesalamine for?colitis. also has diverticulosis.doesnt remember change in pain when started mesalamine, used for a year so far Denies any rectal bleeding or bowel movement changes. No dysuria or urgency. Has had no postmenopausal bleeding. After last visit she had decreased HRT from a 1 mg/2.5 Provera to a 0.5 mg/2.5 Provera; with current low-dose HRT notes occasional hot flashes but nothing bad. We discussed risk and benefits of HRT use and she is willing to try a slow wean to discontinue completely. She has not had any vaginal symptoms at this point but advised to watch for these. Rita Morocho MD [address], [place], [address], [place] [facility] 07/04/2022 18:19:30 07/18/2022 text/html Patient is an established patient who presents for follow up on left lower quadrant pain. At the last visit where this was addressed, which was her annual exam with myself on 07/04/22 she was noted to have jail problem LLQ pain and returns today for Ultrasound. .Pertinent prior testing: NoneShmere describes her current symptoms as LLQ. states test [facility] showed blood in urine..After discussion today, she is agreeable to a plan of having additional testing-see plan for details. The specifics of treatment and timing of followup visit(s) are outlined below. patient returns for ultrasound she had requested to check out those fibroids because of still having that left-sided pain states she has had this for years and this is similar to pain she had as dysmenorrhea during her reproductive years. No worsening in the last year. No diarrhea or rectal bleeding. She does have a history of colitis per colonoscopy with Dr. Gray and is on mesalamine. She is not sure she wants to continue taking that but is going back to see him next month to discuss. She had abdominal pelvic CT imaging about 4 years ago that was normal they were having health fair at work and urine dipstick there showed blood, she was told. urine dip today showed moderate occult blood. She has never had gross hematuria. She has no urgency dysuria or odor. She has never had kidney stones. Reviewed smoking status, stop smoking 3 years ago that time a severe respiratory illness. She does not think she has had a chest CT scan but has had several chest x-rays at [facility] that were okay . She is agreeable to low-dose CT screening for lung cancer. She has a 40 pack year history Rita Morocho MD [address], [place], [address], [place] [facility] 07/18/2022 21:24:04 07/29/2023 text/html Patient is a/an 57 year old who presents today as an established patient for an annual exam. Her previous annual exam was 07/04/2022 with myself.She is naturally menopausal. She has been menopausal since age 49. She has previously used HRT, until 03/13/23 She denies having menopausal related symptoms that concern her.She is currentlysexually activewith the same partner as last visit. Other than needing a preventive exam, is also being followed for menopausal syndrome/HRTand this is addressed also today She is not currently taking any medications prescribed by our practice or needing refills: CHRONIC DISEASE AND BP ASSESSMENT : In addition to the above reviewed DERRICK BOAT LEVERMAN issues, she does have a history of chronic disease(s), noted in PMH, for which she is advised to follow up regularly with her PCP (and/or specialists involved).Significant changes in personal medical history : NoneCurrently prescribed medications reviewed :reconciled and patient states compliance Today's BP reading was within normal limits with goal of 140/90 She has not previously been diagnosed with hypertension. She is not currently using anti-hypertensive medication. BMI/EXERCISE and DIET COUNSELLING:Her current BMI is 29. She is advised that her BMI is overweight . Her weight is documented as increasing over the last year.Diet and physical activities addressed today included patient's activity level.patients current exercise status : NoneShe states she does not attempt to actively monitor her diet for attempts to lose weight or manage a medical condition.It is recommended that she continue current diet regimen.It is recommended that she increase current exercise status TOBACCO and SUBSTANCE ABUSE SCREENING:Patient is is a previous tobacco user - last use: 2018. She denies the use of drugs. She denies the use of alcohol. DEPRESSION SCREENING:Patient completed a PHQ-9 form and scored a 0. See result on attached form. She She has past experience with depression. She does not need to schedule with [facility] or mental health specialist.She is using a psychoactive prescription currently. OTHER SOCIAL HISTORY:She has had significant social history changes or issues this yearRetired 03/13/2023 IMMUNIZATION STATUS: Her immunization status was addressed today. see specifics on vaccine panel.Influenza : Current?N/ATdap: Current?:Yes 2016Varicella: Current? naShingles: Current?:No - advised and declined todayGardasil:Current? :N/APneumovax:Current? :N/APrevnar 13: Current?:YesCovid: current?: yesOther indicated: :Curr ent?: SCREENING STATUS:Her most recent screening test are reviewed as documented above. Currently overdue for:none.------ .Recent abnormal screening tests:none.------ . Based on her age and risk factors, she is DUE FOR THE FOLLOWING SCREENS :Pelvic and Breast exam: todayCervical cancer screenin04/26/21 wnl neg hpv . Test(s) indicated when next due 2024: Pap with HPV Co-TestCervical Cultures: N/AMammogram : had todayColonoscopy:11/29 colitis, repeat 2-3 yearsDEXA: 2005Lipids: follow with PCP as advisedUK Ovarian Cancer screening :advised of program, information given and can pursue if interestedLDCT 02/05/23 nl, yearly Patient should return in 1 year for an annual wellness exam and sooner as needed for other problems. Patient returns for annual exam. She is pleased that she reports she was able to retire with a pension from [employer] after 36 years of work. 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 Around the same time in early March she opted to discontinue her HRT which had been 2.5 mg / 2.5 mg Provera dosing. She had some mild return of hot flashes but nothing very bothersome. She started to notice some vaginal dryness with intercourse also not too bothersome yet. Has been followed for many years with complaints of intermittent left lower quadrant pain. He still has intermittent pain . she has had multiple ultrasounds here as recently as last summer with no adnexal findings, small uterus, thin endometrium, possible less than 1 cm subserosal myoma.She has questions as to whether she needs to continue yearly ultrasounds. I have advised she have this done as screening rather than diagnostic at this point. She has diagnosis of colitis currently on mesalamine and being followed every 2 to 3 years with colonoscopies per Dr. Gray year she has not seen any rectal bleeding or diarrhea recently. I suspect most of her discomfort is bowel related rather than gynecologic related.No urinary symptoms. Rita Morocho MD [address], [place], [address], [facility] - [facility] 07/29/2023 15:10:52 2023 text/html 57 yr old female presents for a flu vaccine. Charito Paz [place], [place] - [facility] 2023 11:35:31 01/27/2024 text/html Back PainReporte d bypatient.Location:nancy n is not radiating Severity:improving Associated Symptoms:no fever; no weak limbs; no numbness of the legs/feet; no tingling; no incontinence; no shortness of breath; no unintentional weight loss; no chills; no night sweats; no gait instability; no bowel/bladder symptoms; no recent increase in stress Prior Imaging:MRI; X-ray 58 yr old female presents for sore throat, back and leg pain, cough. She states she had one positive covid test at home and one negative. Poonam Flor APRN [address], [place], [id number], [facility] - [facility] 01/27/2024 16:59:37 OBGyn Episode No OBEpisode recorded.
--- OUTSIDE RECORDS SUMMARY | 2024-07-22 09:45 | XMS_ITS | Data Portability ---
Author Organization [facility] Rosalie & HORACE Vincent ADMIN Address [address] [place] [address] Care Team Providers Care Semi Driver Name Role Phone [facility] Primary Care Provider RACHNA JONES Primary Care Provider Assessment No assessment recorded. Plan of Treatment Reminders Order Date Submit Date Provider Last Modified By Organization Details Last Modified Time Details Appointments OV EST 10 2024 07:30A Miah Gray MD Not available Not available Not available Lab calprotec tin, stool 2023 024 [facility] (Registration ), [address], [place], [address], 08/19/2023 16:14:42 Referral None recorded. Procedures colonosco [...] if patient on Coumadin Hold [address] (Outpatient Surgery), [place], [address], 10/23/2023 13:05:51 Surgeries None recorded. Imaging None recorded. Medication Orders dicyclomi ne 10 mg capsule 2023 024 [facility], [address], [address], [place], [address], 12/10/2023 09:56:46 dicyclomi ne 10 mg capsule 2023 024 [facility], [address], [address], [place], [address], 10/06/2023 14:50:28 mesalamin e 1.2 gram tablet,de layed release 2023 024 [facility], [address], [address], [place], [address], 12/10/2023 09:36:38 mesalamin e 1.2 gram tablet,de layed release [address], [address] [place] [address], [address], [place], [address], 12/10/2023 09:01:51 Suflave 178.7 gram-7.3 gram-0.5 gram oral solution 2023 024 [facility], [address] [place] [address], [address], [place], [address], 10/03/2023 11:06:53 dicyclomi ne 10 mg capsule 2023 024 [facility], [address], [address], [place], [address], 08/25/2023 15:50:51 mesalamin e 1.2 gram tablet,de layed release [address], [address], [address], [place], [address], 12/10/2023 09:01:51 ropinirol e 1 mg tablet 2023 024 [facility], [address], [address], [place], [address], 08/12/2023 09:23:32 Patient TargetsNo targets recorded. Patient InstructionsNo instructions recorded. Reason for Referral None Reported. Results Created Date Observation Date Name Description Value Unit Range Abnormal Flag Note LastModifiedBy Organization Detail LastModifiedTime 08/12/19 24 08/12/2023 CBC W/AUT O DIFFE RENTI AL note SEE NOTE Order ing Provi karen: Israel singleton MD Not Available [address] , [place], [address], 08/12/2023 17:43:08 08/12/19 24 08/12/2023 CBC W/AUT O DIFFE RENTI AL white blood cell 7.2 10e3/ uL 4.5-13 .0 normal Not Available [address] , [place], [address], 08/12/2023 17:43:08 08/12/19 24 08/12/2023 CBC W/AUT O DIFFE RENTI AL red blood cell 4.72 10e6/ uL 3.80-5 .10 normal Not Available [address], [place], [address], 08/12/2023 17:43:08 08/12/19 24 08/12/2023 CBC W/AUT O DIFFE RENTI AL hemoglobin 14.4 g/dL 11.5-1 5.3 normal Not Available [address] [place], [place], [address], 08/12/2023 17:43:08 08/12/19 24 08/12/2023 CBC W/AUT O DIFFE RENTI AL hematocrit 42.7 % 34.0-4 6.0 normal Not Available [address] [place], [place], [address], 08/12/2023 17:43:08 08/12/19 24 08/12/2023 CBC W/AUT O DIFFE RENTI AL mean cell volume 91 fL 78.0-9 8.0 normal Not Available [address] , [place], [address], 08/12/2023 17:43:08 08/12/19 24 08/12/2023 CBC W/AUT O DIFFE RENTI AL mean cell HGB 30.5 pg 25.0-3 5.0 normal Not Available [address] [place], [place], [address], 08/12/2023 17:43:08 08/12/19 24 08/12/2023 CBC W/AUT O DIFFE RENTI AL mean cell HGB concentratio n 33.7 g/dL 31.0-3 6.0 normal Not Available [address] , [place], [address], 08/12/2023 17:43:08 08/12/19 24 08/12/2023 CBC W/AUT O DIFFE RENTI AL red cell distribution width 13.1 % 11.0-1 5.0 normal Not Available [address] [place], [place], [address], 08/12/2023 17:43:08 08/12/19 24 08/12/2023 CBC W/AUT O DIFFE RENTI AL platelet count 260 10e3/ uL 150-40 0 normal Not Available [address] [place], [place], [address], 08/12/2023 17:43:08 08/12/19 24 08/12/2023 CBC W/AUT O DIFFE RENTI AL immature granulocyte % 0 0-1 normal Not Available [address] [place], [place], [address], 08/12/2023 17:43:08 08/12/19 24 08/12/2023 CBC W/AUT O DIFFE RENTI AL neutrophil % 52 % 35-75 normal Not Available [address] , [place], [address], 08/12/2023 17:43:08 08/12/19 24 08/12/2023 CBC W/AUT O DIFFE RENTI AL lymphocyte % 35 % 10-50 normal Not Available [address] [place], [place], [address], 08/12/2023 17:43:08 08/12/19 24 08/12/2023 CBC W/AUT O DIFFE RENTI AL monocyte % 9 % 0-15 normal Not Available [address] [place], [place], [address], 08/12/2023 17:43:08 08/12/19 24 08/12/2023 CBC W/AUT O DIFFE RENTI AL eosinophil % 3 % 0-5 normal Not Available [address] [place], [place], [address], 08/12/2023 17:43:08 08/12/19 24 08/12/2023 CBC W/AUT O DIFFE RENTI AL basophil % 1 % 0-5 normal Not Available [address] [place], [place], [address], 08/12/2023 17:43:08 08/12/19 24 08/12/2023 CBC W/AUT O DIFFE RENTI AL immature granulocyte # 0.01 x1000 /uL 0-0.05 normal Not Available [address] [place], [place], [address], 08/12/2023 17:43:08 08/12/19 24 08/12/2023 CBC W/AUT O DIFFE RENTI AL neutrophil # 3.71 x1000 /uL 1.50-8 .00 normal Not Available [address] [place], [place], [address], 08/12/2023 17:43:08 08/12/19 24 08/12/2023 CBC W/AUT O DIFFE RENTI AL lymphocyte # 2.53 x1000 /uL 1.20-5 .20 normal Not Available [address] [place], [place], [address], 08/12/2023 17:43:08 08/12/19 24 08/12/2023 CBC W/AUT O DIFFE RENTI AL monocyte # 0.63 x1000 /uL 0.40-0 .90 normal Not Available [address] [place], [place], [address], 08/12/2023 17:43:08 08/12/19 24 08/12/2023 CBC W/AUT O DIFFE RENTI AL eosinophil # 0.23 x1000 /uL 0.00-0 .50 normal Not Available [address] [place], [place], [address], 08/12/2023 17:43:08 08/12/19 24 08/12/2023 CBC W/AUT O DIFFE RENTI AL basophil # 0.07 x1000 /uL 0.00-0 .30 normal Not Available [address] [place], [place], [address], 08/12/2023 17:43:08 08/12/19 24 08/12/2023 CBC W/AUT O DIFFE RENTI AL NRBC automated 0.0 /100_ WBC Not Available [address] [place], [place], [address], 08/12/2023 17:43:08 08/12/19 24 08/12/2023 CBC W/AUT O DIFFE RENTI AL performing lab SEE NOTE [facility] [place] [address] [facility] [address] Not Available [address] [place], [place], [address], 08/12/2023 17:43:08 08/12/19 24 08/12/2023 STOOL CALPR OTECT IN note SEE NOTE Order ing Provi karen: Israel singleton MD Not Available [address] , [place], [address], 08/19/2023 16:14:42 08/12/19 24 08/12/2023 STOOL CALPR OTECT IN stool calprotectin <5 ug/g 0-120 Sadia ntrat ion Inter preta tion Follo w-Up < 5 - 50 ug/g Madeline l None >50 -120 ug/g Borde rline Re-ev aluat e in 4-6 weeks >120 ug/g Abnor mal Repea t as clini adonay indic ated Perfo rmed At: , [facility]yta cav[facility]os [address] [facility] [place], [address] Vi wallis MD, Phone : [phone] Not Available [address] , [place], [address], 08/19/2023 16:14:42 08/12/19 24 08/12/2023 STOOL CALPR OTECT IN performing lab SEE NOTE LC2 - [facility] CLIEN T# [id number] 022 [address] [place] [address] Not Available [address] , [place], [address], 08/19/2023 16:14:42 Result Notes None recorded. 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 Sheng Gray MD [facility] [employer] [facility] [address], [place], [address] , [facility] & [place] 16:13:45 Abdominal pain 58520627 Active 2021 Sheng Gray MD [address] [place] [address],[address], [place], [address] , [place] - [facility] - [facility] & [place] 2 16:16:11 Intermittent dysphagia 88816117 Active 2022 Sheng Gray MD [address] [place] [address],[address], [place], [address] , [place] - [facility] - [facility] & [place] 3 15:11:53 Irritable bowel syndrome 65405687 Active 2022 Sheng Gray MD [address] [place] [address],[address], [place], [address] , [place] - [facility] - [facility] & [place] 3 15:12:15 Small fiber neuropathy 945851989 Active 2023 Amanda Pearson, DO [address] [facility], [place], [address] , [place] - [facility] - [facility] & [place] 4 11:10:57 Restless legs 84506688 Active 2023 Amanda Pearson, DO [address] [facility], [place], [address] , [place] - [facility] - [facility] & [place] 4 11:11:14 Neck pain 15014118 Active 2023 Amanda Pearson, DO [address] [facility], [place], [address] , [place] - [facility] - [facility] & [place] 4 11:15:13 Rectal hemorrhage 04654800 Active 2023 Sheng Gray MD [address] [place] [address],[address], [place], [address] , [place] - [facility] - [facility] & [place] 4 15:34:40 Problem Notes None recorded. Procedures Surgical History Date Name Laterality Status Provider Name and Address Organization Details Recorded Time 09/08/19 24 Colonoscopy completed Kishan WATSON - [facility] - [place] & [place] 10/06/2023 13:57:01 12/02/19 22 Colonoscopy completed Kishan WATSON - [facility] - [place] & [place] 10/06/2023 13:57:08 12/30/19 Colonoscopy completed Kishan VU [facility] & [place] 10/30/2021 15:57:34 01/28/20 Colonoscopy completed Kishan VU [facility] & [place] 01/16/2022 08:20:32 03/23/[address] of small intestine with contrast completed Kishan VU [facility] & [place] 01/16/2022 08:20:02 diagnostic laparoscopy of female pelvis completed Kishan VU [facility] & [place] 10/30/2021 15:56:51 cardiac catheterization completed Kishan VU [facility] & [place] 01/16/2022 08:19:06 EGD/Endoscopy completed Kishan VU [facility] & [place] 10/30/2021 15:57:54 Imaging Results None recorded. Procedure Notes None recorded. Medical Equipment None Reported. Allergies Allergen ID Allergen Name Allergen Category Reaction Reaction Severity Criticality Documentation Date Start Date Code Code System Note Provider Name and Address Organization Details Recorded Time 00557 Product containin g penicilli n (product) medicatio n Not available Not available Not available 10/30/2021 77060 8001 SNOMED SHIRLEY Pal [facility] & [place] 2 15:43:55 49200 Substance with sulfonami de structure and antibacte rial mechanism of action (substanc e) medicatio n Not available Not available Not available 10/30/2021 42690 8003 SNOMED SHIRLEY Pal [facility] & [place] 2 15:44:01 Medications Name Sig Start Date Stop Date Status Note LastModified by Organization Details LastModified Time lmp (rr) cream (lp2.15) apply three times per day active Not Available Not Available No t Available blood pressu solution kit 07/04 completed Not Available Not Available Not Available blood pressure monitoring solution kit 08/20 [...] azelastine 137 mcg (0.1 %) nasal spray Gillette as needed by nasal route for 30 [...] propionate 50 mcg/actuati on nasal spray,suspe nsion Gillette 1 spray as needed by nasal route [...] Not Available Not Available Not Available vitamin J37-zzysk acid 1000 mcg 1 time a day [...] Updated DateTime 4 171.45 cm 32.7 kg/m2 42641.5 8 g 69 /min 124 mm[Hg] 75 mm[Hg] Elisabet Ned [facility] & [place] 4 09:59:07 Date Recorded Body height Body mass index (BMI) Body weight Body temperature Respiratory rate Heart rate Systolic blood pressure Diastolic blood pressure Provider Name and Address Organization Details Last Updated DateTime 4 171.45 cm 32.9 kg/m2 03462.1 7 g 97.5 [degF] 18 /min 72 /min 134 mm[Hg] 79 mm[Hg] Kishan UV [facility] & [place] 4 08:11:02 Date Recorded Body height Body weight Body mass index (BMI) Body temperature Heart rate Respiratory rate Systolic blood pressure Diastolic blood pressure Provider Name and Address Organization Details Last Updated DateTime 4 171.45 cm 29264.4 9 g 33.1 kg/m2 96.8 [degF] 81 /min 18 /min 142 mm[Hg] 84 mm[Hg] Kishan VU [facility] & [place] 4 15:01:50 Date Recorded Body height Provider Name an d Address Organization Details Last Updated DateTime 10/06/2023 171.45 cm [facility]an [facility] & [place] 10/06/2023 13:57:33 Date Recorded Body height Body mass index (BMI) Body weight Systolic blood pressure Diastolic blood pressure Provider Name and Address Organization Details Last Updated DateTime 12/10/2023 171.45 cm 33 kg/m2 37118.77 g 143 mm[Hg] 91 mm[Hg] Rivka [facility] & [place] 4 09:01:17 Social History Question Answer Notes LastModified by Organizat ion Details LastModified Time Tobacco Smoking Status Former Smoker Kishan Nunezeri [facility], [place] - [facility] & [place] 10/30/2021 15:53:23 Do You Have An Advance Directive? No Information not available 10/30/2021 Are You Blind Or Do You Have Difficulty Seeing? No Information not available 10/30/2021 Is Blood Transfusion Acceptable In An Emergency? Yes [email or web address] Information not available 01/23/2023 What Is Your Level Of Caffeine Consumption? Heavy 5 Cans Diet Mountain Dew Per Day Information not available 05/26/2023 Are You Deaf Or Do You Have Serious Difficulty Hearing? No [email or web address] Information not available 01/23/2023 What Type Of Diet Are You Following? REGULAR [email or web address] Information not available 01/23/2023 How Many Days Of Moderate To Strenuous Exercise, Like A Brisk Walk, Did You Do In The Last 7 Days? 3 Information not available 01/23/2023 On Those Days That You Engage In Moderate To Strenuous Exercise, How Many Minutes, On Average, Do You Exercise? 30 Information not available 01/23/2023 Have There Been Any Changes To Your Family Or Social Situation? No [email or web address] Information not available 01/23/2023 When Did You Quit Smoking? 15+yearssin celastcicolin ette [email or web address] Information not available 01/23/2023 What Was The Date Of Your Most Recent Tobacco Screening? 08/20/2022 [email or web address] Information not available 08/20/2022 How Many Children Do You Have? 0 [email or web address] Information not available 01/23/2023 Do You Have Any Pets? Yes [email or web address] Information not available 01/23/2023 What Is Your Relationship Status? Single Lives Alone In A House Information not available 05/26/2023 Do You Use Your Seat Belt Or Car Seat Routinely? Yes [email or web address] Information not available 01/23/2023 At What Age Did You Start Smoking Tobacco? 15 [email or web address] Information not available 01/23/2023 Are You Passively Exposed To Smoke? No [email or web address] Information not available 08/20/2022 How Much Tobacco Do You Smoke? 1 PPD [email or web address] Information not available 08/20/2022 How Many Years Have You Smoked Tobacco? 10 Information not available 10/30/2021 Do You Have Difficulty Walking Or Climbing Stairs? No [email or web address] Information not available 01/23/2023 Are You Currently In School? No Diploma Information not available 05/26/2023 Sex: Unknown Functional Status Question Answer Note LastModified by Organizat ion Details LastModified Time Do you use any illicit or recreational drugs? No Information not available 01/16/2022 What is your level of alcohol consumption? None Information not available 10/30/2021 Are you currently employed? No retired Information not available 05/26/2023 Do you have transportation difficulties? No [email or web address] Information not available 01/23/2023 Are you able to walk? YESWOREST [email or web address] Information not available 01/23/2023 Do you have difficulty doing errands alone? No [email or web address] Information not available 01/23/2023 Are you able to care for yourself? 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 No Information not available 01/23/2023 What is your exercise level? Moderate Information not available 10/30/2021 Mental Status Question Answer Note LastModified by Organizat ion Details LastModified Time Do you feel stressed (tense, restless, nervous, or anxious, or unable to sleep at night)? [id number] Information not available 07/30/2023 Do you have difficulty concentrating, remembering or making decisions? No [email or web address] Information no t available 01/23/2023 Family History [...] History Condition Response Coronary Artery Disease N None Y Gout N Colon Cancer N Kidney Stones N Hyperthyroidism N Ear or Hearing Problems Y Depression Y COPD Y Hypothyroidism N GI Problems Y Osteoporosis/Osteopenia N Diverticulitis/Diverticulosis N Colon Polyps Y Neurological Problems Y Anxiety Disorder Y Diabetes N Bleeding Disorder N Arthritis Y Seizures/Epilepsy N Tuberculosis N Hyperlipidemia Y Cancer N Back Problems Y Stroke N Asthma Y Sleep Apnea N GERD/Reflux N Hepatitis N Cirrhosis N Liver Disease N Heart Disease N Rheumatoid Arthritis Y Hypertension N Kidney Disease N Gynecological History Statement/Question Response Menses Monthly N Abnormal Pap Y Sexually Active? N Obstetrics History GPAL:G 0 P 0 0 0 0 Immunizations Vaccine Type Date Status Note Provider Nam e and Address Organization Details Recorded Time influenza, unspecified formulation 0 completed SHIRLEY Pal - [facility] - [facility] 01/16/2022 08:15:11 Pneumococcal conjugate PCV 13 7 completed SHIRLEY Pal - [facility] - [facility] 01/16/2022 08:15:28 influenza, unspecified formulation 2 completed SHIRLEY Pal - [place] & [place] 01/16/2022 10:11:02 SARS-COV-2 (COVID-19) vaccine, UNSPECIFIED 1 completed SHIRLEY Pal - [place] & [place] 10/30/2021 15:48:43 Past Encounters Encounter ID Performer Location Encounter Start Date Encounter Closed Date Diagnosis/Indication Diagnosis SNOMED-CT Code Diagnosis ICD10 Code Diagnosis Note [id number] [facility] [address] [place] [address],[address] [address] 10/30/2021 14:54:26 10/31/2021 08:33:31 Indeterminate colitis 128079809 K52.3 Recent increase abdominal pain, question increasing colitis symptoms. At this time check stool calprotect in, CRP and CBC. Schedule colonoscop y for further evaluation at this time continue mesalamine unchanged. [id number] [facility] MD [facility] [address] [place] [address],[address] [address] 01/16/2022 09:55:16 01/16/2022 10:40:04 Indeterminate colitis 037469407 K52.3 The patient has persistent indetermin ate colitis, inflammato ry markers including calprotect in and CRP unremarkab le. Give the patient a trial of budesonide initially 9 mg a day for 2 weeks, then reducing it to 6 mg a day till follow-up. Continue mesalamine , check an IBD antibody panel. Abdominal pain 80675497 R10.9 [id number] [facility] MD [facility] [address] [place] [address],[address] [place] [address] 02/13/2022 07:48:31 02/13/2022 08:11:14 Indeterminate colitis 777842135 K52.3 The patient has persistent indetermin ate colitis, inflammato ry markers including calprotect in and CRP unremarkab le and IBD serology negative. And a combinatio n of budesonide 3 mg daily, and mesalamine the patient is doing well. Continue current therapy without change. Follow-up 3 months [id number] [facility] [address] [place], [place] [address] 07/04/2022 12:37:41 07/04/2022 13:21:49 Indeterminate colitis 608913179 K52.3 indetermin ate colitis, inflammato ry markers [...] persist, may benefit from an antispasmo dic [id number] Sheng [facility] MD [facility] [address] [place] [address] 0 08/20/2022 13:58:49 08/20/2022 15:11:57 Indeterminate colitis 490148224 K52.3 indetermin ate colitis, inflammato ry markers including calprotect in and CRP unremarkab le and IBD serology negative. continue mesalamine Irritable bowel syndrome 26017445 K58.9 suspect we may have some overlap of my and a colitis with IBS. Given the patient complains primarily of crampy discomfort , will add dicyclomin e to the patient's regimen see above. Follow-up 2 months [id number] [facility] [address] [place], [place] [address] 10/24/2022 13:25:29 10/24/2022 14:27:26 Irritable bowel syndrome 95923408 K58.9 suspect we may have some overlap of my and a colitis with IBS. Given the patient complains primarily of crampy discomfort , symptoms have improved since addition of dicyclomin e but not totally resolved. Increase fiber to 2 tablets once a day of Citrucel Indeterminate colitis 23 0997872 K52.3 indetermin ate colitis, inflammato ry markers including calprotect in and CRP unremarkab le and IBD serology negative. continue mesalamine [id number] Sheng Gray MD [facility]ology [address] [place] [address] 01/23/2023 12:58:01 01/23/2023 13:48:46 Irritable bowel syndrome 58565688 K58.9 overlap IBD with indetermin ate colitis currently asymptomat ic on dicyclomin e and mesalamine . Continue dicyclomin e for IBS Indeterminate colitis 23 8015275 K52.3 indetermin ate colitis, inflammato ry markers including calprotect in and CRP unremarkab le and IBD serology negative. continue mesalamine [id number] [facility] [address] [facility],[address] [place] [address] 05/26/2023 10:07:07 05/26/2023 11:21:09 Small fiber neuropathy 794157547 G62.89 She has previously been diagnosed with small fiber neuropathy after a skin biopsy. Her online marketer has attributed her foot pain to the neuropathy but also plantar fasciitis and heel spurs. She may benefit from medicaton for symptomati c management of the neuropathy discomfort , but would first see if treating the RLS provided adequate relief. Restless legs 91401682 G 25.81 Progressiv e LE restlessne ss. She might benefit from ropinirole . She is educated on this medication and potential side effects. Neck pain 42572260 M54.2 Chronic neck pain. Recent MRI cervical spine shows DDD with a bulging disc at C6/7 with right foraminal stenosis. She does not describe any radicular type pain.Would do a trial of PT for her neck pain to see if that would be effective. [id number] DO UNRULY Brasher [facility] Neu[facility],[address] [address] 07/14/2023 09:50:33 07/14/2023 10:33:40 Small fiber neuropathy 478145867 G62.89 She has previously been diagnosed with small fiber neuropathy after a skin biopsy. Her online marketer has attributed her foot pain to the neuropathy but also plantar fasciitis and heel spurs. She currently is not having any neuropathi c pain that requires additional interventi ons. Restless legs 06548261 G 25.81 Progressiv e LE restlessne ss. She has had some slight improvemen t with the low dose of ropinirole . Will increase her dose today and she will call with an update. Neck pain 86715259 M54.2 Chronic neck pain.MRI cervical spine shows [...] when combining this with the ropinirole . [id number] hSeng Gray MD [facility] [address] [place] [address],[address] [place] [address] 07/30/2023 08:00:29 07/30/2023 08:25:43 Irritable bowel syndrome 18059533 K58.9 overlap IBS with indetermin ate colitis currently asymptomat ic on dicyclomin e and mesalamine . Continue dicyclomin e for IBS Indeterminate colitis 23 6242660 K52.3 indetermin ate colitis, inflammato ry markers including calprotect in and CRP unremarkab le Previously and IBD serology negative in 2021 . continue mesalamine [id number] Sheng Gray MD [facility] [address] [place] [address],[address] [place] [address] 08/25/2023 14:23:23 08/25/2023 15:45:26 Rectal hemorrhage [id number] K62.5 etiology of the patient's rectal bleeding is unclear, given the patient's colitis history however worsening of that process certainly is in differenti al schedule colonoscop y for evaluation . Continue increased dose of mesalamine until postproced ure Indeterminate colitis 23 [id number] K52.3 possible flare [id number] Sheng Gray MD [facility] [address] [place] [address],[address] [place] [address] 10/06/2023 13:23:25 10/06/2023 14:44:29 Rectal hemorrhage [id number] K62.5 Resolved, colonoscop y without specific abnormalit y, possibly anorectal issue that it heal spontaneou sly prior to colonoscop y Indeterminate colitis 23 [id number] K52.3 recent colonoscop y biopsies demonstrat ed no colitis, wean mesalamine off, reduce her current mesalamine 1.2 g 4 tablets once a day down to 2 tablets once a day. After 30 days if no increase symptoms, discontinu e. Irritable bowel syndrome [id number] K58.9 restart dicyclomin e for IBS [id number] Sheng Gray MD [facility] [address] [place] [address],[address] [address] 12/10/2023 08:53:50 12/10/2023 09:20:45 Indeterminate colitis [id number] K52.3 Resolved ,recent colonoscop y biopsies demonstrat ed no colitis. asymptomat ic Irritable bowel syndrome [id number] K58.9 Stable on dicyclomin e for IBS, no change Health Concerns Section Related Observation LastModified by Organization Detai ls LastModified Time None Recorded Concern Status LastModified by Organization Details LastModified Time None Recorded Advance Directives Directive N: Payers Insurance Date Sequence Insurance Name Policy Number Policy Colbert Covered Member ID Colbert Member ID Guarantor Name 12/10/2023 1 [place] [id number] Dilcia Hawkinsenter [id number] Dilcia Clark Pau 01/25/2024 1 [id number] Dilcia Hawkinsenter [id number] Dilcia Mai Notes Date Note Type Note [...] that she has been seeing neurology in [place] for neuropathy in her legs. She has been diagnosed with a small fiber neuropathy. She tells me this was diagnosed by biopsy by a online marketer. She is not currently prescribed any medications [...] prevent her from sleeping.She tells me the online marketer prescribed ropinirole but she never tried it. [...] her arthritis in the neck area. Amanda Pearson, [address] [facility], [place], [address], [facility] & [place] 07/14/2023 10:36:11 07/30/2023 text/html this [...] is recommended in 2026. Sheng Gray MD [address] [facility],[address], [place], [address], [facility] & [place] 07/30/2023 08:25:30 08/25/2023 text/html this [...] 4.6 g p.o. b.i.d. Sheng Gray MD [address] [place] [address],[address], [place], [address], [facility] & [place] 08/25/2023 15:42:11 10/06/2023 text/html This [...] left lower quadrant discomfort. Sheng Gray MD [address] [place] [address],[address], [place], [address], [facility] & [place] 10/06/2023 14:47:14 12/10/2023 text/html 57-year-old [...] per rectum. No diarrhea Sheng Gray MD [address] [place] [address],[address], [place], [address], [facility] & [place] 12/10/2023 09:50:35 OBGyn Episode No OBEpisode recorded.
--- OUTSIDE RECORDS SUMMARY | 2024-07-22 09:46 | XMS_ITS | Patient Health Record ---
Author Organization [facility] Address [address] [place] [address] Care Team Providers Care Steel Fitter Name Role Phone Nicola Bautista Primary Care Provider Netta Trent Unavailable [phone] Nicola Bautista Unavailable Unavailable Migration, Provider Unavailable [...] Active Results Component Value Reference Range Notes M-Complete Blood Count Auto Diff Reviewed date:04/22/2024 11:21:41 AM Interpretation: Performing Lab: Notes/Report: WBC 7.6 4.8-10.8 K/mm3 RBC 4.85 4.20-5.40 M/mm3 HGB 14.7 12.2-16.2 g/dL HCT 44.1 37.0-47.0 % MCV 90.9 81-99 fl MCH 30.3 27.0-31.2 pg MCHC 33.3 31.8-35.4 g/dL RDW 12.9 11.5-17.5 % PLT 263 142-424 K/mm3 MPV 10.4 7.4-10.4 fl NE% 57.9 37.0-80.0 % LY% 32.9 10-50 % MO% 6.1 1.7-9.3 % EO% 1.6 0.1-12.0 % BA% 1.2 0.1-2.0 % NE# 4.4 1.8-7.8 K/mm3 LY# 2.5 0.7-4.5 K/mm3 MO# 0.5 0.1-1.0 K/mm3 EO# 0.1 0.0-0.4 K/mm3 BA# 0.1 0-0.2 K/mm3 Ultrasound : Thyroid Reviewed date:02/12/2024 09:29:46 AM Interpretation: Performing Lab: Notes/Report: TISSUE PATHOLOGY ([id number]) Reviewed date:05/12/2024 12:30:30 PM Interpretation: Performing Lab:[place], [employer] Petra Oviedo Notes/Report: NON-FASTING CLINICAL INFORMATION None gi guevara PATHOLOGIST Justin Landry M.D., Board Certified in Anatomic Pathology and Clinical Pathology (electronic signature) A SOURCE Skin, right obrien d, shave biopsy A GROSS DESCRIPTION Specimen is received in 10% neutral buffered formalin, labeled with multiple patient identifiers and consists of one piece from a skin shave biopsy measuring 0.9 x 0.8 x 0.2 cm, irregular in shape and pale-leger in color, with a pigmented area measuring 0.4 x 0.2 cm and leger-palencia in color. The margins are inked green. The specimen is serially sectioned and entirely submitted in one cassette. Site is not given on container. Gross exam(s) performed at: [facility] [address] [address] [employer]: PETRA OVIEDO MD A DIAGNOSIS Verrucoid kerat osis with actinic change. A COMMENT The base of the lesion is not fully observed. Please correlate and follow clinically. Rapid Covid/Flu A-B Combo Reviewed date:01/28/2024 02:35:53 PM Interpretation: Performing Lab: Notes/Report: Rapid Covid neg Flu A neg Flu B neg M-Comprehensive Metabolic Pa shauna Reviewed date:04/27/2024 03:41:25 PM Interpretation: Performing Lab: Notes/Report: NA 136 136-145 mmol/L K 4.5 3.5-5.1 mmoL/L CL 106 98-107 mmol/L CO2 25 22.0-30.0 mmol/L GAP 9.5 5-15 mEq/L BUN 16 7-17 mg/dl CREATT 0.70 0.52-1.04 mg/dl GFRAA 104 >60 ML/MIN EGFR 86 >60 ml/min GLU 94 74-100 mg/dl CA 9.4 8.4-10.2 mg/dl BILIT 0.5 0.2-1.3 mg/dl AST 32 14-36 U/L ALT 28 12-78 U/L TP 6.8 6.3-8.2 g/dl ALB 4.5 3.5-5.0 g/dl GLOB 2.3 1.3-3.2 g/dL AGRATIO 2.0 1.1-1.8 ALP 80 38-126 U/L M-Hemoglobin A1C Reviewed date:04/22/2024 11:21:37 AM Interpretation: Performing Lab: Notes/Report: HGBA1C 5.3 4.0-6.0 % < 6% Non-Diabetic Level < 7% Controlled Diabetic Level > 8% Poorly Controlled Diabetic Level M-Ferritin Reviewed date:04/22/2024 11:21:22 AM Interpretation: Performing Lab: Notes/Report: VINITA 104 11.1-264 ng/ml M-Lipid Panel Reviewed date:04/27/2024 03:41:25 PM Interpretation: Performing Lab: Notes/Report: Patient Fasting? N TRIG 151 30-150 mg/dl CHOL 283 140-200 mg/dl DLDL 167.11 100-129 mg/dL VLDL 30 0-40 mg/dL HDL 68 40-60 mg/dl CHLHDL 4.2 1-3.5 M-Thyroid Stimulating Hormon e Reviewed date:04/22/2024 11:21:31 AM Interpretation: Performing Lab: Notes/Report: TSH 0.87 0.465-4.68 uIU/mL H-TVITD Reviewed date:04/27/2024 03:41:25 PM Interpretation: Performing Lab: Notes/Report: TVITD < 12.8 30-100 ng/mL Deficient <20 ng/mL Insufficient 20-30 ng/mL Sufficient 30-100 ng/mL Potential Toxicity >100 ng/mL H-VITB12 Reviewed date:04/22/2024 11:21:26 AM Interpretation: Performing Lab: Notes/Report: VITB12 613 239-931 pg/mL X ray : Chest Reviewed date:04/08/2024 03:10:40 PM Interpretation: Performing Lab: Notes/Report: Medications Medication SIG (Take, Route, Frequency, Duration) Notes Start Date End Date Status Aspirin Low Dose 81 MG 1 tab(s) orally once a day for 90 days Active Levocetirizine Dihydrochloride 5 MG 1 tab(s) orally once a day (in the evening) for 30 day(s) prn 12/10/2017 Active rOPINIRole HCl 0.5 MG 1 tab(s) orally 3 times a day for 90 days Active Diclofenac Sodium 1 % 2 gram applied topically 4 times a day for 30 days 03/18/2022 Active Pantoprazole Sodium 40 MG 1 tab(s) orally once a day for 90 days 04/21/2024 Active Amitriptyline HCl 25 MG 1 tab(s) [...] e-prescription and drug interaction check* 04/07/2024 Active Budesonide 3 MG 1 CAP(S) ORALLY ONCE A DAY *Please review and pick correct strength-formulat ion from [employer] options. If intended option is not shown, discontinue and re-order from Quick Search* Active Lexapro 10 MG 1 tab(s) orally once a day for 90 days Active Mometasone Furoate 50 MCG/ACT 2 spray(s) intranasally 2 times a day for 30 days 10/10/2022 Active Azelastine HCl 137 MCG/SPRAY 2 spray(s) intranasally 2 times a day 09/17/2022 Active Pravastatin Sodium 20 MG 1 tab(s) orally once a day 04/27/2024 Active Trelegy Ellipta 100 MCG-62.5 MCG-25 MCG/INH 1 PUFF(S) INHALED ONCE A DAY for 30 DAYS *Please review and pick correct strength-formulat ion from [employer] options. If intended option is not shown, discontinue and re-order from Quick Search* 09/17/2022 Active Vitamin D (Ergocalciferol) 1.25 MG (31731 UT) 1 cap(s) orally twice a week 04/27/2024 Active Meloxicam 7.5 MG 1 tab(s) orally once a day for pain for 30 days 11/13/2022 Active Estradiol 0.5 MG 1 tab(s) orally once a day for 30 day(s) Active Nystatin 902271 UNIT/ML 5 mL Mouth/Throat Four times a day swish and spit for 10 days 07/21/2024 Active Zepbound 2.5 MG/0.5ML 0.5 mL Subcutaneou s once a week for 28 days 07/21/2024 Active Immunizations Vaccine Route Administration Date Status Comme nts Tetanus Toxoid Unknown 11/28/2008 Administered Problems Problem Type SNOMED Code ICD Code Onset Dates Problem Status W/U Status Risk Notes Problem Hyperlipidemia (65915756) Hyperlipidemia, unspecified (E78.5) Active confirmed Problem 59558005 Essential (prima ry) hypertension (I10) Active confirmed Problem 67311590 Chronic rhinitis (J31.0) Active confirmed Problem 112999527 Sebaceous cyst (L72.3) Active confirm ed Problem 261440816 COPD with exacer bation (J44.1) Active confirmed Problem Cervical disc disorder (939058316) DDD (degenerative disc disease), cervical (M50.30) Active confirmed Problem 900486080 Depression with anxiety (F41.8) Active confirmed Problem 23728751 Vitamin D defici ency (E55.9) Active confirmed Problem 547930909 B12 deficiency (E53.8) Active confirm ed Problem 27419890 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) Active confirmed Problem 90544244 RLS (restless le gs syndrome) (G25.81) Active confirmed Problem 78200253 Chronic allergic rhinitis (J30.9) Active confirmed Problem 64993338 Other chronic pa in (G89.29) Active confirmed Problem 284781678 Thyroid nodule (E04.1) Active confirm ed Problem 169218850 Gastroesophageal reflux disease, esophagitis presence not specified (K21.9) Active confirmed Problem 03654401218328404 Asthma-COPD ov erlap syndrome (J44.9) Active confirmed Problem 532464250793414 Primary osteoart hritis of right knee (M17.11) Active confirmed Problem 442485154 Chronic insomnia (F51.04) Active confirmed Problem 41390260 Inflammation of right sacroiliac joint (M46.1) Active confirmed Problem 791874992 Moderate persist ent asthma with acute exacerbation (J45.41) Active confirmed Problem 20650819 Other and unspec ified hyperlipidemia (E78.5) Active confirmed Problem 05635689605018169 Plantar wart, right foot (B07.0) Active confirmed Problem 54334193 SEAN (generalized anxiety disorder) (F41.1) Active confirmed Problem 259592834 Plantar fasciiti s, right (M72.2) Active confirmed Problem 668118892 BMI 35.0-35.9,ad ult (Z68.35) Active confirmed Problem Degenerative disc disease (67524105) DDD (degenerative disc disease), lumbar (M51.36) Active confirmed Problem 31568351 Chronic sinus infection (J32.9) Active confirmed Problem 84379110 WILD on CPAP (G47.33) Active confirmed Problem 196598911 Paresthesia of l ower extremity (R20.2) Active confirmed Problem 252463898 Pure hypercholesterolemia (E78.00) Active confirmed Problem 45702662 Elevated blood pressure reading (R03.0) Active confirmed Problem 515697657 Personal history of tobacco use (Z87.891) Active confirmed Problem 7499071 Thyromegaly (E01.0) Active confirmed Problem 0357863857963 Tinnitus, right (H93.11) Active confirmed Problem 44004878 Voice hoarseness (R49.0) Active confirmed Problem 98622204 Other ulcerative colitis without complication (K51.80) Active confirmed Problem 716768710 Short-term memor y loss (R41.3) Active confirmed Problem 749940440 Localized osteoarthritis of right knee (M17.11) Active confirmed Problem 740940088 Gastroesophageal reflux disease, unspecified whether esophagitis present (K21.9) Active confirmed Vital Signs Heart Rate 72 /min 07/21/2024 Temperature 98 degrees Fahrenheit 07/21/2024 Blood pressure diastolic 90 mm Hg 07/21/2024 Height 5 ft 7 in in 07/21/2024 Blood pressure systolic 126 mm Hg 07/21/2024 Weight 226 lbs 07/21/2024 BMI 35.39 kg/m2 07/21/2024 Encounters Encounter Location Date Provider Diagnosis [facility] [address] [place] [address] 05/15/2024 Provider Migration Gastroesophageal reflux disease, unspecified whether esophagitis present K21.9 ; Pure hypercholesterolemia E78.00 and Vitamin D deficiency E55.9 [facility] [address] [place], [place] [address] 08/18/2023 Netta Trent Neck pain M54.2 ; Oc cipital headache R51.9 and Depression with anxiety F41.8 [facility] [address] [address] 01/28/2024 Netta Trent Fever, unspecified R 50.9 ; URI with cough and congestion J06.9 ; Thyroid nodule E04.1 and COPD with exacerbation J44.1 [facility] [address] [address] 04/07/2024 Netta Trent Moderate persistent asthma with acute exacerbation J45.41 ; Laryngitis J04.0 and SOB (shortness of breath) R06.02 [facility] [address] [address] 04/21/2024 Netta Trent Hoarseness R49.0 ; Gastroesophageal reflux disease, unspecified whether esophagitis present K21.9 ; Persistent cough R05.3 and Skin nodule R22.9 [facility] [address] [address] 05/05/2024 Netta Trent Hoarseness R49.0 ; Gastroesophageal reflux disease, unspecified whether esophagitis present K21.9 ; Persistent cough R05.3 ; Skin nodule R22.9 ; Pure hypercholesterolemia E78.00 and Vitamin D deficiency E55.[address] [address] 07/21/2024 Netta Trent Obesity, Class II, B DE 35-39.9 E66.812 ; WILD on CPAP G47.33 ; BMI 35.0-35.9,adult Z68.35 ; Weight loss counseling, encounter for Z71.3 ; Vitamin D deficiency E55.9 ; Thrush B37.0 ; Gastroesophageal reflux disease, esophagitis presence not specified K21.9 and Pure hypercholesterolemia E78.00 [facility] [place] [address] [address] 03/03/2024 Netta Trent Chronic rhinitis J31 .0 [facility] [address] [facility] [address] [place] [address] 04/07/2024 Netta Trent Routine medical exam Z00.00 ; B12 deficiency E53.8 ; Pure hypercholesterolemia E78.00 ; Thyroid nodule E04.1 ; Vitamin D deficiency E55.9 ; RLS (restless legs syndrome) G25.81 and Depression with anxiety F41.8 [facility] [address] [address] 04/27/2024 Nicola Bautista [facility] [address] [address] 04/30/2024 Netta Miley [facility] [address] [facility] [address] [place] [address] 05/05/2024 Netta Miley [facility] [place] [address] [address] 05/10/2024 Nettahoracio GomesMiley [facility] [address] [facility] [address] [place] [address] 06/14/2024 Netta Trent Gastroesophageal ref lux disease, unspecified whether esophagitis present K21.9 Assessments Encounter Date Diagnosis (ICD Code) Assessment Notes Treatment Notes Treatment Clinical Notes Section Notes 07/21/2024 WILD on CPAP (ICD-10 - G47.33) Recommend continued weight loss efforts, addition of GLP-1 would be very helpful in this situation. She will continue to work with her DME to improve tolerance of CPAP. She has follow-up with pulmonology pending 07/21/2024 Obesity, Class II, B DE 35-39.9 (ICD-10 - E66.812) 05/05/2024 Hoarseness (ICD-10 - R49.0) persistent now for 6+ weeks. likely multifactoral, discussed GERD vs allergic vs infectious, etc. Continue PPI as well as allergy/asthma routine and will refer to ENT for direct visualization 05/05/2024 Gastroesophageal ref lux disease, unspecified whether esophagitis present (ICD-10 - K21.9) 08/18/2023 Neck pain (ICD-10 - M54.2) 08/18/2023 Occipital headache (ICD-10 - R51.9) continue neurology FU. Consider pain management for nerve block if she feels that pain is getting worse 01/28/2024 Fever, unspecified (ICD-10 - R50.9) 01/28/2024 URI with cough and congestion (ICD-10 - J06.9) Discussed the etiology and expected course of a viral URI. Discussed supportive care and symptom management with PO fluids, Antipyretics, and antihistamines . Discussed the rational for not prescribing antibiotics for viral infection. Discussed the signs and symptoms of worsening condition and need for reassessment in clinic or ED. 03/03/2024 Chronic rhinitis (ICD-10 - J31.0) 04/07/2024 Moderate persistent asthma with acute exacerbation (ICD-10 - J45.41) 04/07/2024 Laryngitis (ICD-10 - J04.0) 04/07/2024 Routine medical exam (ICD-10 - Z00.00) 04/07/2024 B12 deficiency (ICD- 10 - E53.8) 04/21/2024 Hoarseness (ICD-10 - R49.0) likely multifactoral, discussed GERD vs allergic vs infectious, etc. Rec start PPI, add mucinex, if no improvement would recommend ENT eval for direct visualization 04/21/2024 Gastroesophageal ref lux disease, unspecified whether esophagitis present (ICD-10 - K21.9) 05/15/2024 Gastroesophageal ref lux disease, unspecified whether esophagitis present (ICD-10 - K21.9) 06/14/2024 Gastroesophageal ref lux disease, unspecified whether esophagitis present (ICD-10 - K21.9) 04/21/2024 Persistent cough (ICD-10 - R05.3) 04/07/2024 SOB (shortness of breath) (ICD-10 - R06.02) 08/18/2023 Depression with anxi ety (ICD-10 - F41.8) 01/28/2024 Thyroid nodule (ICD- 10 - E04.1) 05/05/2024 Persistent cough (ICD-10 - R05.3) 04/07/2024 Pure hypercholesterolemia (ICD-10 - E78.00) 07/21/2024 BMI 35.0-35.9,adult (ICD-10 - Z68.35) Complicates all aspects of care. Reviewed indication for medication and that dietary changes as well as exercise are recommended as well. Small, frequent meals recommended. Possible side effects and return precautions reviewed. Goal is 4% weight loss over the first 4 months. 07/21/2024 Weight loss counseli marcio, encounter for (ICD-10 - Z71.3) 04/21/2024 Skin nodule (ICD-10 - R22.9) shave biopsy during FU 05/05/2024 Skin nodule (ICD-10 - R22.9) Shave biopsy performed today, wound care reviewed, FU based on biopsy results 01/28/2024 COPD with exacerbati on (ICD-10 - J44.1) steroid injection today, continue inhalers per pulmonology 04/07/2024 Thyroid nodule (ICD- 10 - E04.1) 04/07/2024 Vitamin D deficiency (ICD-10 - E55.9) 07/21/2024 Vitamin D deficiency (ICD-10 - E55.9) 05/05/2024 Pure hypercholesterolemia (ICD-10 - E78.00) 05/15/2024 Pure hypercholesterolemia (ICD-10 - E78.00) 05/05/2024 Vitamin D deficiency (ICD-10 - E55.9) 07/21/2024 Thrush (ICD-10 - B37.0) 05/15/2024 Vitamin D deficiency (ICD-10 - E55.9) 04/07/2024 RLS (restless legs syndrome) (ICD-10 - G25.81) 04/07/2024 Depression with anxi ety (ICD-10 - F41.8) 07/21/2024 Gastroesophageal ref lux disease, esophagitis presence not specified (ICD-10 - K21.9) Continue PPI and H2 amol until she has follow-up with ENT for reexamination of her larynx 07/21/2024 Pure hypercholesterolemia (ICD-10 - E78.00) So far she is tolerating pravastatin after failing multiple other statins, repeat labs as noted Plan Of Treatment Pending Test Test Name Order Date X ray : Spines, Cervical 11/07/2022 X ray : Spines, Cervical 08/17/2007 Ultrasound : Thyroid 02/22/2019 EKG : In House 07/01/2007 Echocardiogram 09/08/2014 Cardiolite GXT 05/16/2020 H-VITAMIN B12 02/16/2015 H-LIPID PANEL 11/17/2012 M-Complete Blood Count Auto Diff 025 M-Comprehensive Metabolic Panel 04/07/19 25 M-Comprehensive Metabolic Panel 07/22/19 25 M-Hemoglobin A1C 04/07/2024 M-Ferritin 04/07/2024 M-Lipid Panel 04/07/2024 M-Lipid Panel 07/21/2024 M-Thyroid Stimulating Hormone 04/07/2024 M-Vitamin B12 04/07/2024 M-Vitamin B12 01/27/2020 M-Vitamin B12 10/05/2020 M-Vitamin B12 08/23/2021 M-Vitamin B12 04/07/2020 M-Vitamin D 25 Hydroxy 04/07/2020 M-Vitamin D 25 Hydroxy 08/23/2021 M-Vitamin D 25 Hydroxy 07/21/2024 M-Vitamin D 25 Hydroxy 10/05/2020 M-Vitamin D 25 Hydroxy 01/27/2020 M-Vitamin D 25 Hydroxy 04/07/2024 M-Vitamin D 25 Hydroxy 11/12/2022 M-COVID WITH RESPIRATORY PANEL M-COVID PCR SINGLE RAPID 03/24/2020 EMG/NCV 11/08/2021 Physical Therapy Eval and Treat 11/19/19 23 Physical Therapy Eval and Treat 03/18/19 23 Insurance Providers Payer Name Payer Address Payer Phone Subscriber Number Group Number Insured Name Patient Relationship to Insured Coverage Start Date Coverage End Date [facility] [address] [place] [address] [id number] Dilcia Mai Self - patient is the insured Medications Administered Medication Instructions Date of Administration Dosage Notes Cyanocobalamin/B-12 Pt's Own Medication 03/01/2020 1 mL Cyanocobalamin/B-12 Pt's Own Medication 03/20/2020 1 mL Cyanocobalamin/B-12 Pt's Own Medication 04/14/2020 1 mL Cyanocobalamin/B-12 Pt's Own Medication 03/15/2020 1 mL Cyanocobalamin/B-12 Pt's Own Medication 03/06/2020 1 mL Cyanocobalamin/B-12 Pt's Own Medication 02/22/2020 1 mL Cyanocobalamin/B-12 Pt's Own Medication 02/16/2020 1 mL Cyanocobalamin/B-12 Pt's Own Medication 02/08/2020 1 mL Cyanocobalamin/B-12 Pt's Own Medication 02/01/2020 1 mL Cyanocobalamin/B-12 Pt's Own Medication 02/05/2018 1 mL Cyanocobalamin/B-12 Pt's Own Medication 08/16/2015 1 mL Cyanocobalamin/B-12 Pt's Own Medication 07/18/2015 1 mL Cyanocobalamin/B-12 Pt's Own Medication 06/20/2015 1 mL Cyanocobalamin/B-12 Pt's Own Medication 05/23/2015 1 mL Cyanocobalamin/B-12 Pt's Own Medication 05/03/2015 1 mL Cyanocobalamin/B-12 Pt's Own Medication 04/20/2015 1 mL Cyanocobalamin/B-12 Pt's Own Medication 03/09/2015 1 mL Cyanocobalamin/B-12 Pt's Own Medication 02/23/2015 1 mL Cyanocobalamin/B-12 Pt's Own Medication 01/30/2015 1 mL Cyanocobalamin/B-12 Pt's Own Medication 01/17/2015 1 mL Cyanocobalamin/B-12 Pt's Own Medication 01/02/2015 1 mL Cyanocobalamin/B-12 Pt's Own Medication 12/19/2014 1 mL Cyanocobalamin/B-12 Pt's Own Medication 12/05/2014 1 mL Cyanocobalamin/B-12 Pt's Own Medication 11/21/2014 1 mL Cyanocobalamin/B-12 Pt's Own Medication 09/05/2014 1 mL Cyanocobalamin/B-12 Pt's Own Medication 08/29/2014 1 mL Cyanocobalamin/B-12 Pt's Own Medication 08/22/2014 1 mL Ceftriaxone 500 06/08/2012 500 mg Kenalog 02/23/2016 1 mL Kenalog 12/04/2015 1 mL Kenalog 11/30/2015 1 mL Kenalog 03/31/2014 1 Kenalog 01/04/2014 1 mL Kenalog 40mg 07/10/2017 40 mg Kenalog 40mg 11/14/2016 40 mg Dexamethasone 4mg Injection 03/20/2021 4 mg Dexamethasone 4mg Injection 02/07/2021 4 mg Dexamethasone 4mg Injection 02/13/2023 4 mg Dexamethasone 4mg Injection 04/07/2024 4 mg Triamcinolone Acetonide 40mg Injection 12/10/2017 1 mL Triamcinolone Acetonide 40mg Injection 11/24/2018 1 mL Triamcinolone Acetonide 40mg Injection 07/19/2019 1 mL Kenalog 07/31/2012 1 Kenalog 08/01/2014 1 mL Kenalog 06/08/2012 1 Triamcinolone Acetonide 40mg Injection 01/27/2020 1 mL Triamcinolone Acetonide 40mg Injection 02/05/2018 1 mL Dexamethasone 4mg Injection 01/28/2024 4 mg Dexamethasone 4mg Injection 11/13/2021 4 mg Cyanocobalamin/B-12 Pt's Own Medication 04/05/2015 1 mL Cyanocobalamin/B-12 Pt's Own Medication 03/23/2015 1 mL Cyanocobalamin/B-12 Pt's Own Medication 10/10/2014 1 mL Cyanocobalamin/B-12 Pt's Own Medication 10/03/2014 1 mL given by tamra mccoy Cyanocobalamin/B-12 Pt's Own Medication 09/26/2014 1 mL Cyanocobalamin/B-12 Pt's Own Medication 09/19/2014 1 mL Medical (General) History Medical History History ICD Code endometriosis COPD Allergies HLD HTN B12 deficiency Colonoscopy 12/2019, Dr Kiesha arora in [place]. Colitis, contined Mesalamine. Repeat recommended in 3 years Peripheral neuropathy - diagnosed by bio psy, Dr Govea Surgical History Surgery Date(Month/Year) endometriosis x2 colonoscopy 01/2018 heart cath
[2024-07-22 10:38] LABS: Alanine Aminotransferase 16 U/L (12-78); Albumin Level 4.3 g/dl (3.5-5.0); Albumin/Globulin Ratio 1.9 (1.1-1.8); Alkaline Phosphatase 95 U/L (38-126); Anion Gap 8.3 mEq/L (5-15); Aspartate Amino Transferase 26 U/L (14-36); Bilirubin,Total 0.4 mg/dl (0.2-1.3); Blood Urea Nitrogen 14 mg/dl (7-17); Calcium 9.3 mg/dl (8.4-10.2); Carbon Dioxide 27 mmol/L (22.0-30.0); Chloride 108 mmol/L (98-107); Chol/HDL Ratio 3.9 (1-3.5); Cholesterol 238 mg/dl (140-200); Estimated Glomerular Filt Rate 73 ml/min (>60); GFR (African American) 89 ML/MIN (>60); Globulin 2.3 g/dL (1.3-3.2); Glucose 135 mg/dl (74-100); HDL Cholesterol 61 mg/dl (40-60); Potassium 4.3 mmoL/L (3.5-5.1); Sodium 139 mmol/L (136-145); Total Protein,Serum 6.6 g/dl (6.3-8.2); Triglycerides 101 mg/dl (30-150); VLDL Cholesterol 20 mg/dL (0-40)
[2024-07-22 10:49] LABS: Direct LDL Cholesterol 126.88 mg/dL (100-129)
[2024-07-22 10:54] LABS: 25-OH Vitamin D, Total 50.5 ng/mL (30-100)
== END 2024-07-22 23:59 | disposition home or self-care (01) ==
LOC: LAB 09:33
PROVIDERS: PCP Nurse Practitioner Family; Visit Provider Nurse Practitioner Family
DX: E55.9 Vitamin D deficiency, unspecified (principal); E78.00 Pure hypercholesterolemia, unspecified
CPT/HCPCS: 36415; 80053; 80061; 82306

== ENCOUNTER 2024-08-25 09:51 | Outpatient (CLI) | payer OTHER, SELFPAY ==
--- OUTSIDE RECORDS SUMMARY | 2024-05-15 17:30 | XMS_ITS ---
Author Organization [facility] Address [address] [place] [address] Care Team Providers Care Internal Communications Specialist Name Role Phone Nicola Bautista Primary Care Provider [phone] Netta Trent Unavailable [phone] Nicola Bautista Unavailable Unavailable Migration, Provider Unavailable [...] rash Drug Allergy [facility] Encounter Medications Medication SIG (Take, Route, Frequency, Duration) Notes Start Date End Date Status Vitamin D (Ergocalciferol) 1.25 MG (26791 UT) 1 cap(s) orally twice a week [...] review and pick correct strength-formulat ion from [employer] options. If intended option is not shown, [...] Active Encounters Encounter Location Date Provider Diagnosis [facility] [address] [place] [address] 05/15/2024 Provider Migration Gastroesophageal reflux disease, unspecified [...] Notes Vitamin D (Ergocalciferol) 1 .25 MG (66615 UT) 1 cap(s) orally twice a week 04/27/2024 Pantoprazole Sodium 40 MG 1 tab(s) orally once a day 04/21 Pravastatin Sodium 20 MG 1 tab(s) orally once a day 2024 Next Appt Details Provider Name:Netta Jose Ramon Thibodeaux ce, 10/20/2024 02:00:00 PM, [address] [place] [address], [id number], Progress Notes * Jordan MAIB: 965 (58 yo F)Acc No.[id number]:05/15/2024 Patient: Dilcia HERNANDEZ Provider: Jeni chadwick Migration :1965 A ge:58 Y S ex:Female Date:05/15/2024 Address:[address] [place] [address], [id number] Pcp:Nicola Bautista Subjective: * Chief Complaints: * [...] *Please review and pick correct strength-formulation from [employer] options. If intended option is not shown, [...] Continue Vitamin D (Ergocalciferol) Capsule, 1.25 MG (02101 UT), 1 cap(s), orally, twice a week.? * * Electronic signature of Trever meredith Migration on 08/25/2024 at 09:58 AM EDT Sign off status: Pending * Provider: Jeni chadwick Migration Date: 0 05/15/2024 Generated for Eloisa buckley/Donaldo/Yulietitting on: 0 08/25/2024 09:58 AM EDT
--- OUTSIDE RECORDS SUMMARY | 2024-07-21 06:00 | XMS_ITS ---
Author Organization [facility] TE[facility] Address [address] [place] [address] Care Team Providers Care Elementary Tutor Name Role Phone Nicola Bautista Primary Care Provider Netta Trent Unavailable [phone] Nicola Bautista Unavailable Unavailable Allergies Allergen (clinical drug ingredient) Drug/Non Drug Allergy documented on EMR Reaction Allergy Type Onset Date Status OMNICEF (uncoded) Unknown Allergy Ac tive SULFA (uncoded) Unknown Allergy Acti ve predniSONE Unknown Drug Allergy Active sulfamethoxazole / trimethoprim Bactrim stomach upset Drug Allergy Active cefdinir Cefdinir rash Drug Allergy Active Penicillin rash Drug Allergy Active Results Component Value Reference Range Notes M-Comprehensive Metabolic Pa shauna Reviewed date:07/26/2024 02:21:28 PM Interpretation: Performing Lab: Notes/Report: NA 139 136-145 mmol/L K 4.3 3.5-5.1 mmoL/L CL 108 98-107 mmol/L CO2 27 22.0-30.0 mmol/L GAP 8.3 5-15 mEq/L BUN 14 7-17 mg/dl CREATT 0.80 0.52-1.04 mg/dl GFRAA 89 >60 ML/MIN EGFR 73 >60 ml/min GLU 135 74-100 mg/dl CA 9.3 8.4-10.2 mg/dl BILIT 0.4 0.2-1.3 mg/dl AST 26 14-36 U/L ALT 16 12-78 U/L TP 6.6 6.3-8.2 g/dl ALB 4.3 3.5-5.0 g/dl GLOB 2.3 1.3-3.2 g/dL AGRATIO 1.9 1.1-1.8 ALP 95 38-126 U/L M-Lipid Panel Reviewed date:07/26/2024 02:21:28 PM Interpretation: Performing Lab: Notes/Report: Patient Fasting? Y TRIG 101 30-150 mg/dl CHOL 238 140-200 mg/dl DLDL 126.88 100-129 mg/dL VLDL 20 0-40 mg/dL HDL 61 40-60 mg/dl CHLHDL 3.9 1-3.5 REASON FOR VISIT f/u, discuss sleep study Medications Medication SIG (Take, Route, Frequency, Duration) Notes Start Date End Date Status rOPINIRole HCl 0.5 MG 1 tab(s) orally 3 times a day; Duration: 90 days Active Pravastatin Sodium 20 MG 1 tab(s) orally once a day 04/27/2024 Active Vitamin D (Ergocalciferol) 1.25 MG (31290 UT) 1 cap(s) orally twice a week 04/27/2024 Active Aspirin Low Dose 81 MG 1 tab(s) orally once a day; Duration: 90 days Active Amitriptyline HCl 25 MG 1 tab(s) orally once a day (at bedtime); Duration: 90 days 07/03/2023 Active Montelukast Sodium 10 MG 1 tab(s) orally once a day; Duration: 30 days 09/17/2022 Active ALBUTEROL (EQV-PROVENTIL HFA) 90 MCG/INH 2 INH INHALED EVERY 6 HOURS NEEDED FOR SHORTNESS OF BREATH; Duration: 30 DAYS *Please review for potential replacement for e-prescription and drug interaction check* 04/07/2024 Active Lexapro 10 MG 1 tab(s) orally once a day; Duration: 90 days Active Diclofenac Sodium 1 % 2 gram applied topically 4 times a day; Duration: 30 days 03/18/2022 Active Mometasone Furoate 50 MCG/ACT 2 spray(s) intranasally 2 times a day; Duration: 30 days 10/10/2022 Active Azelastine HCl 137 MCG/SPRAY 2 spray(s) intranasally 2 times a day 09/17/2022 Active Trelegy Ellipta 100 MCG-62.5 MCG-25 MCG/INH 1 PUFF(S) INHALED ONCE A DAY; Duration: 30 DAYS *Please review and pick correct strength-formulat ion from [employer] options. If intended option is not shown, discontinue and re-order from Quick Search* 09/17/2022 Active Meloxicam 7.5 MG 1 tab(s) orally once a day for pain; Duration: 30 days 11/13/2022 Active Levocetirizine Dihydrochloride 5 MG 1 tab(s) orally once a day (in the evening); Duration: 30 day(s) prn 12/10/2017 Active Estradiol 0.5 MG 1 tab(s) orally once a day; Duration: 30 day(s) Active Pantoprazole Sodium 40 MG 1 tab(s) orally once a day; Duration: 90 days 04/21/2024 Active Zepbound 2.5 MG/0.5ML 0.5 mL Subcutaneou s once a week; Duration: 28 days 07/21/2024 Active Budesonide 3 MG 1 CAP(S) ORALLY ONCE A DAY *Please review and pick correct strength-formulat ion from [employer] options. If intended option is not shown, discontinue and re-order from Quick Search* Active Nystatin 709273 UNIT/ML 5 mL Mouth/Throat Four times a day swish and spit; Duration: 10 days 07/21/2024 Active Problems Problem Type SNOMED Code ICD Code Onset Dates Problem Status W/U Status Risk Notes Problem Obese class II (797828959053863) BMI 35.0-35.9, adult (Z68.35) Active confirmed Problem Obstructive sleep apnea syndrome (86309770) WILD on CPAP (G47.33) Active confirmed Vital Signs Temperature 98 degrees Fahrenheit 07/21/2024 Heart Rate 72 /min 07/21/2024 Blood pressure systolic 126 mm Hg 07/22/19 25 Blood pressure diastolic 90 mm Hg 025 Height 5 ft 7 in in 07/21/2024 Weight 226 lbs 07/21/2024 BMI 35.39 kg/m2 07/21/2024 Encounters Encounter Location Date Provider Diagnosis [address] [address] 07/21/2024 Netta Trent Obesity, Class II, B AL 35-39.9 E66.812 ; WILD on CPAP G47.33 ; BMI 35.0-35.9,adult Z68.35 ; Weight loss counseling, encounter for Z71.3 ; Vitamin D deficiency E55.9 ; Thrush B37.0 ; Gastroesophageal reflux disease, esophagitis presence not specified K21.9 and Pure hypercholesterolemia E78.00 Assessments Encounter Date Diagnosis (ICD Code) Assessment Notes Treatment Notes Treatment Clinical Notes Section Notes 07/21/2024 Obesity, Class II, B AL 35-39.9 (ICD-10 - E66.812) 07/21/2024 WILD on [...] MG 1 tab(s) orall y once a day; Duration: 90 days 04/21/2024 Zepbound 2.5 MG/0.5ML 0.5 mL Subcutaneou s once a week; Duration: 28 days 07/21/2024 Nystatin 671798 UNIT/ML 5 mL Mouth/Throa t Four times a day swish and spit; Duration: 10 days 07/21/2024 Pending Test Test Name Order Date M-Vitamin D 25 Hydroxy 07/21/2024 Next Appt Details Follow Up: 4 Weeks,Shoaib covarrubias on: Provider Name:Netta Thibodeaux ce, 10/20/2024 02:00:00 PM, [address] [place] [address], [phone], Progress Notes * MAI, JordanB: [birth year] (58 yo F)Acc No.[id number]:07/21/2024 Progress Notes Patient: Dilcia HERNANDEZ Provider: BASHIR Joseph :1965 A ge:58 Y S ex:Female Date:07/21/2024 Address:[address] [place], [place] [id number] Pcp:Nicola Bautista Subjective: * Chief Complaints: * [...] B12 deficiency, Colonoscopy 12/2019, Dr Cuadra in [place]. Colitis, contined Mesalamine. Repeat recommended in 3 years, Peripheral neuropathy - diagnosed by biopsy, Dr Govea. * Surgical History: e ndometriosis x2 , colonoscopy 01/2018, heart cath . * Hospitalization/Major Diagno stic Procedure: D enies Past Hospitalization. * Family History: F ather: alive, bladder cancer, diagnosed with Cancer, Diabetes. M other: alive, [place]. P aternal Grand Father: , diagnosed with [...] *Please review and pick correct strength-formulation from [employer] options. If intended option is not shown, [...] , Taking Vitamin D (Ergocalciferol) 1.25 MG (99978 UT) Capsule 1 cap(s) orally twice a [...] BMI 35-39.9 - E66.812 3 . B AL 35.0-35.9,adult - Z68.35 4 . W eight loss counseling, encounter for - Z71.3 5 . V itamin D deficiency - E55.9 6. T hrush - B37.0 7 . G astroesophageal reflux disease, esophagitis presence not specified - K21.9 8 . P ure hypercholesterolemia - E78.00 ? Plan: * Treatment: 2. B AL 35.0-35.9,adult Clinical Notes: Complicates all aspects of care. Reviewed indication for medication and that dietary changes as well as exercise are recommended as well. Small, frequent meals recommended. Possible side effects and return precautions reviewed. Goal is 4% weight loss over the first 4 months. ? 3. V itamin D deficiency L AB: M-Comprehensive Metabolic Panel Value Reference Range S odium 139 136-145 - mmol/L * P otassium 4.3 3.5-5.1 - mmoL/L * C hloride 108 H 98-107 - mmol/L * C arbon Dioxide 27 22.0-30.0 - mmol/L * A nion Gap 8.3 5-15 - mEq/L * B lood Urea Nitrogen 14 7-17 - mg/dl * C reatinine,Serum 0.80 0.52-1.04 - mg/dl * G FR () 89 >60 - ML/MIN * E stimated Glomerular Filt Rate 73 >60 - ml/m in * G lucose 135 H 74-100 - mg/dl * C alcium 9.3 8.4-10.2 - mg/dl * B ilirubin,Total 0.4 0.2-1.3 - mg/dl * A spartate Amino Transferase 26 14-36 - U/L * A lanine Aminotransferase 16 12-78 - U/L * T otal Protein,Serum 6.6 6.3-8.2 - g/dl * A lbumin Level 4.3 3.5-5.0 - g/dl * G lobulin 2.3 1.3-3.2 - g/dL * A lbumin/Globulin Ratio 1.9 H 1.1-1.8 - * A lkaline Phosphatase 95 38-126 - U/L * Donaldo Rajendra R 07/26/2024 0 2:20:16 PM EDT > pt notifiedThis lab was reviewed by Rajendra Fulton on 07/26/2024 at 14:21 PM EDT ?LAB: M-Lipid Panel* Value Reference Range T riglycerides 101 30-150 - mg/dl * C holesterol 238 H 140-200 - mg/dl * L DL Cholesterol 126.88 100-129 - mg/dL * V LDL Cholesterol 20 0-40 - mg/dL * H DL Cholesterol 61 H 40-60 - mg/dl * C hol/HDL Ratio 3.9 H 1-3.5 - * Rajendra Fulton R 07/26/2024 0 2:20:16 PM EDT > pt notifiedThis lab was reviewed by Rajendra Fulton on 07/26/2024 at 14:21 PM EDT ?LAB: M-Vitamin D 25 Hydroxy4.?Thrush? Start Nystatin Suspension, 977755 UNIT/ML, 5 mL, Mouth/Throat, Four times a day swish and spit, 10 days, 200 mL, Refills 1.??5.?Gastroesophageal reflux disease, esophagitis presence not specified? Refill Pantoprazole Sodium Tablet Delayed Release, 40 MG, 1 tab(s), orally, once a day, 90 days, 90Tablet, Refills 0.?? Clinical Notes: Continue PPI and H2 amol until she has follow-up with ENT for reexamination of her larynx??6.?Pure hypercholesterolemia?LAB: M-Comprehensive Metabolic Panel* Value Reference Range S odium 139 136-145 - mmol/L * P otassium 4.3 3.5-5.1 - mmoL/L * C hloride 108 H 98-107 - mmol/L * C arbon Dioxide 27 22.0-30.0 - mmol/L * A nion Gap 8.3 5-15 - mEq/L * B lood Urea Nitrogen 14 7-17 - mg/dl * C reatinine,Serum 0.80 0.52-1.04 - mg/dl * G FR () 89 >60 - ML/MIN * E stimated Glomerular Filt Rate 73 >60 - ml/m in * G lucose 135 H 74-100 - mg/dl * C alcium 9.3 8.4-10.2 - mg/dl * B ilirubin,Total 0.4 0.2-1.3 - mg/dl * A spartate Amino Transferase 26 14-36 - U/L * A lanine Aminotransferase 16 12-78 - U/L * T otal Protein,Serum 6.6 6.3-8.2 - g/dl * A lbumin Level 4.3 3.5-5.0 - g/dl * G lobulin 2.3 1.3-3.2 - g/dL * A lbumin/Globulin Ratio 1.9 H 1.1-1.8 - * A lkaline Phosphatase 95 38-126 - U/L * Rajendra Fulton R 07/26/2024 0 2:20:16 PM EDT > pt notifiedThis lab was reviewed by Rajendra Fulton on 07/26/2024 at 14:21 PM EDT ?LAB: M-Lipid Panel* Value Reference Range T riglycerides 101 30-150 - mg/dl * C holesterol 238 H 140-200 - mg/dl * L DL Cholesterol 126.88 100-129 - mg/dL * V LDL Cholesterol 20 0-40 - mg/dL * H DL Cholesterol 61 H 40-60 - mg/dl * C hol/HDL Ratio 3.9 H 1-3.5 - * Rajendra Fulton R 07/26/2024 0 2:20:16 PM EDT > pt notifiedThis lab was reviewed by Rajendra Fulton on 07/26/2024 at 14:21 PM EDT ?LAB: M-Vitamin D 25 Hydroxy Clinical Notes: So far she is tolerating pravastatin after failing multiple other statins, repeat labs as noted?? * Follow Up: 4 Weeks,prn * * Sign off status: Completed true * Provider: BASHIR Joseph Date: 07/21/2024 Generated for Eloisa buckley/Donaldo/Inessa on: 0 08/25/2024 09:58 AM EDT History and Physical Notes * [...]
--- OUTSIDE RECORDS SUMMARY | 2024-08-25 09:58 | XMS_ITS | Data Portability ---
Author Organization [facility] Address [address] [place] [address] Care Team Providers Care Can Sorter Name Role Phone NICOLA WELCH Primary Care Provider Assessment Encounter Date Assessment Date Assessment LastModified by Organization Details LastModified Time 07/29/2023 07/29/2023 Annual gynecological exam performed. Patient will come back in a year unless there are new symptoms. Not available 07/28/2023 14:08:00 08/19/2024 08/19/2024 Annual gynecological exam performed. Patient will come back in a year unless there are new symptoms. Not available 08/17/2024 09:16:50 Plan of Treatment Reminders Order Date Submit Date Provider Last Modified By Organization Details Last Modified Time Details Appointments ULTRASOUN D 30 2024 11:00A M U/S Mob Not available Not available Not available OB 20 mins 2024 11:40A M Rita Morocho MD Not available Not available Not available Lab cytology report, thin prep, smear or scraping, cervical or vaginal 2024 025 CARMEL [facility], [address], [address], [place], [address], 08/22/2024 15:08:45 rapid strep group A, throat 2023 024 [facility], [address] [place] [address], [place], [address], 01/27/2024 16:58:31 rapid flu (A+B) 2023 024 [facility], [address] [place] [address], [address], 01/27/2024 16:58:31 rapid SARS CoV + SARS CoV 2 Ag, QL IA, respirato ry specimen 2023 024 [facility], [address] [place] [address], [address], 01/27/2024 16:58:31 culture, urine 2022 023 CARMEL [facility], [address], [place] [address], [place], [address], 07/20/2022 06:14:38 urinalysi s, dipstick 2022 023 [facility], [address] [place] [address] , [place], [address], 07/18/2022 23:20:16 urinalysi s, complete 2022 023 CARMEL [facility], [address], [place] [address], [place], [address], 07/20/2022 06:14:36 Referral None recorded. Procedures None recorded. Surgeries None recorded. Imaging LDCT, chest, for lung cancer screening - due Feb 20252024 026 mattie [facility] (Centralized Scheduling), [address] [place] [address] [place], [address], 08/19/2024 19:33:04 LDCT, chest, for lung cancer screening 2023 025 [facility] (Scheduling), [address], [place], [address], 04/08/2024 08:48:07 MAMMO, screening , digital, bilateral 2023 025 greyson B[facility] (Centralized Scheduling), [facility]ly [facility], [facility] [place] [address], [address], 08/12/2024 08:57:27 DEXA, vertebral fracture assessmen t 2023 024 greyson [facility] (Centralized Scheduling), [facility], [facility] [place] [address] [place], [address], 02/09/2024 13:56:56 LDCT, chest, for lung cancer screening 2022 023 [facility] (Scheduling), [address], [place], [address], 02/05/2023 16:36:19 US, transvagi nal 2022 023 [facility] Network Operations Manager, [address] [place] [address] , [place], [address], 07/18/2022 23:20:16 Medication Orders Premarin 0.625 mg/gram vaginal cream 2023 024 [facility], [address] [place] [address], [place], [address], 01/28/2024 08:41:59 Patient TargetsNo targets recorded. Patient Instructions Encounter Date Encounter Id Patient Instructions Last Modified By Organization Details Last Modified Time 07/18/2022 [id number] lung cancer screening eligibility assessment* - Check box for Documentation only Not available 07/18/2022 11:36:43 learning about lung cancer screening lshower Not available 07/18/2022 23:20:16 07/29/2023 [id number] A healthy lifestyle: care instructions lshower Not available 07/29/2023 15:26:11 learning about lung cancer screening lshower Not available 07/29/2023 15:26:11 08/19/2024 [id number] A healthy lifestyle: care instructions lshower Not available 08/19/2024 18:12:43 medical record request* - Requesting more recent office visit notes or procedures.last CS record was 12/01 and she is sure she has had since then; last ov note we have is 12/2019. forwarding todays not back to you. thanks/ls ATHENAFAX Not available 08/20/2024 08:11:53 learning about healthy weight lshower Not available 08/19/2024 18:12:43 body mass index: care instructions lshower Not available 08/19/2024 18:12:43 Reason for Referral None Reported. Results Created Date Observation Date Name Description Value Unit Range Abnormal Flag Note LastModifiedBy Organization Detail LastModifiedTime 07/19/1907/19/2022 URINA LYSIS , COMPL ETE specific gravity 1.023 1.005- 1.030 Not Available [facility] ([facility]) [address] [place], [address], 07/20/2022 06:14:36 07/19/1907/19/2022 URINA LYSIS , COMPL ETE pH 5.5 5.0-7. 5 Not Available [facility] ([facility]) [address] [place], [address], 07/20/2022 06:14:36 07/19/1907/19/2022 URINA LYSIS , COMPL ETE urine-color Yellow yellow Not Available [facility] ([facility]) [address] [place], [address], 07/20/2022 06:14:36 07/19/1907/19/2022 URINA LYSIS , COMPL ETE appearance Cloudy clear abnormal Not Available [facility] ([facility]) [address] [place], [address], 07/20/2022 06:14:36 07/19/1907/19/2022 URINA LYSIS , COMPL ETE WBC esterase Negati ve negati ve Not Available [facility] ([facility]) [address] [place], [address], 07/20/2022 06:14:36 07/19/19 23 07/19/2022 URINA LYSIS , COMPL ETE protein Negati ve negati ve/tra ce Not Available [facility] ([facility]) [address] [facility], [place], [address], 07/20/2022 06:14:36 07/19/1907/19/2022 URINA LYSIS , COMPL ETE glucose Negati ve negati ve Not Available [facility] ([facility]) [address] [place], [address], 07/20/2022 06:14:36 07/19/1907/19/2022 URINA LYSIS , COMPL ETE ketones Negati ve negati ve Not Available [facility] ([facility]) [address] [place], [address], 07/20/2022 06:14:36 07/19/1907/19/2022 URINA LYSIS , COMPL ETE occult blood Negati ve negati ve Not Available [facility] ([facility]) [address] [place], [address], 07/20/2022 06:14:36 07/19/1907/19/2022 URINA LYSIS , COMPL ETE bilirubin Negati ve negati ve Not Available [facility] ([facility]) [address] [place], [address], 07/20/2022 06:14:36 07/19/19 23 07/19/2022 URINA LYSIS , COMPL ETE urobilinogen ,semi-qn 0.2 mg/dL 0.2-1. 0 Not Available [facility] ([facility]) [address] [place], [address], 07/20/2022 06:14:36 07/19/19 23 07/19/2022 URINA LYSIS , COMPL ETE nitrite, urine Negati ve negati ve Not Available [facility] ([facility]) [address] [facility], [place], [address], 07/20/2022 06:14:36 07/19/19 23 07/19/2022 URINA LYSIS , COMPL ETE microscopic examination Commen t Micro scopi c follo ws if indic ated. Not Available [facility] ([facility]) [address] [facility], [place], [address], 07/20/2022 06:14:36 07/19/19 23 07/19/2022 URINA LYSIS , COMPL ETE microscopic examination See below: Micro scopi c was indic ated and was perfo rmed. Not Available [facility] ([facility]) [address] [facility], [place], [address], 07/20/2022 06:14:36 07/19/19 23 07/19/2022 URINA LYSIS , COMPL ETE WBC 0-5 /hpf 0 - 5 Not Available [facility] ([facility]) [address] [facility], [place], [address], 07/20/2022 06:14:36 07/19/19 23 07/19/2022 URINA LYSIS , COMPL ETE RBC 0-2 /hpf 0 - 2 Not Available [facility] ([facility]) [address] [facility], [place], [address], 07/20/2022 06:14:36 07/19/19 23 07/19/2022 URINA LYSIS , COMPL ETE epithelial cells (non renal) >10 /hpf 0 - 10 abnormal Not Available [facility] ([facility]) [address] [place], [address], 07/20/2022 06:14:36 07/19/19 23 07/19/2022 URINA LYSIS , COMPL ETE epithelial cells (renal) [employer] SUPER[employer] Not Available [facility] ([facility]) [address] [place], [address], 07/20/2022 06:14:36 07/19/19 23 07/19/2022 URINA LYSIS , COMPL ETE casts None seen /lpf none seen Not Available [facility] ([facility]) [address], [place], [address], 07/20/2022 06:14:36 07/19/19 23 07/19/2022 URINA LYSIS , COMPL ETE cast type [employer] SUPER[employer]OR Not Available [facility] ([facility]) [address], [place], [address], 07/20/2022 06:14:36 07/19/19 23 07/19/2022 URINA LYSIS , COMPL ETE crystals [employer] SUPER[employer] Not Available [facility] ([facility]) [address], [place], [address], 07/20/2022 06:14:36 07/19/19 23 07/19/2022 URINA LYSIS , COMPL ETE crystal type [employer]ONE [employer] SUPER[employer]OR Not Available [facility] ([facility]) [address], [place], [address], 07/20/2022 06:14:36 07/19/19 23 07/19/2022 URINA LYSIS , COMPL ETE mucus threads [employer] Not Available [facility] ([facility]) [address], [place], [address], 07/20/2022 06:14:36 07/19/19 23 07/19/2022 URINA LYSIS , COMPL ETE bacteria Few none seen/f ew Not Available [facility] ([facility]) [address], [place], [address], 07/20/2022 06:14:36 07/19/19 23 07/19/2022 URINA LYSIS , COMPL ETE yeast [employer] SUPER[employer] Not Available [facility] ([facility]) [address], [place], [address], 07/20/2022 06:14:36 07/19/19 23 07/19/2022 URINA LYSIS , COMPL ETE trichomonas [employer] SUPER[employer]OR Not Available [facility] ([facility]) [address] [place], [address], 07/20/2022 06:14:36 07/19/19 23 07/19/2022 URINA LYSIS , COMPL ETE comment [employer] SUPER[employer]OR Not Available [facility] ([facility]) [address] [facility], [place], [address], 07/20/2022 06:14:36 07/19/19 23 07/20/2022 URINE CULTU RE, ROUTI NE urine culture, routine Final report Not Available [facility] ([facility]) [address] [place], [address], 07/20/2022 06:14:38 07/19/19 23 07/20/2022 URINE CULTU RE, ROUTI NE result 1 COMMEN T Mixed uroge nital anjali Less than 10,00 0 colon ies/m L Not Available [facility] ([facility]) [address] [facility], [place], [address], 07/20/2022 06:14:38 07/19/19 23 07/18/2022 urina lysis , dipst ick Leukocytes Negati ve Not Available [facility] [address] [place] [address] , [place], [address], 07/18/2022 11:14:55 07/19/19 23 07/18/2022 urina lysis , dipst ick Nitrite negati ve Not Available [facility] [address] [place] [address] , [place], [address], 07/18/2022 11:14:55 07/19/19 23 07/18/2022 urina lysis , dipst ick Urobilinogen .2 Not Available [facility] Network Operations Manager [address] [place] [address] , [place], [address], 07/18/2022 11:14:55 07/19/19 23 07/18/2022 urina lysis , dipst ick Protein Negati ve Not Available [facility] [address] [place] [address] , [place], [address], 07/18/2022 11:14:55 07/19/19 23 07/18/2022 urina lysis , dipst ick pH 5.0 Not Available [facility]/[address] , [place], [address], 07/18/2022 11:14:55 07/19/19 23 07/18/2022 urina lysis , dipst ick Blood Modera te Not Available [facility]/[address] , [place], [address], 07/18/2022 11:14:55 07/19/19 23 07/18/2022 urina lysis , dipst ick Specific Haworth 1.030 Not Available [facility] Network Operations Manager[address] , [place], [address], 07/18/2022 11:14:55 07/19/19 23 07/18/2022 urina lysis , dipst ick Ketone Negati ve Not Available [facility]/[address] , [place], [address], 07/18/2022 11:14:55 07/19/19 23 07/18/2022 urina lysis , dipst ick Bilirubin Negati ve Not Available [facility]/[address] , [place], [address], 07/18/2022 11:14:55 07/19/19 23 07/18/2022 urina lysis , dipst ick Glucose Negati ve Not Available [facility] [address] [place] [address] [place], [address], 07/18/2022 11:14:55 07/19/19 23 07/18/2022 urina lysis , dipst ick Appearance Slight ly Cloudy Not Available [facility] [address] [place] [address] , [place], [address], 07/18/2022 11:14:55 01/27/20 24 01/27/2024 rapid SARS CoV + SARS CoV 2 Ag, QL IA, respi rator y speci men SARS CoV antigen Positi ve Not Available [address], [address], 01/27/2024 16:27:39 01/27/20 24 01/27/2024 rapid flu (A+B) Flu negati ve Not Available [address], [address], 01/27/2024 16:27:33 01/27/20 24 01/27/2024 rapid flu (A+B) Type Both A & B Not Available [address], [address], 01/27/2024 16:27:33 01/27/20 24 01/27/2024 rapid strep group A, throa t Strep negati ve Not Available [address], [address], 01/27/2024 16:25:31 01/27/20 24 01/27/2024 rapid strep group A, throa t Culture No Not Available [address], [address], 01/27/2024 16:25:31 08/20/19 25 08/20/2024 IGP, APTIM A HPV, RFX 16/18 ,45 HPV aptima Negati ve negati ve This nucle ic acid ampli ficat ion test detec ts fourt een high- risk HPV types (16,1 8,31, 33,35 ,39,4 5,51, 52,56 ,58,5 9,66, 68) witho ut diffe renti ation . Not Available [facility] ([facility]) [address] [place], [address], 08/22/2024 15:08:45 08/20/19 25 08/22/2024 IGP, APTIM A HPV, RFX 16/18 ,45 diagnosis: Claudy t NEGAT CECELIA FOR INTRA EPITH ELIAL ERICA Gonzalez OR CANDIDA JOAQUIN . Not Available [facility] ([facility]) [address] [facility], [place], [address], 08/22/2024 15:08:45 08/20/1908/22/2024 IGP, APTIM A HPV, RFX 16/18 ,45 specimen adequacy: Claudy t Satis facto ry for evalu ation . Endoc ervic al and/o r squam ous metap lasti c cells (endo cervi ying compo nent) are prese nt. Not Available [facility] ([facility]) [address] [facility], [place], [address], 08/22/2024 15:08:45 08/20/19 25 08/22/2024 IGP, APTIM A HPV, RFX 16/18 ,45 clinician provided ICD10: Claudy rajan Z01.4 19 Not Available [facility] ([facility]) [address] [place], [address], 08/22/2024 15:08:45 08/20/19 25 08/22/2024 IGP, APTIM A HPV, RFX 16/18 ,45 performed by: Claudy amanda, Cytol ogist (ASCP ) Not Available [facility] ([facility]) [address] [place], [address], 08/22/2024 15:08:45 08/20/19 25 08/22/2024 IGP, APTIM A HPV, RFX 16/18 ,45 . . Not Available [facility] ([facility]) [address] [facility], [place], [address], 08/22/2024 15:08:45 08/20/19 25 08/22/2024 IGP, APTIM A HPV, RFX 16/18 ,45 note: Commen t The Pap smear is a scree mariya test desig maria isabel to aid in the detec tion of glenis ligna nt and malig nant condi tions of the uteri ne cervi x. It is not a diagn ostic proce dure and shoul d not be used as the sole means of detec ting cervi ying cance r. Both false -posi tive and false -nega tive repor ts do occur . Not Available [facility] ([facility]) [address] [facility], [place], [address], 08/22/2024 15:08:45 08/20/19 25 08/22/2024 IGP, APTIM A HPV, RFX 16/18 ,45 test methodology: Commen t This liqui d based ThinP rep(R ) pap test was scree maria isabel with the use of an image guide tia white. Not Available [facility] ([facility]) [address] [facility], [place], [address], 08/22/2024 15:08:45 08/20/19 25 08/22/2024 IGP, APTIM A HPV, RFX 16/18 ,45 HPV genotype reflex Commen t Crite christa not met, HPV Genot ype not perfo rmed. Not Available [facility] ([facility]) [address] [place], [address], 08/22/2024 15:08:45 07/05/19 23 07/04/2022 MAMMO , scree mariya, digit al, bilat eral [facility] Name: JT SCHMITT [address] [employer] Phys: Therese LOPEZ (Showe r), [place] [address] : 1965 Age: 56 Sex: F Acct: [id number] Loc: G.MAMM PHONE #: Exam Date: 2022 Status : REG CLI FAX #: [phone] Rad# [id number] Unit# [id number] Admit Date: 2022 EXAMS: CPT CODE: [id number] SCN DIG BREAST TOMOSY N AVILA 46123 BILATE RAL DIGITA L SCREEN ING MAMMOG [...] basis by the attend ing clinic nae. -Barbi rajan imagin g as a false negati ve [...] do not hesita te to call for clarif icatio n when necess eduarda. PAGE 1 Signed Report (OZIEL NUED) [facility] Name: JT SCHMITT [facility] Phys: Therese LOPEZ (Showe r), [place] [address] : 1965 Age: 56 Sex: F Acct: [id number] Loc: G.MAMM PHONE #: Exam Date: 2022 Status : REG CLI FAX #: [phone] Rad# [id number] Unit# [id number] Admit Date: 2022 EXAMS: CPT CODE: [id number] SCN DIG BREAST TOMOSY N AVILA 46562 Electr onical ly Signed by Ron Gonzalez on 2022 at 1321 Report ed and signed by: DUNG Gonzalez M.D. CC: Rachel Welch MD; Rita Morocho Dictat ed Date/T taylor: 2022 (1321) Techno logist : MARCIA BECKET T Transc ribed Date/T taylor: 2022 (1321) Transc riptio nist: DR.HAR JEAN Electr onic Signat ure Date/T taylor: 2022 (1321) Printe d Date/T taylor: 2022 (1454) BATCH NO: N/A PAGE 2 Signed Report CC'ed Logic: Orderi ng Provid er: SHOWER RITA Attend ing Provid er: SHOWER RITA Referr ing Provid er: SHOWER RITA Consul ting Provid er: REBEKAH Gonzalez [facility] (Centralized Scheduling) [address] [place] [address] [place], [address], 07/09/2022 11:23:29 07/18/19 23 07/18/2022 US, trans vagin al No observ ation record ed. lshower [facility] [address] [place] [address] , [place], [address], 07/18/2022 21:17:38 07/25/19 23 07/18/2022 US, trans vagin al No observ ation record ed. BARCODE [facility] [address] [place] [address] , [place], [address], 07/24/2022 10:17:18 02/06/20 23 02/05/2023 LDCT, chest , for lung cance r elvin meraz No observ ation record ed. [email or web address] [facility] [address], [place], [address], 02/07/2023 15:07:06 07/31/19 24 07/29/2023 MAMMO , elvin santiagog, bilat eral [facility] Name: JT SCHMITT [facility] Medica [facility] Phys: [place] [address] : 1965 Age: 57 Sex: F Acct: [id number] Loc: G.MAMM PHONE #: [phone] Exam Date: 2023 Status : DEP CLI FAX #: [phone] Rad# [id number] Unit# [id number] Admit Date: 2023 EXAMS: CPT CODE: [id number] SCN DIG BREAST TOMOSY N AVILA 71229 BILATE RAL DIGITA L SCREEN ING MAMMOG MAGGIE WITH CAD AND 3D TOMOSY NTHESMary S, 024: CLINIC AL HISTOR Y: Routin e screen ing. No breast proble ms. Matern al grandm other with breast carcin venita Correl ation is made with prior mammog lio smith from 023 to 019. FINDIN GS: Bilate ral digita l MLO and CC views with CAD and 3D tomosy nthesi s were perfor med by Vladimir Steel RT. These demons trate scatte red fibrog [...] - 1 YEAR DISCLA BRENTON: *The patien t with a palpab le abnorm ality, unexpl ained by breast imagдмитрий smith, should be manage d on clinic al basis by the attend ing physic nae. *Barbi rajan candace smith has a false negati ve rate of [...] MARÍA DEL RIO MD on 2023 at 1851 Report ed and signed by: MARÍA DEL RIO MD PAGE 1 Signed Report (OZIEL NUED) [facility] Name: MARTI OATESJT FARHAT G [email or web address] Phys: [place] [address] : 1965 Age: 57 Sex: F Acct: [id number] Loc: G.MAMM PHONE #: [phone] Exam Date: 2023 Status : DEP CLI FAX #: Rad# [id number] Unit# [id number] Admit Date: 2023 EXAMS: CPT CODE: [id number] SCN DIG BREAST TOMOSY N AVILA 42359 CC: Rachel Welch MD; Rita Morocho Dictat ed Date/T taylor: 2023 (1850) Techno logist : VLADIMIR STEEL RT(R)( M)(CT) (MR) Transc ribed Date/T taylor: 2023 (1850) Transc riptio nist: DR.HAG CLEVELAND Gay onic Signat ure Date/T taylor: 2023 (1850) Printe d Date/T taylor: 2023 (1807) BATCH NO: N/A PAGE 2 Signed Report CC'ed Logic: Orderi ng Provid er: SHOWER RITA Attend ing Provid er: SHOWER RITA Referr ing Provid er: SHOWER RITA Consul ting Provid er: REBEKAH Gonzalez [address] , [place], [address], 08/07/2023 11:00:45 01/01/20 24 01/01/2024 DEXA, verte bral fract ure [facility] Medica l Ce Name: JT SCHMITT [address] Phys: [place] [address] : 1965 Age: 58 Sex: F Acct: [id number] Loc: YESSICA PHONE #: [phone] Exam Date: 2023 Status : REG CLI FAX #: Rad# [id number] Unit# [id number] Admit Date: 2023 EXAMS: CPT CODE: [id number] DEXA BONE DENSIT Y WITH VFA 36539 CLINIC AL INFORM ATION: Screen ing for osteop orosis COMPAR REYNA: No compar reyna availa ble. FINDIN GS: T-scor es of the lumbar spine, left femora l neck, and the right femora l neck are -1.2, -1.4 and -1.7 respec tively which are osteop enic and the fractu re risks are modera te. Patien t's BMI is 34. FRAX assess ment sugges ts a 10 year probab ility of major osteop orotic fractu re at 7.8% and specif ically for a hip fractu re and 0.7%. Normal LVA from T6 to L4 IMPRES TIMOTHY: 1. Patien t has osteop enia based on the T score is of all sites measur ed COMMUN ICATIO N: Per this writte n report This report is genera ziggy using voice recogn ition comput er softwa re. Inadve rtent errors may have occurr ed while dictat ing report . Common sense approa ch is apprec iated and do not hesita te to call for clarif icatio n when necess eduarda. Electr onical ly Signed by Ron Gonzalez on 2023 at 1219 Report ed and signed by: DUNG Gonzalez M.D. PAGE 1 Signed Report (OZIEL NUED) [facility] Name: JT SCHMITT [facility] [email or web address] Phys: MD Rita Morocho [facility] [place] [address] : 1965 Age: 58 Sex: F Acct: [id number] Loc: G.RAD PHONE #: Exam Date: 2023 Status : REG CLI FAX #: Rad# [id number] Unit# [id number] Admit Date: 2023 EXAMS: CPT CODE: [id number] DEXA BONE DENSIT Y WITH VFA [id number] CC: Rachel Welch MD; Rita Morocho Dictat ed Date/T taylor: 2023 (1219) Techno logist : SARA BRYANT Transc ribed Date/T taylor: 2023 (1219) Transc riptio nist: DR.HAR MIRANDA Gay onic Signat ure Date/T taylor: 2023 (1219) Printe d Date/T taylor: 2023 (1222) BATCH NO: N/A PAGE 2 Signed Report CC'ed Logic: Orderi ng Provid er: KAREN PENNINGTONA Attend ing Provid er: SHOWER RITA Referr ing Provid er: SHOWER RITA Consul ting Provid er: REBEKAH PALACIOS Carlos [address] , [place], [address], 02/09/2024 13:56:56 03/05/19 25 03/05/2024 LDCT, chest , for lung cance r elvin meraz No observ ation record ed. [facility] [address], [place], [address], 03/08/2024 11:46:25 08/05/19 25 08/04/2024 MAMMO , elvin meraz, digit al, bilat eral [facility] Name: JT SCHMITT [facility] [employer] [facility] [employer] [facility] [place]: [place] [address] : 1965 Age: 58 Sex: F Acct: [id number] Loc: G.MAMM PHONE #: Exam Date: 2024 Status : REG CLI FAX #: Rad# [id number] Unit# [id number] Admit Date: 2024 EXAMS: CPT CODE: [id number] SCN DIG BREAST TOMOSY N AVILA 99879 EXAM DESCRI PTION: SCN DIG BREAST TOMOSY N AVILA CLINIC AL HISTOR Y: 58 years Female . Screen ing examin ation. COMPAR REYNA: Previo us mammog lio dating back to 2017. Techni que: Low dose full field digita l breast mammog xin with tomosy nthesi s was perfor med with 2D/3D tomosy nthesi s acquis itions in the CC and MLO projec tions. Comput er-aid ed detect ion was utiliz ed for final interp retati on of images . FINDIN GS: BREAST DENSIT Y: The breast s are almost entire ly fatty. Stable and negati ve mammog lio. No suspic ious findin g. The result s of this report will be commun icated to the radha rajan in layman 's terms. IMPRES TIMOTHY: No mammog raphic eviden ce of malign topher. BI-RAD S CATEGO RY: CATEGO RY 1, NEGATI VE RECOMM ENDATI ON: ANNUAL SCREEN ING IN 12 MONTHS Electr onical ly signed by: Larisa rajan MD 2024 09:04 PM EDT RP Workst ation: [id number] [facility] FOLLOW [facility] Electr onical ly Signed by LARISA Rajan on 2024 at 1502 Report ed and signed by: RAYSA PIERRE PAGE 1 Signed Report (OZIELMary ALICEA) [facility] Med[facility] Ce Name: JT SCHMITT Formerly [facility], [facility] [email or web address] Phys: MD Rita Morocho [facility] [place] [address] : 1965 Age: 58 Sex: F Acct: [id number] Loc: G.MAMM PHONE #: Exam Date: 2024 Status : REG CLI FAX #: Rad# [id number] Unit# [id number] Admit Date: 2024 EXAMS: CPT CODE: [id number] SCN DIG BREAST TOMOSY N AVILA 60142 CC: Rachel Welch MD; Rita Morocho Dictat ed Date/T taylor: 2024 (1502) Techno logist : ZHANE CHANEY (RT)(R ) Transc ribed Date/T taylor: 2024 (1502) Transc riptio nist: DR.THA POE Electr onic Signat ure Date/T taylor: 2024 (1502) Printe d Date/T taylor: 2024 (2108) BATCH NO: N/A PAGE 2 Signed Report CC'ed Logic: Orderi ng Provid er: SHOWER RITA Attend ing Provid er: SHOWER RITA Referr ing Provid er: SHOWER RITA Consul ting Provid er: REBEKAH Gonzalez [address], [place], [address], 08/12/2024 08:57:27 Result Notes Documentation Provider Name and Address Organization Details Recorded Time Mammo, Screening, Bilateral : [facility] Ce Name: DILCIA MAI [facility] Phys: [place] [address] : 1965 Age: 57 Sex: F Acct: [id number] Loc: G.MAMM PHONE #: Exam Date: 07/29/2023 Status: DEP CLI FAX #: Rad# [id number] Unit# [id number] Admit Date: 07/29/2023 EXAMS: CPT CODE: [id number] SCN DIG BREAST TOMOSYN AVILA 09908 BILATERAL DIGITAL SCREENING MAMMOGRAPHY WITH CAD AND 3D TOMOSYNTHESIS, 07/29/2023: CLINICAL HISTORY: Routine screening. No breast problems. Maternal grandmother with breast carcinoma Correlation is made with prior mammograms ranging from 07/04/2022 to 04/03/2018. FINDINGS: Bilateral digital MLO and CC views with CAD and 3D tomosynthesis were performed by RT Misha. These demonstrate scattered fibroglandular densities, unchanged in configuration from prior exams. There is no dominant mass, architectural distortion, or suspicious calcification, bilaterally. IMPRESSION: STABLE NEGATIVE MAMMOGRAMS. RECOMMEND ANNUAL SCREENING MAMMOGRAPHY. CAT1 - CATEGORY 1, NEGATIVE 1YR - 1 YEAR DISCLAIMER: *The patient with a palpable abnormality, unexplained by breast imaging, should be managed on clinical basis by the attending physician. *Breast imaging has a false negative rate of 15%. *The patient was notified by mail of the results of this examination. *The patient's information was entered into a reminder system with a target due date for the next mammogram. *The mammogram was reviewed by a radiologist and CAD. at 1851 Reported and signed by: ANGEL WRIGHT MD PAGE 1 Signed Report (CONTINUED) [facility] Ce Name: DILCIA MAI 9 [facility] Phys: [place] [address] : 1965 Age: 57 Sex: F Acct: [id number] Loc: JamalMAMM PHONE #: Exam Date: 07/29/2023 Status: DEP CLI FAX #: Rad# [id number] Unit# [id number] Admit Date: 07/29/2023 EXAMS: CPT CODE: [id number] SCN DIG BREAST TOMOSYN AVILA 07170 CC: Nicola Welch MD; Rita Morocho Dictated Date/Time: 07/29/2023 (1850) Technologist: VLADIMIR STEEL RT(R)(M)(CT)(MR) Transcribed Date/Time: 07/29/2023 (1850) Equipment Service Associate: Electronic Signature Date/Time: 07/29/2023 (1850) Printed Date/Time: 07/31/2023 (1807) BATCH NO: N/A PAGE 2 Signed Report CC'ed Logic: Ordering Provider: KAREN SALINAS Attending Provider: KAREN SALINAS Referring Provider: KAREN SALINAS Consulting Provider: REBEKAH Olivia [facility] 08/07/2023 11:00:45 Dexa, Vertebral Fracture Assessment : [facility] Ce Name: DILCIA MAI 9 [facility] Phys: MD Karen Rita [place] [id number] : 1965 Age: 58 Sex: F Acct: [id number] Loc: YESSICA PHONE #: Exam Date: 01/01/2024 Status: REG CLI FAX #: Rad# [id number] Unit# [id number] Admit Date: 01/01/2024 EXAMS: CPT CODE: [id number] DEXA BONE DENSITY WITH VFA 29594 CLINICAL INFORMATION: Screening for osteoporosis COMPARISON: No comparison available. FINDINGS: T-scores of the lumbar spine, left femoral neck, and the right femoral neck are -1.2, -1.4 and -1.7 respectively which are osteopenic and the fracture risks are moderate. Patient's BMI is 34. FRAX assessment suggests a 10 year probability of major osteoporotic fracture at 7.8% and specifically for a hip fracture and 0.7%. Normal LVA from T6 to L4 IMPRESSION: 1. Patient has osteopenia based on the T score is of all sites measured COMMUNICATION: Per this written report This report is generated using voice recognition computer software. Inadvertent errors may have occurred while dictating report. Common sense approach is appreciated and do not hesitate to call for clarification when necessary. at 1219 Reported and signed by: DELMY ORDONEZ M.D. PAGE 1 Signed Report (CONTINUED) [facility] Ce Name: DILCIA MAI [employer] [place]: [place] [address] : 1965 Age: 58 Sex: F Acct: [id number] Loc: G.RAD PHONE #: Exam Date: 01/01/2024 Status: REG CLI FAX #: Rad# [id number] Unit# [id number] Admit Date: 01/01/2024 EXAMS: CPT CODE: [id number] DEXA BONE DENSITY WITH VFA 58670 CC: Nicola Welch MD; Rita Morocho Dictated Date/Time: 01/01/2024 (1219) Technologist: SARA BRYANT Transcribed Date/Time: 01/01/2024 (121) Equipment Service Associate: Electronic Signature Date/Time: 01/01/2024 (1219) Printed Date/Time: 01/01/2024 (1222) BATCH NO: N/A PAGE 2 Signed Report CC'ed Logic: Ordering Provider: KAREN SALINAS Attending Provider: KAREN SALINAS Referring Provider: KAREN SALINAS Consulting Provider: SHIRLEY [place] - [facility] 02/09/2024 13:56:56 Mammo, Screening, Digital, Bilateral : [facility] Ce Name: DILCIA MAI [employer] Phys: [place] [address] : 1965 Age: 58 Sex: F Acct: [id number] Loc: Sarah.MAMM PHONE #: Exam Date: 08/04/2024 Status: REG CLI FAX #: Rad# [id number] Unit# [id number] Admit Date: 08/04/2024 EXAMS: CPT CODE: [id number] SCN DIG BREAST TOMOSYN AVILA 58803 EXAM DESCRIPTION: SCN DIG BREAST TOMOSYN AVILA CLINICAL HISTORY: 58 years Female. Screening examination. COMPARISON: Previous mammograms dating back to March 17, 2017. Technique: Low dose full field digital breast mammogram with tomosynthesis was performed with 2D/3D tomosynthesis acquisitions in the CC and MLO projections. Computer-aided detection was utilized for final interpretation of images. FINDINGS: BREAST DENSITY: The breasts are almost entirely fatty. Stable and negative mammograms. No suspicious finding. The results of this report will be communicated to the patient in layman's terms. IMPRESSION: No mammographic evidence of malignancy. BI-RADS CATEGORY: CATEGORY 1, NEGATIVE RECOMMENDATION: ANNUAL SCREENING IN 12 MONTHS Electronically signed by: Larisa Garcia MD 08/04/2024 09:04 PM EDT [facility] FOLLOW-UP CODE at 1502 Reported and signed by: LARISA GARCIA PAGE 1 Signed Report (CONTINUED) [facility] Ce Name: DILCIA MAI [address] [place] [address] Phys: [place] [address] : 1965 Age: 58 Sex: F Acct: [id number] Loc: Sarah.MAMM PHONE #: Exam Date: 08/04/2024 Status: REG CLI FAX #: Rad# [id number] Unit# [id number] Admit Date: 08/04/2024 EXAMS: CPT CODE: [id number] SCN DIG BREAST TOMOSYN AVILA 85148 CC: Nicola Welch MD; Rita Morocho Dictated Date/Time: 08/04/2024 (1502) Technologist: TATY CHANEY (RT)(R) Transcribed Date/Time: 08/04/2024 (1501) Equipment Service Associate: Electronic Signature Date/Time: 08/04/2024 (1501) Printed Date/Time: 08/04/2024 (2108) BATCH NO: N/A PAGE 2 Signed Report CC'ed Logic: Ordering Provider: KAREN SALINAS Attending Provider: KAREN SALINAS Referring Provider: KAREN SALINAS Consulting Provider: REBEKAH Estr[place], [place] - [facility] 08/12/2024 08:57:27 Problems Name Problem SNOMED Code Status Onset Date Resolution Date Notes Provider Name and Address Organization Details Recorded Time Intramur al leiomyom a of uterus 05527889 Active 2017 Rita Morocho MD [address], [place], [address], [place] [facility] 8 09:18:29 Hyperlip idemia 00173320 Active [address] Brooke 03/2018 Rita Morocho MD [address], [place], [address], [place] [facility] 9 09:48:29 Nocturia 371841326 Completed 201804/10/2020 Polly Corwin [place], [place] - [facility] 1 15:21:04 Mixed anxiety and depressi ve disorder 175748846 Completed 04/10/2020 Polly Corwin [place] - [facility] 1 15:21:15 Anxiety 32576977 Active Polly Corwin [place] [facility] 1 15:21:21 Hormone replacem ent therapy Active 2020 Rita Morocho MD [address], [place], [address], [place] [facility] 1 14:08:37 Ulcerati ve colitis 22553097 Active Polly Corwin [place], [place] - [facility] 2 08:41:14 Body mass index 25-29 - overweig ht 422979263 Active 2021 Rita Morocho MD [address], [place], [address], [place] [facility] 2 13:34:51 Menopaus al syndrome 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 2021 Rita Morocho MD [address], [place], [address], [place] [facility] 2 13:34:53 Angina pectoris 030969091 Active 2007 NEG cath- panic attacks, rx'd Lexapro- helping Torito Grider RN [address], [place], [address], [place] [facility] 7 09:47:37 History of endometr iosis 8374029339 3734462 Active 2005 Torito Grider RN [address], [place], [address], [place] [facility] 7 09:47:54 Osteopen ia 928074754 Active 2005 Rita Morocho MD [address], [place], [address], [place] [facility] 5 19:25:25 Painless rectal bleeding 167467371 Active 200712/15/19 08 guiac + stool, no other sx, refer to Marina -m NEG colonosc opy Torito Grider RN [address], [place], [address], [place] [facility] 7 09:48:38 Thyroid nodule 918807219 Active [address] Ellison, normal labs, due for repeat ultrasou nd 2015 Torito Grider RN [address], [place], [address], [place] [facility] 7 09:49:04 Cigarett e smoker 92474114 Active quit as of 05/20!!sm oked from 's -42 Torito Grider RN [address], [place], [address], [place] [facility] 7 09:49:28 History of anemia vitamin B12 deficien t 304251804 Active 2014 Torito Grider RN [address], [place], [address], [place] [facility] 7 09:51:14 Surveill ance of oral contrace ption Completed 04/10/2020 Polly Corwin [place] [facility] 15:19:10 Neuropat hy 620509923 Active Polly Corwin [place] [facility] 4 11:04:49 Degenera tion of interver tebral disc 75679531 Active Polly Corwin [place] [facility] 4 11:04:57 Menopaus al symptom 13720696 Active 2024 Rita Morocho MD [address], [place], [address], [place] [facility] 5 19:25:23 Left lower quadrant pain 021081702 Active 2024 Rita Morocho MD [address], [place], [address], [place] [facility] 5 19:25:28 History of colitis 091248002 Active 2024 Rita Morocho MD [address], [place], [address], [place] [facility] 5 19:25:33 Problem Notes None recorded. Procedures Surgical History Date Name Laterality Status Provider Name and Address Organization Details Recorded Time 025 Date of Last Mammogram completed Yanci Estrada [place] - [facility] 08/05/2024 13:43:39 024 Most Recent Bone Density completed Rita Morocho MD [address], [place], [address], [place] [facility] 08/19/2024 18:59:53 024 Date of Last Colonoscopy completed Yanci Estrada [place] - [facility] 08/23/2024 08:25:43 022 Colonoscopy completed Polly Olivia [place] - [facility] 06/25/2022 10:49:43 022 cardiac catheterization completed Paula Dick [place] - [facility] 07/04/2022 11:07:07 022 Date of Last Pap Smear completed Polly Olivia [place] - [facility] 04/27/2021 16:13:14 022 Colposcopy completed Yanci Estrada [place] - [facility] 08/17/2024 09:17:20 020 Colonoscopy completed Polly Olivia [place] - [facility] 06/25/2022 10:50:14 020 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 Procedure Notes None recorded. Medical Equipment None Reported. Allergies Allergen ID Allergen Name Allergen Category Reaction Reaction Severity Criticality Documentation Date Start Date Code Code System Note Provider Name and Address Organization Details Recorded Time 88305 Product containin g penicilli n (product) medicatio n hives Not available Not available 11/17/20152007 40394 8001 SNOMED React ion: Hives ; Comme nt: Penic illin ; Not Available [facility] 6 09:27:17 71169 Substance with sulfonami de structure and antibacte rial mechanism of action (substanc e) medicatio n nausea Not available Not available 03/17/2017 18173 8003 SNOMED Glenis maciel, [place] - [facility] 8 10:01:33 Medications [...] Not Available atorvasta tin 40 mg tablet 2024 active Not Available Not Available Not Avai lable promethaz ine-DM 6.25 mg-15 mg/5 mL oral [...] completed Not Available Not Available Not Available famotidin e 10 mg tablet Take 1 tablet every day by oral route. 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 active Not Available Not Available No t Available cyanocoba jonathan (vit B-12) 1,000 mcg/mL [...] ne propionat e 50 mcg/actua tion nasal spray,[facility] pension 01/26 completed Not Available Not Available Not Available doxycycli ne hyclate 100 mg tablet 03/07 completed Not Available Not Available Not Available dicyclomi ne 10 mg capsule 2024 active Not Available Not Available Not Avai lable naproxen 500 mg tablet 03/17 completed Not Available Not Available Not Available tobramyci n 0.3 %-dexamet hasone 0.1 % eye drops,[facility] pensi 03/07 completed Not Available Not Available Not [...] Body mass index (BMI) Body weight Systolic And Diastolic Provider Name and Address Organization Details Last Updated DateTime 07/18/2022 180.34 cm 28.7 kg/m2 90545.03 g 122/72 mm[Hg] Polly Olivia [place] - [facility] 07/18/2022 11:13:25 Date Recorded Body weight Body mass index (BMI) Body height Provider Name and Address Organization Details Last Updated DateTime 07/29/2023 43532.77 g 29.8 kg/m2 180.34 cm Polly Olivia [place] - [facility] 07/29/2023 11:04:34 Date Recorded Body height Body mass index (BMI) Body weight Systolic And Diastolic Provider Name and Address Organization Details Last Updated DateTime 08/19/2024 173.99 cm 33.4 kg/m2 396888.1 g 136/90 mm[Hg] Yanci Natalie [place] - [facility] 08/19/2024 09:08:45 Date Recorded Body height Provider Name an d Address Organization Details Last Updated DateTime 2023 180.34 cm Charito Paz [place] - [facility] 1 02/24/2023 10:03:39 Date Recorded Body height Body mass index (BMI) Body weight Heart rate Oxygen saturation Oxygen saturation in Arterial blood by Pulse oximetry Body temperature Respiratory rate Systolic And Diastolic Provider Name and Address Organization Details Last Updated DateTime 180.34 cm 30.4 kg/m2 56424.1 4 g 100 /min 97 % 97 % 98.2 [degF] 18 /min 128/78 mm[Hg] Charito Paz [place] - [facility] 16:27:17 Social History Question Answer Notes LastModified by Organizat ion Details LastModified Time Tobacco Smoking Status Former Smoker 2018 Rita Morocho MD [address], [place], [address], [place] [facility] 04/07/2019 09:26:45 Do You Have An Advance Directive? No Information not available 03/07/2016 Are You Blind Or Do You Have Difficulty Seeing? No Information not available 03/07/2016 Is Blood Transfusion Acceptable In An Emergency? Yes Information not available 03/07/2016 What Is Your Level Of Caffeine Consumption? Moderate Information not available 03/07/2016 How Much Tobacco Do You Chew? None [email or web address] Information not available 03/17/2017 Are You Deaf Or Do You Have Serious Difficulty Hearing? Yes Information not available 08/17/2024 What Type Of Diet Are You Following? REGULAR [email or web address] Information not available 03/17/2017 Which Illicit Or Recreational Drugs Have You Used? Denies [email or web address] Information not available 03/17/2017 What Is The Highest Grade Or Level Of School You Have Completed Or The Highest Degree You Have Received? [id number] Information not available 08/17/2024 Have There Been Any Changes To Your Family Or Social Situation? No Information no t available 08/17/2024 When Did You Quit Smoking? 1-5yearssince lastcicolinette Information not available 04/26/2021 Live Alone Or With Others? With Others Information not available 03/07/2016 What Was The Date Of Your Most Recent Tobacco Screening? 08/19/2024 Information not available 08/17/2024 How Many Children Do You Have? 0 Information not available 03/07/2016 What Is Your Current Pack Years? 30ormorepacky ears Information not available 07/18/2022 Performs Monthly Self-breast Exam? Yes Information no t available 03/07/2016 Do You Use Protection Against STDs? Always Information not available 08/17/2024 What Is Your Relationship Status? Single Information not available 03/07/2016 Do You Use Your Seat Belt Or Car Seat Routinely? Yes Information not available 08/17/2024 Seat Belts Used Routinely Yes Information not available 03/07/2016 Are You Sexually Active? No Information not available 08/17/2024 Do You Have Smoke And Carbon Monoxide Detectors In Your Home? Yes Information not available 08/17/2024 At What Age Did You Start Smoking Tobacco? 16 Information not available 08/17/2024 Are You Passively Exposed To Smoke? No Information no t available 08/17/2024 How Much Tobacco Do You Smoke? 2 PPD Information not available 07/28/2023 General Stress Level Medium Information not available 03/17/2017 Do You Use Sunscreen Routinely? Yes Information not available 03/07/2016 Has Tobacco Cessation Counseling Been Provided? Yes Information not available 08/17/2024 On What Date Was Tobacco Cessation Counseling Provided? 08/19/2024 Information not available 08/17/2024 How Many Years Have You Smoked Tobacco? 30 Information not available 07/18/2022 Do You Have Difficulty Walking Or Climbing Stairs? No Information not available 03/07/2016 Sex: Female Functional Status Question Answer Note LastModified by Organizat ion Details LastModified Time Do you or have you ever used smokeless tobacco? Never used smokeless tobacco Information not available 04/07/2019 Are you currently employed? No Information not available 07/29/2023 Do you have transportation difficulties? No Information not available 08/17/2024 Are you able to care for yourself? Yes Information n ot available 08/17/2024 Do you have difficulty dressing or bathing? No Information not available 03/07/2016 Do you or have you ever used e-cigarettes or vape? Never used electronic cigarettes Information not available 04/07/2019 What is your exercise level? Occasional Information not available 08/17/2024 Do you use any illicit or recreational drugs? No Information not available 08/17/2024 Do you or have you ever used any other forms of tobacco or nicotine? No Information not available 08/17/2024 What is your level of alcohol consumption? None Information not available 03/07/2016 Are you able to walk? YESWOREST Information not available 08/17/2024 Do you have difficulty doing errands alone? No Information not available 03/07/2016 What is your occupation? Retired Information not available 07/29/2023 Mental Status Question Answer Note LastModified by Organizat ion Details LastModified Time Do you feel stressed (tense, restless, nervous, or anxious, or unable to sleep at night)? [id number] Information not available 08/17/2024 Do you have difficulty concentrating, remembering or [...] disease N Blood Diseases N Hyperthyroidism N Blood Transfusion N Rheumatoid arthritis N Erectile Dysfunction N amputation N Skin Lesions N Depression N Pneumonia N Incontinence N Murmur N Edema N Alzheimer's Disease N Migraine Headaches N Tobacco Abuse N Anxiety Disorder Y Hemorrhoids N Muscle, Joint, or Bone Problems Y Obesity N Vision or Eye Problems N Arthritis Y Restless Leg Syndrome N Polyps N Infertility N Carpal Tunnel N Acid Reflux (GERD) N Cancer N Varicosities N Stroke N Tendonitis N Crohn's Disease N Hypercholesterolemia N Skin Cancer N Headaches N Fibromyalgia N Irritable Bowel Syndrome Y Anal Fissure N Kidney Disease N Heart Problems N Ear or Hearing Problems Y Hospitalizations N Gallstones N Kidney or Bladder Problems N Goiter N Acne N Eating Disorder N Jackson's Esophagus N Hypertriglyceridemia N Constipation N Embolism N Vitamin B12 Deficiency N Deviated Septum N AIDS/HIV N Myocardial Infarction N Asthma N Mitral Valve Disorders N Vertigo N Hepatitis N Thyroid Cancer N Neuropathy Y History of DVT N Herniated Disc N [...] Schizophrenia N Concussion N Spina Bifida N Allergies/Hayfever Y Osteoarthritis N Parkinson's Disease N Disc Protrusion [...] colitis N Cerebrovascular Disease N Depression N Guillain-[place] N Sleep Apnea N Aneurysm N Bronchitis N Heart Disease N Hypertension N Pre-Eclampsia N Suicidal Ideation N Osteoporosis N Gynecological History Statement/Question Response Date of Last Mammogram 08/04/2024 Flow Light Date of Last LDCT 03/05/24 Date of LMP 02/26/2018 Post Menopausal Bleeding N STIs/STDs N Last Lipids w/pcp If Post Menopausal, Age at Menopause 54 Date of Last Colonoscopy 09/08/2023 Abnormal Pap N Colposcopy 02/10/2021 HPV Vaccine N Age at Menarche 13 Current Control Method None Age at First Child 1 Last Annual Exam/Provider 08/19/24 LLS Frequency of Cycle (Q days) 0 Most Recent Bone Density 01/01/2024 Sexually Active? N Menses Monthly N Date of Last Pap Smear 04/26/2021 Sexual Problems? N LMP Approximate Hormone Replacement Therapy N Obstetrics History GPAL:G 0 P 0 0 0 0 Immunizations Vaccine Type Date Status Note Provider Nam e and Address Organization Details Recorded Time Influenza, split virus, quadrivalent, preservative 6 completed Torito Grider RN [address], [place], [address], [place] [facility] 03/07/2016 09:52:57 Influenza, split virus, quadrivalent, preservative 8 completed [place]ly [place] [facility] 03/26/2018 09:10:39 Influenza, split virus, trivalent, preservative 4 completed Charito [place] [facility] 2023 11:35:23 Influenza, split virus, quadrivalent, preservative 9 completed Polly Corwin null, [place] - [facility] 04/07/2019 08:57:41 Influenza, split virus, quadrivalent, preservative 0 completed Polly Mckeonrus [place], [place] - [facility] 04/11/2020 08:49:48 COVID-19 vaccine, vector-nr, rS-Ad26, PF, 0.5 mL 1 completed Pol[place] [facility] 07/29/2023 11:07:10 Pneumococcal conjugate PCV 13 3 completed Pol[place] [facility] 04/24/2021 10:41:33 Influenza, split virus, quadrivalent, preservative 1 completed Polly Ste[place] [facility] 04/26/2021 08:40:38 Tdap 7 [facility] 02/27/2019 03:54:23 influenza, unspecified formulation 7 completed Polly [place] [facility] 07/29/2023 11:07:10 Past Encounters Encounter ID Performer Location Encounter Start Date Encounter Closed Date Diagnosis/Indication Diagnosis SNOMED-CT Code Diagnosis ICD10 Code Diagnosis Note [id number] [facility] [address] [place] [address] 12/31/2010 00:00:[id number] [facility] [address] [place] [address] 01/06/2012 00:00:[id number] [facility] [address] [place] [address] 12/31/2010 00:00:[id number] [facility] [facility] [address] [place] [address] 01/06/2013 00:00:00 [id number] [facility] [address] [place] [address] 01/10/2014 00:00:[id number] [facility] [address] [place] [address] 03/06/2015 00:00:[id number] [facility] [address] [place] [address] 11/25/2005 00:00:[id number] [facility] [address] [place] [address] 12/16/2006 00:00:[id number] [facility] [address] [place] [address] 12/15/2007 00:00:[id number] [facility] [address] [place] [address] 12/19/2008 00:00:[id number] [facility] [address] [place] [address] 12/21/2009 00:00:00 [id number] MD Lacy Amezcua PHOSPHORIC ACID OPERATOR [address] [place] [address] [place] [address] 03/07/2016 09:05:26 03/07/2016 11:36:07 Gynecologic examination 32902103 Z01.419 Depression screening 171 456850 Z13.89 Hypertensi on screening 727976005 Z13.6 Patient currently is within goal of less than 140/90. We will rescreen at annual visit, sooner if needed Exercises education, guidance, and counseling 816445787 Z71.89 Advise 30 minutes 3 times a week at a minimum of purposeful exercise. Patient is currently meeting this goal. Body mass index 25-29 - overweight 985335037 Z68.25 Screening for malignant neoplasm of breast 790102214 Z12.31 Patient aware of due date for next Mammogram as indicated below. She will be notified by facility of result after completion . Advise yearly Clinical Breast exam with Annual exam. Surveillan ce of oral contraception 675684807 Z30.41 Immunization due 4013041 08 Z28.3 Perimenopa usal disorder 935256509 N95.9 [id number] JOSUE Singh PHOSPHORIC ACID OPERATOR [address] [place] [address] [place] [address] 03/17/2017 09:39:27 03/17/2017 10:43:16 Routine gynecologic examination done 1426740430 9101 Z01.419 Depression screening 171 665365 Z13.89 PHQ-9 completed today. Diet education 88568089 Z71.3 Counseling 359645908 Z71 .9 Exercise counselchrist smith. Patient encouraged to exercise 30 minutes 5 days a week. Examinatio n of blood pressure 554090193 Z01.30 Body mass index 20-24 - normal 391036710 Z68.24 Screening mammography 24 027025 Z12.31 Screening for malignant neoplasm of colon 314700824 Z12.11 Due for screening Colonoscop y 2017 Screening for malignant neoplasm of ovary 659046948 Z12.73 Surveillan ce of oral contraception 465344928 Z30.41 [id number] MD Lacy Amezcua PHOSPHORIC ACID OPERATOR [address] [place] [address] [place] [address] 06/23/2017 15:12:43 06/23/2017 16:32:13 Break-through bleeding 86620680 N92.1 Z12.4 continue ocp- reassuranc e; rto for baseline US Burning se nsation of vagina 357910260 R20.8 History of endometriosis 8931445228 0177427 Z87.42 [id number] MD Lacy Amezcua PHOSPHORIC ACID OPERATOR [address] [place] [address] [place] [address] 07/10/2017 08:19:07 07/10/2017 11:53:47 Break-through bleeding 95662872 N92.1 Z12.4 continue ocp- reassuranc e; rto for baseline US History of endometriosis 4442625082 9858610 Z87.42 Intramural leiomyoma of uterus 85536917 D25.1 Suspected for ultrasound and otherwise small uterus, largest 14 mm; expectant management depending on clinical status of her bleeding Surveillan ce of oral contraception 480388965 Z30.41 Continue current dosing of Ortho-Novu m at least through third birthday in December, has enough until March 2018 annual [id number] MD Lacy Amezcua PHOSPHORIC ACID OPERATOR [address] [place] [address] [place] [address] 03/26/2018 08:51:48 03/26/2018 12:41:35 Gynecologic examination 19929095 Z01.419 Depression screening 171 688237 Z13.89 Hypertensi on screening 393790884 Z13.6 Patient currently is within goal of less than 140/90. Exercises education, guidance, and counseling 452581474 Z71.82 Advise 30 minutes 3 times a week at a minimum of purposeful exercise. Patient is not currently meeting this goal. Nocturia 960780239 R35.1 will call with ua/culture results - Plan rx for antibotic if pos, if negative rx oxybuytin 5mg (short active) at night. Screening for malignant neoplasm of cervix 782016233 Z12.4 Menopause 641587997 Z78. 0 DC OCP - Call if developmen t bothersome hotflashes for appt to discuss HRT Hyperlipidemia 28235271 E78.5 follow up with PCP - Dr welch Uterine leiomyoma 969576 05 D25.9 Follow-up ultrasound completed after visit [...] records Screening for malignant neoplasm of breast 545856734 Z12.31 Patient aware of due date for next Mammogram as indicated below-was due today getting reschedule d soon. She will be notified by facility of result after completion . Advise yearly Clinical Breast exam with Annual exam. History of endometriosis 7402498970 1937279 Z87.42 Per previous laparoscop y has been having some mild left-sided pain/dysme norrhea. Still much better than previous dysmenorrh ea. Anticipate spontaneou s improvemen t in any pain that might be associated with this as she is entering menopause. [id number] MD Lacy Amezcua PHOSPHORIC ACID OPERATOR [address] [facility] [place] [address] 05/25/2018 09:26:52 05/25/2018 10:33:56 Surveillance of oral contraception 140607510 Z30.41 Has resumed spontaneou s cycle of [...] months coming into next March annual. Nocturia 526711236 R35.1 Doing well with nightly low-dose oxybutynin . Continue this, has 6-month supply. Advise surveillan ce of meds several months after completes a 6-month supply to see if symptom relief continues. If it returns, can restart dose prior to next year's annual [id number] Rita Morocho MD Lambert PHOSPHORIC ACID OPERATOR [address] [place] [address] [place] [address] 03/09/2019 13:30:14 03/09/2019 15:16:29 Pain of breast 90467690 N64.4 Left breast pain, patient states feels lump Upper outer quadrant, not felt today by examorder Diagnostic bilateral, US leftReassu cheryl, vitamin E and analgesics Menopausal syndrome 1237 39942 N95.9 2 months status post discontinu ation of OCPs at age 53 ;c/o of hot flashes. advised to complete breast imaging and if negative may prescribe estradiol 0.5/Financial Services Officer a 2.5 a starting dose. Risk and [...] s bleeding. Keep scheduled annual exam March [id number] MD Lacy Amezcua PHOSPHORIC ACID OPERATOR [address] [place] [address] [place] [address] 04/07/2019 08:26:36 04/07/2019 09:53:52 Gynecologic examination 23889643 Z01.419 Cervical cancer screening not due this year, see HPI Depression screening 171 375798 Z13.89 Hypertensi on screening 346442550 Z13.6 Patient currently is within goal of less than 140/90. We will rescreen at annual visit, sooner if needed Exercises education, guidance, and counseling 976662086 Z71.82 Advise 30 minutes 3 times a week at a minimum of purposeful exercise. Patient is not currently meeting this goal. Menopausal syndrome 1237 17943 N95.9 increase to 1mg estradiol, continue 2.5 provera daily. Reassess response to 6-week visit Left lower quadrant pain 908605207 R10.32 Chronic pain syndrome but worsening since off OCPs, previously suspected endometrio sis, also small myoma. Symptoms worsening since off OCPs ;advised to return for US. Discussed option of hysterecto my for pain Screening for malignant neoplasm of breast 608304667 Z12.31 Patient aware of due date for next Mammogram as indicated below April 02. She will be notified by facility of result after completion . Advise yearly Clinical Breast exam with Annual exam. [id number] MD Lacy Amezcua PHOSPHORIC ACID OPERATOR [address] [place] [address] [place] [address] 05/21/2019 09:13:04 05/21/2019 10:58:51 Left lower quadrant pain 324363946 R10.32 Chronic left lower quadrant history actually better now on HRT than while on OCPs. No flare since off OCPs. Stable to decreasing small uterine fibroid. Reassured Menopausal syndrome 1237 73192 N95.9 Doing well on increased to 1 mg 2 months ago, continue 1mg estradiol, continue 2.5 provera daily.. Refills through full year given long-term risk and benefits reviewed [id number] MD Lacy Amezcua PHOSPHORIC ACID OPERATOR [address] [place] [address] [place] [address] 04/11/2020 08:26:09 04/11/2020 09:36:58 Gynecologic examination 31188633 Z01.419 Cervical cancer screening not due this year, see HPI Depression screening 171 499140 Z13.89 Treated depression doing well Hypertensi on screening 055740026 Z13.6 Patient currently is within goal of less than 140/90. We will rescreen at annual visit, sooner if needed Exercises education, guidance, and counseling 501502159 Z71.82 Advise 30 minutes 3 times a week at a minimum of purposeful exercise. Patient is not currently meeting this goal. Menopausal syndrome 1237 60498 N95.9 Persistent mild vasomotor symptoms despite medium dose HRT. Maintain current dose Left lower quadrant pain 361448542 R10.32 Chronic left lower quadrant pain. Has [...] varices described described Hormone re placement therapy 738761517 Z79.890 Screening for malignant neoplasm of breast 001113809 Z12.31 Patient aware of due date for next Mammogram as indicated below.Mamm ogram completed today. Order put in for 1 year presuming normal studies today She will be notified by facility of result after completion . Advise yearly Clinical Breast exam with Annual exam. [id number] MD Lacy Amezcua PHOSPHORIC ACID OPERATOR [address] [facility] [place] [address] 05/01/2020 15:27:10 05/01/2020 16:44:04 Left lower quadrant pain 276711853 R10.32 Chronic left lower quadrant pain. Continues [...] pelvic varices described described Menopausal syndrome 1237 87650 N95.9 Persistent mild vasomotor symptoms despite medium dose HRT. Maintain current dose Hormone re placement therapy 727323661 Z79.890 Continue 1 mg estradiol/ 2.5 Provera [id number] Rita Morocho MD Lambert PHOSPHORIC ACID OPERATOR [address] [facility] [place] [address] 04/26/2021 08:32:22 04/26/2021 09:46:39 Gynecologic examination 58418568 Z01.419 Depression screening 171 691373 Z13.89 Treated depression doing well Hypertensi on screening 285979547 Z13.6 Patient currently iswithin goal of less than 140/90. We will rescreen at annual visit, sooner if needed Exercises education, guidance, and counseling 079358695 Z71.82 Advise 30 minutes 3 times a week at a minimum of purposeful exercise. Patient is not currently meeting this goal. Hormone re placement therapy 704330648 Z79.890 Continue estradiol/ 2.5 Provera--d ecrease estrogen dosing to 0.5 this year call if not tolerating . reviewed short and long-term risk and benefits, and advised dosing at lowest dose necessary to treat symptoms were shortest time necessary Screening for malignant neoplasm of cervix 998835028 Z12.4 Body mass index 25-29 - overweight 258865140 Z68.27 Menopausal syndrome 1237 80557 N95.9 Vasomotor symptoms have extinguish ed on several years of 1 mg estradiol/ Provera. Ready to go decrease to 0.5 mg estradiol trial Screening for malignant neoplasm of breast 752649705 Z12.31 Patient aware of due date for next Mammogram as indicated below end of April. Has appointmen t for late April- keep- she will be notified by facility of result after completion . Advise yearly Clinical Breast exam with Annual exam. [id number] MD Lacy Amezcua PHOSPHORIC ACID OPERATOR [address] [place] [address] [place] [address] 07/04/2022 10:57:05 07/04/2022 11:46:08 Gynecologic examination 76638895 Z01.419 Cervical cancer screening not due this year, see HPI Depression screening 171 182386 Z13.89 Treated depression doing well Hypertensi on screening 717555050 Z13.6 Patient currently iswithin goal of less than 140/90. We will rescreen at annual visit, sooner if needed Exercises education, guidance, and counseling 433315769 Z71.82 Advise 30 minutes 3 times a week at a minimum of purposeful exercise. Patient is not currently meeting this goal. Screening for malignant neoplasm of breast 386849191 Z12.31 Patient aware of due date for next Mammogram as indicated below-rehana sarah today after visit.- she will be notified by facility of result after completion . Advise yearly Clinical Breast exam with Annual exam. Menopausal syndrome 1237 74633 N95.9 Plan minimal vasomotor symptoms on current 0.5/2.5 estradiol/ Provera HRT. HRT renewed with advised to wean as tolerated Left lower quadrant pain 311780476 R10.32 Chronic left lower quadrant pain. Has [...] ultrasound next available Hormone re placement therapy 609673855 Z79.890 Plan to attempt wean off of current dosing of 0.5 estradiol/ 2.5 Provera daily. Call if not tolerating . [id number] MD Lacy Amezcua PHOSPHORIC ACID OPERATOR [address] [place] [address] [place] [address] 07/18/2022 10:29:26 07/18/2022 11:43:49 Left lower quadrant pain 990736924 R10.32 chronic left lower quadrant pain. Suspect GI is primary source.con tinue as scheduled with Dr Gray. no obvious gynecologi c contributo r to pain Per imaging or history Blood in urine 41163341 R31.9 ua/culture today. discussed possible need for CT scan if persistent Hematuria Screening for malignant neoplasm of respiratory tract 415924773 Z12.2 Former hea vy tobacco smoker 4683872510 80882 Z87.891 Former tobacco user [id number] Rita Morocho MD Lambert PHOSPHORIC ACID OPERATOR [address] [place] [address] [place] [address] 07/29/2023 10:54:52 07/29/2023 12:38:11 Gynecologic examination 86132236 Z01.419 Cervical cancer screening not due this year, see HPI Depression screening 171 056208 Z13.31 Treated depression doing well Hypertensi on screening 289405120 Z13.6 Patient currently iswithin goal of less than 140/90. We will rescreen at annual visit, sooner if needed Exercises education, guidance, and counseling 151110888 Z71.82 Advise 30 minutes 3 times a week at a minimum of purposeful exercise. Patient is not currently meeting this goal. Screening for malignant neoplasm of respiratory tract 088480514 Z12.2 Due January 2024 Former hea vy tobacco smoker 1059035990 54708 Z87.891 Former tobacco user stopped 2019 Hormone re placement therapy 042735920 Z79.890 Started HRT 2018, stopped HRT Estradiol 0.5 and provera 2.5 03/13/23 --minimal vasomotor symptoms. Noticing some vaginal dryness symptoms. Does not want to restart systemic HRT. Will make vaginal HRT Rx available if she desires treatment prior to next year's annual exam Screening for osteoporosis 142233629 Z13.820 Z78.0 Screening for malignant neoplasm of breast 348000730 Z12.31 Patient aware of due date for next Mammogram as indicated below. She will be notified by facility of result after completion . Advise yearly Clinical Breast exam with Annual exam. Menopause 270338975 Z78. 0 Left lower quadrant pain 177386798 R10.32 chronic left lower quadrant pain. Suspect [...] can have this done within our facility [id number] Poonam Flor SELF STORAGE MANAGER [address] [address] 2023 09:42:33 2023 10:07:25 Influenza vaccine needed 8966535765 106 Z23 [id number] Poonam Flor [address] [address] 01/27/2024 16:13:11 01/27/2024 16:57:57 COVID-19 372383755 U07.1 no sign of a bacterial infection. [...] improvemen t over the next 48-72 hours [id number] MD Lacy Amezcua PHOSPHORIC ACID OPERATOR [address] [facility] [place] [address] 08/19/2024 08:57:58 08/19/2024 09:42:53 Gynecologic examination 43264837 Z01.419 Depression screening 171 083442 Z13.31 Treated depression doing well Hypertensi on screening 753752385 Z13.6 Patient currently is notwithin goal of less than 140/90. She needs to see primary care provider to have closer blood pressure follow-up in the short-term Exercises education, guidance, and counseling 558606721 Z71.82 Advise 30 minutes 3 times a week at a minimum of purposeful exercise. Patient is not currently meeting this goal. Obese class I [id number] 61766 E66.811 Z68.33 Cancer cer vix screening status 991457782 Z12.4 Menopausal symptom 99906 002 N95.1 Mild vasomotor symptoms. Previous HRT use had helped please. Symptoms are actually recurred somewhat in the last 6 months. Offered option of restarting low-dose HRT and she declines Ex-cigarette smoker 2810 71977 Z87.891 Former tobacco user stopped 2018 continue LDCT screening due just Osteopenia 447242514 M85 .89 Per baseline study . Low threshold for antiresorp tive treatment. Advise calcium and vitamin D. Recheck 07/2026 Left lower quadrant pain 490995761 R10.32 G89.29 chronic left lower quadrant pain. Suspect GI is primary source, with prior colonoscop ies showing colitis. She used mesalamine many years but has been off at least 2 years and symptoms have worsened.. continue as scheduled with Dr Gray. August. No obvious gynecologi c contributo r to pain Per imaging or history. Most recent imaging here 08 02 with normal adnexa. She feels symptoms are worsening and she would like another ultrasound here as well as keeping GI follow-up. Schedule this next available date. History of colitis 35876 9006 Z87.19 Screening for malignant neoplasm of respiratory tract 990562878 Z12.2 Due feb 2025 Former hea vy tobacco smoker 7065514008 33317 Z87.891 Former tobacco user Health Concerns Section Related Observation LastModified by Organization Detai ls LastModified Time None Recorded Concern Status LastModified by Organization Details LastModified Time None Recorded Advance Directives Directive N: Payers Insurance Date Sequence Insurance Name Policy Number Policy Colbert Covered Member ID Colbert Member ID Guarantor Name 08/19/2024 1 [employer] [place] (HMO) Dilcia Mai [id number] Dilcia Mai 08/19/2024 1 [place] [id number] Dilcia Mai [id number] Dilcia Mai 08/19/2024 1 [place] [id number] Dilcia Mai [id number] Dilcia Mai Notes Date Note Type Note Provider Name and Address Organization Details Recorded Time 07/18/2022 text/html Patient is an established patient who presents for follow up on left lower quadrant pain. At the last visit where this was addressed, which was her annual exam with myself on 07/04/22 she was noted to have intermediate problem LLQ pain and returns today for Ultrasound. .Pertinent prior testing: NoneShyuliya describes her current symptoms as LLQ. [facility]..After discussion today, she [...] but has had [facility] that were okay . She is agreeable to low-dose CT screening for lung cancer. 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 naShingles: Current?:No - advised and declined [...] : had todayColonoscopy:11/29 colitis, repeat 2-3 yearsDEXA: 2004Lipids: follow with PCP as advised[place] Ovarian Cancer screening :advised of program, information given and can pursue if interestedLDCT 02/05/23 nl, yearly Patient should return in 1 year for an annual wellness exam and sooner as needed for other problems. Patient returns for annual exam. She is pleased that she reports she was able to retire with a pension from [employer] after 36 years of work. 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 Rita Morocho MD [address], [place], [address], [place] [facility] 07/29/2023 15:10:52 2023 text/html 57 yr old female presents for a flu vaccine. Charito Jackson [place], [place] - [facility] 2023 11:35:31 01/27/2024 text/html [...] test at home and one negative. Poonam Flor, JOSUE [address], [place], [address], [place] [facility] 01/27/2024 16:59:37 08/19/2024 text/html Patient is a/an 58 year old who presents today as an established patient for an annual exam. Her previous annual exam was 07/29/2023 with myself.She is naturally menopausal. 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 She is not currently using anti-hypertensive medication. BMI/EXERCISE and DIET COUNSELLING:Her current BMI is 33. She is advised that her BMI is in obesity category . Her weight is documented as increasing [...] completed a PHQ-9 form and scored a 2. See result on attached form. She She [...] are reviewed as documented above. Currently overdue for:pelvic and breast exam------ .Recent abnormal screening tests:none.------ . Based on her age and risk factors, she is DUE FOR THE FOLLOWING SCREENS :Pelvic and Breast exam: todayCervical cancer screening: today . Test(s) indicated when next due 2024: Pap with HPV Co-TestCervical Cultures: N/AMammogram : 08/04/24: negative.Colonoscopy:1 colitis, repeat 2-3 years; states had fu sinces then- no notes.DEXA: 01/01/24: LS -1.2 LFN -1.4, RFN -1.7; FRAX 7.8/0.7; VFA negative. No treatment advised. Repeat 2 to 3 yearsLipids: follow with PCP as advisedUK Ovarian Cancer screening :advised of program, information given and can pursue if interestedLDCT 03/05/24: negative repeat 1 year Patient should return in 1 year for an annual wellness exam and sooner as needed for other problems. Patient returns for annual exam. In the last year she states she has had gradual return of left lower quadrant pain which has been a chronic problem. Previous ultrasounds of failed to show any obvious gynecologic or adnexal cause. She has followed with Dr. Gray and has had multiple colonoscopies including several that have shown sigmoid colitis. She used mesalamine several years but stated she had last colonoscopy sometime after the last study that we have which was 2021 and was advised she could stop this which she did.. Our last office note available was 2019 ,she still takes dicyclomine daily which previously helped but does not seem to anymore. She is seeing no rectal bleeding or change in stool habits. She has continued to gradually gain weight no unanticipated weight loss. No fevers or chills. No dysuria or hematuria. No post menopausal bleeding. She wonders if she should get an ultrasound here again. Last check had been . She has visit scheduled with Dr. Gray later in August as well She has occasional hot flashes but prefers to not go back on any HRT. Her last use was greater than 1 year ago. Mild vaginal dryness but not too bothered by this. No urinary symptoms. Rita Morocho MD [address], [place], [address], [place] [facility] 08/19/2024 19:33:08 OBGyn Episode No OBEpisode recorded.
--- OUTSIDE RECORDS SUMMARY | 2024-08-25 09:58 | XMS_ITS | Clinical Summary ---
Author Organization Healthcare Address [address] [place] [address] Care Team Providers Care Manager Business Information Name Role Phone Nicola Bautista MD Primary Care Provider [phone] Immunizations Immunization Administration Dates Next Due Influenza, [...] of Treatment Not on file Care Teams Manager Business Information Relationship Specialty Start Date End Date Nicola Bautista MD [address] [place] [address] [place] [address] PCP - General 06/23/20
--- OUTSIDE RECORDS SUMMARY | 2024-08-25 09:59 | XMS_ITS | Patient Health Record ---
Author Organization [facility] D TE[facility] Address [address] [place] [address] Care Team Providers Care Cane Weigher Helper Name Role Phone Nicola Bautista Primary Care Provider Netta Trent Unavailable [phone] Nicola Bautista Unavailable Unavailable Migration, Provider Unavailable [...] HDL 61 40-60 mg/dl CHLHDL 3.9 1-3.5 H-TVITD Reviewed date:07/22/2024 02:21:45 PM Interpretation: Performing Lab: Notes/Report: TVITD 50.5 30-100 ng/mL Deficient <20 ng/mL Insufficient 20-30 ng/mL Sufficient 30-100 ng/mL Potential Toxicity >100 ng/mL Rapid Covid/Flu A-B Combo Reviewed date:01/28/2024 02:35:53 PM Interpretation: Performing Lab: Notes/Report: Rapid Covid neg Flu A neg Flu B neg Ultrasound : Thyroid Reviewed date:02/12/2024 09:29:46 AM Interpretation: Performing Lab: Notes/Report: H-TVITD Reviewed date:04/27/2024 03:41:25 PM Interpretation: Performing Lab: Notes/Report: TVITD < 12.8 30-100 ng/mL Deficient <20 ng/mL Insufficient 20-30 ng/mL Sufficient 30-100 ng/mL Potential Toxicity >100 ng/mL M-Thyroid Stimulating Hormon e Reviewed date:04/22/2024 11:21:31 AM Interpretation: Performing Lab: Notes/Report: TSH 0.87 0.465-4.68 uIU/mL M-Lipid Panel Reviewed date:04/27/2024 03:41:25 PM Interpretation: Performing Lab: Notes/Report: Patient Fasting? N TRIG 151 30-150 mg/dl CHOL 283 140-200 mg/dl DLDL 167.11 100-129 mg/dL VLDL 30 0-40 mg/dL HDL 68 40-60 mg/dl CHLHDL 4.2 1-3.5 M-Ferritin Reviewed date:04/22/2024 11:21:22 AM Interpretation: Performing Lab: Notes/Report: VINITA 104 11.1-264 ng/ml M-Hemoglobin A1C Reviewed date:04/22/2024 11:21:37 AM Interpretation: Performing Lab: Notes/Report: HGBA1C 5.3 4.0-6.0 % < 6% Non-Diabetic Level < 7% Controlled Diabetic Level > 8% Poorly Controlled Diabetic Level M-Comprehensive Metabolic Pa shauna Reviewed date:04/27/2024 03:41:25 [...] AGRATIO 2.0 1.1-1.8 ALP 80 38-126 U/L M-Complete Blood Count Auto Diff Reviewed date:04/22/2024 [...] 0.1 0.0-0.4 K/mm3 BA# 0.1 0-0.2 K/mm3 H-VITB12 Reviewed date:04/22/2024 11:21:26 AM Interpretation: Performing Lab: Notes/Report: VITB12 613 239-931 pg/mL X ray : Chest Reviewed date:04/08/2024 03:10:40 PM Interpretation: Performing Lab: Notes/Report: TISSUE PATHOLOGY (3542) Reviewed date:05/12/2024 12:30:30 PM Interpretation: Performing Lab:[place], [facility] Petra Oviedo Notes/Report: NON-FASTING CLINICAL INFORMATION [...] given on container. Gross exam(s) performed at: [facility] [address] [address] Ethanol Maintenance Mechanic: PETRA OVIEDO MD A DIAGNOSIS Verrucoid kerat osis with actinic change. A COMMENT The base of the lesion is not fully observed. Please correlate and follow clinically. Medications Medication SIG (Take, Route, Frequency, Duration) Notes Start Date End Date Status Aspirin Low Dose 81 MG 1 tab(s) orally once a day; Duration: 90 days Active Levocetirizine Dihydrochloride 5 MG 1 tab(s) orally once a day (in the evening); Duration: 30 day(s) prn 12/10/2017 Active rOPINIRole HCl 0.5 MG 1 tab(s) orally 3 times a day; Duration: 90 days Active Pravastatin Sodium 40 MG 1 tablet Orally Once a day; Duration: 30 day(s) 07/26/2024 Active Diclofenac Sodium 1 % 2 gram applied topically 4 times a day; Duration: 30 days 03/18/2022 Active Pantoprazole Sodium 40 MG 1 tab(s) orally once a day; Duration: 90 days 04/21/2024 Active Amitriptyline HCl 25 [...] review and pick correct strength-formulat ion from [employer] options. If intended option is not shown, discontinue and re-order from Quick Search* Active Lexapro 10 MG 1 tab(s) orally once a day; Duration: 90 days Active Mometasone Furoate 50 MCG/ACT 2 spray(s) intranasally 2 times a day; Duration: 30 days 10/10/2022 Active Azelastine HCl 137 MCG/SPRAY 2 spray(s) intranasally 2 times a day 09/17/2022 Active Trelegy Ellipta 100 MCG-62.5 MCG-25 MCG/INH 1 PUFF(S) INHALED ONCE A DAY; Duration: 30 DAYS *Please review and pick correct strength-formulat ion from [employer] options. If intended option is not shown, discontinue and re-order from Quick Search* 09/17/2022 Active Vitamin D (Ergocalciferol) 1.25 MG (57686 UT) 1 cap(s) orally twice a week 04/27/2024 Active Meloxicam 7.5 MG 1 tab(s) orally once a day for pain; Duration: 30 days 11/13/2022 Active Estradiol 0.5 MG 1 tab(s) orally once a day; Duration: 30 day(s) Active Nystatin 988048 UNIT/ML 5 mL Mouth/Throat Four times a day swish and spit; Duration: 10 days 07/21/2024 Active Zepbound 2.5 MG/0.5ML 0.5 mL Subcutaneou s once a week; Duration: 28 days 07/21/2024 Active Immunizations Vaccine Route Administration Date Status Comme nts Tetanus Toxoid Unknown 11/28/2008 Administered Problems Problem Type SNOMED Code ICD Code Onset Dates Problem Status W/U Status Risk Notes Problem Hyperlipidemia (02419210) Hyperlipidemia, unspecified (E78.5) Active confirmed Problem Essential hypertension (36136311) Essential (primary) hypertension (I10) Active confirmed Problem Chronic rhinitis (06927756) Chronic rhinitis (J31.0) Active confirmed Problem Sebaceous cyst (423860660) Sebaceous cyst (L72.3) Active confirmed Problem Acute exacerbation o f chronic obstructive airways disease (848779898) COPD with exacerbation (J44.1) Active confirmed Problem Cervical disc disorder (631352894) DDD (degenerative disc disease), cervical (M50.30) Active confirmed Problem Mixed anxiety and depressive disorder (631532496) Depression with anxiety (F41.8) Active confirmed Problem Vitamin D deficiency (88690086) Vitamin D deficiency (E55.9) Active confirmed Problem Vitamin B12 deficiency (non anemic) (24486732) B12 deficiency (E53.8) Active confirmed Problem Idiopathic periphera l neuropathy (31074104) Idiopathic peripheral neuropathy (G60.9) Active confirmed Problem Restless legs (83448962) RLS (restless legs syndrome) (G25.81) Active confirmed Problem Allergic rhinitis (18188515) Chronic allergic rhinitis (J30.9) Active confirmed Problem Chronic pain (67038693) Other chronic pain (G89.29) Active confirmed Problem Thyroid nodule (705994989) Thyroid nodule (E04.1) Active confirmed Problem Gastroesophageal reflux disease (068355910) Gastroesophageal reflux disease, esophagitis presence not specified (K21.9) Active confirmed Problem Asthma-chronic obstructive pulmonary disease overlap syndrome (disorder) (12788214860391770) Asthma-COPD overlap syndrome (J44.9) Active confirmed Problem Osteoarthritis of knee (364111651) Primary osteoarthritis of right knee (M17.11) Active confirmed Problem Chronic insomnia (875915567) Chronic insomnia (F51.04) Active confirmed Problem Inflammation of righ t sacroiliac joint (1260832179) Inflammation of right sacroiliac joint (M46.1) Active confirmed Problem Exacerbation of moderate persistent asthma (disorder) (769379442) Moderate persistent asthma with acute exacerbation (J45.41) Active confirmed Problem Hyperlipidemia (35701716) Other and unspecified hyperlipidemia (E78.5) Active confirmed Problem Verruca plantaris (23158644) Plantar wart, right foot (B07.0) Active confirmed Problem Generalized anxiety disorder (11938657) SEAN (generalized anxiety disorder) (F41.1) Active confirmed Problem Plantar fascial fibromatosis (72904058) Plantar fasciitis, right (M72.2) Active confirmed Problem Obese class II (136899863355154) BMI 35.0-35.9,adult (Z68.35) Active confirmed Problem Degenerative disc disease (14211268) DDD (degenerative disc disease), lumbar (M51.36) Active confirmed Problem Chronic sinusitis (79264041) Chronic sinus infection (J32.9) Active confirmed Problem Obstructive sleep apnea syndrome (54586881) WILD on CPAP (G47.33) Active confirmed Problem Paresthesia of lower extremity (405413118) Paresthesia of lower extremity (R20.2) Active confirmed Problem Pure hypercholesterolemia (262033377) Pure hypercholesterolemia (E78.00) Active confirmed Problem Elevated blood-pressure reading without diagnosis of hypertension (994257702) Elevated blood pressure reading (R03.0) Active confirmed Problem Personal history of tobacco use (Z87.891) Active confirmed Problem Thyromegaly (7037614) Thyromegaly (E01.0) Active confirmed Problem Tinnitus (13799884) Tinnitus, ri ght (H93.11) Active confirmed Problem Voice hoarseness (96443645) Voice hoarseness (R49.0) Active confirmed Problem Ulcerative colitis (96558530) Other ulcerative colitis without complication (K51.80) Active confirmed Problem Short-term memory loss (248569295) Short-term memory loss (R41.3) Active confirmed Problem Osteoarthritis of right knee joint (disorder) (843006037951604) Localized osteoarthritis of right knee (M17.11) Active confirmed Problem Gastroesophageal reflux disease (046301835) Gastroesophageal reflux disease, unspecified whether esophagitis present (K21.9) Active confirmed Vital Signs Heart Rate 72 /min 07/21/2024 Temperature 98 degrees Fahrenheit 07/21/2024 Blood pressure diastolic 90 mm Hg 07/21/2024 Height 5 ft 7 in in 07/21/2024 Blood pressure systolic 126 mm Hg 07/21/2024 Weight 226 lbs 07/21/2024 BMI 35.39 kg/m2 07/21/2024 Encounters Encounter Location Date Provider Diagnosis [facility] [address] [place] [address] 05/15/2024 Provider Migration Gastroesophageal reflux disease, unspecified whether esophagitis present K21.9 ; Pure hypercholesterolemia E78.00 and Vitamin D deficiency E55.9 [facility] [address] [address] 01/28/2024 Netta Trent Fever, unspecified R 50.9 ; URI with cough and congestion J06.9 ; Thyroid nodule E04.1 and COPD with exacerbation J44.[address] [address] 04/07/2024 Netta Trent Moderate persistent asthma with acute exacerbation J45.41 ; Laryngitis J04.0 and SOB (shortness of breath) R06.[address] [address] 04/21/2024 Netta Trent Hoarseness R49.0 ; Gastroesophageal reflux disease, unspecified whether esophagitis present K21.9 ; Persistent cough R05.3 and Skin nodule R22.9 [facility] [address] [address] 05/05/2024 Netta Gomesence Hoarseness R49.0 ; Gastroesophageal reflux disease, unspecified whether esophagitis present K21.9 ; Persistent cough R05.3 ; Skin nodule R22.9 ; Pure hypercholesterolemia E78.00 and Vitamin D deficiency E55.9 [facility] [address] [address] 07/21/2024 Netta Trent Obesity, Class II, B IN 35-39.9 E66.812 ; WILD on CPAP G47.33 ; BMI 35.0-35.9,adult Z68.35 ; Weight loss counseling, encounter for Z71.3 ; Vitamin D deficiency E55.9 ; Thrush B37.0 ; Gastroesophageal reflux disease, esophagitis presence not specified K21.9 and Pure hypercholesterolemia E78.00 [facility] [address] [address] 03/03/2024 Netta Trent Chronic rhinitis J31 .0 [facility] [address] [place], [place] [address] 04/07/2024 Netta Trent Routine medical exam Z00.00 ; B12 deficiency E53.8 ; Pure hypercholesterolemia E78.00 ; Thyroid nodule E04.1 ; Vitamin D deficiency E55.9 ; RLS (restless legs syndrome) G25.81 and Depression with anxiety F41.8 [facility] [address] [address] 04/27/2024 Nicola Bautista [facility] [address] [address] 04/30/2024 Netta Trent [facility] [address] [facility] [address] [place] [address] 05/05/2024 Netta Gomesence [facility] [address] [address] 05/10/2024 Netta Gomesence [facility] [address] [address] 07/26/2024 Nicola Bautista Pure hypercholestero lemia E78.00 [facility] [address] [facility] [address] [place] [address] 06/14/2024 Netta Trent Gastroesophageal ref lux disease, [...] pulmonology pending 07/21/2024 Obesity, Class II, B IN 35-39.9 (ICD-10 - E66.812) 07/26/2024 Pure hypercholesterolemia (ICD-10 - E78.00) 01/28/2024 Fever, unspecified (ICD-10 - R50.9) 01/28/2024 [...] 04/07/2024 B12 deficiency (ICD- 10 - E53.8) 05/05/2024 Hoarseness (ICD-10 - R49.0) persistent now [...] whether esophagitis present (ICD-10 - K21.9) 04/21/2024 Hoarseness (ICD-10 - R49.0) likely multifactoral, discussed GERD vs allergic vs infectious, etc. Rec start PPI, add mucinex, if no improvement would recommend ENT eval for direct visualization 04/21/2024 Gastroesophageal ref lux disease, unspecified whether esophagitis present (ICD-10 - K21.9) 04/21/2024 Persistent cough (ICD-10 - R05.3) 05/05/2024 Persistent cough (ICD-10 - R05.3) 01/28/2024 Thyroid nodule (ICD- 10 - E04.1) 04/07/2024 Pure hypercholesterolemia (ICD-10 - E78.00) 04/07/2024 SOB (shortness of breath) (ICD-10 - R06.02) 07/21/2024 BMI 35.0-35.9,adult (ICD-10 - Z68.35) Complicates all aspects of care. Reviewed indication for medication and that dietary changes as well as exercise are recommended as well. Small, frequent meals recommended. Possible side effects and return precautions reviewed. Goal is 4% weight loss over the first 4 months. 07/21/2024 Weight loss counseli marcio, encounter for (ICD-10 - Z71.3) 05/05/2024 Skin nodule (ICD-10 - R22.9) Shave biopsy performed today, wound care reviewed, FU based on biopsy results 01/28/2024 COPD with exacerbati on (ICD-10 - J44.1) steroid injection today, continue inhalers per pulmonology 04/07/2024 Thyroid nodule (ICD- 10 - E04.1) 04/21/2024 Skin nodule (ICD-10 - R22.9) shave biopsy during FU 04/07/2024 Vitamin D deficiency (ICD-10 - E55.9) 05/05/2024 Pure hypercholesterolemia (ICD-10 - E78.00) 07/21/2024 Vitamin D deficiency (ICD-10 - E55.9) 05/15/2024 Pure hypercholesterolemia (ICD-10 - E78.00) 07/21/2024 Thrush (ICD-10 - B37.0) 05/15/2024 Vitamin D deficiency (ICD-10 - E55.9) 04/07/2024 RLS (restless legs syndrome) (ICD-10 - G25.81) 05/05/2024 Vitamin D deficiency (ICD-10 - E55.9) 07/21/2024 Gastroesophageal ref lux disease, esophagitis presence not specified (ICD-10 - K21.9) Continue PPI and H2 amol until she has follow-up with ENT for reexamination of her larynx 04/07/2024 Depression with anxi ety (ICD-10 - F41.8) 07/21/2024 Pure hypercholesterolemia (ICD-10 - E78.00) So [...] Auto Diff 025 M-Comprehensive Metabolic Panel 04/07/19 M-Hemoglobin A1C 04/07/2024 M-Ferritin 04/07/2024 M-Lipid Panel 04/07/2024 M-Thyroid Stimulating Hormone 04/07/2024 M-Vitamin B12 04/07/2024 M-Vitamin B12 08/23/2021 M-Vitamin B12 10/05/2020 M-Vitamin B12 04/07/2020 M-Vitamin B12 01/27/2020 M-Vitamin D 25 Hydroxy 01/27/2020 M-Vitamin D 25 Hydroxy 04/07/2020 M-Vitamin D 25 Hydroxy 11/12/2022 M-Vitamin D 25 Hydroxy 10/05/2020 M-Vitamin D 25 Hydroxy 08/23/2021 M-Vitamin D 25 Hydroxy 07/21/2024 M-Vitamin D 25 Hydroxy 04/07/2024 M-COVID WITH RESPIRATORY PANEL M-COVID PCR SINGLE RAPID 03/24/2020 EMG/NCV 11/08/2021 Physical Therapy Eval and Treat 03/18/19 23 Physical Therapy Eval and Treat 11/19/19 23 Next Appt Details Provider Name:Netta Albright Carlos Eduardo ce, 10/20/2024 02:00:00 PM, [address] [address], [place], [address], Insurance Providers Payer Name Payer Address Payer Phone Subscriber Number Group Number Insured Name Patient Relationship to Insured Coverage Start Date Coverage End Date [employer] [address] [place] [address] [phone] [id number] Dilcia Mai Self - patient is the insured Medications Administered Medication Instructions Date of Administration Dosage Notes Cyanocobalamin/B-12 Pt's Own Medication 02/01/2020 1 mL Cyanocobalamin/B-12 Pt's Own Medication 02/16/2020 1 mL Cyanocobalamin/B-12 Pt's Own Medication 02/22/2020 1 mL Cyanocobalamin/B-12 Pt's Own Medication 03/01/2020 1 mL Cyanocobalamin/B-12 Pt's Own Medication 03/15/2020 1 mL Cyanocobalamin/B-12 Pt's Own Medication 03/06/2020 1 mL Cyanocobalamin/B-12 Pt's Own Medication 02/08/2020 1 mL Cyanocobalamin/B-12 Pt's Own Medication 02/05/2018 1 mL Cyanocobalamin/B-12 Pt's Own Medication 06/20/2015 1 mL Cyanocobalamin/B-12 Pt's Own Medication 05/03/2015 1 mL Cyanocobalamin/B-12 Pt's Own Medication 04/20/2015 1 mL Cyanocobalamin/B-12 Pt's Own Medication 03/09/2015 1 mL Cyanocobalamin/B-12 Pt's Own Medication 02/23/2015 1 mL Cyanocobalamin/B-12 Pt's Own Medication 01/30/2015 1 mL Cyanocobalamin/B-12 Pt's Own Medication 01/17/2015 1 mL Cyanocobalamin/B-12 Pt's Own Medication 01/02/2015 1 mL Cyanocobalamin/B-12 Pt's Own Medication 11/21/2014 1 mL Cyanocobalamin/B-12 Pt's Own Medication 08/29/2014 1 mL Cyanocobalamin/B-12 Pt's Own Medication 08/22/2014 1 mL Ceftriaxone 500 06/08/2012 500 mg Kenalog 11/30/2015 1 mL Cyanocobalamin/B-12 Pt's Own Medication 04/14/2020 1 mL Cyanocobalamin/B-12 Pt's Own Medication 03/20/2020 1 mL Dexamethasone 4mg Injection 02/07/2021 4 mg Dexamethasone 4mg Injection 03/20/2021 4 mg Dexamethasone 4mg Injection 11/13/2021 4 mg Dexamethasone 4mg Injection 02/13/2023 4 mg Dexamethasone 4mg Injection 01/28/2024 4 mg Kenalog 40mg 11/14/2016 40 mg Kenalog 40mg 07/10/2017 40 mg Triamcinolone Acetonide 40mg Injection 12/10/2017 1 mL Triamcinolone Acetonide 40mg Injection 11/24/2018 1 mL Triamcinolone Acetonide 40mg Injection 07/19/2019 1 mL Kenalog 07/31/2012 1 Kenalog 01/04/2014 1 mL Kenalog 03/31/2014 1 Kenalog 08/01/2014 1 mL Kenalog 02/23/2016 1 mL Cyanocobalamin/B-12 Pt's Own Medication 09/05/2014 1 mL Cyanocobalamin/B-12 Pt's Own Medication 09/19/2014 1 mL Kenalog 12/04/2015 1 mL Kenalog 06/08/2012 1 Triamcinolone Acetonide 40mg Injection 01/27/2020 1 mL Triamcinolone Acetonide 40mg Injection 02/05/2018 1 mL Dexamethasone 4mg Injection 04/07/2024 4 mg Cyanocobalamin/B-12 Pt's Own Medication 08/16/2015 1 mL Cyanocobalamin/B-12 Pt's Own Medication 07/18/2015 1 mL Cyanocobalamin/B-12 Pt's Own Medication 05/23/2015 1 mL Cyanocobalamin/B-12 Pt's Own Medication 04/05/2015 1 mL Cyanocobalamin/B-12 Pt's Own Medication 03/23/2015 1 mL Cyanocobalamin/B-12 Pt's Own Medication 12/19/2014 1 mL Cyanocobalamin/B-12 Pt's Own Medication 12/05/2014 1 mL Cyanocobalamin/B-12 Pt's Own Medication 10/10/2014 1 mL Cyanocobalamin/B-12 Pt's Own Medication 10/03/2014 1 mL given by tamra mccoy Cyanocobalamin/B-12 Pt's Own Medication 09/26/2014 1 mL Medical (General) History Medical History History ICD Code endometriosis COPD Allergies HLD HTN B12 deficiency Colonoscopy 12/2019, Dr Kiesha arora in [place]. Colitis, contined Mesalamine. Repeat recommended in 3 years Peripheral neuropathy - diagnosed by bio psy, Dr Govea Surgical History Surgery Date(Month/Year) endometriosis x2 colonoscopy 01/2018 heart cath
[2024-08-25] MEDS: ALBUTEROL 0.083% 2.5 MG/3 ML NEB IH (10:27)
--- NOTE | 2024-08-25 10:27 | PC.NURSE ---
Pre and Post Spirometry completed without incident. Albuterol 0.083% given via HHN, per written protocol, Pt tolerated tx well.
== END 2024-08-25 23:59 | disposition home or self-care (01) ==
LOC: RT 09:52
PROVIDERS: PCP Nurse Practitioner Family; Visit Provider Internal Medicine Pulmonary Disease
DX: J44.9 Chronic obstructive pulmonary disease, unspecified (principal); R94.2 Abnormal results of pulmonary function studies
CPT/HCPCS: 94010; 94618

== ENCOUNTER 2024-10-19 11:02 | Outpatient (CLI) | payer OTHER, SELFPAY ==
--- OUTSIDE RECORDS SUMMARY | 2024-05-15 17:30 | XMS_ITS ---
Author Organization [facility] Address [address] [place] [address] Care Team Providers Care Artificial Inseminator Name Role Phone Nicola Bautista Primary Care Provider [phone] Netta Trent Unavailable [phone] Nicola Bautista Unavailable Unavailable Migration, Provider Unavailable Unavailable Allergies Allergen (clinical drug ingredient) Drug/Non Drug Allergy documented on EMR Reaction Allergy Type Onset Date Status OMNICEF (uncoded) Unknown Allergy Ac tive SULFA (uncoded) Unknown Allergy Acti ve predniSONE Unknown Drug Allergy Active sulfamethoxazole / trimethoprim Bactrim stomach upset Drug Allergy Active cefdinir Cefdinir rash Drug Allergy Active Penicillin rash Drug Allergy [facility] Encounter Medications Medication SIG (Take, Route, Frequency, Duration) Notes Start Date End Date Status Vitamin D (Ergocalciferol) 1.25 MG (91235 UT) 1 cap(s) orally twice a week 04/27/2024 Active Levocetirizine Dihydrochloride 5 MG 1 tab(s) orally once a day (in the evening); Duration: 30 day(s) prn 12/10/2017 Active Diclofenac Sodium 1 % 2 gram applied topically 4 times a day; Duration: 30 days 03/18/2022 Active Budesonide 3 MG 1 CAP(S) ORALLY ONCE A DAY *Please review and pick correct strength-formulat ion from Median options. If intended option is not shown, discontinue and re-order from Quick Search* Active Estradiol 0.5 MG 1 tab(s) orally once a day; Duration: 30 day(s) Active rOPINIRole HCl 0.5 MG 1 tab(s) orally 3 times a day; Duration: 90 days Active Mucinex 600 MG 1 tab(s) orally every 12 hours; Duration: 7 days 04/21/2024 Active Pantoprazole Sodium 40 MG 1 tab(s) orally once a day 04/21/2024 Active Pravastatin Sodium 20 MG 1 tab(s) orally once a day 04/27/2024 Active WEGOVY (0.25 MG DOSE) 0.25 MG/0.5 ML (0.25 MG DOSE) 0.25 MG SUBCUTANEOUSLY ONCE A WEEK; Duration: 28 DAYS *Please review for potential replacement for e-prescription and drug interaction check* 04/30/2024 Active ALBUTEROL (EQV-PROVENTIL HFA) 90 MCG/INH 2 INH INHALED EVERY 6 HOURS NEEDED FOR SHORTNESS OF BREATH; Duration: 30 DAYS *Please review for potential replacement for e-prescription and drug interaction check* 04/07/2024 Active Lexapro 10 MG 1 tab(s) orally once a day; Duration: 90 days Active Aspirin Low Dose 81 MG 1 tab(s) orally once a day; Duration: 90 days Active Amitriptyline HCl 25 MG 1 tab(s) orally once a day (at bedtime); Duration: 90 days 07/03/2023 Active Montelukast Sodium 10 MG 1 tab(s) orally once a day; Duration: 30 days 09/17/2022 Active Trelegy Ellipta 100 MCG-62.5 MCG-25 MCG/INH 1 PUFF(S) INHALED ONCE A DAY; Duration: 30 DAYS *Please review and pick correct strength-formulat ion from SECU4 options. If intended option is not shown, discontinue and re-order from Quick Search* 09/17/2022 Active Meloxicam 7.5 MG 1 tab(s) orally once a day for pain; Duration: 30 days 11/13/2022 Active Mometasone Furoate 50 MCG/ACT 2 spray(s) intranasally 2 times a day; Duration: 30 days 10/10/2022 Active Azelastine HCl 137 MCG/SPRAY 2 spray(s) intranasally 2 times a day 09/17/2022 Active Encounters Encounter Location Date Provider Diagnosis [facility] [address] [place] [address] 05/15/2024 Provider Migration Gastroesophageal reflux disease, unspecified [...] Notes Vitamin D (Ergocalciferol) 1 .25 MG (83229 UT) 1 cap(s) orally twice a week 04/27/2024 Pantoprazole Sodium 40 MG 1 tab(s) orally once a day 04/21 Pravastatin Sodium 20 MG 1 tab(s) orally once a day 2024 Next Appt Details Provider Name:Netta Jose Ramon Thibodeaux ce, 10/20/2024 02:00:00 PM, [address] [place] [address], [phone], Progress Notes * Jordan MAIB: [birth year] (58 yo F)Acc No.[id number]:05/15/2024 Patient: Dilcia HERNANDEZ Provider: Jeni chadwick Migration :1965 A ge:58 Y S ex:Female Date:05/15/2024 Address:[address] [place] [address], [phone] Pcp:Nicola Bautista Subjective: * Chief Complaints: * 1 . Multum To Medispan Conversion Encounter. * Medical History: * Medications: T aking Budesonide 3 MG DELAYED RELEASE CAPSULE 1 CAP(S) ORALLY ONCE A DAY , Notes to Pharmacist: *Please review and pick correct strength-formulation from Medispan options. If intended option is not shown, discontinue and re-order from Quick Search*, Taking Estradiol 0.5 MG Tablet 1 tab(s) orally once a day , Taking Levocetirizine Dihydrochloride 5 MG Tablet 1 tab(s) orally once a day (in the evening) , Notes to Pharmacist: prn, Taking Diclofenac Sodium 1 % Gel 2 gram applied topically 4 times a day , Taking Mometasone Furoate 50 MCG/ACT Suspension 2 spray(s) intranasally 2 times a day , Taking Azelastine HCl 137 MCG/SPRAY Solution 2 spray(s) intranasally 2 times a day , Taking Trelegy Ellipta 100 MCG-62.5 MCG-25 MCG/INH POWDER 1 PUFF(S) INHALED ONCE A DAY , Notes to Pharmacist: *Please review and pick correct strength-formulation from SECU4 options. If intended option is not shown, discontinue and re-order from Quick Search*, Taking Meloxicam 7.5 MG Tablet 1 tab(s) orally once a day for pain , Taking Amitriptyline HCl 25 MG Tablet 1 tab(s) orally once a day (at bedtime) , Taking Montelukast Sodium 10 MG Tablet 1 tab(s) orally once a day , Taking ALBUTEROL (EQV-PROVENTIL HFA) 90 MCG/INH AEROSOL 2 INH INHALED EVERY 6 HOURS NEEDED FOR SHORTNESS OF BREATH , Notes to Pharmacist: *Please review for potential replacement for e-prescription and drug interaction check*, Taking Lexapro 10 MG Tablet 1 tab(s) orally once a day , Taking Aspirin Low Dose 81 MG Tablet Delayed Release 1 tab(s) orally once a day , Taking rOPINIRole HCl 0.5 MG Tablet 1 tab(s) orally 3 times a day , Taking Mucinex 600 MG Tablet Extended Release 12 Hour 1 tab(s) orally every 12 hours , Taking WEGOVY (0.25 MG DOSE) 0.25 MG/0.5 ML (0.25 MG DOSE) SOLUTION 0.25 MG SUBCUTANEOUSLY ONCE A WEEK , Notes to Pharmacist: *Please review for potential replacement for e-prescription and drug interaction check* * Allergies: P enicillin: rash, Cefdinir: rash, Bactrim: stomach upset, predniSONE, SULFA, OMNICEF. Objective: * Vitals: Assessment: * Assessment: 1. G astroesophageal reflux disease, unspecified whether esophagitis present - K21.9 2 . P ure hypercholesterolemia - E78.00 3 . V itamin D deficiency - E55.9 Plan: * Treatment: 2. P ure hypercholesterolemia Continue Pravastatin Sodium Tablet, 20 MG, 1 tab(s), orally, once a day. 3. V itamin D deficiency Continue Vitamin D (Ergocalciferol) Capsule, 1.25 MG (55497 UT), 1 cap(s), orally, twice a week.? * * Electronic signature of Trever meredith Migration on 10/19/2024 at 11:20 AM EDT Sign off status: Pending * Provider: Jeni chadwick Migration Date: 0 05/15/2024 Generated for Eloisa buckley/Donaldo/Yulietitting on: 0 10/19/2024 11:20 AM EDT
--- OUTSIDE RECORDS SUMMARY | 2024-10-18 07:03 | XMS_ITS ---
Author Organization [facility] Address [address] [place] [address] Care Team Providers Care Component Technician Name Role Phone Nicola Bautista Primary Care Provider Netta Trent Unavailable [phone] Nicola Bautista Unavailable Unavailable REASON FOR VISIT labs Encounters Encounter Location Date Provider Diagnosis [address] [address] 10/18/2024 Netta Trent B12 deficiency E53.8 ; Pure hypercholesterolemia E78.00 ; Essential (primary) hypertension I10 ; Thyroid nodule E04.1 and Vitamin D deficiency E55.9 Assessments Encounter Date Diagnosis (ICD Code) Assessment Notes Treatment Notes Treatment Clinical Notes Section Notes 10/18/2024 B12 deficiency (ICD- 10 - E53.8) 10/18/2024 Pure hypercholesterolemia (ICD-10 - E78.00) 10/18/2024 Essential (primary) hypertension (ICD-10 - I10) 10/18/2024 Thyroid nodule (ICD- 10 - E04.1) 10/18/2024 Vitamin D deficiency (ICD-10 - E55.9) Plan Of Treatment Pending Test Test Name Order Date M-Complete Blood Count Auto Diff 025 M-Comprehensive Metabolic Panel 10/19/19 25 M-Hemoglobin A1C 10/18/2024 M-Lipid Panel 10/18/2024 M-Thyroid Stimulating Hormone 10/18/2024 M-Vitamin B12 10/18/2024 M-Vitamin D 25 Hydroxy 10/18/2024 Next Appt Details Provider Name:Netta Thibodeaux ce, 10/20/2024 02:00:00 PM, [address], [address], Progress Notes * Jordan MAIB: 9[birth year] (58 yo F)Acc No.[id number]:10/18/2024 Patient: Dilcia HERNANDEZ :1965 A ge:58 Y S ex:Female Address:[address] [place] [address] Subjective: * Chief Complaints: * L abs * Medical History: * Surgical History: * Hospitalization/Major Diagno stic Procedure: * Medications: Objective: * Vitals: * Physical Examination: Assessment: * Assessment: 1. B 12 deficiency - E53.8 (Primary) 2 . P ure hypercholesterolemia - E78.00 3 . E ssential (primary) hypertension - I10 4 . T hyroid nodule - E04.1 5 . V itamin D deficiency - E55.9 Plan: * Treatment: 2. P ure hypercholesterolemia L AB: M-Complete Blood Count Auto Diff L AB: M-Comprehensive Metabolic Panel L AB: M-Hemoglobin A1C L AB: M-Lipid Panel L AB: M-Thyroid Stimulating Hormone L AB: M-Vitamin B12 L AB: M-Vitamin D 25 Hydroxy 3. E ssential (primary) hypertension L AB: M-Complete Blood Count Auto Diff L AB: M-Comprehensive Metabolic Panel L AB: M-Hemoglobin A1C L AB: M-Lipid Panel L AB: M-Thyroid Stimulating Hormone L AB: M-Vitamin B12 L AB: M-Vitamin D 25 Hydroxy 4. T hyroid nodule L AB: M-Complete Blood Count Auto Diff L AB: M-Comprehensive Metabolic Panel L AB: M-Hemoglobin A1C L AB: M-Lipid Panel L AB: M-Thyroid Stimulating Hormone L AB: M-Vitamin B12 L AB: M-Vitamin D 25 Hydroxy 5. V itamin D deficiency L AB: M-Complete Blood Count Auto Diff L AB: M-Comprehensive Metabolic Panel L AB: M-Hemoglobin A1C L AB: M-Lipid Panel L AB: M-Thyroid Stimulating Hormone L AB: M-Vitamin B12 L AB: M-Vitamin D 25 Hydroxy * Procedure Codes: * true * Date: Generated for Eloisa buckley/Donaldo/Inessa on: 0 10/19/2024 11:21 AM EDT
--- OUTSIDE RECORDS SUMMARY | 2024-10-19 11:21 | XMS_ITS | Clinical Summary ---
Author Organization Healthcare Address [address] [place] [address] Care Team Providers Care Medical Psychotherapist Name Role Phone Nicola Bautista MD Primary Care Provider [phone] Immunizations Immunization Administration Dates Next Due Influenza, [...] of Treatment Not on file Care Teams Medical Psychotherapist Relationship Specialty Start Date End Date Nicola Bautista MD [address] [place] [address] [place] [address] PCP - General 06/23/20
--- OUTSIDE RECORDS SUMMARY | 2024-10-19 11:22 | XMS_ITS | Patient Health Record ---
Author Organization [facility] Address [address] [place] [address] Care Team Providers Care Bull Driver Name Role Phone Nicola Bautista Primary Care Provider Netta Trent Unavailable [phone] Nicola Bautista Unavailable Unavailable Migration, Provider Unavailable [...] Active Results Component Value Reference Range Notes X ray : Chest Reviewed date:04/08/2024 03:10:40 PM Interpretation: Performing Lab: Notes/Report: H-TVITD Reviewed date:07/22/2024 02:21:45 PM Interpretation: Performing Lab: Notes/Report: TVITD 50.5 30-100 ng/mL Deficient <20 ng/mL Insufficient 20-30 ng/mL Sufficient 30-100 ng/mL Potential Toxicity >100 ng/mL M-Lipid Panel Reviewed date:07/26/2024 02:21:28 PM Interpretation: Performing Lab: Notes/Report: Patient Fasting? Y TRIG 101 30-150 mg/dl CHOL 238 140-200 mg/dl DLDL 126.88 100-129 mg/dL VLDL 20 0-40 mg/dL HDL 61 40-60 mg/dl CHLHDL 3.9 1-3.5 M-Comprehensive Metabolic Pa shauna Reviewed date:07/26/2024 02:21:28 [...] AGRATIO 1.9 1.1-1.8 ALP 95 38-126 U/L Ultrasound : Thyroid Reviewed date:02/12/2024 09:29:46 AM Interpretation: Performing Lab: Notes/Report: M-Complete Blood Count Auto Diff Reviewed date:04/22/2024 [...] 0.1 0.0-0.4 K/mm3 BA# 0.1 0-0.2 K/mm3 M-Comprehensive Metabolic Pa shauna Reviewed date:04/27/2024 03:41:25 [...] Performing Lab: Notes/Report: VITB12 613 239-931 pg/mL Rapid Covid/Flu A-B Combo Reviewed date:01/28/2024 02:35:53 PM Interpretation: Performing Lab: Notes/Report: Rapid Covid neg Flu A neg Flu B neg TISSUE PATHOLOGY (7912) Reviewed date:05/12/2024 12:30:30 PM Interpretation: Performing Lab:AR, [email or web address] Petra Oviedo Notes/Report: NON-FASTING CLINICAL INFORMATION [...] given on container. Gross exam(s) performed at: [facility] [address] [address] Vacuum Form Operator: PETRA OVIEDO MD A DIAGNOSIS Verrucoid kerat [...] times a day; Duration: 90 days Active Diclofenac [...] e-prescription and drug interaction check* 04/07/2024 Active Pravastatin Sodium 40 MG 1 tablet Orally Once a day; Duration: 90 days 07/26/2024 Active Budesonide 3 MG 1 CAP(S) ORALLY ONCE A DAY *Please review and pick correct strength-formulat ion from [employer]izer[employer] options. If intended option is not shown, [...] review and pick correct strength-formulat ion from [employer]izerra options. If intended option is not shown, discontinue and re-order from Quick Search* 09/17/2022 Active Vitamin D (Ergocalciferol) 1.25 MG (48516 UT) 1 cap(s) orally twice a week 04/27/2024 Active Meloxicam 7.5 MG 1 tab(s) orally once a day for pain; Duration: 30 days 11/13/2022 Active Estradiol 0.5 MG 1 tab(s) orally once a day; Duration: 30 day(s) Active Nystatin 072788 UNIT/ML 5 mL Mouth/Throat Four times a day swish and spit; Duration: 10 days 07/21/2024 Active Zepbound 2.5 MG/0.5ML 0.5 mL Subcutaneou s once a week; Duration: 28 days 07/21/2024 Active Immunizations Vaccine Route Administration Date Status Comme nts Tetanus Toxoid Unknown 11/28/2008 Administered Problems Problem Type SNOMED Code ICD Code Onset Dates Problem Status W/U Status Risk Notes Problem Hyperlipidemia (51900521) Hyperlipidemia, unspecified (E78.5) Active confirmed Problem Essential hypertension (10009446) Essential (primary) hypertension (I10) Active confirmed Problem Chronic rhinitis (20319939) Chronic rhinitis (J31.0) Active confirmed Problem Sebaceous cyst (908814375) Sebaceous cyst (L72.3) Active confirmed Problem Acute exacerbation o f chronic obstructive airways disease (150129176) COPD with exacerbation (J44.1) Active confirmed Problem Cervical disc disorder (677936164) DDD (degenerative disc disease), cervical (M50.30) Active confirmed Problem Mixed anxiety and depressive disorder (020367279) Depression with anxiety (F41.8) Active confirmed Problem Vitamin D deficiency (30301022) Vitamin D deficiency (E55.9) Active confirmed Problem Vitamin B12 deficiency (non anemic) (28577927) B12 deficiency (E53.8) Active confirmed Problem Idiopathic periphera l neuropathy (37153093) Idiopathic peripheral neuropathy (G60.9) Active confirmed Problem Restless legs (59364956) RLS (restless legs syndrome) (G25.81) Active confirmed Problem Allergic rhinitis (72269917) Chronic allergic rhinitis (J30.9) Active confirmed Problem Chronic pain (03423529) Other chronic pain (G89.29) Active confirmed Problem Thyroid nodule (382761943) Thyroid nodule (E04.1) Active confirmed Problem Gastroesophageal reflux disease (465503704) Gastroesophageal reflux disease, esophagitis presence not specified (K21.9) Active confirmed Problem Asthma-chronic obstructive pulmonary disease overlap syndrome (disorder) (69681676021886604) Asthma-COPD overlap syndrome (J44.9) Active confirmed Problem Osteoarthritis of knee (130268889) Primary osteoarthritis of right knee (M17.11) Active confirmed Problem Chronic insomnia (503769472) Chronic insomnia (F51.04) Active confirmed Problem Inflammation of righ t sacroiliac joint (0911261976) Inflammation of right sacroiliac joint (M46.1) Active confirmed Problem Exacerbation of moderate persistent asthma (disorder) (537370263) Moderate persistent asthma with acute exacerbation (J45.41) Active confirmed Problem Hyperlipidemia (37854387) Other and unspecified hyperlipidemia (E78.5) Active confirmed Problem Verruca plantaris (00668034) Plantar wart, right foot (B07.0) Active confirmed Problem Generalized anxiety disorder (18397775) SEAN (generalized anxiety disorder) (F41.1) Active confirmed Problem Plantar fascial fibromatosis (96742767) Plantar fasciitis, right (M72.2) Active confirmed Problem Obese class II (996682226545711) BMI 35.0-35.9,adult (Z68.35) Active confirmed Problem Degenerative disc disease (85374114) DDD (degenerative disc disease), lumbar (M51.36) Active confirmed Problem Chronic sinusitis (05046981) Chronic sinus infection (J32.9) Active confirmed Problem Obstructive sleep apnea syndrome (90181051) WILD on CPAP (G47.33) Active confirmed Problem Paresthesia of lower extremity (275264857) Paresthesia of lower extremity (R20.2) Active confirmed Problem Pure hypercholesterolemia (504320360) Pure hypercholesterolemia (E78.00) Active confirmed Problem Elevated blood-pressure reading without diagnosis of hypertension (805033100) Elevated blood pressure reading (R03.0) Active confirmed Problem Ex-tobacco user (finding) (496533492) Personal history of tobacco use (Z87.891) Active confirmed Problem Thyromegaly (9822808) Thyromegaly (E01.0) Active confirmed Problem Tinnitus (00571703) Tinnitus, ri ght (H93.11) Active confirmed Problem Voice hoarseness (42080023) Voice hoarseness (R49.0) Active confirmed Problem Ulcerative colitis (60254602) Other ulcerative colitis without complication (K51.80) Active confirmed Problem Short-term memory loss (733036262) Short-term memory loss (R41.3) Active confirmed Problem Osteoarthritis of right knee joint (disorder) (071625753750855) Localized osteoarthritis of right knee (M17.11) Active confirmed Problem Gastroesophageal reflux disease (259223391) Gastroesophageal reflux disease, unspecified whether esophagitis present (K21.9) Active confirmed Vital Signs Heart Rate 72 /min 07/21/2024 Temperature 98 degrees Fahrenheit 07/21/2024 Blood pressure diastolic 90 mm Hg 07/21/2024 Height 5 ft 7 in in 07/21/2024 Blood pressure systolic 126 mm Hg 07/21/2024 Weight 226 lbs 07/21/2024 BMI 35.39 kg/m2 07/21/2024 Encounters Encounter Location Date Provider Diagnosis [facility] [address] [facility] [address] [place] [address] 05/15/2024 Provider Migration Gastroesophageal reflux disease, unspecified whether esophagitis present K21.9 ; Pure hypercholesterolemia E78.00 and Vitamin D deficiency E55.[address] [facility] [address] [address] 01/28/2024 Netta Trent Fever, unspecified R 50.9 ; URI with cough and congestion J06.9 ; Thyroid nodule E04.1 and COPD with exacerbation J44.[address] [address] 04/07/2024 Netta Trent Moderate persistent asthma with acute exacerbation J45.41 ; Laryngitis J04.0 and SOB (shortness of breath) R06.[address] [address] 04/21/2024 Netta Trent Hoarseness R49.0 ; Gastroesophageal reflux disease, unspecified whether esophagitis present K21.9 ; Persistent cough R05.3 and Skin nodule R22.[address] [address] 05/05/2024 Netta Trent Hoarseness R49.0 ; Gastroesophageal reflux disease, unspecified whether esophagitis present K21.9 ; Persistent cough R05.3 ; Skin nodule R22.9 ; Pure hypercholesterolemia E78.00 and Vitamin D deficiency E55.[address] [facility] [address] [place] [address] 07/21/2024 Netta Gomesence Obesity, Class II, B [place] 35-39.9 E66.812 ; WILD on CPAP G47.33 ; BMI 35.0-35.9,adult Z68.35 ; Weight loss counseling, encounter for Z71.3 ; Vitamin D deficiency E55.9 ; Thrush B37.0 ; Gastroesophageal reflux disease, esophagitis presence not specified K21.9 and Pure hypercholesterolemia E78.00 [facility] [address] [place] [address] 03/03/2024 Netta Gomesence Chronic rhinitis J31 .0 [facility] [address] [place] [address] 04/07/2024 Netta Gomesence Routine medical exam Z00.00 ; B12 deficiency E53.8 ; Pure hypercholesterolemia E78.00 ; Thyroid nodule E04.1 ; Vitamin D deficiency E55.9 ; RLS (restless legs syndrome) G25.81 and Depression with anxiety F41.8 [facility] [address] [place] [address] 04/27/2024 Nicola Besson [facility] [address] [address] 04/30/2024 Netta Gomesence [facility] [address] [place] [address] 05/05/2024 Netta Miley [facility] [address] [address] 05/10/2024 Netta Miley [facility] [address] [place] [address] 07/26/2024 Nicola Besson Pure hypercholestero lemia E78.00 [facility] [address] [address] 09/01/2024 Nicola Besson [facility] [address] [place] [address] 10/18/2024 Netta Miley B12 deficiency E53.8 ; Pure hypercholesterolemia E78.00 ; Essential (primary) hypertension I10 ; Thyroid nodule E04.1 and Vitamin D deficiency E55.9 [facility] [address] [place] [address] 06/14/2024 Netta Trent Gastroesophageal ref lux disease, unspecified whether esophagitis present K21.9 Assessments Encounter Date Diagnosis (ICD Code) Assessment Notes Treatment Notes Treatment Clinical Notes Section Notes 01/28/2024 Fever, unspecified (ICD-10 - R50.9) 01/28/2024 [...] 03/03/2024 Chronic rhinitis (ICD-10 - J31.0) 04/07/2024 Routine medical exam (ICD-10 - Z00.00) 04/07/2024 B12 deficiency (ICD- 10 - E53.8) 04/21/2024 Hoarseness (ICD-10 - R49.0) likely multifactoral, discussed GERD vs allergic vs infectious, etc. Rec start PPI, add mucinex, if no improvement would recommend ENT eval for direct visualization 04/21/2024 Gastroesophageal ref lux disease, unspecified whether esophagitis present (ICD-10 - K21.9) 05/05/2024 Hoarseness (ICD-10 - R49.0) persistent now for 6+ weeks. likely multifactoral, discussed GERD vs allergic vs infectious, etc. Continue PPI as well as allergy/asthma routine and will refer to ENT for direct visualization 05/15/2024 Gastroesophageal ref lux disease, unspecified whether esophagitis present (ICD-10 - K21.9) 06/14/2024 Gastroesophageal ref lux disease, unspecified whether esophagitis present (ICD-10 - K21.9) 05/05/2024 Gastroesophageal ref lux disease, unspecified whether esophagitis present (ICD-10 - K21.9) 07/21/2024 WILD on CPAP (ICD-10 - G47.33) Recommend continued weight loss efforts, addition of GLP-1 would be very helpful in this situation. She will continue to work with her DME to improve tolerance of CPAP. She has follow-up with pulmonology pending 07/21/2024 Obesity, Class II, B AZ 35-39.9 (ICD-10 - E66.812) 10/18/2024 Pure hypercholesterolemia (ICD-10 - E78.00) 10/18/2024 B12 deficiency (ICD- 10 - E53.8) 07/26/2024 Pure hypercholesterolemia (ICD-10 - E78.00) 04/07/2024 Moderate persistent asthma with acute exacerbation (ICD-10 - J45.41) 04/07/2024 Laryngitis (ICD-10 - J04.0) 04/07/2024 SOB (shortness of breath) (ICD-10 - R06.02) 10/18/2024 Essential (primary) hypertension (ICD-10 - I10) 05/05/2024 Persistent cough (ICD-10 - R05.3) 07/21/2024 BMI 35.0-35.9,adult (ICD-10 - Z68.35) Complicates all aspects of care. Reviewed indication for medication and that dietary changes as well as exercise are recommended as well. Small, frequent meals recommended. Possible side effects and return precautions reviewed. Goal is 4% weight loss over the first 4 months. 04/21/2024 Persistent cough (ICD-10 - R05.3) 04/07/2024 Pure hypercholesterolemia (ICD-10 - E78.00) 01/28/2024 Thyroid nodule (ICD- 10 - E04.1) 01/28/2024 COPD with exacerbati on (ICD-10 - J44.1) steroid injection today, continue inhalers per pulmonology 04/21/2024 Skin nodule (ICD-10 - R22.9) shave biopsy during FU 04/07/2024 Thyroid nodule (ICD- 10 - E04.1) 05/05/2024 Skin nodule (ICD-10 - R22.9) Shave biopsy performed today, wound care reviewed, FU based on biopsy results 07/21/2024 Weight loss counseli marcio, encounter for (ICD-10 - Z71.3) 10/18/2024 Thyroid nodule (ICD- 10 - E04.1) 05/15/2024 Pure hypercholesterolemia (ICD-10 - E78.00) 10/18/2024 Vitamin D deficiency (ICD-10 - E55.9) 07/21/2024 Vitamin D deficiency (ICD-10 - E55.9) 05/05/2024 Pure hypercholesterolemia (ICD-10 - E78.00) 04/07/2024 Vitamin D deficiency (ICD-10 - E55.9) 04/07/2024 RLS (restless legs syndrome) (ICD-10 - G25.81) 05/05/2024 Vitamin D deficiency (ICD-10 - E55.9) 07/21/2024 Thrush (ICD-10 - B37.0) 05/15/2024 Vitamin D deficiency (ICD-10 - E55.9) 07/21/2024 [...] Order Date X ray : Spines, Cervical 08/17/2007 X ray : Spines, Cervical 11/07/2022 Ultrasound : Thyroid 02/22/2019 EKG : In House 07/01/2007 Echocardiogram 09/08/2014 Cardiolite GXT 05/16/2020 H-VITAMIN B12 02/16/2015 H-LIPID PANEL 11/17/2012 M-Complete Blood Count Auto Diff 025 M-Complete Blood Count Auto Diff 025 M-Comprehensive Metabolic Panel 04/07/19 25 M-Comprehensive Metabolic Panel 10/19/19 25 M-Hemoglobin A1C 10/18/2024 M-Hemoglobin A1C 04/07/2024 M-Ferritin 04/07/2024 M-Lipid Panel 10/18/2024 M-Lipid Panel 04/07/2024 M-Thyroid Stimulating Hormone 04/07/2024 M-Thyroid Stimulating Hormone 10/18/2024 M-Vitamin B12 08/23/2021 M-Vitamin B12 04/07/2024 M-Vitamin B12 04/07/2020 M-Vitamin B12 10/18/2024 M-Vitamin B12 01/27/2020 M-Vitamin B12 10/05/2020 M-Vitamin D 25 Hydroxy 10/05/2020 M-Vitamin D 25 Hydroxy 01/27/2020 M-Vitamin D 25 Hydroxy 10/18/2024 M-Vitamin D 25 Hydroxy 07/21/2024 M-Vitamin D 25 Hydroxy 04/07/2020 M-Vitamin D 25 Hydroxy 04/07/2024 M-Vitamin D 25 Hydroxy 11/12/2022 M-Vitamin D 25 Hydroxy 08/23/2021 M-COVID WITH RESPIRATORY PANEL M-COVID PCR SINGLE RAPID 03/24/2020 EMG/NCV 11/08/2021 Physical Therapy Eval and Treat 11/19/19 Physical Therapy Eval and Treat 03/18/19 Next Appt Details Provider Name:Netta Jose Ramon Thibodeaux ce, 10/20/2024 02:00:00 PM, [address] [place] [address], [phone], Insurance Providers Payer Name Payer Address Payer Phone Subscriber Number Group Number Insured Name Patient Relationship to Insured Coverage Start Date Coverage End Date [facility] [address] [place] [address] [id number] Dilcia Mai Self - patient is the insured Medications Administered Medication Instructions Date of Administration Dosage Notes Ceftriaxone 500 06/08/2012 500 mg Cyanocobalamin/B-12 Pt's Own Medication 08/22/2014 1 mL Cyanocobalamin/B-12 Pt's Own Medication 08/29/2014 1 mL Cyanocobalamin/B-12 Pt's Own Medication 09/05/2014 1 mL Cyanocobalamin/B-12 Pt's Own Medication 09/19/2014 1 mL Cyanocobalamin/B-12 Pt's Own Medication 09/26/2014 1 mL Cyanocobalamin/B-12 Pt's Own Medication 10/03/2014 1 mL given by tamra mccoy Cyanocobalamin/B-12 Pt's Own Medication 10/10/2014 1 mL Cyanocobalamin/B-12 Pt's Own Medication 11/21/2014 1 mL Cyanocobalamin/B-12 Pt's Own Medication 12/05/2014 1 mL Cyanocobalamin/B-12 Pt's Own Medication 12/19/2014 1 mL Cyanocobalamin/B-12 Pt's Own Medication 01/02/2015 1 mL Cyanocobalamin/B-12 Pt's Own Medication 01/17/2015 1 mL Cyanocobalamin/B-12 Pt's Own Medication 01/30/2015 1 mL Cyanocobalamin/B-12 Pt's Own Medication 02/23/2015 1 mL Cyanocobalamin/B-12 Pt's Own Medication 03/09/2015 1 mL Cyanocobalamin/B-12 Pt's Own Medication 03/23/2015 1 mL Cyanocobalamin/B-12 Pt's Own Medication 04/05/2015 1 mL Cyanocobalamin/B-12 Pt's Own Medication 04/20/2015 1 mL Cyanocobalamin/B-12 Pt's Own Medication 05/03/2015 1 mL Cyanocobalamin/B-12 Pt's Own Medication 05/23/2015 1 mL Cyanocobalamin/B-12 Pt's Own Medication 06/20/2015 1 mL Cyanocobalamin/B-12 Pt's Own Medication 07/18/2015 1 mL Cyanocobalamin/B-12 Pt's Own Medication 08/16/2015 1 mL Cyanocobalamin/B-12 Pt's Own Medication 02/05/2018 1 mL Cyanocobalamin/B-12 Pt's Own Medication 02/01/2020 1 mL Cyanocobalamin/B-12 Pt's Own Medication 02/08/2020 1 mL Cyanocobalamin/B-12 Pt's Own Medication 02/16/2020 1 mL Cyanocobalamin/B-12 Pt's Own Medication 02/22/2020 1 mL Cyanocobalamin/B-12 Pt's Own Medication 03/01/2020 1 mL Cyanocobalamin/B-12 Pt's Own Medication 03/06/2020 1 mL Cyanocobalamin/B-12 Pt's Own Medication 03/15/2020 1 mL Cyanocobalamin/B-12 Pt's Own Medication 03/20/2020 1 mL Cyanocobalamin/B-12 Pt's Own Medication 04/14/2020 1 mL Dexamethasone 4mg Injection 02/07/2021 4 mg Dexamethasone 4mg Injection 03/20/2021 4 mg Dexamethasone 4mg Injection 11/13/2021 4 mg Dexamethasone 4mg Injection 02/13/2023 4 mg Dexamethasone 4mg Injection 01/28/2024 4 mg Dexamethasone 4mg Injection 04/07/2024 4 mg Kenalog 40mg 11/14/2016 40 mg Kenalog 40mg 07/10/2017 40 mg Triamcinolone Acetonide 40mg Injection 12/10/2017 1 mL Triamcinolone Acetonide 40mg Injection 02/05/2018 1 mL Triamcinolone Acetonide 40mg Injection 11/24/2018 1 mL Triamcinolone Acetonide 40mg Injection 07/19/2019 1 mL Triamcinolone Acetonide 40mg Injection 01/27/2020 1 mL Kenalog 06/08/2012 1 Kenalog 07/31/2012 1 Kenalog 01/04/2014 1 mL Kenalog 03/31/2014 1 Kenalog 08/01/2014 1 mL Kenalog 11/30/2015 1 mL Kenalog 12/04/2015 1 mL Kenalog 02/23/2016 1 mL Medical (General) History Medical History History ICD Code endometriosis COPD Allergies HLD HTN B12 deficiency Colonoscopy 12/2019, Dr Kiesha arora in [place]. Colitis, contined Mesalamine. Repeat recommended in 3 years Peripheral neuropathy - diagnosed by bio psyDr [facility] Surgical History Surgery Date(Month/Year) endometriosis x2 colonoscopy 01/2018 heart cath
[2024-10-19 12:48] LABS: Hematocrit 45.0 % (37.0-47.0); Hemoglobin 15.3 g/dL (12.2-16.2); Immature Granulocytes % 0.3 %; Mean Corpuscular HGB Conc 34.0 g/dL (31.8-35.4); Mean Corpuscular Hemoglobin 30.4 pg (27.0-31.2); Mean Corpuscular Volume 89.5 fl (81-99); Nucleated Red Blood Cells % 0 %; Platelet Count 263 K/mm3 (142-424); Red Blood Count 5.03 M/mm3 (4.20-5.40); Red Cell Distribution Width-SD 41.1 fL; White Blood Count 6.6 K/mm3 (4.8-10.8)
[2024-10-19 12:50] LABS: Hemoglobin A1C 5.6 % (4.0-6.0)
[2024-10-19 13:02] LABS: Albumin Level 4.4 g/dl (3.5-5.0); Chloride 106 mmol/L (98-107); Potassium 4.5 mmoL/L (3.5-5.1); Sodium 139 mmol/L (136-145)
[2024-10-19 13:05] LABS: Alanine Aminotransferase 18 U/L (12-78); Albumin/Globulin Ratio 1.8 (1.1-1.8); Alkaline Phosphatase 91 U/L (38-126); Anion Gap 12.5 mEq/L (5-15); Aspartate Amino Transferase 31 U/L (14-36); Bilirubin,Total 0.7 mg/dl (0.2-1.3); Blood Urea Nitrogen 12 mg/dl (7-17); Calcium 9.8 mg/dl (8.4-10.2); Carbon Dioxide 25 mmol/L (22.0-30.0); Cholesterol 215 mg/dl (140-200); Creatinine,Serum 0.60 mg/dl (0.52-1.04); Estimated Glomerular Filt Rate 102 ml/min (>60); GFR (African American) 124 ML/MIN (>60); Globulin 2.4 g/dL (1.3-3.2); Glucose 86 mg/dl (74-100); Total Protein,Serum 6.8 g/dl (6.3-8.2); Triglycerides 126 mg/dl (30-150)
[2024-10-19 13:06] LABS: HDL Cholesterol 67 mg/dl (40-60)
[2024-10-19 13:07] LABS: 25-OH Vitamin D, Total 19.6 ng/mL (30-100)
[2024-10-19 13:36] LABS: Thyroid Stimulating Hormone 1.04 uIU/mL (0.465-4.68)
[2024-10-19 13:40] LABS: Ferritin 83.6 ng/ml (11.1-264); Vitamin B12 315 pg/mL (239-931)
== END 2024-10-19 23:59 | disposition home or self-care (01) ==
LOC: LAB 11:04
PROVIDERS: PCP Nurse Practitioner Family; Visit Provider Nurse Practitioner Family
DX: Z00.00 Encounter for general adult medical examination without abnormal findings (principal); E53.8 Deficiency of other specified B group vitamins; E78.00 Pure hypercholesterolemia, unspecified; I10 Essential (primary) hypertension; E04.1 Nontoxic single thyroid nodule; E55.9 Vitamin D deficiency, unspecified; G25.81 Restless legs syndrome
CPT/HCPCS: 36415; 80053; 80061; 82306; 82607; 82728; 83036; 84443; 85025

== ENCOUNTER 2025-02-05 11:33 | Outpatient (CLI) | payer OTHER, SELFPAY ==
--- OUTSIDE RECORDS SUMMARY | 2024-05-15 16:30 | XMS_ITS ---
Author Organization [facility] Address [address] [place] [address] Care Team Providers Care Marriage Counselor Minister Name Role Phone Nicola Bautista Primary Care Provider Netta Trent Unavailable [phone] Nicola Bautista Unavailable Unavailable Migration, Provider Unavailable Unavailable Allergies Allergen (clinical drug ingredient) Drug/Non Drug Allergy documented on EMR Reaction Allergy Type Onset Date Status OMNICEF (uncoded) Unknown Allergy Ac tive Substance with sulfonamide structure and antibacterial mechanism of action (substance) SULFA (uncoded) Unknown Allergy Active predniSONE Unknown Drug Allergy Active sulfamethoxazole / trimethoprim Bactrim stomach upset Drug Allergy Active cefdinir Cefdinir rash Drug Allergy Active Penicillin rash Drug Allergy Active REASON FOR VISIT [facility] To [facility] Conversion Encounter Medications Medication SIG (Take, Route, Frequency, Duration) Notes Start Date End Date Status Vitamin D (Ergocalciferol) 1.25 MG (25513 UT) Capsule 1 cap(s) orally twice a week 04/27/2024 Active Levocetirizine Dihydrochloride 5 MG Tablet 1 tab(s) orally once a day (in the evening); Duration: 30 day(s) prn 12/10/2017 Active Diclofenac Sodium 1 % Gel 2 gram applied topically 4 times a day; Duration: 30 days 03/18/2022 Active Budesonide 3 MG DELAYED RELEASE CAPSULE 1 CAP(S) ORALLY ONCE A DAY *Please review and pick correct strength-formulat ion from Actacell options. If intended option is not shown, discontinue and re-order from Quick Search* Active Estradiol 0.5 MG Tablet 1 tab(s) orally once a day; Duration: 30 day(s) Active rOPINIRole HCl 0.5 MG Tablet 1 tab(s) orally 3 times a day; Duration: 90 days Active Mucinex 600 MG Tablet Extended Release 12 Hour 1 tab(s) orally every 12 hours; Duration: 7 days 04/21/2024 Active Pantoprazole Sodium 40 MG Tablet Delayed Release 1 tab(s) orally once a day 04/21/2024 Active Pravastatin Sodium 20 MG Tablet 1 tab(s) orally once a day 04/27/2024 Active WEGOVY (0.25 MG DOSE) 0.25 MG/0.5 ML (0.25 MG DOSE) SOLUTION 0.25 MG SUBCUTANEOUSLY ONCE A WEEK; Duration: 28 DAYS *Please review for potential replacement for e-prescription and drug interaction check* 04/30/2024 Active ALBUTEROL (EQV-PROVENTIL HFA) 90 MCG/INH AEROSOL 2 INH INHALED EVERY 6 HOURS NEEDED FOR SHORTNESS OF BREATH; Duration: 30 DAYS *Please review for potential replacement for e-prescription and drug interaction check* 04/07/2024 Active Lexapro 10 MG Tablet 1 tab(s) orally onc e a day; Duration: 90 days Active Aspirin Low Dose 81 MG Tablet Delayed Release 1 tab(s) orally once a day; Duration: 90 days Active Amitriptyline HCl 25 MG Tablet 1 tab(s) orally once a day (at bedtime); Duration: 90 days 07/03/2023 Active Montelukast Sodium 10 MG Tablet 1 tab(s) orally once a day; Duration: 30 days 09/17/2022 Active Trelegy Ellipta 100 MCG-62.5 MCG-25 MCG/INH POWDER 1 PUFF(S) INHALED ONCE A DAY; Duration: 30 DAYS *Please review and pick correct strength-formulat ion from Actacell options. If intended option is not shown, discontinue and re-order from Quick Search* 09/17/2022 Active Meloxicam 7.5 MG Tablet 1 tab(s) orally once a day for pain; Duration: 30 days 11/13/2022 Active Mometasone Furoate 50 MCG/ACT Suspension 2 spray(s) intranasally 2 times a day; Duration: 30 days 10/10/2022 Active Azelastine HCl 137 MCG/SPRAY Solution 2 spray(s) intranasally 2 times a day 09/17/2022 Active Encounters Encounter Location Date Provider Diagnosis [facility] [address] [place] [phone] 05/15/2024 Provider Migration Gastroesophageal reflux disease, unspecified whether esophagitis present K21.9 ; Pure hypercholesterolemia E78.00 and Vitamin D deficiency E55.9 Assessments Encounter Date Diagnosis (ICD Code) Assessment Notes Treatment Notes Treatment Clinical Notes Section Notes 05/15/2024 Gastroesophageal ref lux disease, unspecified whether esophagitis present (ICD-10 - K21.9) 05/15/2024 Pure hypercholesterolemia (ICD-10 - E78.00) 05/15/2024 Vitamin D deficiency (ICD-10 - E55.9) Plan Of Treatment Medication Medication Name Sig Start Date Stop Date Notes Vitamin D (Ergocalciferol) 1 .25 MG (21613 UT) Capsule 1 cap(s) orally twice a week 04/27/2024 Pantoprazole Sodium 40 MG Ta blet Delayed Release 1 tab(s) orally once a day 04/21/2024 Pravastatin Sodium 20 MG Tablet 1 tab(s) orally once a day 04/27/2024 Next Appt Details Provider Name:Netta miller, 02/16/2025 09:00:00 AM, [address] [place] [address], [phone], Progress Notes * Jordan MAIB: 965 (59 yo F)Acc No.[id number]:05/15/2024 Patient: Dilcia Mancilla Provider: Jeni Lang :1965 A ge:58 Y S ex:Female Date:05/15/2024 Address:[address] [place] [id number] Pcp:Nicola Bautista Subjective: * Chief Complaints: * M ultum To Medispan Conversion Encounter * Medications: T akingBudesonide 3 MG DELAYED RELEASE CAPSULE 1 CAP(S) ORALLY ONCE A DAY , Notes to Pharmacist: *Please review and pick correct strength-formulation from Actacell options. If intended option is not shown, discontinue and re-order from Quick Search*Estradiol 0.5 MG Tablet 1 tab(s) orally once a day Levocetirizine Dihydrochloride 5 MG Tablet 1 tab(s) orally once a day (in the evening) , Notes to Pharmacist: prnDiclofenac Sodium 1 % Gel 2 gram applied topically 4 times a day Mometasone Furoate 50 MCG/ACT Suspension 2 spray(s) intranasally 2 times a day Azelastine HCl 137 MCG/SPRAY Solution 2 spray(s) intranasally 2 times a day Trelegy Ellipta 100 MCG-62.5 MCG-25 MCG/INH POWDER 1 PUFF(S) INHALED ONCE A DAY , Notes to Pharmacist: *Please review and pick correct strength-formulation from Actacell options. If intended option is not shown, discontinue and re-order from Quick Search*Meloxicam 7.5 MG Tablet 1 tab(s) orally once a day for pain Amitriptyline HCl 25 MG Tablet 1 tab(s) orally once a day (at bedtime) Montelukast Sodium 10 MG Tablet 1 tab(s) orally once a day ALBUTEROL (EQV-PROVENTIL HFA) 90 MCG/INH AEROSOL 2 INH INHALED EVERY 6 HOURS NEEDED FOR SHORTNESS OF BREATH , Notes to Pharmacist: *Please review for potential replacement for e-prescription and drug interaction check*Lexapro 10 MG Tablet 1 tab(s) orally once a day Aspirin Low Dose 81 MG Tablet Delayed Release 1 tab(s) orally once a day rOPINIRole HCl 0.5 MG Tablet 1 tab(s) orally 3 times a day Mucinex 600 MG Tablet Extended Release 12 Hour 1 tab(s) orally every 12 hours WEGOVY (0.25 MG DOSE) 0.25 MG/0.5 ML (0.25 MG DOSE) SOLUTION 0.25 MG SUBCUTANEOUSLY ONCE A WEEK , Notes to Pharmacist: *Please review for potential replacement for e-prescription and drug interaction check*Taking Budesonide 3 MG DELAYED RELEASE CAPSULE 1 CAP(S) ORALLY ONCE A DAY , Notes to Pharmacist: *Please review and pick correct strength-formulation from Actacell options. If intended option is not shown, discontinue and re-order from Quick Search*Taking Estradiol 0.5 MG Tablet 1 tab(s) orally once a day Taking Levocetirizine Dihydrochloride 5 MG Tablet 1 tab(s) orally once a day (in the evening) , Notes to Pharmacist: prnTaking Diclofenac Sodium 1 % Gel 2 gram applied topically 4 times a day Taking Mometasone Furoate 50 MCG/ACT Suspension 2 spray(s) intranasally 2 times a day Taking Azelastine HCl 137 MCG/SPRAY Solution 2 spray(s) intranasally 2 times a day Taking Trelegy Ellipta 100 MCG-62.5 MCG-25 MCG/INH POWDER 1 PUFF(S) INHALED ONCE A DAY , Notes to Pharmacist: *Please review and pick correct strength-formulation from Actacell options. If intended option is not shown, discontinue and re-order from Quick Search*Taking Meloxicam 7.5 MG Tablet 1 tab(s) orally once a day for pain Taking Amitriptyline HCl 25 MG Tablet 1 tab(s) orally once a day (at bedtime) Taking Montelukast Sodium 10 MG Tablet 1 tab(s) orally once a day Taking ALBUTEROL (EQV-PROVENTIL HFA) 90 MCG/INH AEROSOL 2 INH INHALED EVERY 6 HOURS NEEDED FOR SHORTNESS OF BREATH , Notes to Pharmacist: *Please review for potential replacement for e-prescription and drug interaction check*Taking Lexapro 10 MG Tablet 1 tab(s) orally once a day Taking Aspirin Low Dose 81 MG Tablet Delayed Release 1 tab(s) orally once a day Taking rOPINIRole HCl 0.5 MG Tablet 1 tab(s) orally 3 times a day Taking Mucinex 600 MG Tablet Extended Release 12 Hour 1 tab(s) orally every 12 hours Taking WEGOVY (0.25 MG DOSE) 0.25 MG/0.5 ML (0.25 MG DOSE) SOLUTION 0.25 MG SUBCUTANEOUSLY ONCE A WEEK , Notes to Pharmacist: *Please review for potential replacement for e-prescription and drug interaction check* * Allergies: P enicillin: rashCefdinir: rashBactrim: stomach upsetpredniSONESULFAOMNICEF Assessment: * Assessment: 1. G astroesophageal reflux disease, unspecified whether esophagitis present - K21.9 2 . P ure hypercholesterolemia - E78.00 3 . V itamin D deficiency - E55.9 Plan: * Treatment: 2. P ure hypercholesterolemia Continue Pravastatin Sodium Tablet, 20 MG, 1 tab(s), orally, once a day. 3. V itamin D deficiency Continue Vitamin D (Ergocalciferol) Capsule, 1.25 MG (48037 UT), 1 cap(s), orally, twice a week.? Billing Information: * Procedure Codes: * Electronic signature of Prov viri Migration on 02/05/2025 at 11:36 AM EST Sign off status: Pending * Provider: Jeni chadwick Migration Date: 0 05/15/2024 Generated for Eloisa buckley/Donaldo/Yulietitting on: 1 04/08/2024 11:36 AM EST
--- NOTE | 2025-02-05 | XR_ITS ---
PROCEDURE INFORMATION: Exam: XR Chest Exam date and time: 02/05/2025 11:43 AM Age: 59 years old Clinical indication: Cough and shortness of breath; Additional info: Cough, SOA TECHNIQUE: Imaging protocol: Radiologic exam of the chest. Views: 2 views. COMPARISON: CR XR CHEST 2V 04/07/2024 4:04 PM FINDINGS: Lungs: Unremarkable. No consolidation. Pleural spaces: Unremarkable. No pleural effusion. No pneumothorax. Heart/Mediastinum: Unremarkable. No cardiomegaly. Bones/joints: Unremarkable. IMPRESSION: No acute findings.
--- OUTSIDE RECORDS SUMMARY | 2025-02-05 11:36 | XMS_ITS | Data Portability ---
Author Organization [facility] Address [address] [place] [address] Care Team Providers Care Post Production Assistant Name Role Phone NICOLA WELCH Primary Care [...] Organization Details Last Modified Time Details Appointments None recorded. Lab cytology report, thin prep, smear or scraping, cervical or vaginal 2024 025 [place] [facility], [address] , [facility], [place], [address], 5 15:08:45 rapid strep group A, throat 2023 024 [facility], [address] [place] [address], [address], 16:58:31 rapid flu (A+B) 2023 024 [facility], [address] [place] [address], [address], 4 16:58:31 rapid SARS CoV + SARS CoV 2 Ag, QL IA, respiratory specimen 2023 024 [facility], [address] [facility], [place], [address], 4 16:58:31 Referral None recorded. Procedures None recorded. Surgeries None recorded. Imaging US, transvagina l 2024 025 mattie House Public [employer], [address] [place] [address] , [place], [address], 5 16:02:14 LDCT, chest, for lung cancer screening - due Feb 20252024 026 mattie Baca (Centralized Scheduling), [place], [address], 5 19:33:04 LDCT, chest, for lung cancer screening 2023 025 greyson [facility] (Scheduling), [address], [place], [address], 5 08:48:07 MAMMO, screening, digital, bilateral 2023 025 greyson Baca (Centralized Scheduling), [place], [address], 5 08:57:27 DEXA, vertebral fracture assessment 2023 024 greyson Baca (Centralized Scheduling), [place], [address], 4 13:56:56 Medication Orders Premarin 0.625 mg/gram vaginal cream 2023 024 [facility] [place], [address] [place] [address], [address], 08:41:59 Patient TargetsNo targets recorded. Patient Instructions Encounter Date Encounter Id Patient Instructions Last Modified By Organization Details Last Modified Time 07/29/2023 [id number] A healthy lifestyle: care instructions lshower Not available 07/29/2023 15:26:11 learning about lung cancer screening lshower Not available 07/29/2023 15:26:11 08/19/2024 [id number] A healthy lifestyle: care instructions lshower Not available 08/19/2024 18:12:43 medical record request* - Requesting more recent office visit notes or procedures.last CS record was 12/01 and she is sure she has had since then; last ov note we have is 12/2019. forwarding todays not back to you. thanks/ls Not available 08/27/2024 09:36:02 learning about healthy weight lshower Not available 08/19/2024 18:12:43 body mass index: care instructions lshower Not available 08/19/2024 18:12:43 Reason for Referral None Reported. Results Created Date Observation Date Name Description Value Unit Range Abnormal Flag Note LastModifiedBy Organization Detail LastModifiedTime 01/27/2001/27/2024 rapid SARS CoV + SARS CoV 2 Ag, QL IA, respi rator y speci men SARS CoV antigen Positi ve Not Available [address], [address], 01/27/2024 16:27:39 01/27/20 24 01/27/2024 rapid flu (A+B) Flu negati ve Not Available [address], [address], 01/27/2024 16:27:33 01/27/20 24 01/27/2024 rapid flu (A+B) Type Both A & B Not Available [address], [address], 01/27/2024 16:27:33 01/27/20 24 01/27/2024 rapid strep group A, throa t Strep negati ve Not Available [address], [address], 01/27/2024 16:25:31 01/27/20 24 01/27/2024 rapid strep group A, throa t Culture No Not Available [address], [address], 01/27/2024 16:25:31 08/20/19 25 08/20/2024 IGP, APTIM A HPV, RFX 16/18 ,45 HPV aptima Negati ve negati ve This nucle ic acid ampli ficat ion test detec ts fourt een high- risk HPV types (16,1 8,31, 33,35 ,39,4 5,51, 52,56 ,58,5 9,66, 68) witho ut diffe renti ation . Not Available [facility] ([facility]) [address] [facility], [place], [address], 08/22/2024 15:08:45 08/20/19 25 08/22/2024 IGP, APTIM A HPV, RFX 16/18 ,45 diagnosis: Commen t NEGAT CECELIA FOR INTRA EPITH ELIAL LESIO N OR CANDIDA JOAQUIN . Not Available [facility] ([facility]) [address] [facility], [place], [address], 08/22/2024 15:08:45 08/20/19 25 08/22/2024 IGP, APTIM A HPV, RFX 16/18 ,45 specimen adequacy: Commen t Satis facto ry for evalu ation . Endoc ervic al and/o r squam ous metap lasti c cells (endo cervi ying compo nent) are prese nt. Not Available [facility] ([facility]) [address] [facility], [place], [address], 08/22/2024 15:08:45 08/20/19 25 08/22/2024 IGP, APTIM A HPV, RFX 16/18 ,45 clinician provided ICD10: Claudy rajan Z01.4 19 Not Available [facility] ([facility]) [address] [place], [address], 08/22/2024 15:08:45 08/20/19 25 08/22/2024 IGP, APTIM A HPV, RFX 16/18 ,45 performed by: Claudy amanda, Cytol ogist (ASCP ) Not Available [facility] ([facility]) [address] [place], [address], 08/22/2024 15:08:45 08/20/19 25 08/22/2024 IGP, APTIM A HPV, RFX 16/18 ,45 . . Not Available [facility] ([facility]) [address] [facility], [place], [address], 08/22/2024 15:08:45 08/20/1908/22/2024 IGP, APTIM A HPV, RFX 16/18 ,45 note: Claudy rajan The Pap smear is a scree mariya test christiana nicolas to aid in the detec tion of glenis ligna nt and malig nant condi tions of the uteri ne cervi x. It is not a diagn ostic proce dure and shoul d not be used as the sole means of detec ting cervi ying cance r. Both false -posi tive and false -nega tive repor ts do occur . Not Available [facility] ([facility]) [address] [place], [address], 08/22/2024 15:08:45 08/20/19 25 08/22/2024 IGP, APTIM A HPV, RFX 16/18 ,45 test methodology: Claudy rajan This liqui d based ThinP rep(R ) pap test was scree maria isabel with the use of an image guide d systyuliya m. Not Available [facility] ([facility]) [address] [facility], [place], [address], 08/22/2024 15:08:45 08/20/19 25 08/22/2024 IGP, APTIM A HPV, RFX 16/18 ,45 HPV genotype reflex Commen t Crite christa not met, HPV Genot ype not perfo rmed. Not Available [facility] ([facility]) [address] [facility], [place], [address], 08/22/2024 15:08:45 02/01/20 25 01/31/2025 rapid SARS CoV + SARS CoV 2 Ag, QL IA, respi rator y speci men SARS CoV antigen Negati ve Not Available [address], [address], 01/31/2025 14:31:49 02/01/20 25 01/31/2025 rapid flu (A+B) Flu negati ve Not Available [address], [address], 01/31/2025 14:31:23 02/01/20 25 01/31/2025 rapid flu (A+B) Type Both A & B Not Available [address], [address], 01/31/2025 14:31:23 02/01/20 25 01/31/2025 rapid strep group A, throa t Strep negati ve Not Available [address], [address], 01/31/2025 14:23:38 02/01/20 25 01/31/2025 rapid strep group A, throa t Culture No Not Available [address], [address], 01/31/2025 14:23:38 07/31/19 24 07/29/2023 MAMMO , scree mariya, bilat eral [facility] Ce Name: JT SCHMITT [address] [employer] Phys: [place] [address] : 1965 Age: 57 Sex: F Acct: [id number] Loc: G.MAMM PHONE #: Exam Date: 2023 Status : DEP CLI FAX #: [phone] Rad# [id number] Unit# [id number] Admit Date: 2023 EXAMS: CPT CODE: [id number] SCN DIG BREAST TOMOSY N AVILA 48832 BILATE RAL DIGITA L SCREEN ING MAMMOG MAGGIE WITH CAD AND 3D TOMOSY NTHESI S, 024: CLINIC AL HISTOR Y: Routin e screen ing. No breast proble ms. Padron al grandm other with breast carcin venita Correl ation is made with prior mammog lio rangin g from 023 to 019. FINDIN GS: [...] basis by the attend ing physic nae. *Breas t imagin g has a false negati ve [...] MD PAGE 1 Signed Report (OZIEL NUED) [facility] Name: JT SCHMITT [address] [place] [address] Phys: [place] [address] : 1965 Age: 57 Sex: F Acct: [id number] Loc: Amber.MAMM PHONE #: [phone] Exam Date: 2023 Status : DEP CLI FAX #: Rad# [id number] Unit# [id number] Admit Date: 2023 EXAMS: CPT CODE: [id number] SCN DIG BREAST TOMOSY N AVILA 25807 CC: Rachel Welch MD; Rita Morocho Dictat [...] RITA Consul ting Provid er: REBEKAH Gonzalez [address] [place], [address], 08/07/2023 11:00:45 01/01/20 24 01/01/2024 DEXA, verte bral fract ure asses sment [facility] Name: JT SCHMITT [employer] Phys: [place] [address] : 1965 Age: 58 Sex: F Acct: [id number] Loc: G.RAD PHONE #: [phone] Exam Date: 2023 Status : REG CLI FAX #: Rad# [id number] Unit# [id number] Admit Date: 2023 EXAMS: CPT CODE: [id number] DEXA BONE DENSIT Y WITH VFA 71578 CLINIC AL INFORM ATION: Screen ing for [...] T6 to L4 IMPRES TIMOTHY: 1. Jaycob rajan has osteop enia based on the T [...] eduarda. Electr onical ly Signed by Ron Gnozalez on 2023 at 1219 Report ed and signed by: DUNG Gonzalez M.D. PAGE 1 Signed Report (OZIEL NUED) [facility] Name: JT SCHMITT [address] [employer] Phys: [place] [address] : 1965 Age: 58 Sex: F Acct: [id number] Loc: YESSICA PHONE #: [phone] Exam Date: 2023 Status : REG CLI FAX #: [phone] Rad# [id number] Unit# [id number] Admit Date: 2023 EXAMS: CPT CODE: [id number] DEXA BONE DENSIT Y WITH VFA 79314 CC: Rachel Welch MD; Rita Morocho Dictat ed Date/T taylor: 2023 (1219) Techno logist : SARA Cortez; MARÍA DEL RIO MANNY Transc ribed Date/T taylor: 2023 (1219) Transc riptio nist: DR.HAR MIRANDA Gay onic Signat ure Date/T taylor: 2023 (1219) Printe d Date/T taylor: 2023 (1222) BATCH NO: N/A PAGE 2 Signed Report CC'ed Logic: Orderi ng Provid er: SHOWER RITA Attend ing Provid er: SHOWER RITA Referr ing Provid er: SHOWER RITA Consul ting Provid er: REBEKAH Gonzalez [address] , [place], [address], 02/09/2024 13:56:56 03/05/19 25 03/05/2024 LDCT, chest , for lung cance r elvin meraz No observ ation record ed. [email or web address], [place], [address], 03/08/2024 11:46:25 08/05/19 25 08/04/2024 MAMMO , elvin meraz, digit al, bilat eral [facility] Name: JT SCHMITT [facility] [employer] Phys: [place] [address] : 1965 Age: 58 Sex: F Acct: [id number] Loc: G.MAMM PHONE #: Exam Date: 2024 Status : REG CLI FAX #: Rad# [id number] Unit# [id number] Admit Date: 2024 EXAMS: CPT CODE: [id number] SCN DIG BREAST TOMOSY N AVILA 65104 EXAM DESCRI PTION: SCN DIG BREAST TOMOSY [...] report will be commun icated to the patien t in layman 's terms. IMPRES TIMOTHY: No mammog raphic eviden ce of malign topher. BI-RAD S CATEGO RY: CATEGO RY 1, NEGATI VE RECOMM ENDATI ON: ANNUAL SCREEN ING IN 12 MONTHS Electr onical ly signed by: Larisa rajan MD 2024 09:04 PM EDT RP Workst ation: [id number] [facility] FOLLOW -UP CODE Electr onical ly Signed by LARISA Rajan on 2024 at 1502 Report ed and signed by: RAYSA PIERRE PAGE 1 Signed Report (OZIEL NUED) [facility] Name: MARTI OATESJT GILLILANDaKi Smith [address] [employer] Phys: [place] [address] : 1965 Age: 58 Sex: F Acct: [id number] Loc: G.MAMM PHONE #: [phone] Exam Date: 2024 Status : REG CLI FAX #: Rad# [id number] Unit# [id number] Admit Date: 2024 EXAMS: CPT CODE: [id number] SCN DIG BREAST TOMOSY N AVILA 20730 CC: Rachel Welch MD; Rita Morocho Dictat ed Date/T taylor: 2024 (1502) Techno logist : ZHANE CHANEY (RT)(R ) Transc ribed Date/T taylor: 2024 (1502) Transc riptio nist: DR.THA DEEPIKA Gay onic Signat ure Date/T taylor: 2024 (150) Printe d Date/T taylor: 2024 (2108) BATCH NO: N/A PAGE 2 Signed Report CC'ed Logic: Orderi ng Provid er: SHOWER RITA Attend ing Provid er: SHOWER RITA Referr ing Provid er: SHOWER RITA Consul ting Provid er: REBEKAH Gonzalez [address] [place], [address], 08/12/2024 08:57:27 08/31/1909/03/2024 US, trans vagin al No observ ation record ed. lshower [place] [facility] [employer] [address] [place] [address] , [place], [address], 09/04/2024 16:02:14 09/10/1909/03/2024 US, trans vagin al No observ ation record ed. BARCODE [place] [facility] [employer] [facility] [address] [place] [address] , [place], [address], 09/09/2024 16:44:56 Result Notes Documentation Provider Name and Address Organization Details Recorded Time Mammo, Screening, Bilateral : [facility] Ce Name: DILCIA MAI [address] [place] [address] Phys: [place] [address] : 1965 Age: 57 Sex: F Acct: [id number] Loc: Amber.MAMM PHONE #: Exam Date: 07/29/2023 Status: DEP CLI FAX #: Rad# [id number] Unit# [id number] Admit Date: 07/29/2023 EXAMS: CPT CODE: [id number] SCN DIG BREAST TOMOSYN AVILA 86742 BILATERAL DIGITAL SCREENING MAMMOGRAPHY WITH CAD AND [...] WRIGHT MD PAGE 1 Signed Report (CONTINUED) [facility] Ce Name: DILCIA MAI [address] Phys: [place] [address] : 1965 Age: 57 Sex: F Acct: [id number] Loc: Amber.MAMM PHONE #: Exam Date: 07/29/2023 Status: DEP CLI FAX #: Rad# [id number] Unit# [id number] Admit Date: 07/29/2023 EXAMS: CPT CODE: [id number] SCN DIG BREAST TOMOSYN AVILA 04501 CC: Nicola Welch MD; Rita Morocho Dictated Date/Time: 07/29/2023 (1850) Technologist: VLADIMIR STEEL RT(R)(M)(CT)(MR) Transcribed Date/Time: 07/29/2023 (1850) Greeting Card Editor: Electronic Signature Date/Time: 07/29/2023 (1850) Printed Date/Time: 07/31/2023 (1807) BATCH NO: N/A PAGE 2 Signed Report CC'ed Logic: Ordering Provider: KAREN SALINAS Attending Provider: KAREN SALINAS Referring Provider: KAREN SALINAS Consulting Provider: REBEKAH Olivia [facility] 08/07/2023 11:00:45 Dexa, Vertebral Fracture Assessment : [facility] Ce Name: DILCIA MAI [address] Phys: [place] [address] : 1965 Age: 58 Sex: F Acct: [id number] Loc: YESSICA PHONE #: Exam Date: 01/01/2024 Status: REG CLI FAX #: Rad# [id number] Unit# [id number] Admit Date: 01/01/2024 EXAMS: CPT CODE: [id number] DEXA BONE DENSITY WITH VFA 91176 CLINICAL INFORMATION: Screening for osteoporosis COMPARISON: No [...] ORDONEZ M.D. PAGE 1 Signed Report (CONTINUED) [facility] Ce Name: DILCIA MAI [facility] [employer] Phys: [place] [address] : 1965 Age: 58 Sex: F Acct: [id number] Loc: JamalRAD PHONE #: Exam Date: 01/01/2024 Status: REG CLI FAX #: Rad# [id number] Unit# [id number] Admit Date: 01/01/2024 EXAMS: CPT CODE: [id number] DEXA BONE DENSITY WITH VFA 83595 CC: Nicola Welch MD; Rita Morocho Dictated Date/Time: 01/01/2024 (1219) Technologist: SARA MOODY; ANGEL BRYANT Transcribed Date/Time: 01/01/2024 (1219) Greeting Card Editor: Electronic Signature Date/Time: 01/01/2024 (1219) Printed Date/Time: 01/01/2024 (1222) BATCH NO: N/A PAGE 2 Signed Report CC'ed Logic: Ordering Provider: KAREN SALINAS Attending Provider: KAREN SALINAS Referring Provider: KAREN SALINAS Consulting Provider: REBEKAH Estrada [facility] [place] - [facility] 02/09/2024 13:56:56 Mammo, Screening, Digital, Bilateral : [facility] Ce Name: DILCIA MAI [facility] Phys: [place] [address] : 1965 Age: 58 Sex: F Acct: [id number] Loc: JamalMAMM PHONE #: Exam Date: 08/04/2024 Status: REG CLI FAX #: Rad# [id number] Unit# [id number] Admit Date: 08/04/2024 EXAMS: CPT CODE: [id number] SCN DIG BREAST TOMOSYN AVILA 68627 EXAM DESCRIPTION: SCN DIG BREAST TOMOSYN AVILA [...] Larisa Garcia MD 08/04/2024 09:04 PM EDT [facility] FOLLOW-UP CODE at 1502 Reported and signed by: LARISA GARCIA PAGE 1 Signed Report (CONTINUED) [facility] Ce Name: DILCIA MAI Amber [address] [place] [address] Phys: [place] [address] : 1965 Age: 58 Sex: F Acct: [id number] Loc: G.MAMM PHONE #: Exam Date: 08/04/2024 Status: REG CLI FAX #: Rad# [id number] Unit# [id number] Admit Date: 08/04/2024 EXAMS: CPT CODE: [id number] [facility] DIG BREAST TOMOSYN AVILA 38111 CC: Nicola Welch MD; Rita Morocho Dictated Date/Time: 08/04/2024 (1502) Technologist: TATY CHANEY (RT)(R) Transcribed Date/Time: 08/04/2024 (1502) Greeting Card Editor: Electronic Signature Date/Time: 08/04/2024 (1502) Printed Date/Time: 08/04/2024 (237) BATCH NO: N/A PAGE 2 Signed Report CC'ed Logic: Ordering Provider: KAREN SALINAS Attending Provider: KAREN SALINAS Referring Provider: KAREN SALINAS Consulting Provider: REBEKAH Crewsjavi null, [place] - [facility] 08/12/2024 08:57:27 Problems Name Problem SNOMED Code Status Onset Date Resolution Date Notes Provider Name and Address Organization Details Recorded Time Mixed anxiety and depressi ve disorder 646219730 Completed 04/10/2020 Polly Olivia [place], [place] - [facility] 1 15:21:15 Anxiety 54702505 Active Polly Steens [place], [place] - [facility] 1 15:21:21 Ulcerati ve colitis 35097212 Active Polly Steens [place], [place] - [facility] 2 08:41:14 Cigarett e smoker 99818258 Active quit as of 05/20!!sm oked from 20's -41 Torito Grider RN [address], [place], [address], [place] - [facility] 7 09:49:28 Surveill ance of oral contrace ption Completed 04/10/2020 Polly Steens [place], [place] - [facility] 1 15:19:10 Neuropat hy 091813987 Active Polly Steens null, [place] - [facility] 4 11:04:49 Degenera tion of interver tebral disc 02985628 Active Polly Steens [place], [place] - [facility] 4 11:04:57 History of endometr iosis 9636992518 6935958 Active 2005 Torito Grider RN [address], [place], [address], [place] - [facility] 7 09:47:54 Osteopen ia 624000660 Active 2005 Rita Morocho MD [address], [place], [address], [facility] - [facility] 5 19:25:25 Angina pectoris 030631331 Active 2007 NEG cath- panic attacks, rx'd Lexapro- helping Torito Grider RN [address], [place], [address], [place] - [facility] 7 09:47:37 Painless rectal bleeding 996030424 Active 200712/15/19 08 guiac + stool, no other sx, refer to [facility]ER[facility] colonosc opy Torito Grider RN [address], [place], [address], [place] - [facility] 7 09:48:38 Thyroid nodule 687883156 Active [address] Ellison, normal labs, due for repeat ultrasou nd 2015 Torito Grider RN [address], [place], [address], [place] - [facility] 7 09:49:04 History of anemia vitamin B12 deficien t 524420500 Active 2014 Torito Grider RN [address], [place], [address], [place] - [facility] 7 09:51:14 Intramur al leiomyom a of uterus 45961979 Active 2017 Rita Morocho MD [address], [place], [address], [place] - [facility] 8 09:18:29 Hyperlip idemia 37354561 Active [address] Brooke 03/2018 Rita Morocho MD [address], [place], [address], [place] - [facility] 9 09:48:29 Nocturia 573448486 Completed 201804/10/2020 Polly maciel, [place] - [facility] 1 15:21:04 Hormone replacem ent therapy Active 2020 Rita Morocho MD [address], [place], [address], [place] - [facility] 1 14:08:37 Body mass index 25-29 - overweig ht 533199245 Active 2021 Rita Morocho MD [address], [place], [address], [place] - [facility] 2 13:34:51 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 Procedures Surgical History Date Name Laterality Status Provider Name and Address Organization Details Recorded Time 025 Date of Last Mammogram completed Yanci Estrada [place] - [facility] 08/05/2024 13:43:39 024 Most Recent Bone Density completed Rita Morocho MD [address], [place], [address], [place] - [facility] 08/19/2024 18:59:53 024 Date [...] Olivia [place] - [facility] 06/25/2022 10:50:14 020 [employer] Ultrasound completed Sara Pino [place] - [facility] 05/21/2019 09:41:09 018 Colonoscopy completed Polly Olivia [place] - [facility] 06/25/2022 10:50:31 998 Diagnostic Laparoscopy completed Torito Grider RN [address] [facility], [place], [address] [place] - [facility] 03/06/2016 09:56:22 Imaging Results None recorded. Procedure Notes None recorded. Medical Equipment None Reported. Allergies Allergen ID Allergen Name Allergen Category Reaction Reaction Severity Criticality Documentation Date Start Date Code Code System Note Provider Name and Address Organization Details Recorded Time 375435 sulfameth oxazole / trimethop rim medicatio n Not available Not available Not available 01/31/2025 65961 RxNorm Not Available [employer] [facility] [employer] 5 14:22:25 612345 cefdinir medicatio n rash Not available Not available 01/31/2025 20216 RxNorm Not Available [employer] [facility] [employer] 5 14:22:25 77686 Product containin g penicilli n (product) medicatio n hives Not available Not available 11/17/20152007 04304 8001 SNOMED React ion: Hives ; Comme nt: Penic illin ; Not Available [facility] 6 09:27:17 12168 Substance with sulfonami de structure and antibacte rial mechanism of action (substanc e) medicatio n nausea Not available Not available 03/17/2017 06371 8003 SNOMED Glenis maciel, [place] - [facility] 8 10:01:33 Medications Name Sig Start Date Stop Date Status Note LastModified by Organization Details LastModified Time lmp (rr) cream (lp2.15) 07/28 completed Not Available Not Available Not Available blood pressu solution kit 07/18 completed Not [...] Available Not Available Not Available albuterol sulfate 2.5 mg/3 mL (0.083 %) solution for nebulizat ion Inhale 3 mL by nebuliza tion route. 2024 active Not Available Not Available Not Avai lable famotidin e 10 mg tablet Take 1 [...] Not Available prednison e 20 mg tablet Take 1 tablet twice a day by oral route for 5 days. 2024 active Not Available Not Available Not Avai lable simvastat in 10 mg tablet 01/26 completed [...] mg tablet one tablet daily (take with works manager) 08/02 completed Not Available Not Available Not [...] sulfate HFA 90 mcg/actua tion aerosol inhaler Inhale 2 puffs every 4 hours by inhalati on route as needed. 2024 active Not Available Not Available Not Avai lable Vitamin D2 1,250 mcg (50,000 unit) capsule once weekly 01/26 completed Not Available Not Available Not Available oxybutyni n chloride 5 mg tablet Take 1 tablet every day by oral route at bedtime. 03/09 completed Not Available Not Available Not Available fluticaso ne propionat e 50 mcg/actua tion nasal spray,esequiel pension 01/26 completed Not Available Not Available Not Available doxycycli ne hyclate 100 mg tablet 03/07 completed Not Available Not Available Not Available dicyclomi ne 10 mg capsule 01/31 completed Not Available Not Available Not Available naproxen 500 mg tablet 03/17 completed Not Available Not Available Not Available tobramyci n 0.3 %-dexamet hasone 0.1 % eye drops,esequiel pension 03/07 completed Not Available Not Available [...] Available Not Available Not Available dexametha sone sodium phosphate (PF) 4 mg/mL injection solution Take 1 mL by injectio n route. 2024 active Not Available Not Available Not Avai lable Vitals Date Recorded Body weight Body mass index (BMI) Body height Provider Name and Address Organization Details Last Updated DateTime 07/29/2023 89692.77 g 29.8 kg/m2 180.34 cm Polly Olivia [place] - [facility] 07/29/2023 11:04:34 Date Recorded Body height Body mass index (BMI) Body weight Pain severity - 0-10 verbal numeric rating [Score] - Reported Systolic And Diastolic Provider Name and Address Organization Details Last Updated DateTime 08/19/2024 173.99 cm 33.4 kg/m2 580803.1 g 0 136/90 mm[Hg] Yanci Estrada [place] - [facility] 09:08:45 Date Recorded Body height Body mass index (BMI) Body weight Pain severity - 0-10 verbal numeric rating [Score] - Reported Systolic And Diastolic Provider Name and Address Organization Details Last Updated DateTime 09/03/2024 173.99 cm 33.8 kg/m2 205555.1 6 g 0 126/80 mm[Hg] Yanci Estrada [place] - [facility] 11:33:17 Date Recorded Body height Provider Name an d Address Organization Details Last Updated DateTime 2023 180.34 cm Charito Paz [place] - [facility] 1 02/24/2023 10:03:39 Date Recorded Body height Body mass index (BMI) Body weight Heart rate Oxygen saturation Body temperature Respiratory rate Pain severity - 0-10 verbal numeric rating [Score] - Reported Systolic And Diastolic Provider Name and Address Organization Details Last Updated DateTime 4 180.34 cm 30.4 kg/m2 56265.1 4 g 100 /min 97 % 98.2 [degF] 18 /min 0 128/78 mm[Hg] Charito Paz [place] - [facility] 4 16:27:17 Date Recorded Body height Body mass index (BMI) Body weight Body temperature Heart rate Oxygen saturation Respiratory rate Pain severity - 0-10 verbal numeric rating [Score] - Reported Systolic And Diastolic Provider Name and Address Organization Details Last Updated DateTime 5 173.99 cm 33.3 kg/m2 705399. 51 g 98 [degF] 92 /min 95 % 18 /min 0 140/82 mm[Hg] Charito Paz [place] - [facility] 5 14:41:51 Social History Question Answer Notes LastModified by Organizat ion Details LastModified Time Tobacco Smoking Status Former Smoker 2018 Rita Morocho MD [facility] [address], [place], [address] [place] - [facility] 04/07/2019 09:26:45 Do You Have An Advance Directive? No Information not available 03/07/2016 Are You Blind Or Do You Have Difficulty Seeing? No Information not available 03/07/2016 Is Blood Transfusion Acceptable In An Emergency? Yes Information not available 03/07/2016 What Is Your Level Of Caffeine Consumption? Moderate Information not available 03/07/2016 How Much Tobacco Do You Chew? None Information not available 03/17/2017 Are You Deaf Or Do You Have Serious Difficulty Hearing? Yes Information not available 08/17/2024 What Type Of Diet Are You Following? REGULAR [email or web address] Information not available 03/17/2017 Which Illicit Or Recreational Drugs Have You Used? Denies [email or web address] Information not available 03/17/2017 What Is The Highest Grade Or Level Of School You Have Completed Or The Highest Degree You Have Received? [id number] Information not available 08/17/2024 Have There Been Any Changes To Your Family Or Social Situation? No Information no t available 08/17/2024 When Did You Quit Smoking? 1-5yearssince lastcigarette [...] not available 07/28/2023 General Stress Level Medium [email or web address] Information not available 03/17/2017 Do You Use [...] 08/17/2024 Are you able to care for yourself independently? Yes Information not available 08/17/2024 Do you have difficulty dressing, bathing, grooming, or toileting? No Information not available 03/07/2016 Do you [...] not available 03/07/2016 Are you able to walk independently without assistance or assistive devices? [email or web address] Information not available 08/17/2024 Do you have difficulty doing errands alone? No Information not available 03/07/2016 What is your occupation? Retired Information not available 07/29/2023 Mental Status Question Answer Note LastModified by Organizat ion Details LastModified Time Do you feel stressed (tense, restless, nervous, or anxious, or unable to sleep at night)? [id number] Information not available 08/17/2024 Do you have [...] N Tobacco Abuse N Anxiety Disorder Y Muscle, Joint, or Bone Problems Y Hemorrhoids N Obesity N Vision or Eye Problems N Restless Leg Syndrome N Arthritis Y Polyps N Infertility N Carpal Tunnel N [...] Problems N Fracture N Colorectal Cancer N Schizophrenia N Panic Disorder N Concussion N Spina Bifida N Allergies/Hayfever Y Osteoarthritis N Parkinson's Disease N Disc Protrusion N STI N Esophagitis N Angina N Thyroid Problems N GI Problems N ADD/ADHD N Anemia N Multiple Sclerosis N Abnormal PAP N Lumbago N Mental Illness N Psychiatric Illness N Ovarian Cancer N Diabetes N Degenerative Disc Disease N Seizures/Epilepsy N Syncope N Hyperlipidemia N Insomnia N Eczema N Abuse/Domestic Violence N Attention Deficient Disorder N Dementia N Ulcerative colitis N Cerebrovascular Disease N Depression N Guillain-Bellevue N Sleep Apnea N Aneurysm N Bronchitis N Heart Disease N Suicidal Ideation N Pre-Eclampsia N Hypertension N Osteoporosis N Gynecological History Statement/Question Response [...] and Address Organization Details Recorded Time Influenza, recombinant, quadrivalent, PF 5 completed Not Available [facility] 01/31/2025 14:21:25 Influenza, split virus, quadrivalent, preservative 6 completed Torito Grider RN [address], [place], [address] [place] - [facility] 03/07/2016 09:52:57 Influenza, split virus, quadrivalent, preservative 8 completed Polly Steens null, [place] - [facility] 03/26/2018 09:10:39 Influenza, [...] 11:07:10 Pneumococcal conjugate PCV 13 3 completed PollySHIRLEY Cerna - [facility] 04/24/2021 10:41:33 Influenza, split virus, quadrivalent, preservative 1 completed SHIRLEY Shen - [facility] 04/26/2021 08:40:38 Tdap 7 completed Not Available [facility] 02/27/2019 03:54:23 influenza, unspecified formulation 7 completed SHIRLEY Shen - [facility] 07/29/2023 11:07:10 Past Encounters Encounter ID Performer Location Encounter Start Date Encounter Closed Date Diagnosis/Indication Diagnosis SNOMED-CT Code Diagnosis ICD10 Code Diagnosis IMO Codes Diagnosis Note [id number] [facility] [address] [place] [address] 12/31/2010 00:00:00 [id number] [facility] [address] [place] [address] 01/06/2012 00:00:00 [id number] [facility] [address] [place] [address] 12/31/2010 00:00:00 [id number] [facility] [address] [place] [address] 01/06/2013 00:00:00 [id number] [facility] [address] [place] [address] 01/10/2014 00:00:00 [id number] [facility] [address] [place] [address] 03/06/2015 00:00:00 [id number] [facility] [address] [place] [address] 11/25/2005 00:00:00 [id number] [facility] [address] [place] [address] 12/16/2006 00:00:00 [id number] [facility] [address] [place] [address] 12/15/2007 00:00:00 [id number] [facility] [address] [place] [address] 12/19/2008 00:00:00 [id number] [facility] [address] [place] [address] 12/21/2009 00:00:00 [id number] MD Lacy Amezcua [employer] [address] [place] [address] [place]o [address] 03/07/2016 09:05:26 03/07/2016 11:36:07 Gynecologic examination 53017402 Z01.419 Depression screening 171 148612 Z13.89 Hypertensi on screening 331619389 Z13.6 Patient currently is within goal of less than 140/90. We will rescreen at annual visit, sooner if needed Exercises education, guidance, and counseling 429949623 Z71.89 Advise 30 minutes 3 times a week at a minimum of purposeful exercise. Patient is currently meeting this goal. Body mass index 25-29 - overweight 585137695 Z68.25 Screening for malignant neoplasm of breast 331845596 Z12.31 Patient aware of due date for next Mammogram as indicated below. She will be notified by facility of result after completion . Advise yearly Clinical Breast exam with Annual exam. Surveillan ce of oral contraception 397078475 Z30.41 Immunization due 2356924 08 Z28.3 Perimenopa usal disorder 124108174 N95.9 [id number] JOSUE Singh [employer] [address] [place] [address] [place]o [address] 03/17/2017 09:39:27 03/17/2017 10:43:16 Routine gynecologic examination done 7745829399 9101 Z01.419 Depression screening 171 781668 Z13.89 PHQ-9 completed today. Diet education 53834944 Z71.3 Counseling 750397903 Z71 .9 Exercise counsellin g. Patient encouraged to exercise 30 minutes 5 days a week. Examinatio n of blood pressure 940343245 Z01.30 Body mass index 20-24 - normal 510559580 Z68.24 Screening mammography 24 763409 Z12.31 Screening for malignant neoplasm of colon 449935562 Z12.11 Due for screening Colonoscop y 2017 Screening for malignant neoplasm of ovary 225865945 Z12.73 Surveillan ce of oral contraception 353854349 Z30.41 [id number] MD Lacy Amezcua [employer] [address] [place] [address] [place]o [address] 06/23/2017 15:12:43 06/23/2017 16:32:13 Break-through bleeding 43758813 N92.1 Z12.4 continue ocp- reassuranc e; rto for baseline US Burning se nsation of vagina 035559845 R20.8 History of endometriosis 2675074046 6159605 Z87.42 [id number] MD Lacy Amezcua [employer] [address] [place] [address] [place]o [address] 07/10/2017 08:19:07 07/10/2017 11:53:47 Break-through bleeding 62123675 N92.1 Z12.4 continue ocp- reassuranc e; rto for baseline US History of endometriosis 6823648457 4912830 Z87.42 Intramural leiomyoma of uterus 51576949 D25.1 Suspected for ultrasound and otherwise small uterus, largest 14 mm; expectant management depending on clinical status of her bleeding Surveillan ce of oral contraception 481496165 Z30.41 Continue current dosing of Ortho-Novu m at least through third birthday in December, has enough until March 2018 annual [id number] MD Lacy Amezcua [employer] [address] [place] [address] [place] Gallo [address] 03/26/2018 08:51:48 03/26/2018 12:41:35 Gynecologic examination 89200413 Z01.419 Depression screening 171 369123 Z13.89 Hypertensi on screening 581142644 Z13.6 Patient currently is within goal of less than 140/90. Exercises education, guidance, and counseling 493507365 Z71.82 Advise 30 minutes 3 times a week at a minimum of purposeful exercise. Patient is not currently meeting this goal. Nocturia 958435035 R35.1 will call with ua/culture results - Plan rx for antibotic if pos, if negative rx oxybuytin 5mg (short active) at night. Screening for malignant neoplasm of cervix 866749670 Z12.4 Menopause 745636148 Z78. 0 DC OCP - Call if developmen t bothersome hotflashes for appt to discuss HRT Hyperlipidemia 58535438 E78.5 follow up with PCP - Dr welch Uterine leiomyoma 742713 05 D25.9 Follow-up ultrasound completed after visit [...] records Screening for malignant neoplasm of breast 167361905 Z12.31 Patient aware of due date for next Mammogram as indicated below-was due today getting reschedule d soon. She will be notified by facility of result after completion . Advise yearly Clinical Breast exam with Annual exam. History of endometriosis 5625730086 8556045 Z87.42 Per previous laparoscop y has been having some mild left-sided pain/dysme norrhea. Still much better than previous dysmenorrh ea. Anticipate spontaneou s improvemen t in any pain that might be associated with this as she is entering menopause. [id number] MD Lacy Amezcua [employer] [address] [place] [address] 05/25/2018 09:26:52 05/25/2018 10:33:56 Surveillance of oral contraception 047567310 Z30.41 Has resumed spontaneou s cycle of [...] months coming into next March annual. Nocturia 477325862 R35.1 Doing well with nightly low-dose oxybutynin . Continue this, has 6-month supply. Advise surveillan ce of meds several months after completes a 6-month supply to see if symptom relief continues. If it returns, can restart dose prior to next year's annual [id number] MD Lacy Amezcua [employer] [address] [facility] [place] [address] 03/09/2019 13:30:14 03/09/2019 15:16:29 Pain of breast 56366864 N64.4 Left breast pain, patient states feels lump Upper outer quadrant, not felt today by examorder Diagnostic bilateral, US leftReassu cheryl, vitamin E and analgesics Menopausal syndrome 1237 00709 N95.9 2 months status post discontinu ation of OCPs at age 53 ;c/o of hot flashes. 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 Risk and [...] scheduled annual exam March MD Lacy Amezcua [employer] [address] [place] [address] [place]o [address] 04/07/2019 08:26:36 04/07/2019 09:53:52 Gynecologic examination 13356894 Z01.419 Cervical cancer screening not due this year, see HPI Depression screening 171 166937 Z13.89 Hypertensi on screening 922693733 Z13.6 Patient currently is within goal of less than 140/90. We will rescreen at annual visit, sooner if needed Exercises education, guidance, and counseling 132676000 Z71.82 Advise 30 minutes 3 times a week at a minimum of purposeful exercise. Patient is not currently meeting this goal. Menopausal syndrome 1237 15418 N95.9 increase to 1mg estradiol, continue 2.5 provera daily. Reassess response to 6-week visit Left lower quadrant pain 037063488 R10.32 Chronic pain syndrome but worsening since off OCPs, previously suspected endometrio sis, also small myoma. Symptoms worsening since off OCPs ;advised to return for US. Discussed option of hysterecto my for pain Screening for malignant neoplasm of breast 273953202 Z12.31 Patient aware of due date for next Mammogram as indicated below April 02. She will be notified by facility of result after completion . Advise yearly Clinical Breast exam with Annual exam. [id number] MD Lacy Amezcua [employer] [address] [place] [address] [place] [address] 05/21/2019 09:13:04 05/21/2019 10:58:51 Left lower quadrant pain 171810085 R10.32 Chronic left lower quadrant history actually better now on HRT than while on OCPs. No flare since off OCPs. Stable to decreasing small uterine fibroid. Reassured Menopausal syndrome 1237 41958 N95.9 Doing well on increased to 1 mg 2 months ago, continue 1mg estradiol, continue 2.5 provera daily.. Refills through full year given long-term risk and benefits reviewed [id number] Rita Morocho MD [place] [employer] [address] [place] [address] [place] [address] 04/11/2020 08:26:09 04/11/2020 09:36:58 Gynecologic examination 96998074 Z01.419 Cervical cancer screening not due this year, see HPI Depression screening 171 339063 Z13.89 Treated depression doing well Hypertensi on screening 685199473 Z13.6 Patient currently is within goal of less than 140/90. We will rescreen at annual visit, sooner if needed Exercises education, guidance, and counseling 887676733 Z71.82 Advise 30 minutes 3 times a week at a minimum of purposeful exercise. Patient is not currently meeting this goal. Menopausal syndrome 1237 44354 N95.9 Persistent mild vasomotor symptoms despite medium dose HRT. Maintain current dose Left lower quadrant pain 180091593 R10.32 Chronic left lower quadrant pain. Has [...] bx's report not available, will request. [address] of abdomen and pelvis with no acute GI findings. 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 Order put in for 1 year presuming normal studies today She will be notified by facility of result after completion . Advise yearly Clinical Breast exam with Annual exam. [id number] MD Lacy Amezcua [employer] [address] [facility] [place] [address] 05/01/2020 15:27:10 05/01/2020 16:44:04 Left lower quadrant pain 959137349 R10.32 Chronic left lower quadrant pain. Continues [...] 12/30 bx's report mild active colitis. [address] of abdomen and pelvis with no acute GI findings. 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 Maintain current dose Hormone re placement therapy 296730090 Z79.890 Continue 1 mg estradiol/ 2.5 Provera [id number] MD Lacy Amezcua [employer] [address] [place] [address] [place] [address] 04/26/2021 08:32:22 04/26/2021 09:46:39 Gynecologic examination 33859895 Z01.419 Depression screening 171 Z13.89 Treated depression doing well Hypertensi on screening 786753100 Z13.6 Patient currently iswithin goal of less than 140/90. We will rescreen at annual visit, sooner if needed Exercises education, guidance, and counseling 095250153 Z71.82 Advise 30 minutes 3 times a week at a minimum of purposeful exercise. Patient is not currently meeting this goal. Hormone re placement therapy 891798464 Z79.890 Continue estradiol/ 2.5 Provera--d ecrease estrogen dosing to 0.5 this year call if not tolerating . reviewed short and long-term risk and benefits, and advised dosing at lowest dose necessary to treat symptoms were shortest time necessary Screening for malignant neoplasm of cervix 219098700 Z12.4 Body mass index 25-29 - overweight 292680552 Z68.27 Menopausal syndrome 1237 00605 N95.9 Vasomotor symptoms have extinguish ed on several years of 1 mg estradiol/ Provera. Ready to go decrease to 0.5 mg estradiol trial Screening for malignant neoplasm of breast 975901469 Z12.31 Patient aware of due date for next Mammogram as indicated below end of April. Has appointmen t for late April- keep- she will be notified by facility of result after completion . Advise yearly Clinical Breast exam with Annual exam. [id number] MD Lacy Amezcua [employer] [address] [place] [address] [place] [address] 07/04/2022 10:57:05 07/04/2022 11:46:08 Gynecologic examination 40979836 Z01.419 Cervical cancer screening not due this year, see HPI Depression screening 171 Z13.89 Treated depression doing well Hypertensi on screening 217804054 Z13.6 Patient currently iswithin goal of less than 140/90. We will rescreen at annual visit, sooner if needed Exercises education, guidance, and counseling 025474478 Z71.82 Advise 30 minutes 3 times a week at a minimum of purposeful exercise. Patient is not currently meeting this goal. Screening for malignant neoplasm of breast 587450297 Z12.31 Patient aware of due date for next Mammogram as indicated below-rehana smith today after visit.- she will be notified by facility of result after completion . Advise yearly Clinical Breast exam with Annual exam. Menopausal syndrome 1237 15043 N95.9 Plan minimal vasomotor symptoms on current 0.5/2.5 estradiol/ Provera HRT. HRT renewed with advised to wean as tolerated Left lower quadrant pain 555094569 R10.32 Chronic left lower quadrant pain. Has [...] 12/30 bx's report mild active colitis. [address] of abdomen and pelvis with no acute GI findings. 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 RTO for ultrasound next available Hormone re placement therapy 825558623 Z79.890 Plan to attempt wean off of current dosing of 0.5 estradiol/ 2.5 Provera daily. Call if not tolerating . [id number] MD Lacy Amezcua [employer] [address] [facility] [place] [address] 07/18/2022 10:29:26 07/18/2022 11:43:49 Left lower quadrant pain 441980924 R10.32 chronic left lower quadrant pain. Suspect GI is primary source.willem marsh as scheduled with Dr Gray. no obvious gynecologi c contributo r to pain Per imaging or history Blood in urine 74384951 R31.9 ua/culture today. discussed possible need for CT scan if persistent Hematuria Screening for malignant neoplasm of respiratory tract 829449140 Z12.2 Former hea vy tobacco smoker 2299246485 40936 Z87.891 Former tobacco user [id number] MD Lacy Amezcua [employer] [address] [place] [address] [place] [address] 07/29/2023 10:54:52 07/29/2023 12:38:11 Gynecologic examination 37405915 Z01.419 Cervical cancer screening not due this year, see HPI Depression screening 171 186185 Z13.31 Treated depression doing well Hypertensi on screening 226300013 Z13.6 Patient currently iswithin goal of less than 140/90. We will rescreen at annual visit, sooner if needed Exercises education, guidance, and counseling 048291201 Z71.82 Advise 30 minutes 3 times a week at a minimum of purposeful exercise. Patient is not currently meeting this goal. Screening for malignant neoplasm of respiratory tract 633202953 Z12.2 Due January 2024 Former hea vy tobacco smoker 1607005480 79556 Z87.891 Former tobacco user stopped 2019 Hormone re placement therapy 217394727 Z79.890 Started HRT 2018, stopped HRT Estradiol 0.5 and provera 2.5 03/13/23 --minimal vasomotor symptoms. Noticing some vaginal dryness symptoms. Does not want to restart systemic HRT. Will make vaginal HRT Rx available if she desires treatment prior to next year's annual exam Screening for osteoporosis 252260746 Z13.820 Z78.0 Screening for malignant neoplasm of breast 500392846 Z12.31 Patient aware of due date for next Mammogram as indicated below. She will be notified by facility of result after completion . Advise yearly Clinical Breast exam with Annual exam. Menopause 424658000 Z78. 0 Left lower quadrant pain 963739342 R10.32 chronic left lower quadrant pain. Suspect GI is primary source.willem marsh as scheduled with Dr Gray. no obvious gynecologi c contributo r to pain Per imaging or history. Most recent imaging here 6 2 3 with normal adnexa. At this point would encourage her to go to ovarian cancer screening program with as I do not feel further diagnostic ultrasound s will be of benefit unless symptoms change, but she is interested in continuing screening. Informatio n sheet given and reassured she can have this done within our facility [id number] Poonam Flor APRN [address] [address] 2023 09:42:33 2023 10:07:25 Influenza vaccine needed 4413712259 106 Z23 [id number] Poonam Flor APRN [address] [address] 01/27/2024 16:13:11 01/27/2024 16:57:57 COVID-19 596943990 U07.1 no sign of a bacterial infection. [...] improvemen t over the next 48-72 hours [id number] MD Lacy Amezcua [employer] [address] [facility] [place] [address] 08/19/2024 08:57:58 08/19/2024 09:42:53 Gynecologic examination 44996044 Z01.419 Depression screening 171 412455 Z13.31 Treated depression doing well Hypertensi on screening 325479086 Z13.6 Patient currently is notwithin goal of less than 140/90. She needs to see primary care provider to have closer blood pressure follow-up in the short-term Exercises education, guidance, and counseling 774116476 Z71.82 Advise 30 minutes 3 times a week at a minimum of purposeful exercise. Patient is not currently meeting this goal. Obese class I [id number] 14658 E66.811 Z68.33 [id number] Cancer cer vix screening status 855239588 Z12.4 827874 Menopausal symptom 77743 002 N95.1 243220 Mild vasomotor symptoms. Previous HRT use had helped please. Symptoms are actually recurred somewhat in the last 6 months. Offered option of restarting low-dose HRT and she declines Ex-cigarette smoker 2810 39108 Z87.891 [id number] Former tobacco user stopped 2018 continue LDCT screening due just Osteopenia 892737387 M85 .89 [id number] Per baseline study . Low threshold for antiresorp tive treatment. Advise calcium and vitamin D. Recheck 07/2026 Left lower quadrant pain 293246027 R10.32 G89.29 152395 chronic left lower quadrant pain. Suspect GI is primary source, with prior colonoscop ies showing colitis. She used mesalamine many years but has been off at least 2 years and symptoms have worsened.. continue as scheduled with Dr Gray. August. No obvious gynecologi c contributo r to pain Per imaging or history. Most recent imaging here 6 2 3 with normal adnexa. She feels symptoms are worsening and she would like another ultrasound here as well as keeping GI follow-up. Schedule this next available date. History of [place] [id number] Z87.19 [id number] Screening for malignant neoplasm of respiratory tract [id number] Z12.2 Due feb 2025 Former hea vy tobacco smoker [id number] Z87.891 Former tobacco user [id number] MD Lacy Amezcua [employer]POS[employer] [address] [place] [address] [place] [address] 09/03/2024 10:49:37 09/03/2024 12:54:45 Left lower quadrant pain [id number] G89.29 R10.32 [id number] 7 10 25: Chronic left lower quadrant pain. Suspect GI is primary source, with prior colonoscop ies showing colitis. She used mesalamine many years but has been off at least 2 years and symptoms have worsened.. continue as scheduled with Dr Gray. August. No obvious gynecologi c contributo r to pain Per imaging or history. Most recent imaging here 6 2 3 with normal adnexa. She feels symptoms are worsening and she would like another ultrasound here as well as keeping GI follow-up. Schedule this next available date.09 03 25: No changes in symptoms reassuring ultrasound today. No adnexal masses or free fluid.. Keep plan for follow-up with GI [id number] Poonam Flor APRN [address] [address] 01/31/2025 14:19:19 01/31/2025 15:34:10 Bronchitis [id number] J40 25342 Viral uppe r respiratory tract infection [id number] J06.9 [id number] monitor temp. Tylenol or Motrin as needed [...] ID Guarantor Name 08/19/2024 1 [employer]) Dilcia Mai [id number] Dilcia Mai 08/19/2024 1 [place] [id number] Dilcia Mai [id number] Dilcia Mai 01/31/2025 1 [place] [facility] [id number] Dilcia Mai [id number] Dilcia Mai Notes Date Note Type Note Provider Name and Address Organization Details Recorded Time 07/29/2023 text/html Patient is a/an 57 year [...] : In addition to the above reviewed [employer] LE[employer] issues, she does have a history of [...] able to retire with a pension from [employer] after 36 years of work. She has [...] gynecologic related.No urinary symptoms. Rita Morocho MD [facility] [address], [address], [facility] - [facility] 07/29/2023 15:10:52 2023 text/html 57 yr old female presents for a flu vaccine. Charito Paz [facility], [place] - [facility] 2023 11:35:31 01/27/2024 text/html Back PainReporte d by PatientHPIFor location, patient reportspain is not radiating. For severity, patient reportsimproving. For associated symptoms, patient reportsno fever,no weak limbs,no numbness of the legs/feet,no tingling,no incontinence,no shortness of breath,no unintentional weight loss,no chills,no night sweats,no gait instability,no bowel/bladder symptoms, andno recent increase in stress. For prior imaging, patient reportsmriandx-ray. 58 yr old female presents for sore throat, back and leg pain, cough. She states she had one positive covid test at home and one negative. Poonam Flor, [employer] [address], [place], [address], [place] - [facility] 01/27/2024 16:59:37 08/19/2024 text/html [...] : In addition to the above reviewed [employer] issues, she does have a history of [...] symptoms. Rita Morocho MD [address], [place], [address], [place] - [facility] 08/19/2024 19:33:08 09/03/2024 text/html Patient is an established patient who presents for follow up on chronic left lower quadrant pain. 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 Testing was ordered at the last visit. US completed prior to visit today. She describes her current symptoms as unchanged. After discussion today, she is agreeable to a plan of expectant management. The specifics of treatment and timing of followup visit(s) are outlined below. No change in symptoms since her annual exam earlier this month. She had just wanted follow-up ultrasound as this has been a chronic problem for her. 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 During her reproductive here she had had more of a left sided dysmenorrhea pattern. Symptoms have overall been less since she completed menopause.Reassured no obvious [employer]ING etiology of her pain. She has appointment with Dr. Gray in September to address similar symptoms. She has previous diagnosis of indeterminate colitis but had previously been treated with mesalamine that had seemed to help her left lower quadrant pain.. She had her last colonoscopy 1 year ago. I will defer to Dr. Gray regarding further management on this Rita Morocho MD [address], [place], [address], [place] - [facility] 09/04/2024 16:02:35 OBGyn Episode No OBEpisode recorded.
--- OUTSIDE RECORDS SUMMARY | 2025-02-05 11:36 | XMS_ITS | Clinical Summary ---
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
--- OUTSIDE RECORDS SUMMARY | 2025-02-05 11:37 | XMS_ITS | Patient Health Record ---
Author Organization [facility] Address [address] [place] [address] Care Team Providers Care Institutional Commodity Analyst Name Role Phone Nicola Bautista Primary Care Provider Netta Trent Unavailable [phone] Nicola Bautista Unavailable Unavailable Migration, Provider Unavailable [...] Allergy Active Results Component Value Reference Range Flag Notes H-VITB12 Reviewed date:10/19/2024 02:03:40 PM Interpretation: Performing Lab: Notes/Report: VITB12 315 239-931 pg/mL N H-TVITD Reviewed date:10/19/2024 01:24:57 PM Interpretation: Performing Lab: Notes/Report: TVITD 19.6 30-100 ng/mL L Deficient <20 ng/mL Insufficient 20-30 ng/mL Sufficient 30-100 ng/mL Potential Toxicity >100 ng/mL M-Ferritin Reviewed date:10/19/2024 02:03:44 PM Interpretation: Performing Lab: Notes/Report: VINITA 83.6 11.1-264 ng/ml N H-TVITD Reviewed date:07/22/2024 02:21:45 PM Interpretation: Performing Lab: Notes/Report: TVITD 50.5 30-100 ng/mL N Deficient <20 ng/mL Insufficient 20-30 ng/mL Sufficient 30-100 ng/mL Potential Toxicity >100 ng/mL H-VITB12 Reviewed date:04/22/2024 11:21:26 AM Interpretation: Performing Lab: Notes/Report: VITB12 613 239-931 pg/mL N H-TVITD Reviewed date:04/27/2024 03:41:25 PM Interpretation: Performing Lab: Notes/Report: TVITD < 12.8 30-100 ng/mL L Deficient <20 ng/mL Insufficient 20-30 ng/mL Sufficient 30-100 ng/mL Potential Toxicity >100 ng/mL M-Thyroid Stimulating Hormon e Reviewed date:04/22/2024 11:21:31 AM Interpretation: Performing Lab: Notes/Report: TSH 0.87 0.465-4.68 uIU/mL N M-Lipid Panel Reviewed date:04/27/2024 03:41:25 PM Interpretation: Performing Lab: Notes/Report: Patient Fasting? N TRIG 151 30-150 mg/dl H CHOL 283 140-200 mg/dl H DLDL 167.11 100-129 mg/dL H VLDL 30 0-40 mg/dL N HDL 68 40-60 mg/dl H CHLHDL 4.2 1-3.5 H M-Ferritin Reviewed date:04/22/2024 11:21:22 AM Interpretation: Performing Lab: Notes/Report: VINITA 104 11.1-264 ng/ml N M-Hemoglobin A1C Reviewed date:04/22/2024 11:21:37 AM Interpretation: Performing Lab: Notes/Report: HGBA1C 5.3 4.0-6.0 % N < 6% Non-Diabetic Level < 7% Controlled Diabetic Level > 8% Poorly Controlled Diabetic Level M-Comprehensive Metabolic Pa shauna Reviewed date:04/27/2024 03:41:25 PM Interpretation: Performing Lab: Notes/Report: NA 136 136-145 mmol/L N K 4.5 3.5-5.1 mmoL/L N CL 106 98-107 mmol/L N CO2 25 22.0-30.0 mmol/L N GAP 9.5 5-15 mEq/L N BUN 16 7-17 mg/dl N CREATT 0.70 0.52-1.04 mg/dl N GFRAA 104 >60 ML/MIN N EGFR 86 >60 ml/min N GLU 94 74-100 mg/dl N CA 9.4 8.4-10.2 mg/dl N BILIT 0.5 0.2-1.3 mg/dl N AST 32 14-36 U/L N ALT 28 12-78 U/L N TP 6.8 6.3-8.2 g/dl N ALB 4.5 3.5-5.0 g/dl N GLOB 2.3 1.3-3.2 g/dL N AGRATIO 2.0 1.1-1.8 H ALP 80 38-126 U/L N M-Complete Blood Count Auto Diff Reviewed date:04/22/2024 11:21:41 AM Interpretation: Performing Lab: Notes/Report: WBC 7.6 4.8-10.8 K/mm3 N RBC 4.85 4.20-5.40 M/mm3 N HGB 14.7 12.2-16.2 g/dL N HCT 44.1 37.0-47.0 % N MCV 90.9 81-99 fl N MCH 30.3 27.0-31.2 pg N MCHC 33.3 31.8-35.4 g/dL N RDW 12.9 11.5-17.5 % N PLT 263 142-424 K/mm3 N MPV 10.4 7.4-10.4 fl N NE% 57.9 37.0-80.0 % N LY% 32.9 10-50 % N MO% 6.1 1.7-9.3 % N EO% 1.6 0.1-12.0 % N BA% 1.2 0.1-2.0 % N NE# 4.4 1.8-7.8 K/mm3 N LY# 2.5 0.7-4.5 K/mm3 N MO# 0.5 0.1-1.0 K/mm3 N EO# 0.1 0.0-0.4 K/mm3 N BA# 0.1 0-0.2 K/mm3 N M-Thyroid Stimulating Hormon e Reviewed date:10/19/2024 07:53:30 PM Interpretation: Performing Lab: Notes/Report: TSH 1.04 0.465-4.68 uIU/mL N M-Lipid Panel Reviewed date:10/19/2024 07:53:47 PM Interpretation: Performing Lab: Notes/Report: Patient Fasting? Y TRIG 126 30-150 mg/dl N CHOL 215 140-200 mg/dl H DLDL 112.10 100-129 mg/dL N VLDL 25 0-40 mg/dL N HDL 67 40-60 mg/dl H CHLHDL 3.2 1-3.5 N M-Hemoglobin A1C Reviewed date:10/19/2024 01:25:26 PM Interpretation: Performing Lab: Notes/Report: HGBA1C 5.6 4.0-6.0 % N < 6% Non-Diabetic Level < 7% Controlled Diabetic Level > 8% Poorly Controlled Diabetic Level M-Comprehensive Metabolic Pa shauna Reviewed date:10/19/2024 07:53:38 PM Interpretation: Performing Lab: Notes/Report: NA 139 136-145 mmol/L N K 4.5 3.5-5.1 mmoL/L N CL 106 98-107 mmol/L N CO2 25 22.0-30.0 mmol/L N GAP 12.5 5-15 mEq/L N BUN 12 7-17 mg/dl N CREATT 0.60 0.52-1.04 mg/dl N GFRAA 124 >60 ML/MIN N EGFR 102 >60 ml/min N GLU 86 74-100 mg/dl N CA 9.8 8.4-10.2 mg/dl N BILIT 0.7 0.2-1.3 mg/dl N AST 31 14-36 U/L N ALT 18 12-78 U/L N TP 6.8 6.3-8.2 g/dl N ALB 4.4 3.5-5.0 g/dl N GLOB 2.4 1.3-3.2 g/dL N AGRATIO 1.8 1.1-1.8 N ALP 91 38-126 U/L N M-Complete Blood Count Auto Diff Reviewed date:10/19/2024 01:25:26 PM Interpretation: Performing Lab: Notes/Report: WBC 6.6 4.8-10.8 K/mm3 N RBC 5.03 4.20-5.40 M/mm3 N HGB 15.3 12.2-16.2 g/dL N HCT 45.0 37.0-47.0 % N MCV 89.5 81-99 fl N MCH 30.4 27.0-31.2 pg N MCHC 34.0 31.8-35.4 g/dL N RDW 12.6 11.5-17.5 % N PLT 263 142-424 K/mm3 N MPV 10.8 7.4-10.4 fl H NE% 59.7 37.0-80.0 % N LY% 29.1 10-50 % N MO% 7.6 1.7-9.3 % N EO% 2.4 0.1-12.0 % N BA% 0.9 0.1-2.0 % N NE# 3.9 1.8-7.8 K/mm3 N LY# 1.9 0.7-4.5 K/mm3 N MO# 0.5 0.1-1.0 K/mm3 N EO# 0.2 0.0-0.4 Kmm3 N BA# 0.1 0-0.2 K/mm3 N RDW-SD 41.1 N NRBC% 0 N IG% 0.3 N NRBC# 0 N IG# 0.02 N M-Lipid Panel Reviewed date:07/26/2024 02:21:28 PM Interpretation: Performing Lab: Notes/Report: Patient Fasting? Y TRIG 101 30-150 mg/dl N CHOL 238 140-200 mg/dl H DLDL 126.88 100-129 mg/dL N VLDL 20 0-40 mg/dL N HDL 61 40-60 mg/dl H CHLHDL 3.9 1-3.5 H M-Comprehensive Metabolic Pa shauna Reviewed date:07/26/2024 02:21:28 PM Interpretation: Performing Lab: Notes/Report: NA 139 136-145 mmol/L N K 4.3 3.5-5.1 mmoL/L N CL 108 98-107 mmol/L H CO2 27 22.0-30.0 mmol/L N GAP 8.3 5-15 mEq/L N BUN 14 7-17 mg/dl N CREATT 0.80 0.52-1.04 mg/dl N GFRAA 89 >60 ML/MIN N EGFR 73 >60 ml/min N GLU 135 74-100 mg/dl H CA 9.3 8.4-10.2 mg/dl N BILIT 0.4 0.2-1.3 mg/dl N AST 26 14-36 U/L N ALT 16 12-78 U/L N TP 6.6 6.3-8.2 g/dl N ALB 4.3 3.5-5.0 g/dl N GLOB 2.3 1.3-3.2 g/dL N AGRATIO 1.9 1.1-1.8 H ALP 95 38-126 U/L N TISSUE PATHOLOGY (3542) Reviewed date:05/12/2024 12:30:30 PM Interpretation: Performing Lab:[place] Petra Oviedo Notes/Report: NON-FASTING CLINICAL INFORMATION None given PATHOLOGIST Justin Landry M.D., Board Certified in Anatomic Pathology and Clinical Pathology (electronic signature) A SOURCE Skin, right ji nd, shave biopsy A GROSS DESCRIPTION Specimen is [...] given on container. Gross exam(s) performed at: [facility] [address] [address] Toll Line Mechanic: PETRA OVIEDO MD A DIAGNOSIS Verrucoid ker atosis with actinic change. A COMMENT The base of the lesion is not fully observed. Please correlate and follow clinically. X ray : Chest Reviewed date:04/08/2024 03:10:40 PM Interpretation: Performing Lab: Notes/Report: Medications Medication SIG (Take, Route, Frequency, Duration) Notes Start Date End Date Status Albuterol Sulfate 108 (90 Base) MCG/ACT Aerosol Powder Breath Activated 1 puff as needed Inhalation every 4 hrs Active ALBUTEROL (EQV-PROVENTIL HFA) 90 MCG/INH AEROSOL 2 INH INHALED EVERY 6 HOURS NEEDED FOR SHORTNESS OF BREATH; Duration: 30 DAYS *Please review for potential replacement for e-prescription and drug interaction check* 04/07/2024 Active Montelukast Sodium 10 MG Tablet 1 tab(s) orally once a day; Duration: 30 days 09/17/2022 Active Amitriptyline HCl 25 MG Tablet 1 tab(s) orally once a day (at bedtime); Duration: 90 days 07/03/2023 Active Trelegy Ellipta 100 MCG-62.5 MCG-25 MCG/INH POWDER 1 PUFF(S) INHALED ONCE A DAY; Duration: 30 DAYS *Please review and pick correct strength-formulat ion from [employer] options. If intended option is not shown, discontinue and re-order from Quick Search* 09/17/2022 Active Azelastine HCl 137 MCG/SPRAY Solution 2 spray(s) intranasally 2 times a day 09/17/2022 Active Mometasone Furoate 50 MCG/ACT Suspension 2 spray(s) intranasally 2 times a day; Duration: 30 days 10/10/2022 Active Diclofenac Sodium 1 % Gel 2 gram applied topically 4 times a day; Duration: 30 days 03/18/2022 Active Zithromax Z-Hamlet 250 MG Tablet as directed Orally once a day as directed; Duration: 5 days 02/05/2025 Active Levocetirizine Dihydrochloride 5 MG Tablet 1 tab(s) orally once a day (in the evening); Duration: 30 day(s) prn 12/10/2017 Active Aspirin Low Dose 81 MG Tablet Delayed Release 1 tab(s) orally once a day; Duration: 90 days Active Budesonide 3 MG DELAYED RELEASE CAPSULE 1 CAP(S) ORALLY ONCE A DAY *Please review and pick correct strength-formulat ion from [employer] options. If intended option is not shown, discontinue and re-order from Quick Search* Active Vitamin D (Ergocalciferol) 1.25 MG (11587 UT) Capsule 1 cap(s) orally once a week 04/27/2024 Active Lexapro 10 MG Tablet 1 tablet Orally Once a day Active Pravastatin Sodium 40 MG Tablet 1 tablet Orally Once a day; Duration: 90 days 07/26/2024 Active Pantoprazole Sodium 40 MG Tablet Delayed Release 1 tab(s) orally once a day; Duration: 90 days 04/21/2024 Active Immunizations Vaccine Route Administration Date Status Comme nts Flublok IM Intramuscular 12/01/2024 Administered Tetanus Toxoid Unknown 11/28/2008 Administered Social History Social History Additional Details Category Social Info Options Details Social History 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 Travel outside [place]: no Alcohol: no Sexually active: yes Recreational drug use: no Exercise: yes Home smoke detector use: yes Caffeine: yes frequency:diet m t dew-7-8 daily Living Will No Problems Problem Type SNOMED Code ICD Code Onset Dates Problem Status W/U Status Risk Notes Problem Hyperlipidemia (50370621) Hyperlipidemia, unspecified (E78.5) Active confirmed Problem Essential hypertension (66152453) Essential (primary) hypertension (I10) Active confirmed Problem Chronic rhinitis (47209941) Chronic rhinitis (J31.0) Active confirmed Problem Sebaceous cyst (280183790) Sebaceous cyst (L72.3) Active confirmed Problem Acute exacerbation o f chronic obstructive airways disease (651492440) COPD with exacerbation (J44.1) Active confirmed Problem Cervical disc disorder (196169713) DDD (degenerative disc disease), cervical (M50.30) Active confirmed Problem Mixed anxiety and depressive disorder (444503712) Depression with anxiety (F41.8) Active confirmed Problem Vitamin D deficiency (30026104) Vitamin D deficiency (E55.9) Active confirmed Problem Vitamin B12 deficiency (non anemic) (98713055) B12 deficiency (E53.8) Active confirmed Problem Idiopathic periphera l neuropathy (21672395) Idiopathic peripheral neuropathy (G60.9) Active confirmed Problem Restless legs (93456570) RLS (restless legs syndrome) (G25.81) Active confirmed Problem Allergic rhinitis (29175444) Chronic allergic rhinitis (J30.9) Active confirmed Problem Chronic pain (87551999) Other chronic pain (G89.29) Active confirmed Problem Thyroid nodule (451404875) Thyroid nodule (E04.1) Active confirmed Problem Neck pain (83704100) Neck pain (M54.2) Active c onfirmed Problem Gastroesophageal reflux disease (961631762) Gastroesophageal reflux disease, esophagitis presence not specified (K21.9) Active confirmed Problem Asthma-chronic obstructive pulmonary disease overlap syndrome (disorder) (75358045685586735) Asthma-COPD overlap syndrome (J44.9) Active confirmed Problem Osteoarthritis of knee (242803738) Primary osteoarthritis of right knee (M17.11) Active confirmed Problem Chronic insomnia (618064739) Chronic insomnia (F51.04) Active confirmed Problem Inflammation of righ t sacroiliac joint (3806176636) Inflammation of right sacroiliac joint (M46.1) Active confirmed Problem Exacerbation of moderate persistent asthma (disorder) (778866949) Moderate persistent asthma with acute exacerbation (J45.41) Active confirmed Problem Hyperlipidemia (18567235) Other and unspecified hyperlipidemia (E78.5) Active confirmed Problem Verruca plantaris (65643474) Plantar wart, right foot (B07.0) Active confirmed Problem Generalized anxiety disorder (07855300) SEAN (generalized anxiety disorder) (F41.1) Active confirmed Problem Plantar fascial fibromatosis (64372981) Plantar fasciitis, right (M72.2) Active confirmed Problem Obese class II (548801259412880) BMI 35.0-35.9,adult (Z68.35) Active confirmed Problem Degenerative disc disease (71339584) DDD (degenerative disc disease), lumbar (M51.36) Active confirmed Problem Chronic sinusitis (52879175) Chronic sinus infection (J32.9) Active confirmed Problem Obstructive sleep apnea syndrome (61503551) WILD on CPAP (G47.33) Active confirmed Problem Paresthesia of lower extremity (620874914) Paresthesia of lower extremity (R20.2) Active confirmed Problem Pure hypercholesterolemia (619750860) Pure hypercholesterolemia (E78.00) Active confirmed Problem Elevated blood-pressure reading without diagnosis of hypertension (344427069) Elevated blood pressure reading (R03.0) Active confirmed Problem Ex-tobacco user (finding) (721672846) Personal history of tobacco use (Z87.891) Active confirmed Problem Thyromegaly (2679803) Thyromegaly (E01.0) Active confirmed Problem Tinnitus (06022981) Tinnitus, ri ght (H93.11) Active confirmed Problem Voice hoarseness (23774201) Voice hoarseness (R49.0) Active confirmed Problem Ulcerative colitis (43982495) Other ulcerative colitis without complication (K51.80) Active confirmed Problem Short-term memory loss (877382831) Short-term memory loss (R41.3) Active confirmed Problem Osteoarthritis of right knee joint (disorder) (630539067941100) Localized osteoarthritis of right knee (M17.11) Active confirmed Problem Gastroesophageal reflux disease (441629202) Gastroesophageal reflux disease, unspecified whether esophagitis present (K21.9) Active confirmed Problem Obese class II (finding) (442737866412338) Obesity, Class II, BMI 35-39.9 (E66.812) Active confirmed Vital Signs Heart Rate 90 /min 02/05/2025 Temperature 98.0 degrees Fahrenheit 02/05/2025 Oximetry 94 02/05/2025 Blood pressure diastolic 90 mm Hg 02/05/2025 Height 5 ft 7 in in 02/05/2025 Blood pressure systolic 142 mm Hg 02/05/2025 Weight 222 lbs 02/05/2025 BMI 34.77 kg/m2 02/05/2025 Encounters Encounter Location Date Provider Diagnosis [facility] [address] [facility] [address] [place] [address] 05/15/2024 Provider Migration Gastroesophageal reflux disease, unspecified whether esophagitis present K21.9 ; Pure hypercholesterolemia E78.00 and Vitamin D deficiency E55.9 [facility] [address] [facility] [address] [place] [address] 02/05/2025 Netta Trent Lower respiratory tr act infection J22 ; Wheezing R06.2 and Thyroid nodule E04.[address] [facility] [address] [address] 04/07/2024 Netta Trent Moderate persistent asthma with acute exacerbation J45.41 ; Laryngitis J04.0 and SOB (shortness of breath) R06.[address] [facility] [address] [address] 04/21/2024 Netta Trent Hoarseness R49.0 ; Gastroesophageal reflux disease, unspecified whether esophagitis present K21.9 ; Persistent cough R05.3 and Skin nodule R22.[address] [facility] [address] [address] 05/05/2024 Netta Trent Hoarseness R49.0 ; Gastroesophageal reflux disease, unspecified whether esophagitis present K21.9 ; Persistent cough R05.3 ; Skin nodule R22.9 ; Pure hypercholesterolemia E78.00 and Vitamin D deficiency E55.9 [facility] [address] [address] 07/21/2024 Netta Trent Obesity, Class II, B ME 35-39.9 E66.812 ; WILD on CPAP G47.33 ; BMI 35.0-35.9,adult Z68.35 ; Weight loss counseling, encounter for Z71.3 ; Vitamin D deficiency E55.9 ; Thrush B37.0 ; Gastroesophageal reflux disease, esophagitis presence not specified K21.9 and Pure hypercholesterolemia E78.00 [facility] [address] [address] 10/20/2024 Netta Trent Neck pain M54.2 ; Vi vid dream R68.89 ; Pure hypercholesterolemia E78.00 ; Vitamin D deficiency E55.9 ; Obesity, Class II, BMI 35-39.9 E66.812 ; Poor tolerance for activity Z78.9 ; WILD on CPAP G47.33 and Asthma-COPD overlap syndrome J44.9 [facility] [address] [address] 12/01/2024 Netta Trent Impacted cerumen, ri ght ear H61.21 ; Depression with anxiety F41.8 ; Obesity, Class II, BMI 35-39.9 E66.812 ; Poor tolerance for activity Z78.9 ; WILD on CPAP G47.33 ; Asthma-COPD overlap syndrome J44.9 ; Idiopathic peripheral neuropathy G60.9 ; Acute URI J06.9 and Immunization(s) administered Z23 [facility] [address] [address] 03/03/2024 Netta Trent Chronic rhinitis J31 .0 [facility] [address] [place] [address] 04/07/2024 Netta Trent Routine medical exam Z00.00 ; B12 deficiency E53.8 ; Pure hypercholesterolemia E78.00 ; Thyroid nodule E04.1 ; Vitamin D deficiency E55.9 ; RLS (restless legs syndrome) G25.81 and Depression with anxiety F41.8 [facility] [address] [address] 04/27/2024 Nicola Besson [facility] [address] [place] [address] 04/30/2024 Netta Miley [facility] [address] [place], [place] [address] 05/05/2024 Netta Miley [facility] [address] [place] [address] 05/10/2024 Netta Miley [facility] [address] [place] [address] 07/26/2024 Nicola Besson Pure hypercholestero lemia E78.00 [facility] [address] [place] [address] 09/01/2024 Nicola Besson [facility] [address] [place] [address] 10/18/2024 Netta Miley B12 deficiency E53.8 ; Pure hypercholesterolemia E78.00 ; Essential (primary) hypertension I10 ; Thyroid nodule E04.1 and Vitamin D deficiency E55.9 [facility] [address] [facility] [address] [place] [address] 10/20/2024 Netta Miley [facility] [address] [place] [address] 12/01/2024 Netta Miley [facility] [address] [facility] [address] [place] [address] 06/14/2024 Netta Miley Gastroesophageal ref lux disease, unspecified whether esophagitis present K21.9 [facility] [address] [facility] [address] [place] [address] 11/08/2024 Netta Miley Assessments Encounter Date Diagnosis (ICD Code) Assessment Notes Treatment Notes Treatment Clinical Notes Section Notes 03/03/2024 Chronic rhinitis (ICD-10 - J31.0) 04/07/2024 [...] pulmonology pending 07/21/2024 Obesity, Class II, B ME 35-39.9 (ICD-10 - E66.812) 07/26/2024 Pure hypercholesterolemia (ICD-10 - E78.00) 10/18/2024 B12 deficiency (ICD- 10 - E53.8) 10/18/2024 Pure hypercholesterolemia (ICD-10 - E78.00) 10/20/2024 Neck pain (ICD-10 - M54.2) Stretching, heat and ice encouraged, demonstrated. She will let me know if she does not have any improvement or if there is any progression of symptoms. 12/01/2024 Impacted cerumen, ri ght ear (ICD-10 - H61.21) Resolved with irrigation 12/01/2024 Depression with anxi ety (ICD-10 - F41.8) She resumed her Lexapro and is tolerating it well. We discussed changing to a different agent that may not impact her weight, energy but she declines that for now. Return precautions reviewed 10/20/2024 Vivid dream (ICD-10 - R68.89) Likely multifactorial but could be medication side effect. She is taking her amitriptyline in the mornings, encouraged her to change this to nighttime and hopefully this will improve her energy and activity tolerance. May or may not affect her vivid dreams. We will also attempt weaning off of Lexapro in case this is making it more difficult for her to lose weight. Follow-up again in 4 to 6 weeks, sooner with any concerns 02/05/2025 Wheezing (ICD-10 - R06.2) 02/05/2025 Lower respiratory tr act infection (ICD-10 - J22) 02/05/2025 Thyroid nodule (ICD- 10 - E04.1) 12/01/2024 Obesity, Class II, B ME 35-39.9 (ICD-10 - E66.812) Significantly, negatively impacting her quality of life. Also complicated by her asthma and poor activity tolerance. GLP-1 inhibitor would be very beneficial to aid her weight loss. Encouraged her to continue efforts with diet and exercise, she is down 3 pounds 10/20/2024 Pure hypercholesterolemia (ICD-10 - E78.00) Improving, continue statin therapy, low-fat diet and activity with weight loss encouraged 10/18/2024 Essential (primary) hypertension (ICD-10 - I10) 07/21/2024 BMI 35.0-35.9,adult (ICD-10 - Z68.35) Complicates all aspects of care. Reviewed indication for medication and that dietary changes as well as exercise are recommended as well. Small, frequent meals recommended. Possible side effects and return precautions reviewed. Goal is 4% weight loss over the first 4 months. 05/05/2024 Persistent cough (ICD-10 - R05.3) 04/07/2024 Pure hypercholesterolemia (ICD-10 - E78.00) 04/21/2024 Persistent cough (ICD-10 - R05.3) 04/07/2024 SOB (shortness of breath) (ICD-10 - R06.02) 04/07/2024 Thyroid nodule (ICD- 10 - E04.1) 04/21/2024 Skin nodule (ICD-10 - R22.9) shave biopsy during FU 05/05/2024 Skin nodule (ICD-10 - R22.9) Shave biopsy performed today, wound care reviewed, FU based on biopsy results 07/21/2024 Weight loss counseli marcio, encounter for (ICD-10 - Z71.3) 10/20/2024 Vitamin D deficiency (ICD-10 - E55.9) Recommend resume once a week prescription replacement 10/18/2024 Thyroid nodule (ICD- 10 - E04.1) 12/01/2024 Poor tolerance for activity (ICD-10 - Z78.9) Multifactorial, continue weight loss efforts 10/20/2024 Obesity, Class II, B ME 35-39.9 (ICD-10 - E66.812) Significantly, negatively impacting her quality of life. Also complicated by her asthma and poor activity tolerance. GLP-1 inhibitor would be very beneficial to aid her weight loss. 12/01/2024 WILD on CPAP (ICD-10 - G47.33) 10/18/2024 Vitamin D deficiency (ICD-10 - E55.9) 07/21/2024 Vitamin D deficiency (ICD-10 - E55.9) 05/15/2024 Pure hypercholesterolemia (ICD-10 - E78.00) 05/05/2024 Pure hypercholesterolemia (ICD-10 - E78.00) 04/07/2024 Vitamin D deficiency (ICD-10 - E55.9) 04/07/2024 RLS (restless legs syndrome) (ICD-10 - G25.81) 05/05/2024 Vitamin D deficiency (ICD-10 - E55.9) 05/15/2024 Vitamin D deficiency (ICD-10 - E55.9) 07/21/2024 Thrush (ICD-10 - B37.0) 10/20/2024 Poor tolerance for activity (ICD-10 - Z78.9) 12/01/2024 Asthma-COPD overlap syndrome (ICD-10 - J44.9) 07/21/2024 Gastroesophageal ref lux disease, esophagitis presence not specified (ICD-10 - K21.9) Continue PPI and H2 amol until she has follow-up with ENT for reexamination of her larynx 10/20/2024 WILD on CPAP (ICD-10 - G47.33) 12/01/2024 Idiopathic periphera l neuropathy (ICD-10 - G60.9) Continue amitriptyline at night 04/07/2024 Depression with anxi ety (ICD-10 - F41.8) 10/20/2024 Asthma-COPD overlap syndrome (ICD-10 - J44.9) 07/21/2024 Pure hypercholesterolemia (ICD-10 - E78.00) So far she is tolerating pravastatin after failing multiple other statins, repeat labs as noted 12/01/2024 Acute URI (ICD-10 - J06.9) Discussed the etiology and expected course of a viral URI. Discussed supportive care and symptom management with PO fluids, Antipyretics, and antihistamines. Discussed the rational for not prescribing antibiotics for viral infection. Discussed the signs and symptoms of worsening condition and need for reassessment in clinic or ED. 12/01/2024 Immunization(s) administered (ICD-10 - Z23) Plan Of Treatment Pending Test Test Name Order Date X ray : Chest 02/05/2025 X ray : Spines, Cervical 11/07/2022 X ray : Spines, Cervical 08/17/2007 Ultrasound : Thyroid 02/22/2019 EKG : In House 07/01/2007 Echocardiogram 09/08/2014 Cardiolite GXT 05/16/2020 H-VITAMIN B12 02/16/2015 H-LIPID PANEL 11/17/2012 M-Complete Blood Count Auto Diff 025 M-Complete Blood Count Auto Diff 025 M-Comprehensive Metabolic Panel 04/07/19 M-Basic Metabolic Panel 02/05/2025 M-Hemoglobin A1C 04/07/2024 M-Ferritin 04/07/2024 M-Lipid Panel 04/07/2024 M-Free T4 (Free Thyroxine) 02/05/2025 M-Thyroid Stimulating Hormone 02/05/2025 M-Thyroid Stimulating Hormone 04/07/2024 M-Vitamin B12 04/07/2024 M-Vitamin B12 10/05/2020 M-Vitamin B12 04/07/2020 M-Vitamin B12 08/23/2021 M-Vitamin B12 01/27/2020 M-Vitamin B12 10/18/2024 M-Vitamin D 25 Hydroxy 10/18/2024 M-Vitamin D 25 Hydroxy 11/12/2022 M-Vitamin D 25 Hydroxy 07/21/2024 M-Vitamin D 25 Hydroxy 01/27/2020 M-Vitamin D 25 Hydroxy 08/23/2021 M-Vitamin D 25 Hydroxy 04/07/2020 M-Vitamin D 25 Hydroxy 10/05/2020 M-Vitamin D 25 Hydroxy 04/07/2024 M-COVID WITH RESPIRATORY PANEL M-COVID PCR SINGLE RAPID 03/24/2020 EMG/NCV 11/08/2021 Physical Therapy Eval and Treat 11/19/19 Physical Therapy Eval and Treat 03/18/19 Next Appt Details Provider Name:Netta Albright Carlos Eduardo ce, 02/16/2025 09:00:00 AM, [address], [id number], Insurance Providers Payer Name Payer Address Payer Phone Subscriber Number Group Number Insured Name Patient Relationship to Insured Coverage Start Date Coverage End Date [facility] [employer] [address] [place] [address] [id number] Dilcia Mai Self - patient is the [...] deficiency Colonoscopy 12/2019, Dr Kiesha arora in [place]. Colitis, contined Mesalamine. Repeat recommended in 3 years Peripheral neuropathy - diagnosed by [facility], Dr Govea Surgical History Surgery Date(Month/Year) endometriosis x2 colonoscopy 01/2018 heart cath
[2025-02-05 12:09] LABS: Hematocrit 44.4 % (37.0-47.0); Hemoglobin 14.9 g/dL (12.2-16.2); Immature Granulocytes % 0.3 %; Mean Corpuscular HGB Conc 33.6 g/dL (31.8-35.4); Mean Corpuscular Hemoglobin 30.0 pg (27.0-31.2); Mean Corpuscular Volume 89.5 fl (81-99); Nucleated Red Blood Cells % 0 %; Platelet Count 297 K/mm3 (142-424); Red Blood Count 4.96 M/mm3 (4.20-5.40); Red Cell Distribution Width-SD 40.7 fL; White Blood Count 7.1 K/mm3 (4.8-10.8)
[2025-02-05 12:40] LABS: Anion Gap 13.8 mEq/L (5-15); Blood Urea Nitrogen 15 mg/dl (7-17); Calcium 9.8 mg/dl (8.4-10.2); Carbon Dioxide 24 mmol/L (22.0-30.0); Chloride 105 mmol/L (98-107); Creatinine,Serum 0.70 mg/dl (0.52-1.04); Estimated Glomerular Filt Rate 85 ml/min (>60); GFR (African American) 103 ML/MIN (>60); Glucose 97 mg/dl (74-100); Potassium 4.8 mmoL/L (3.5-5.1); Sodium 138 mmol/L (136-145)
[2025-02-05 12:57] LABS: Free T4 (Free Thyroxine) 1.04 ng/dl (0.78-2.19)
[2025-02-05 13:11] LABS: Thyroid Stimulating Hormone 0.97 uIU/mL (0.465-4.68)
== END 2025-02-05 23:59 | disposition home or self-care (01) ==
LOC: LAB 11:34
PROVIDERS: PCP Nurse Practitioner Family; Visit Provider Nurse Practitioner Family
DX: J22 Unspecified acute lower respiratory infection (principal); E04.1 Nontoxic single thyroid nodule
CPT/HCPCS: 36415; 71046; 80048; 84439; 84443; 85025